=== PATIENT | male | born 1940 | race Caucasian/White ===

== ENCOUNTER → 2016-12-10 | Outpatient (CLI) | payer MEDICARE ==
[2015-09-20 22:30] VITALS: BP 105/52
[~2016-12-10] MED LIST: DULO20CA17 PO; GLIM2TAB2 PO; METF-620 PO; OMEP20CA9 PO; SIMV5TAB5 PO
--- NOTE | 2016-12-10 17:31 | CARD ---
APPROVED REPORT EXAM: Two-dimensional and M-mode echocardiogram with Doppler and color Doppler. Other Information Quality : Average Rhythm : NSR INDICATION Syncope 2D DIMENSIONS RVDd2.9 (2.9-3.5cm)Left Atrium(2D)3.6 (1.6-4.0cm) IVSd1.1 (0.7-1.1cm)Aortic Root(2D)3.1 (2.0-3.7cm) LVDd4.7 (3.9-5.9cm)LVOT Diameter2.0 (1.8-2.4cm) PWd1.1 (0.7-1.1cm)LVDs3.0 (2.5-4.0cm) FS (%) 35.8 %SV66.5 ml LVEF(%)65.3 (>50%) Aortic Valve AoV Peak Paul.130.4cm/sAoV VTI24.5cm AO Peak GR.6.8mmHgLVOT Peak Paul.103.6cm/s LVOT VTI 19.18cmAO Mean GR.4mmHg MONICA (VMAX)2.26qf9PNB (VTI)2.40cm2 Mitral Valve MV E Thxvucyr50.2cm/sMV DECEL IYOJ777xw MV A Vercrzco00.0cm/sMV E Mean Gr.2mmHg MV IYF19hgK/A Ratio0.7 MV A Uqkzbpph488aqTUX (PHT)2.77cm2 TDI E/Lateral E'16.1E/Medial E'7.4 Pulmonary Valve PV Peak Qnrornlu745.1cm/sPV Peak Grad.4mmHg RVOT VTI14.6cm Pulmonary Vein S1 Mrstzumh48.7cm/sD2 Tzyyulyn21.3cm/s LEFT VENTRICLE The left ventricle is normal size. There is normal left ventricular wall thickness. Left ventricle sy stolic function is normal. The Ejection Fraction is 60-65%. There is normal LV segmental wall motion. The left ventricular diastolic function and filling is normal for age. There is no ventricular septa l defect visualized. RIGHT VENTRICLE The right ventricle is normal size. The right ventricular systolic function is normal. ATRIA The left atrium size is normal. The right atrium size is normal. The interatrial septum is intact wit h no evidence for an atrial septal defect or patent foramen ovale as noted on 2-D or Doppler imaging. AORTIC VALVE The aortic valve is mildly calcified. The aortic valve is trileaflet. Doppler and Color Flow revealed no significant aortic regurgitation. There is no significant aortic valvular stenosis. MITRAL VALVE Mitral annular calcification is mild. There is no mitral valve stenosis. Doppler and Color Flow revea led trace to mild mitral regurgitation. TRICUSPID VALVE The tricuspid valve is normal in structure and function. Doppler and Color Flow revealed no tricuspid valve regurgitation noted. Unable to estimate PA pressure. There is no tricuspid valve stenosis. PULMONIC VALVE The pulmonic valve is not well visualized. Doppler and Color Flow revealed trace pulmonic valvular re gurgitation. There is no pulmonic valvular stenosis. GREAT VESSELS The aortic root is normal in size. The ascending aorta is normal in size. Normal pulmonary venous ravin w (Doppler). The IVC is normal in size and collapses >50% with inspiration. PERICARDIAL EFFUSION There is no evidence of significant pericardial effusion. Critical Notification Critical Value: No <Conclusion> The left ventricle is normal size. Left ventricle systolic function is normal. The Ejection Fraction is 60-65%. There is no significant aortic valvular stenosis. Doppler and Color Flow revealed no significant aortic regurgitation. Doppler and Color Flow revealed trace to mild mitral regurgitation. Doppler and Color Flow revealed no tricuspid valve regurgitation noted. There is no evidence of significant pericardial effusion.
== END | disposition home or self-care (01) ==
LOC: ECHO 10:19
PROVIDERS: ATTEND Internal Medicine Cardiovascular Disease
DX: I34.0 Nonrheumatic mitral (valve) insufficiency (principal)
CPT/HCPCS: 93306

== ENCOUNTER → 2017-01-23 | Outpatient (CLI) | payer MEDICARE ==
[2015-09-20 22:30] VITALS: BP 105/52
--- NOTE | 2017-01-23 15:38 | RAD ---
APPROVED REPORT Patient Location: OUT-PATIENT Laterality:Bilateral Indications Dizziness and Vertigo Unsteady Gait Syncope FALLS Doppler Spectral Velocity Analysis Right Left pCCA 81/6 cm/spCCA 93/10 cm/s mCCA 64/11 cm/smCCA 97/11 cm/s dCCA 45/6 cm/sdCCA 81/10 cm/s pICA 38/7 cm/spICA 51/11 cm/s Farzana 76/16 cm/smICA 81/18 cm/s dICA 98/26 cm/sdICA 98/15 cm/s ICA/CCA 1.21ICA/CCA 1.05 Findings Barker scale images of the right common carotid artery reveal mild atherosclerotic plaque in a circumfe rential manner. There is moderate atherosclerotic plaque at the level of the carotid bulb. No signifi cant plaque is noted in the internal carotid artery. Color Doppler and spectral waveforms are as note d and do not reveal any evidence of high-grade stenosis. Based on ultrasound criteria there is 0-50% stenosis. Similarly on the left side grayscale images demonstrate mild to moderate irregular atherosclerotic pl aque. Color Doppler and spectral waveforms do not demonstrate any evidence of high-grade disease in t he common cardiac, internal carotid and/or external carotid vessels.. Based on ultrasound criteria th ere is 0-50% stenosis. The bilateral vertebral velocities are antegrade. Bilateral external carotid arteries are without any significant disease. Critical Notification Critical Value: No <Conclusion> 1. No significant high-grade carotid arterial disease with mild atherosclerotic plaque throughout the arterial course.
== END | disposition home or self-care (01) ==
LOC: US 10:45
PROVIDERS: ATTEND Internal Medicine Cardiovascular Disease
DX: R55 Syncope and collapse (principal); R42 Dizziness and giddiness; R26.89 Other abnormalities of gait and mobility; R29.6 Repeated falls
CPT/HCPCS: 93880

== ENCOUNTER → 2017-03-03 | Outpatient (CLI) | payer MEDICARE ==
[2015-09-20 22:30] VITALS: BP 105/52
--- NOTE | 2017-03-04 14:25 | EEG ---
DATE OF SERVICE: 03/03/2017 EEG NUMBER: [id number] OBJECTIVE: The patient is a 76-year-old male with syncope. DESCRIPTION OF PROCEDURE: This is a digital study. Electrodes are placed according to the international 10-20 system. Bipolar and referential montages are available. Activation procedures typically include hyperventilation and intermittent photic stimulation. INTERPRETATION: The waking background consists of 8-9 Hz, 50-100 microvolt activity, symmetrically distributed over parietooccipital regions and reactive to eye opening. Hyperventilation and intermittent photic stimulation are noncontributory. Stage I sleep is achieved with normal electroencephalogram patterns. IMPRESSION: This electroencephalogram with the patient awake and asleep is within normal limits. There is no focal, paroxysmal, or epileptiform activity. Thank you for letting us to help with the patient's care. TERRY BARONE MD DR: AFRICA/jourdan JOB#: [id number] / [id number] OL Raza MD
== END | disposition home or self-care (01) ==
LOC: RT 11:13
PROVIDERS: ATTEND Psychiatry & Neurology Neurology with Special Qualifications in Child Neurology
DX: R55 Syncope and collapse (principal); R06.4 Hyperventilation
CPT/HCPCS: 95816

== ENCOUNTER 2017-04-30 11:42 | Inpatient (IN) | payer MEDICARE ==
[~2017-04-30] VITALS: Ht 170.2 cm; Wt 76.4 kg
[2017-04-30 12:31] LABS: BASO % 0 % (0-3); EOS % 0 % (0-3); HEMATOCRIT 46.8 % (39.0-53.0); HEMOGLOBIN 16.4 g/dL (13.0-17.5); LYMPH # 0.8 x10^3/uL (1.0-4.8); LYMPH % 8 % (24-48); MEAN CORPUSCULAR HEMOGLOBIN 32 pg (25-35); MEAN CORPUSCULAR HGB CONC 35 g/dL (31-37); MEAN CORPUSCULAR VOLUME 91 fL (79-100); MONO % 7 % (0-9); NEUT % 85 % (31-73); PLATELET COUNT 260 x10^3/uL (140-400); RED BLOOD COUNT 5.13 x10^6/uL (4.30-5.70); RED CELL DISTRIBUTION WIDTH 12.9 % (11.5-14.5); WHITE BLOOD COUNT 11.2 x10^3/uL (4.0-11.0)
[2017-04-30 12:39] LABS: CALCIUM 9.4 mg/dL (8.5-10.1); GFR 72.8; POTASSIUM 3.2 mmol/L (3.5-5.1)
--- NOTE | 2017-04-30 12:43 | EKG ---
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
[2017-04-30 12:45] LABS: ALBUMIN/GLOBULIN RATIO 1.1 (1.0-1.7); TOTAL BILIRUBIN 0.9 mg/dL (0.2-1.0); TOTAL PROTEIN 7.6 g/dL (6.4-8.2)
--- NOTE | 2017-04-30 13:22 | ED.ADGEN ---
Past Medical History Past Medical History: Diabetes-Type I Past Surgical History: Other Alcohol Use: None Drug Use: None Adult General Chief Complaint Chief Complaint: WEAKNESS/GENERALIZED HPI HPI Patient is a 76 year old man, history of type 2 diabetes mellitus, overactive bladder, who presents to the emergency department via private vehicle from his primary care provider's office with multiple complaints. Patient states it started on Friday he began experiencing worsening weakness associated with nausea and vomiting, states it was dark brown, denies any yael blood, states he had increasing fatigue, weakness, epigastric abdominal pain radiating to the chest, denies any falls, states that this morning he awoke with a severe headache, and then it noted that he was having difficulty seeing certain portions of his vision, denies any blurred vision, denies any headache currently. States he is also having difficulty swelling of the past several days , states it is more than just pain. Denies any injuries as stated. No weakness numbness or tingling or focal location. Denies any swelling extremities, any rashes, any urinary complaints, states that he's had regular stools, which she been normal in color. States his last episode of emesis was shortly before arriving in the ED. States the pain is cramping and sharp and stabbing in nature. Denies any radiation aside from the abdomen up into the lower part of the chest. No yael chest pain, mild shortness of breath. Review of Systems Review of Systems Constitutional: Denies fever or chills. []Generalized weakness and malaise. Eyes: Denies change in visual acuity. [] HENT: Denies nasal congestion or sore throat. [] Respiratory: Denies cough, shortness of breath, sore throat.. [] Cardiovascular: Epigastric abdominal pain radiating into the lower chest. No edema.] GI: Abdominal pain, nausea and vomiting, difficulty with swallowing. [] : Denies dysuria. [] Musculoskeletal: Denies back pain or joint pain. [] Integument: Denies rash. [] Neurologic: Denies headache, focal weakness or sensory changes. [] Endocrine: Denies polyuria or polydipsia. [] Lymphatic: Denies swollen glands. [] Psychiatric: Denies depression or anxiety. [] Current Medications Current Medications Current Medications Medications (Trade) Dose Ordered Sig/Sonja Start Time Stop Time Status Last Admin Dose Admin Info (Do NOT chart on this entry -- for MONITORING) 1 each PRN DAILY PRN 04/30/17 15:45 05/02/17 15:44 Iohexol (Omnipaque 300 Mg/ml) 75 ml 1X ONCE 04/30/17 15:45 04/30/17 15:46 DC 04/30/17 15:52 75 ML Allergies Allergies Allergies Coded Allergies Type Severity Reaction Last Updated Verified No Known Drug Allergies 09/20/15 No Physical Exam Physical Exam Constitutional: Well developed, well nourished, no acute distress, non-toxic appearance. [] HENT: Normocephalic, atraumatic, bilateral external ears normal, oropharynx moist, no oral exudates, nose normal. Normal appearing oropharynx.[] Eyes: PERRLA, EOMI, conjunctiva normal, no discharge. [] Neck: Normal range of motion, no tenderness, supple, no stridor. [] Cardiovascular:Heart rate regular rhythm, no murmur, S1, S2, no rubs or gallops. []Patient with mild thrush palpation across the anterior portion of the chest sitting down to the xiphoid process. Lungs & Thorax: Bilateral breath sounds clear to auscultation, no wheezing, rhonchi, rales. No chest wall crepitus or tenderness. [] Abdomen: Bowel sounds normal, soft, mild initial patient in the epigastric region, no rebound or rigidity, no guarding, no masses, no pulsatile masses. [] Skin: Warm, dry, slightly pale, no erythema, no rash. [] Back: No tenderness, no CVA tenderness. [] Extremities: No tenderness, no cyanosis, no clubbing, ROM intact, no edema. Negative Homans sign.[] Neurologic: Alert and oriented X 3, normal motor function, normal sensory function, no focal deficits noted. []Patient requires assistance sitting upright , but his 5-5 strength in all extremities, with normal sensation. Normal speech , normal comprehension, patient complaining of left upper quadrant hemianopsia, NIH stroke scale of 2. Psychologic: Affect normal, judgement normal, mood normal. [] Current Patient Data Vital Signs Vital Signs Date Time Temp Pulse Resp B/P (MAP) Pulse Ox O2 Delivery O2 Flow Rate FiO2 04/30/17 15:20 81 97 11/29/17 12:07 97.9 97.9 04/30/17 11:59 18 142/72 (95) Room Air Lab Values Laboratory Tests Test 04/30/17 12:08 04/30/17 13:15 White Blood Count 11.2 x10^3/uL (4.0-11.0) H Red Blood Count 5.13 x10^6/uL (4.30-5.70) Hemoglobin 16.4 g/dL (13.0-17.5) Hematocrit 46.8 % (39.0-53.0) Mean Corpuscular Volume 91 fL (79-100) Mean Corpuscular Hemoglobin 32 pg (25-35) Mean Corpuscular Hemoglobin Concent 35 g/dL (31-37) Red Cell Distribution Width 12.9 % (11.5-14.5) Platelet Count 260 x10^3/uL (140-400) Neutrophils (%) (Auto) 85 % (31-73) H Lymphocytes (%) (Auto) 8 % (24-48) L Monocytes (%) (Auto) 7 % (0-9) Eosinophils (%) (Auto) 0 % (0-3) Basophils (%) (Auto) 0 % (0-3) Neutrophils # (Auto) 9.5 x10^3uL (1.8-7.7) H Lymphocytes # (Auto) 0.8 x10^3/uL (1.0-4.8) L Monocytes # (Auto) 0.8 x10^3/uL (0.0-1.1) Eosinophils # (Auto) 0.0 x10^3/uL (0.0-0.7) Basophils # (Auto) 0.0 x10^3/uL (0.0-0.2) Sodium Level 134 mmol/L (136-145) L Potassium Level 3.2 mmol/L (3.5-5.1) L Chloride Level 95 mmol/L (98-107) L Carbon Dioxide Level 26 mmol/L (21-32) Anion Gap 13 (6-14) Blood Urea Nitrogen 22 mg/dL (8-26) Creatinine 1.0 mg/dL (0.7-1.3) Estimated GFR (Cockcroft-Gault) 72.8 BUN/Creatinine Ratio 22 (6-20) H Glucose Level 218 mg/dL (70-99) H Calcium Level 9.4 mg/dL (8.5-10.1) Total Bilirubin 0.9 mg/dL (0.2-1.0) Aspartate Amino Transferase (AST) 25 U/L (15-37) Alanine Aminotransferase (ALT) 33 U/L (16-63) Alkaline Phosphatase 84 U/L (46-116) Troponin I Quantitative < 0.017 ng/mL (0.000-0.055) Total Protein 7.6 g/dL (6.4-8.2) Albumin 4.0 g/dL (3.4-5.0) Albumin/Globulin Ratio 1.1 (1.0-1.7) Lipase 33 U/L (73-393) L Stool Occult Blood Negative (NEG) Laboratory Tests 04/30/17 12:08 Laboratory Tests 04/30/17 12:08 EKG EKG 1202: Sinus rhythm, heart rate 92 beats/minute, left axis deviation with contour normality is noted in the anterior septal leads, nonspecific interventricular block, Q cc of 495, MT 172, QRS of 160, when compared to previous ECG from 09/20/2015, morphology is are preserved, no significant changes identified. As interpreted by me. Abnormal ECG, does not meet STEMI criteria.[] Radiology/Procedures Radiology/Procedures [] [facility] [address] [place] [address] IMAGING REPORT Signed PATIENT: ANA LOYOLA ACCOUNT: [id number] : 1940 LOCATION: ER AGE: 76 SEX: M EXAM STATUS: REG ER ORD. PHYSICIAN: DOMINIQUE ROBLERO DO REASON: hemianopsia/failed swallow study/CVA, outside of TPA window PROCEDURE: CTA HEAD/NECK - CODE STROKE CTA of the head and neck with contrast, 04/30/2017: History: Headache, difficulty swallowing Multidetector CT imaging was performed following an IV bolus injection of iodinated contrast. Multiplanar reconstructions were produced including coronal and sagittal MIP images. 3-D volume rendered reconstructions were also produced. There is mild calcific plaquing of the aortic arch without significant narrowing of the cervicocephalic arterial origins. The left common carotid artery is widely patent. There is mild calcific plaquing at the left carotid bifurcation with only mild narrowing at the left internal carotid artery origin. The left internal carotid artery is widely patent in the upper neck. There is calcific plaquing involving its cavernous segment without evidence of high-grade stenosis. The left anterior cerebral and middle cerebral arteries and their major branches are patent. No high-grade stenosis or aneurysm is seen. The right common carotid artery is widely patent. There is mild calcific plaquing at the right carotid bifurcation. There is only mild narrowing of the origin of the right internal carotid artery. There is mild calcific plaquing involving the cavernous segment of the distal right internal carotid artery with mild associated luminal narrowing. The right anterior cerebral and middle cerebral arteries and their major branches show no abnormality. The vertebral arteries are relatively small. The origin of the left vertebral artery is not clearly visible due to artifacts in this region. The right vertebral artery origin is unremarkable. Both vertebral arteries are patent throughout the neck up through their junction with the basilar artery. There are prominent posterior communicating arteries bilaterally providing the majority of the blood supply to the posterior cerebral arteries. The posterior cerebral arteries show no specific abnormality. IMPRESSION: 1. Mild calcific plaquing at both carotid bifurcations with only mild associated narrowing of the proximal internal carotid arteries bilaterally. 2. Mild calcific plaquing involving the cavernous segments of both distal internal carotid arteries. 3. Prominent posterior communicating arteries bilaterally providing the majority of the blood supply to the posterior cerebral arteries. This is a normal anatomic variant. 4. No significant intracranial arterial abnormality is detected. Impressions: [facility] [address] [place] [address] IMAGING REPORT Signed PATIENT: ANA LOYOLA ACCOUNT: [id number] : 1940 LOCATION: ER AGE: 76 SEX: M EXAM STATUS: REG ER ORD. PHYSICIAN: DOMINIQUE ROBLERO DO REASON: abd/cp PROCEDURE: ACUTE ABDOMEN SERIES Acute abdomen series with chest, 3 views, 04/30/2017: History: Chest pain, vomiting and choking The abdominal gas pattern is unremarkable. No free air is seen in the abdomen. There is no evidence of organomegaly. There is a mild thoracolumbar scoliosis with moderate multilevel degenerative change. The heart size and pulmonary vascularity are normal. There is calcific plaquing of the thoracic aorta. No pulmonary infiltrates are seen. There is no evidence of pleural fluid. IMPRESSION: No acute abnormality is identified the abdomen or chest. DICTATED and SIGNED BY: ROSA HERNANDEZ MD DATE: 04/30/17 1440 CC: DOMINIQUE ROBLERO DO; AMOL MCCORD MD ~ [facility] [address] [place] [address] IMAGING REPORT Signed PATIENT: ANA LOYOLA ACCOUNT: [id number] : 1940 LOCATION: ER AGE: 76 SEX: M EXAM STATUS: REG ER ORD. PHYSICIAN: DOMINIQUE ROBLERO DO REASON: ? right hemianopsia/WIGGINS PROCEDURE: CT HEAD WO CONTRAST CT of the head without contrast, 04/30/2017: History: Weakness Comparison is made to a study from 09/20/2015. There is mild cerebral atrophy. There are extensive bilateral deep white matter lucencies which were also present on the previous study. The findings are compatible with chronic ischemic change. A new peripheral area of decreased density is present medially in the right occipital lobe in a parasagittal location. There is effacement of the overlying cortical sulci. The appearance suggests nonspecific edema, probably due to a recent/subacute infarct. This process measures approximately 2 x 4.5 cm on the axial scans. The ventricles are unchanged in size. There is no shift of the midline structures. There is no evidence of acute intracranial hemorrhage. IMPRESSION: Normal 1. Extensive bilateral deep white matter lucencies compatible with chronic ischemic change. 2. New peripheral lucency medially in the right occipital lobe most compatible with a subacute infarct. PQRS Compliance Statement: One or more of the following individualized dose reduction techniques were utilized for this examination: 1. Automated exposure control 2. Adjustment of the mA and/or kV according to patient size 3. Use of iterative reconstruction technique DICTATED and SIGNED BY: ROSA HERNANDEZ MD DATE: 04/30/17 1419 CC: DOMINIQUE ROBLERO DO; AMOL MCCORD MD ~ Course & Med Decision Making Course & Med Decision Making Pertinent Labs and Imaging studies reviewed. (See chart for details) Patient with left-sided hemianopsia and failed swallow study noted on examination, also complaining of epigastric pain with emesis, concern for possible GI bleeding, based on his report of a dark emesis and dark stool. Patient is agreeable to receiving imaging of the head, chest abdomen and pelvis , with obstruction series, as abdomen is soft and nontender, is had no further vomiting since [place]. CT of the head was delayed in being read secondary to computer system difficulties, however CT did reveal a subacute lacunar infarct in the right occipital region, consistent with patient's visual findings. Patient's call blood stool was negative. Acute ulcers unremarkable, as was troponin and other laboratory studies. I did discuss the signs and patient, he is agreeable for admission to the hospital. I did discuss the signs with Dr Rahman of neurology, who did evaluate the patient in the ED. Patient's CTA of the head and neck ordered, along with MRI. Findings as above discussed with Dr. Austin of internal medicine, patient accepted to her service as a full admission to the medical telemetry floor, with neurology consultation as stated. Dragon Disclaimer Dragon Disclaimer This electronic medical record was generated, in whole or in part, using a voice recognition dictation system. Departure Impression: Primary Impression: CVA (cerebral vascular accident) Disposition: 09 ADMITTED INPATIENT Admitting Physician: Other Condition: IMPROVED DOMINIQUE ROBLERO DO Apr 30, 2017 13:22
[2017-04-30 13:33] LABS: NEG OBC FOB NEG; POS OBC FOB POS
[2017-04-30] MEDS ORDERED: IOHEXOL 300 MG/ML 100ML VIAL. IV ONE (15:45)
[2017-04-30] MEDS ORDERED: CONTRAST GIVEN MC PRN (15:45)
--- NOTE | 2017-04-30 15:47 | RAD ---
CT of the head without contrast, 04/30/2017: History: Weakness Comparison is made to a study from 09/20/2015. There is mild cerebral atrophy. There are extensive bilateral deep white matter lucencies which were also present on the previous study. The findings are compatible with chronic ischemic change. A new peripheral area of decreased density is present medially in the right occipital lobe in a parasagittal location. There is effacement of the overlying cortical sulci. The appearance suggests nonspecific edema, probably due to a recent/subacute infarct. This process measures approximately 2 x 4.5 cm on the axial scans. The ventricles are unchanged in size. There is no shift of the midline structures. There is no evidence of acute intracranial hemorrhage. IMPRESSION: Normal 1. Extensive bilateral deep white matter lucencies compatible with chronic ischemic change. 2. New peripheral lucency medially in the right occipital lobe most compatible with a subacute infarct. PQRS Compliance Statement: One or more of the following individualized dose reduction techniques were utilized for this examination: 1. Automated exposure control 2. Adjustment of the mA and/or kV according to patient size 3. Use of iterative reconstruction technique
--- NOTE | 2017-04-30 15:48 | RAD ---
Acute abdomen series with chest, 3 views, 04/30/2017: History: Chest pain, vomiting and choking The abdominal gas pattern is unremarkable. No free air is seen in the abdomen. There is no evidence of organomegaly. There is a mild thoracolumbar scoliosis with moderate multilevel degenerative change. The heart size and pulmonary vascularity are normal. There is calcific plaquing of the thoracic aorta. No pulmonary infiltrates are seen. There is no evidence of pleural fluid. IMPRESSION: No acute abnormality is identified the abdomen or chest.
--- NOTE | 2017-04-30 16:33 | PDOC2 ---
NEUROLOGY CONSULT Date of Admission Date of Admission DATE: 04/30/17 TIME: 16:14 Reason for Consult Reason for Consult: Headache and visual disturbance Referring Physician Referring Physician: Dr. Austin PCP: Dr. Adams Source Source: Caregiver, Chart review, Patient History of Present Illness History of Present Illness The patient is a 76-year-old right-handed male well known to me from workups for syncope, headaches, and falls. Starting 5 days ago he had nausea, vomiting, and brown emesis. He felt like he tore his esophagus. Last night he noticed headache and loss of vision to the left side. He has no prior history of stroke , seizure, or head injury. In 2015 he had a negative brain MRI, MR angiogram, and echocardiogram. EEG on 03/03/17 was negative. Carotid Dopplers on 01/23/17 were negative. Repeat echocardiogram on 12/10/16 was negative. 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 I last saw him in the office 2 months ago. Past Medical History Cardiovascular: Syncope CENTRAL NERVOUS SYSTEM: Migraine, Periperal neuropathy (with gait disorder), Other (mild cognitve impairment) Endocrine: Diabetes Past Surgical History Past Surgical History: Appendectomy Family History Family History: CAD Social History Social History , occasional alcohol, no tobacco, retired Current Medications Current Medications Current Medications Iohexol (Omnipaque 300 Mg/ml) 75 ml 1X ONCE IV Last administered on t 15:52; Start 04/30/17 at 15:45; Stop 04/30/17 at 15:46; Status DC Info (Do NOT chart on this entry -- for MONITORING) 1 each PRN DAILY PRN MC SEE COMMENTS; Start 04/30/17 at 15:45; Stop 05/02/17 at 15:44 Active Scripts Active Reported Simvastatin 5 Mg Tablet 2 Mg PO HS Duloxetine Hcl 20 Mg Capsule. 20 Mg PO DAILY Glimepiride 2 Mg Tablet 1 Tab PO DAILY Omeprazole 20 Mg Capsule. 1 Cap PO DAILY Metformin Hcl 1,000 Mg Tablet 1 Tab PO BIDWMEALS Allergies Allergies: Coded Allergies: No Known Drug Allergies (Unverified , 09/20/15) ROS Review of System Patient denies fevers, chills, dyspnea, angina, abdominal pain, change in bowels , or dysuria. Positive for weight loss and nausea/vomiting. 14 point review of systems is negative. Physical Exam Physical Examination PHYSICAL EXAMINATION: Vital signs: see above. General appearance is normal and in no acute distress. HEENT: Normocephalic and nontraumatic. Eyes, nose, ears, and throat are unremarkable. Neck is supple. No lymphadenopathy. No bruits are heard over the carotid artery. No crepitus. NEUROLOGICAL EXAMINATION: Mental Status Examination: Alert. Oriented to time, place, and person. Answers questions and follows commends. Pupils are equal round and reactive to light and accommodation. Extraocular movements are intact. Visual field exam shows left hemianopsia. No motor or sensory deficits on the facial exam. Uvula in the midline and the soft palate elevated symmetrically. No deviation of the tongue to any direction. Gross hearing is normal. Shoulder shrug normal. Muscle tone is normal. Muscle strength is 5/5. Deep tendon reflexes are 2+ all around. Plantar reflex is with flexion response bilaterally. Finger-to- nose test performance is accurate. Alternative movements are accurate. Gait not tested. Sensory exam shows stocking loss. No cerebellar signs are elicited. Vitals VITALS Vital Signs Date Time Temp Pulse Resp B/P (MAP) Pulse Ox O2 Delivery O2 Flow Rate FiO2 04/30/17 12:07 97.9 96 100 97.9 04/30/17 11:59 18 142/72 (95) Room Air Labs Labs Laboratory Tests Test 04/30/17 12:08 04/30/17 13:15 White Blood Count 11.2 x10^3/uL (4.0-11.0) Red Blood Count 5.13 x10^6/uL (4.30-5.70) Hemoglobin 16.4 g/dL (13.0-17.5) Hematocrit 46.8 % (39.0-53.0) Mean Corpuscular Volume 91 fL (79-100) Mean Corpuscular Hemoglobin 32 pg (25-35) Mean Corpuscular Hemoglobin Concent 35 g/dL (31-37) Red Cell Distribution Width 12.9 % (11.5-14.5) Platelet Count 260 x10^3/uL (140-400) Neutrophils (%) (Auto) 85 % (31-73) Lymphocytes (%) (Auto) 8 % (24-48) Monocytes (%) (Auto) 7 % (0-9) Eosinophils (%) (Auto) 0 % (0-3) Basophils (%) (Auto) 0 % (0-3) Neutrophils # (Auto) 9.5 x10^3uL (1.8-7.7) Lymphocytes # (Auto) 0.8 x10^3/uL (1.0-4.8) Monocytes # (Auto) 0.8 x10^3/uL (0.0-1.1) Eosinophils # (Auto) 0.0 x10^3/uL (0.0-0.7) Basophils # (Auto) 0.0 x10^3/uL (0.0-0.2) Sodium Level 134 mmol/L (136-145) Potassium Level 3.2 mmol/L (3.5-5.1) Chloride Level 95 mmol/L (98-107) Carbon Dioxide Level 26 mmol/L (21-32) Anion Gap 13 (6-14) Blood Urea Nitrogen 22 mg/dL (8-26) Creatinine 1.0 mg/dL (0.7-1.3) Estimated GFR (Cockcroft-Gault) 72.8 BUN/Creatinine Ratio 22 (6-20) Glucose Level 218 mg/dL (70-99) Calcium Level 9.4 mg/dL (8.5-10.1) Total Bilirubin 0.9 mg/dL (0.2-1.0) Aspartate Amino Transf (AST/SGOT) 25 U/L (15-37) Alanine Aminotransferase (ALT/SGPT) 33 U/L (16-63) Alkaline Phosphatase 84 U/L (46-116) Troponin I Quantitative < 0.017 ng/mL (0.000-0.055) Total Protein 7.6 g/dL (6.4-8.2) Albumin 4.0 g/dL (3.4-5.0) Albumin/Globulin Ratio 1.1 (1.0-1.7) Lipase 33 U/L (73-393) Stool Occult Blood Negative (NEG) Laboratory Tests Test 04/30/17 12:08 04/30/17 13:15 White Blood Count 11.2 x10^3/uL (4.0-11.0) Red Blood Count 5.13 x10^6/uL (4.30-5.70) Hemoglobin 16.4 g/dL (13.0-17.5) Hematocrit 46.8 % (39.0-53.0) Mean Corpuscular Volume 91 fL (79-100) Mean Corpuscular Hemoglobin 32 pg (25-35) Mean Corpuscular Hemoglobin Concent 35 g/dL (31-37) Red Cell Distribution Width 12.9 % (11.5-14.5) Platelet Count 260 x10^3/uL (140-400) Neutrophils (%) (Auto) 85 % (31-73) Lymphocytes (%) (Auto) 8 % (24-48) Monocytes (%) (Auto) 7 % (0-9) Eosinophils (%) (Auto) 0 % (0-3) Basophils (%) (Auto) 0 % (0-3) Neutrophils # (Auto) 9.5 x10^3uL (1.8-7.7) Lymphocytes # (Auto) 0.8 x10^3/uL (1.0-4.8) Monocytes # (Auto) 0.8 x10^3/uL (0.0-1.1) Eosinophils # (Auto) 0.0 x10^3/uL (0.0-0.7) Basophils # (Auto) 0.0 x10^3/uL (0.0-0.2) Sodium Level 134 mmol/L (136-145) Potassium Level 3.2 mmol/L (3.5-5.1) Chloride Level 95 mmol/L (98-107) Carbon Dioxide Level 26 mmol/L (21-32) Anion Gap 13 (6-14) Blood Urea Nitrogen 22 mg/dL (8-26) Creatinine 1.0 mg/dL (0.7-1.3) Estimated GFR (Cockcroft-Gault) 72.8 BUN/Creatinine Ratio 22 (6-20) Glucose Level 218 mg/dL (70-99) Calcium Level 9.4 mg/dL (8.5-10.1) Total Bilirubin 0.9 mg/dL (0.2-1.0) Aspartate Amino Transf (AST/SGOT) 25 U/L (15-37) Alanine Aminotransferase (ALT/SGPT) 33 U/L (16-63) Alkaline Phosphatase 84 U/L (46-116) Troponin I Quantitative < 0.017 ng/mL (0.000-0.055) Total Protein 7.6 g/dL (6.4-8.2) Albumin 4.0 g/dL (3.4-5.0) Albumin/Globulin Ratio 1.1 (1.0-1.7) Lipase 33 U/L (73-393) Stool Occult Blood Negative (NEG) Images Images Comparison is made to a study from 09/20/2015. There is mild cerebral atrophy. There are extensive bilateral deep white matter lucencies which were also present on the previous study. The findings are compatible with chronic ischemic change. A new peripheral area of decreased density is present medially in the right occipital lobe in a parasagittal location. There is effacement of the overlying cortical sulci. The appearance suggests nonspecific edema, probably due to a recent/subacute infarct. This process measures approximately 2 x 4.5 cm on the axial scans. The ventricles are unchanged in size. There is no shift of the midline structures. There is no evidence of acute intracranial hemorrhage. IMPRESSION: Normal 1. Extensive bilateral deep white matter lucencies compatible with chronic ischemic change. 2. New peripheral lucency medially in the right occipital lobe most compatible with a subacute infarct. 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 Dysphagia Recommendations: CT angiogram head and neck MRI brain tomorrow GI consult regarding nausea/vomiting, dysphagia Rehabilitation modalities No need to repeat echo Aspirin rectally for now, risk of GI bleeding versus stroke prevention benefits discussed. He had been taking daily aspirin but stopped a week ago, technically he is not an aspirin failure. Not an alteplase candidate, not an intervention candidate, time of onset last night. Thank you for letting me help with the patient's care. TERRY BARONE MD Apr 30, 2017 16:33
[2017-04-30] MEDS ORDERED: IV NORMAL SALINE 1000ML BAG 1,000 ML IV SCH (16:35)
--- NOTE | 2017-04-30 16:36 | RAD ---
CTA of the head and neck with contrast, 04/30/2017: History: Headache, difficulty swallowing Multidetector CT imaging was performed following an IV bolus injection of iodinated contrast. Multiplanar reconstructions were produced including coronal and sagittal MIP images. 3-D volume rendered reconstructions were also produced. There is mild calcific plaquing of the aortic arch without significant narrowing of the cervicocephalic arterial origins. The left common carotid artery is widely patent. There is mild calcific plaquing at the left carotid bifurcation with only mild narrowing at the left internal carotid artery origin. The left internal carotid artery is widely patent in the upper neck. There is calcific plaquing involving its cavernous segment without evidence of high-grade stenosis. The left anterior cerebral and middle cerebral arteries and their major branches are patent. No high-grade stenosis or aneurysm is seen. The right common carotid artery is widely patent. There is mild calcific plaquing at the right carotid bifurcation. There is only mild narrowing of the origin of the right internal carotid artery. There is mild calcific plaquing involving the cavernous segment of the distal right internal carotid artery with mild associated luminal narrowing. The right anterior cerebral and middle cerebral arteries and their major branches show no abnormality. The vertebral arteries are relatively small. The origin of the left vertebral artery is not clearly visible due to artifacts in this region. The right vertebral artery origin is unremarkable. Both vertebral arteries are patent throughout the neck up through their junction with the basilar artery. There are prominent posterior communicating arteries bilaterally providing the majority of the blood supply to the posterior cerebral arteries. The posterior cerebral arteries show no specific abnormality. IMPRESSION: 1. Mild calcific plaquing at both carotid bifurcations with only mild associated narrowing of the proximal internal carotid arteries bilaterally. 2. Mild calcific plaquing involving the cavernous segments of both distal internal carotid arteries. 3. Prominent posterior communicating arteries bilaterally providing the majority of the blood supply to the posterior cerebral arteries. This is a normal anatomic variant. 4. No significant intracranial arterial abnormality is detected.
[2017-04-30] MEDS ORDERED: ACETAMINOPHEN 650 MG SUPP.RECT. PR PRN (16:45)
[2017-04-30] MEDS ORDERED: ACETAMINOPHEN 325 MG TABLET. PO PRN (16:45)
[2017-04-30] MEDS ORDERED: LABETALOL 20 MG/4 ML DISP.SYRIN. IVP PRN (16:45)
[2017-04-30] MEDS: ASPIRIN 300 MG SUPP.RECT PR SCH (17:03)
[2017-04-30 17:38] VITALS: BP 153/86
[2017-04-30 17:39] VITALS: BP 153/86
[2017-04-30] MEDS ORDERED: INSU100V13 SQ (17:47)
[2017-04-30] MEDS ORDERED: OXYB5TAB7 PO (17:47)
[2017-04-30] MEDS: ENOXAPARIN 40 MG/0.4 ML SYRINGE. SQ SCH (17:53)
[2017-04-30] MEDS ORDERED: DEXTROSE 50% 25 GM / 50ML DISP.SYRIN. IV PRN (19:00)
[2017-04-30] MEDS: OXYBUTYNIN CHLORIDE 5 MG TABLET PO SCH (19:14)
[2017-04-30] MEDS: SIMVASTATIN 10 MG TABLET PO SCH (19:14)
--- NOTE | 2017-04-30 19:23 | HP ---
ADMIT DATE: 04/30/2017 CHIEF COMPLAINT: Vision changes. HISTORY OF PRESENT ILLNESS: The patient is a 76-year-old gentleman with diabetes mellitus who presented to the Emergency Room on urging of his primary care physician with headache and vision changes. He relates that he woke up this morning with a splitting headache, got up to get himself pain medications and started noticing that he only saw partial images such as only half the digits on his alarm clock and only half the fan blades. That alarmed him enough to have his take him to the Emergency Room. He relates that since last Friday he actually has noticed increased weakness with some nausea, vomiting, dark brown. He denies any diarrhea, however. Does have crampy type abdominal pain and occasionally sharp stabbing. Denies any chest pain, shortness of breath. PAST MEDICAL HISTORY: Diabetes mellitus. FAMILY HISTORY: Negative per the patient. SOCIAL HISTORY: Lives with his . Quit smoking 40+ years ago. Alcohol only rarely. ALLERGIES: No known drug allergies. MEDICATIONS: MAR reconciled with home medications. REVIEW OF SYSTEMS: Positive as per HPI. Rest of organ system review was questioned and found negative. PHYSICAL EXAMINATION: VITAL SIGNS: Blood pressure of 153/86, heart rate of 107, respiratory rate at 20. He is afebrile. GENERAL: This is a well-nourished, well-developed 76-year-old gentleman, awake, alert, in no acute distress. Speech is very slow with word finding difficulties. HEENT: Shows no scleral icterus. NECK: Supple, without any lymphadenopathy. LUNGS: Clear to auscultation bilaterally. HEART: Regular rate and rhythm. ABDOMEN: Has positive bowel sounds, soft, minimal tenderness in the epigastric area. EXTREMITIES: Show no edema. SKIN: Warm, soft and dry without any rash. NEUROLOGIC: He is alert and oriented x 3. Left hemianopsia on visual field exam. Rest of cranial nerves are within normal limits. Muscle strength 5/5 throughout. LABORATORY DATA: CBC with a WBC of 11.2, hemoglobin 16.4, platelets of 260. Chemistries with a BUN and creatinine of 22 and 1, sodium at 134, potassium 3.2, glucose at 218. LFTs and lipase normal. Occult blood on stool is negative. IMAGING STUDIES: Head and neck CT shows extensive bilateral deep white matter lucencies comparable with chronic ischemic change and new peripheral lucency medially in the right occipital lobe, most comparable with a subacute infarct. Acute abdomen series was obtained as well without any acute abnormality. ASSESSMENT AND PLAN: The patient is a 76-year-old gentleman with sudden changes in his vision noted on awakening. The CT actually interprets the findings as subacute. Neurology, Dr. Rahman, is following. The patient unfortunately is not a candidate for tPA. Further studies are pending. In the meantime, he has been started on aspirin as well as a statin. For his blood pressure, we will add beta leyda to get heart rate under control as well. Gastrointestinal symptoms are consistent with possibly a viral gastroenteritis. We will observe symptoms. If these do not resolve, consider Gastroenterology consult. Hypokalemia is mild and most likely secondary to nausea or vomiting. Replete IV. Await swallow study in a.m. as the patient relates that he has had coughing and difficulties with eating for quite a while. BEVERLY COOLEY MD DR: UR/nts JOB#: [id number] / [id number] OL Raza MD MTDD
[2017-04-30 19:31] VITALS: BP 170/71
[2017-04-30] MEDS: FAMOTIDINE 20 MG/2 ML VIAL IVP SCH (19:50)
[2017-04-30] MEDS: POTASSIUM CL 20MEQ-0.45% NACL 1,000 ML IV SCH (19:54)
[2017-04-30] MEDS ORDERED: SIMVASTATIN 5 MG TABLET. PO SCH (21:00)
[2017-04-30 23:46] VITALS: BP 150/82
[2017-05-01] MEDS: POTASSIUM CL 20MEQ-0.45% NACL 1,000 ML IV SCH ×2 (02:58→15:20)
[2017-05-01 03:11] VITALS: BP 161/80
[2017-05-01 07:00] VITALS: BP 163/63
[2017-05-01 07:19] LABS: CHOLESTEROL/HDL RATIO 3.6
[2017-05-01] MEDS: PANTOPRAZOLE 40 MG TABLET.DR. PO SCH (07:30)
[2017-05-01] MEDS: GLIMEPIRIDE 2 MG TABLET. PO SCH (08:00)
[2017-05-01] MEDS: DULoxetine HCL 20 MG CAPSULE.DR PO SCH (08:41)
[2017-05-01] MEDS: OXYBUTYNIN CHLORIDE 5 MG TABLET PO SCH ×2 (08:42→21:04)
[2017-05-01] MEDS: ASPIRIN 300 MG SUPP.RECT PR SCH (08:43)
[2017-05-01] MEDS: FAMOTIDINE 20 MG/2 ML VIAL IVP SCH ×2 (08:43→21:04)
[2017-05-01] MEDS: INSULIN ASPART 300 UNITS/3 ML INSULN.PEN SQ SCH ×3 (08:51→17:37)
--- NOTE | 2017-05-01 09:08 | PDOC2 ---
GI CONSULT Reason For Consult: Vomiting, esophagitis, dysphagia, CVA HPI: HPI: 76 y/o male admitted w/ new stroke. Gives some history, occasionally calls out for his Latonia, who isn't here this morning. Prior to admission had several days of n/v (other notes indicate "brown emesis") which has resolved. Also describes painful swallowing (oropharynx into chest) "with everything" for awhile. Has been kept NPO in anticipation of swallow eval. Thinks he takes omeprazole at home, not really sure. Denies reflux/heartburn. No abd pain. No constipation or diarrhea. Denies bleeding. No previous EGD or colonoscopy. No GB, liver, or pancreas history. Has IV H2 leyda and ASA here (which apparently he refused). Of note, he says he would never want a feeding tube. PMH: PMH: per chart - CVA, cognitive impairment, DM, peripheral neuropathy, syncope, migraines, GERD, tonsillectomy, appendectomy FH: Family History: No pertinent hx, CAD Social History: Smoke: Quit ALCOHOL: rare Drugs: None ROS: GEN: Denies fevers, chills, sweats HEENT: Denies blurred vision +painful swallowing CV: Denies chest pain RESP: Denies shortness of air, cough GI: Per HPI : Denies hematuria, dysuria ENDO: Denies weight changes NEURO: +confusion +dizziness MSK: +weakness SKIN: Denies jaundice, pruritus Vitals: Vitals: Vital Signs Date Time Temp Pulse Resp B/P (MAP) Pulse Ox O2 Delivery O2 Flow Rate FiO2 05/01/17 07:00 99.0 94 18 163/63 (96) 99 Room Air 99.0 Labs: Labs: Laboratory Tests Test 04/30/17 12:08 04/30/17 13:15 05/01/17 04:05 05/01/17 08:48 White Blood Count 11.2 x10^3/uL (4.0-11.0) Red Blood Count 5.13 x10^6/uL (4.30-5.70) Hemoglobin 16.4 g/dL (13.0-17.5) Hematocrit 46.8 % (39.0-53.0) Mean Corpuscular Volume 91 fL (79-100) Mean Corpuscular Hemoglobin 32 pg (25-35) Mean Corpuscular Hemoglobin Concent 35 g/dL (31-37) Red Cell Distribution Width 12.9 % (11.5-14.5) Platelet Count 260 x10^3/uL (140-400) Neutrophils (%) (Auto) 85 % (31-73) Lymphocytes (%) (Auto) 8 % (24-48) Monocytes (%) (Auto) 7 % (0-9) Eosinophils (%) (Auto) 0 % (0-3) Basophils (%) (Auto) 0 % (0-3) Neutrophils # (Auto) 9.5 x10^3uL (1.8-7.7) Lymphocytes # (Auto) 0.8 x10^3/uL (1.0-4.8) Monocytes # (Auto) 0.8 x10^3/uL (0.0-1.1) Eosinophils # (Auto) 0.0 x10^3/uL (0.0-0.7) Basophils # (Auto) 0.0 x10^3/uL (0.0-0.2) Sodium Level 134 mmol/L (136-145) Potassium Level 3.2 mmol/L (3.5-5.1) Chloride Level 95 mmol/L (98-107) Carbon Dioxide Level 26 mmol/L (21-32) Anion Gap 13 (6-14) Blood Urea Nitrogen 22 mg/dL (8-26) Creatinine 1.0 mg/dL (0.7-1.3) Estimated GFR (Cockcroft-Gault) 72.8 BUN/Creatinine Ratio 22 (6-20) Glucose Level 218 mg/dL (70-99) Calcium Level 9.4 mg/dL (8.5-10.1) Total Bilirubin 0.9 mg/dL (0.2-1.0) Aspartate Amino Transf (AST/SGOT) 25 U/L (15-37) Alanine Aminotransferase (ALT/SGPT) 33 U/L (16-63) Alkaline Phosphatase 84 U/L (46-116) Troponin I Quantitative < 0.017 ng/mL (0.000-0.055) Total Protein 7.6 g/dL (6.4-8.2) Albumin 4.0 g/dL (3.4-5.0) Albumin/Globulin Ratio 1.1 (1.0-1.7) Lipase 33 U/L (73-393) Stool Occult Blood Negative (NEG) Triglycerides Level 92 mg/dL (0-150) Cholesterol Level 132 mg/dL (0-200) LDL Cholesterol, Calculated 77 mg/dL (0-100) VLDL Cholesterol, Calculated 18 mg/dL (0-40) Non-HDL Cholesterol Calculated 95 mg/dL (0-129) HDL Cholesterol 37 mg/dL (40-60) Cholesterol/HDL Ratio 3.6 Glucose (Fingerstick) 239 mg/dL (70-99) Allergies: Coded Allergies: No Known Drug Allergies (Unverified , 09/20/15) Medications: Current Medications Medications (Trade) Dose Ordered Sig/Sonja Route PRN Reason Start Time Stop Time Status Last Admin Dose Admin Iohexol (Omnipaque 300 Mg/ml) 75 ml 1X ONCE IV 04/30/17 15:45 04/30/17 15:46 DC 04/30/17 15:52 Sodium Chloride 1,000 ml @ 100 mls/hr Q10H IV 04/30/17 16:35 04/30/17 19:01 DC 04/30/17 17:47 Enoxaparin Sodium (Lovenox 40mg Syringe) 40 mg Q24H SQ 04/30/17 17:00 04/30/17 17:53 Famotidine (Pepcid Vial) 20 mg BID IVP 04/30/17 21:00 05/01/17 08:43 Aspirin (Aspirin) 300 mg DAILY RI 04/30/17 17:00 04/30/17 17:03 Insulin Aspart (NovoLOG) 0-9 UNITS TIDWMEALS SQ 05/01/17 08:00 05/01/17 08:51 Potassium Chloride/Sodium Chloride 1,000 ml @ 125 mls/hr Q8H IV 04/30/17 20:00 05/01/17 02:58 Imaging: Imaging: Head CT IMPRESSION: Normal 1. Extensive bilateral deep white matter lucencies compatible with chronic ischemic change. 2. New peripheral lucency medially in the right occipital lobe most compatible with a subacute infarct. Acute Abd Series IMPRESSION: No acute abnormality is identified the abdomen or chest. Head/Neck CTA IMPRESSION: 1. Mild calcific plaquing at both carotid bifurcations with only mild associated narrowing of the proximal internal carotid arteries bilaterally. 2. Mild calcific plaquing involving the cavernous segments of both distal internal carotid arteries. 3. Prominent posterior communicating arteries bilaterally providing the majority of the blood supply to the posterior cerebral arteries. This is a normal anatomic variant. 4. No significant intracranial arterial abnormality is detected. PE: GEN: NAD HEENT: Atraumatic, PERRLA LUNGS: CTAB HEART: RRR, no murmurs ABD: NABS, S/ND/NT, no masses EXTREMITY: No edema SKIN: No rashes, no jaundice NEURO/PSYCH: A & O 3 A/P: A/P: Stroke N/v -several days prior to admission, now seems resolved -has been NPO -on PPI at home -no previous EGD ?dysphagia/odynophagia -onset prior to admission, hurts to swallow anything CRC screen -no previous colonoscopy -- N/v improved. Await swallow eval. 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 Will review w/ Dr. Jackson. ?better history when family here STEVEN RODRIGUEZ May 01, 2017 09:08
--- NOTE | 2017-05-01 13:19 | RAD ---
EXAM: Brain MRI without contrast. HISTORY: Confusion. Unsteady gait. TECHNIQUE: Multiplanar, multisequence magnetic resonance imaging of the brain was performed without contrast. COMPARISON: Head CT dated 04/30/2017. FINDINGS: There is restricted diffusion within the medial right occipital lobe and within the right aspect of the splenium of the corpus callosum, consistent with acute or subacute infarction. There is susceptibility effect associated with the occipital infarct due to hemorrhagic transformation. There is no mass effect or midline shift. There is no hydrocephalus. There is extensive signal change throughout the cerebral white matter and susan, a nonspecific finding likely due to chronic small vessel disease. There is a suspected chronic lacunar infarct within the right thalamus and right susan. There are foci of encephalomalacia within the right cerebellum likely due to chronic infarction. There is cerebral atrophy. The orbits, paranasal sinuses and mastoid air cells are unremarkable. There are normal flow voids within the cerebral vessels. IMPRESSION: 1. Acute or subacute infarction within the medial right occipital lobe in the right aspect of the splenium of the corpus callosum, the former which is associated with hemorrhagic transformation. 2. Extensive signal change throughout the cerebral white matter and susan, likely due to chronic small vessel disease. 3. Suspected chronic lacunar infarcts within the right thalamus and susan and foci of encephalomalacia likely due to chronic infarction within the right cerebellum. Findings were discussed with Susanna, the nurse caring for the patient, at 1300 hours on 05/01/2017. Electronically signed by: Eden Carlos MD (05/01/2017 1:15 PM) [email or web address]
--- NOTE | 2017-05-01 13:54 | PDOC ---
PROGRESS NOTES Chief Complaint Chief Complaint CVA and CVA syndrome New right occipital stroke Peripheral neuropathy Mild cognitive impairment Syncope, sudden vision change, improved viral gastroenteritis. Hypokalemia due to nausea and vomiting History of Present Illness History of Present Illness feels well this AM speech eval, then adat cont current feels improved neuro following Vitals Vitals Vital Signs Date Time Temp Pulse Resp B/P (MAP) Pulse Ox O2 Delivery O2 Flow Rate FiO2 05/01/17 08:00 Room Air 05/01/17 07:00 99.0 94 18 163/63 (96) 99 99.0 Physical Exam General: Alert, Cooperative, No acute distress, Other (oreinted 2/4) Heart: Regular rate Abdomen: Normal bowel sounds Extremities: No clubbing, No cyanosis Skin: No rashes, No breakdown Labs LABS Laboratory Tests Test 05/01/17 04:05 05/01/17 08:48 05/01/17 11:48 Triglycerides Level 92 mg/dL (0-150) Cholesterol Level 132 mg/dL (0-200) LDL Cholesterol, Calculated 77 mg/dL (0-100) VLDL Cholesterol, Calculated 18 mg/dL (0-40) Non-HDL Cholesterol Calculated 95 mg/dL (0-129) HDL Cholesterol 37 mg/dL (40-60) Cholesterol/HDL Ratio 3.6 Glucose (Fingerstick) 239 mg/dL (70-99) 223 mg/dL (70-99) Review of Systems Review of Systems lethargy no n.v.d Assessment and Plan Assessmemt and Plan PT and OT and speech Problems: Comment Review of Relevant I have reviewed the following items joy (where applicable) has been applied. Labs Laboratory Tests Test 04/30/17 12:08 04/30/17 13:15 05/01/17 04:05 05/01/17 08:48 White Blood Count 11.2 x10^3/uL (4.0-11.0) Red Blood Count 5.13 x10^6/uL (4.30-5.70) Hemoglobin 16.4 g/dL (13.0-17.5) Hematocrit 46.8 % (39.0-53.0) Mean Corpuscular Volume 91 fL (79-100) Mean Corpuscular Hemoglobin 32 pg (25-35) Mean Corpuscular Hemoglobin Concent 35 g/dL (31-37) Red Cell Distribution Width 12.9 % (11.5-14.5) Platelet Count 260 x10^3/uL (140-400) Neutrophils (%) (Auto) 85 % (31-73) Lymphocytes (%) (Auto) 8 % (24-48) Monocytes (%) (Auto) 7 % (0-9) Eosinophils (%) (Auto) 0 % (0-3) Basophils (%) (Auto) 0 % (0-3) Neutrophils # (Auto) 9.5 x10^3uL (1.8-7.7) Lymphocytes # (Auto) 0.8 x10^3/uL (1.0-4.8) Monocytes # (Auto) 0.8 x10^3/uL (0.0-1.1) Eosinophils # (Auto) 0.0 x10^3/uL (0.0-0.7) Basophils # (Auto) 0.0 x10^3/uL (0.0-0.2) Sodium Level 134 mmol/L (136-145) Potassium Level 3.2 mmol/L (3.5-5.1) Chloride Level 95 mmol/L (98-107) Carbon Dioxide Level 26 mmol/L (21-32) Anion Gap 13 (6-14) Blood Urea Nitrogen 22 mg/dL (8-26) Creatinine 1.0 mg/dL (0.7-1.3) Estimated GFR (Cockcroft-Gault) 72.8 BUN/Creatinine Ratio 22 (6-20) Glucose Level 218 mg/dL (70-99) Calcium Level 9.4 mg/dL (8.5-10.1) Total Bilirubin 0.9 mg/dL (0.2-1.0) Aspartate Amino Transf (AST/SGOT) 25 U/L (15-37) Alanine Aminotransferase (ALT/SGPT) 33 U/L (16-63) Alkaline Phosphatase 84 U/L (46-116) Troponin I Quantitative < 0.017 ng/mL (0.000-0.055) Total Protein 7.6 g/dL (6.4-8.2) Albumin 4.0 g/dL (3.4-5.0) Albumin/Globulin Ratio 1.1 (1.0-1.7) Lipase 33 U/L (73-393) Stool Occult Blood Negative (NEG) Triglycerides Level 92 mg/dL (0-150) Cholesterol Level 132 mg/dL (0-200) LDL Cholesterol, Calculated 77 mg/dL (0-100) VLDL Cholesterol, Calculated 18 mg/dL (0-40) Non-HDL Cholesterol Calculated 95 mg/dL (0-129) HDL Cholesterol 37 mg/dL (40-60) Cholesterol/HDL Ratio 3.6 Glucose (Fingerstick) 239 mg/dL (70-99) Test 05/01/17 11:48 Glucose (Fingerstick) 223 mg/dL (70-99) Laboratory Tests Test 05/01/17 04:05 05/01/17 08:48 05/01/17 11:48 Triglycerides Level 92 mg/dL (0-150) Cholesterol Level 132 mg/dL (0-200) LDL Cholesterol, Calculated 77 mg/dL (0-100) VLDL Cholesterol, Calculated 18 mg/dL (0-40) Non-HDL Cholesterol Calculated 95 mg/dL (0-129) HDL Cholesterol 37 mg/dL (40-60) Cholesterol/HDL Ratio 3.6 Glucose (Fingerstick) 239 mg/dL (70-99) 223 mg/dL (70-99) Medications Current Medications Iohexol (Omnipaque 300 Mg/ml) 75 ml 1X ONCE IV Last administered on 15:52; Start 04/30/17 at 15:45; Stop 04/30/17 at 15:46; Status DC Info (Do NOT chart on this entry -- for MONITORING) 1 each PRN DAILY PRN [place] SEE COMMENTS; Start 04/30/17 at 15:45; Stop 05/02/17 at 15:44 Sodium Chloride 1,000 ml @ 100 mls/hr Q10H IV Last administered on 04/30/17 17:47; Start 04/30/17 at 16:35; Stop 04/30/17 at 19:01; Status DC Enoxaparin Sodium (Lovenox 40mg Syringe) 40 mg Q24H SQ Last administered on 17:53; Start 04/30/17 at 17:00 Labetalol HCl (Normodyne) 10 mg PRN Q10MIN PRN IVP COMM; Start 04/30/17 at 16: 45 Simvastatin (Zocor) 10 mg QHS PO ; Start 04/30/17 at 21:00 Acetaminophen (Tylenol) 650 mg PRN Q6HRS PRN PO TEMP > 100.4F; Start 04/30/17 at 16:45 Acetaminophen (Acetaminophen Supp) 650 mg PRN Q4HRS PRN [place] TEMP > 100.4F; Start 04/30/17 at 16:45 Famotidine (Pepcid Vial) 20 mg BID IVP Last administered on 05/01/17 08:43; Start 04/30/17 at 21:00 Aspirin (Aspirin) 300 mg DAILY [place] Last administered on 04/30/17 17:03; Start 04/30/17 at 17:00 Duloxetine HCl (Cymbalta) 20 mg DAILY PO ; Start 05/01/17 at 09:00 Glimepiride (Amaryl) 2 mg DAILY08 PO ; Start 05/01/17 at 08:00 Oxybutynin Chloride (Ditropan) 5 mg BID PO ; Start 04/30/17 at 21:00 Simvastatin (Zocor) 2 mg HS PO ; Start 04/30/17 at 21:00; Status UNV Pantoprazole Sodium (Protonix) 40 mg DAILYAC PO ; Start 05/01/17 at 07:30 Insulin Aspart (NovoLOG) 0-9 UNITS TIDWMEALS SQ Last administered on 08:51; Start 05/01/17 at 08:00 Dextrose (Dextrose 50%-Water Syringe) 12.5 gm PRN Q15MIN PRN IV SEE COMMENTS; Start 04/30/17 at 19:00 Potassium Chloride/Sodium Chloride 1,000 ml @ 125 mls/hr Q8H IV Last administered on 05/01/17 02:58; Start 04/30/17 at 20:00 Active Scripts Active Reported Oxybutynin Chloride 5 Mg Tablet 1 Tab PO BID Levemir (Insulin Detemir) 100 Unit/1 Ml Vial 11 Unit SQ Simvastatin 5 Mg Tablet 2 Mg PO HS Duloxetine Hcl 20 Mg Capsule. 20 Mg PO DAILY Glimepiride 2 Mg Tablet 1 Tab PO DAILY Omeprazole 20 Mg Capsule. 1 Cap PO DAILY Metformin Hcl 1,000 Mg Tablet 1 Tab PO BIDWMEALS Vitals/I & O Vital Sign - Last 24 Hours 04/30/17 04/30/17 04/30/17 04/30/17 14:27 15:20 17:38 17:39 Temp 97.7 97.7 97.7 97.7 Pulse 84 81 107 107 Resp 20 20 B/P (MAP) 153/86 (108) 153/86 (108) Pulse Ox 96 97 100 100 O2 Delivery Room Air Room Air 04/30/17 04/30/17 04/30/17 04/30/17 18:12 19:31 20:00 23:46 Temp 98.3 97.8 98.3 97.8 Pulse 96 96 Resp 18 18 B/P (MAP) 170/71 (104) 150/82 (104) Pulse Ox 96 99 O2 Delivery Room Air Room Air Room Air Room Air 05/01/17 05/01/17 05/01/17 03:11 07:00 08:00 Temp 98.9 99.0 98.9 99.0 Pulse 91 94 Resp 18 18 B/P (MAP) 161/80 (107) 163/63 (96) Pulse Ox 99 99 O2 Delivery Room Air Room Air Room Air Intake and Output 04/30/17 04/30/17 05/01/17 15:00 23:00 07:00 Intake Total 0 ml 1200 ml Balance 0 ml 1200 ml ALFREDO ROBLEDO MD May 01, 2017 13:54
[2017-05-01 15:00] VITALS: BP 161/77
--- NOTE | 2017-05-01 15:48 | PDOC ---
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 Dysphagia Plan Rehabilitation modalities Aspirin, switch to oral Statin, even though cholesterol is not that high, HDL is low, and he is now had a stroke. He has had full Cardiologic workup including echocardiogram but has not had event monitoring, will ask Dr. Carlisle to see (he sees him in office). Subjective No complaints Objective Vital Signs Date Time Temp Pulse Resp B/P (MAP) Pulse Ox O2 Delivery O2 Flow Rate FiO2 05/01/17 08:00 Room Air 05/01/17 07:00 99.0 94 18 163/63 (96) 99 99.0 Intake and Output 05/01/17 07:00 Intake Total 1200 ml Balance 1200 ml Intake Oral 0 ml IV Total 1200 ml # Voids 4 PHYSICAL EXAM Alert. Oriented to time, place and person. PERRL. EOMI. CN: left homonymous hemianopsia, otherwise no focal findings. Muscle tone: normal. Muscle strength: 5/5 DTR: 2+ Plantar reflex: Flexor Gait: not examined in bed. Sensory exam: Stocking loss. No cerebellar signs elicited. Review of Relevant I have reviewed the following items joy (where applicable) has been applied. Labs Laboratory Tests Test 04/30/17 12:08 04/30/17 13:15 05/01/17 04:05 05/01/17 08:48 White Blood Count 11.2 x10^3/uL (4.0-11.0) Red Blood Count 5.13 x10^6/uL (4.30-5.70) Hemoglobin 16.4 g/dL (13.0-17.5) Hematocrit 46.8 % (39.0-53.0) Mean Corpuscular Volume 91 fL (79-100) Mean Corpuscular Hemoglobin 32 pg (25-35) Mean Corpuscular Hemoglobin Concent 35 g/dL (31-37) Red Cell Distribution Width 12.9 % (11.5-14.5) Platelet Count 260 x10^3/uL (140-400) Neutrophils (%) (Auto) 85 % (31-73) Lymphocytes (%) (Auto) 8 % (24-48) Monocytes (%) (Auto) 7 % (0-9) Eosinophils (%) (Auto) 0 % (0-3) Basophils (%) (Auto) 0 % (0-3) Neutrophils # (Auto) 9.5 x10^3uL (1.8-7.7) Lymphocytes # (Auto) 0.8 x10^3/uL (1.0-4.8) Monocytes # (Auto) 0.8 x10^3/uL (0.0-1.1) Eosinophils # (Auto) 0.0 x10^3/uL (0.0-0.7) Basophils # (Auto) 0.0 x10^3/uL (0.0-0.2) Sodium Level 134 mmol/L (136-145) Potassium Level 3.2 mmol/L (3.5-5.1) Chloride Level 95 mmol/L (98-107) Carbon Dioxide Level 26 mmol/L (21-32) Anion Gap 13 (6-14) Blood Urea Nitrogen 22 mg/dL (8-26) Creatinine 1.0 mg/dL (0.7-1.3) Estimated GFR (Cockcroft-Gault) 72.8 BUN/Creatinine Ratio 22 (6-20) Glucose Level 218 mg/dL (70-99) Calcium Level 9.4 mg/dL (8.5-10.1) Total Bilirubin 0.9 mg/dL (0.2-1.0) Aspartate Amino Transf (AST/SGOT) 25 U/L (15-37) Alanine Aminotransferase (ALT/SGPT) 33 U/L (16-63) Alkaline Phosphatase 84 U/L (46-116) Troponin I Quantitative < 0.017 ng/mL (0.000-0.055) Total Protein 7.6 g/dL (6.4-8.2) Albumin 4.0 g/dL (3.4-5.0) Albumin/Globulin Ratio 1.1 (1.0-1.7) Lipase 33 U/L (73-393) Stool Occult Blood Negative (NEG) Triglycerides Level 92 mg/dL (0-150) Cholesterol Level 132 mg/dL (0-200) LDL Cholesterol, Calculated 77 mg/dL (0-100) VLDL Cholesterol, Calculated 18 mg/dL (0-40) Non-HDL Cholesterol Calculated 95 mg/dL (0-129) HDL Cholesterol 37 mg/dL (40-60) Cholesterol/HDL Ratio 3.6 Glucose (Fingerstick) 239 mg/dL (70-99) Test 05/01/17 11:48 Glucose (Fingerstick) 223 mg/dL (70-99) Laboratory Tests Test 05/01/17 04:05 05/01/17 08:48 05/01/17 11:48 Triglycerides Level 92 mg/dL (0-150) Cholesterol Level 132 mg/dL (0-200) LDL Cholesterol, Calculated 77 mg/dL (0-100) VLDL Cholesterol, Calculated 18 mg/dL (0-40) Non-HDL Cholesterol Calculated 95 mg/dL (0-129) HDL Cholesterol 37 mg/dL (40-60) Cholesterol/HDL Ratio 3.6 Glucose (Fingerstick) 239 mg/dL (70-99) 223 mg/dL (70-99) Medications Current Medications Iohexol (Omnipaque 300 Mg/ml) 75 ml 1X ONCE IV Last administered on 15:52; Start 04/30/17 at 15:45; Stop 04/30/17 at 15:46; Status DC Info (Do NOT chart on this entry -- for MONITORING) 1 each PRN DAILY PRN MC SEE COMMENTS; Start 04/30/17 at 15:45; Stop 05/02/17 at 15:44 Sodium Chloride 1,000 ml @ 100 mls/hr Q10H IV Last administered on 04/30/17 17:47; Start 04/30/17 at 16:35; Stop 04/30/17 at 19:01; Status DC Enoxaparin Sodium (Lovenox 40mg Syringe) 40 mg Q24H SQ Last administered on 17:53; Start 04/30/17 at 17:00 Labetalol HCl (Normodyne) 10 mg PRN Q10MIN PRN IVP COMM; Start 04/30/17 at 16: 45 Simvastatin (Zocor) 10 mg QHS PO ; Start 04/30/17 at 21:00 Acetaminophen (Tylenol) 650 mg PRN Q6HRS PRN PO TEMP > 100.4F; Start 04/30/17 at 16:45 Acetaminophen (Acetaminophen Supp) 650 mg PRN Q4HRS PRN [place] TEMP > 100.4F; Start 04/30/17 at 16:45 Famotidine (Pepcid Vial) 20 mg BID IVP Last administered on 05/01/17 08:43; Start 04/30/17 at 21:00 Aspirin (Aspirin) 300 mg DAILY [place] Last administered on 04/30/17 17:03; Start 04/30/17 at 17:00 Duloxetine HCl (Cymbalta) 20 mg DAILY PO ; Start 05/01/17 at 09:00 Glimepiride (Amaryl) 2 mg DAILY08 PO ; Start 05/01/17 at 08:00 Oxybutynin Chloride (Ditropan) 5 mg BID PO ; Start 04/30/17 at 21:00 Simvastatin (Zocor) 2 mg HS PO ; Start 04/30/17 at 21:00; Status UNV Pantoprazole Sodium (Protonix) 40 mg DAILYAC PO ; Start 05/01/17 at 07:30 Insulin Aspart (NovoLOG) 0-9 UNITS TIDWMEALS SQ Last administered on 15:29; Start 05/01/17 at 08:00 Dextrose (Dextrose 50%-Water Syringe) 12.5 gm PRN Q15MIN PRN IV SEE COMMENTS; Start 04/30/17 at 19:00 Potassium Chloride/Sodium Chloride 1,000 ml @ 125 mls/hr Q8H IV Last administered on 05/01/17 15:20; Start 04/30/17 at 20:00 Active Scripts Active Reported Oxybutynin Chloride 5 Mg Tablet 1 Tab PO BID Levemir (Insulin Detemir) 100 Unit/1 Ml Vial 11 Unit SQ Simvastatin 5 Mg Tablet 2 Mg PO HS Duloxetine Hcl 20 Mg Capsule. 20 Mg PO DAILY Glimepiride 2 Mg Tablet 1 Tab PO DAILY Omeprazole 20 Mg Capsule.dr 1 Cap PO DAILY Metformin Hcl 1,000 Mg Tablet 1 Tab PO BIDWMEALS Vitals/I & O Vital Sign - Last 24 Hours 04/30/17 04/30/17 04/30/17 04/30/17 17:38 17:39 18:12 19:31 Temp 97.7 97.7 98.3 97.7 97.7 98.3 Pulse 107 107 96 Resp 20 20 18 B/P (MAP) 153/86 (108) 153/86 (108) 170/71 (104) Pulse Ox 100 100 96 O2 Delivery Room Air Room Air Room Air Room Air 04/30/17 04/30/17 05/01/17 05/01/17 20:00 23:46 03:11 07:00 Temp 97.8 98.9 99.0 97.8 98.9 99.0 Pulse 96 91 94 Resp 18 18 18 B/P (MAP) 150/82 (104) 161/80 (107) 163/63 (96) Pulse Ox 99 99 99 O2 Delivery Room Air Room Air Room Air Room Air 05/01/17 08:00 O2 Delivery Room Air Intake and Output 04/30/17 04/30/17 05/01/17 15:00 23:00 07:00 Intake Total 0 ml 1200 ml Balance 0 ml 1200 ml Images MRI brain: FINDINGS: There is restricted diffusion within the medial right occipital lobe and within the right aspect of the splenium of the corpus callosum, consistent with acute or subacute infarction. There is susceptibility effect associated with the occipital infarct due to hemorrhagic transformation. There is no mass effect or midline shift. There is no hydrocephalus. There is extensive signal change throughout the cerebral white matter and susan, a nonspecific finding likely due to chronic small vessel disease. There is a suspected chronic lacunar infarct within the right thalamus and right susan. There are foci of encephalomalacia within the right cerebellum likely due to chronic infarction. There is cerebral atrophy. The orbits, paranasal sinuses and mastoid air cells are unremarkable. There are normal flow voids within the cerebral vessels. IMPRESSION: 1. Acute or subacute infarction within the medial right occipital lobe in the right aspect of the splenium of the corpus callosum, the former which is associated with hemorrhagic transformation. 2. Extensive signal change throughout the cerebral white matter and susan, likely due to chronic small vessel disease. 3. Suspected chronic lacunar infarcts within the right thalamus and susan and foci of encephalomalacia likely due to chronic infarction within the right cerebellum. CTA of the head and neck with contrast, 04/30/2017: History: Headache, difficulty swallowing Multidetector CT imaging was performed following an IV bolus injection of iodinated contrast. Multiplanar reconstructions were produced including coronal and sagittal MIP images. 3-D volume rendered reconstructions were also produced. There is mild calcific plaquing of the aortic arch without significant narrowing of the cervicocephalic arterial origins. The left common carotid artery is widely patent. There is mild calcific plaquing at the left carotid bifurcation with only mild narrowing at the left internal carotid artery origin. The left internal carotid artery is widely patent in the upper neck. There is calcific plaquing involving its cavernous segment without evidence of high-grade stenosis. The left anterior cerebral and middle cerebral arteries and their major branches are patent. No high-grade stenosis or aneurysm is seen. The right common carotid artery is widely patent. There is mild calcific plaquing at the right carotid bifurcation. There is only mild narrowing of the origin of the right internal carotid artery. There is mild calcific plaquing involving the cavernous segment of the distal right internal carotid artery with mild associated luminal narrowing. The right anterior cerebral and middle cerebral arteries and their major branches show no abnormality. The vertebral arteries are relatively small. The origin of the left vertebral artery is not clearly visible due to artifacts in this region. The right vertebral artery origin is unremarkable. Both vertebral arteries are patent throughout the neck up through their junction with the basilar artery. There are prominent posterior communicating arteries bilaterally providing the majority of the blood supply to the posterior cerebral arteries. The posterior cerebral arteries show no specific abnormality. IMPRESSION: 1. Mild calcific plaquing at both carotid bifurcations with only mild associated narrowing of the proximal internal carotid arteries bilaterally. 2. Mild calcific plaquing involving the cavernous segments of both distal internal carotid arteries. 3. Prominent posterior communicating arteries bilaterally providing the majority of the blood supply to the posterior cerebral arteries. This is a normal anatomic variant. 4. No significant intracranial arterial abnormality is detected. TERRY BARONE MD May 01, 2017 15:48
[2017-05-01] MEDS: ENOXAPARIN 40 MG/0.4 ML SYRINGE. SQ SCH (17:33)
[2017-05-01 19:38] VITALS: BP 174/88
[2017-05-01] MEDS: SIMVASTATIN 10 MG TABLET PO SCH (21:04)
[2017-05-01 23:00] VITALS: BP 151/72
[2017-05-02] MEDS: POTASSIUM CL 20MEQ-0.45% NACL 1,000 ML IV SCH ×4 (01:25→20:50)
[2017-05-02 03:16] VITALS: BP 146/77
[2017-05-02 07:19] VITALS: BP 157/60
[2017-05-02] MEDS: PANTOPRAZOLE 40 MG TABLET.DR. PO SCH (07:30)
[2017-05-02] MEDS: ASPIRIN 325 MG TABLET PO SCH (08:00)
[2017-05-02] MEDS: GLIMEPIRIDE 2 MG TABLET. PO SCH (08:00)
--- NOTE | 2017-05-02 08:52 | PDOC ---
PROGRESS NOTES Chief Complaint Chief Complaint CVA and CVA syndrome New right occipital stroke Peripheral neuropathy due to diabetes cognitive impairment Dysphagia viral gastroenteritis on admit, improved Hypokalemia due to nausea and vomiting History of Present Illness History of Present Illness feels OK does not remember my name, remembers seeing me yesterday ST - PT and OT NPO for EGD today, painful swallowing, feels improved neuro following Vitals Vitals Vital Signs Date Time Temp Pulse Resp B/P (MAP) Pulse Ox O2 Delivery O2 Flow Rate FiO2 05/02/17 07:19 97.9 70 18 157/60 (92) 98 Room Air 97.9 Physical Exam General: Alert, Cooperative, No acute distress, Other (oreinted 2/4) Heart: Regular rate Abdomen: Normal bowel sounds Extremities: No clubbing, No cyanosis Skin: No rashes, No breakdown Labs LABS Laboratory Tests Test 05/01/17 11:48 05/01/17 17:02 Glucose (Fingerstick) 223 mg/dL (70-99) 313 mg/dL (70-99) Review of Systems Review of Systems no n.vd. Assessment and Plan Assessmemt and Plan probably need subacute rehab Problems: Comment Review of Relevant I have reviewed the following items joy (where applicable) has been applied. Labs Laboratory Tests Test 04/30/17 12:08 04/30/17 13:15 05/01/17 04:05 05/01/17 08:48 White Blood Count 11.2 x10^3/uL (4.0-11.0) Red Blood Count 5.13 x10^6/uL (4.30-5.70) Hemoglobin 16.4 g/dL (13.0-17.5) Hematocrit 46.8 % (39.0-53.0) Mean Corpuscular Volume 91 fL (79-100) Mean Corpuscular Hemoglobin 32 pg (25-35) Mean Corpuscular Hemoglobin Concent 35 g/dL (31-37) Red Cell Distribution Width 12.9 % (11.5-14.5) Platelet Count 260 x10^3/uL (140-400) Neutrophils (%) (Auto) 85 % (31-73) Lymphocytes (%) (Auto) 8 % (24-48) Monocytes (%) (Auto) 7 % (0-9) Eosinophils (%) (Auto) 0 % (0-3) Basophils (%) (Auto) 0 % (0-3) Neutrophils # (Auto) 9.5 x10^3uL (1.8-7.7) Lymphocytes # (Auto) 0.8 x10^3/uL (1.0-4.8) Monocytes # (Auto) 0.8 x10^3/uL (0.0-1.1) Eosinophils # (Auto) 0.0 x10^3/uL (0.0-0.7) Basophils # (Auto) 0.0 x10^3/uL (0.0-0.2) Sodium Level 134 mmol/L (136-145) Potassium Level 3.2 mmol/L (3.5-5.1) Chloride Level 95 mmol/L (98-107) Carbon Dioxide Level 26 mmol/L (21-32) Anion Gap 13 (6-14) Blood Urea Nitrogen 22 mg/dL (8-26) Creatinine 1.0 mg/dL (0.7-1.3) Estimated GFR (Cockcroft-Gault) 72.8 BUN/Creatinine Ratio 22 (6-20) Glucose Level 218 mg/dL (70-99) Calcium Level 9.4 mg/dL (8.5-10.1) Total Bilirubin 0.9 mg/dL (0.2-1.0) Aspartate Amino Transf (AST/SGOT) 25 U/L (15-37) Alanine Aminotransferase (ALT/SGPT) 33 U/L (16-63) Alkaline Phosphatase 84 U/L (46-116) Troponin I Quantitative < 0.017 ng/mL (0.000-0.055) Total Protein 7.6 g/dL (6.4-8.2) Albumin 4.0 g/dL (3.4-5.0) Albumin/Globulin Ratio 1.1 (1.0-1.7) Lipase 33 U/L (73-393) Stool Occult Blood Negative (NEG) Triglycerides Level 92 mg/dL (0-150) Cholesterol Level 132 mg/dL (0-200) LDL Cholesterol, Calculated 77 mg/dL (0-100) VLDL Cholesterol, Calculated 18 mg/dL (0-40) Non-HDL Cholesterol Calculated 95 mg/dL (0-129) HDL Cholesterol 37 mg/dL (40-60) Cholesterol/HDL Ratio 3.6 Glucose (Fingerstick) 239 mg/dL (70-99) Test 05/01/17 11:48 05/01/17 17:02 Glucose (Fingerstick) 223 mg/dL (70-99) 313 mg/dL (70-99) Laboratory Tests Test 05/01/17 11:48 05/01/17 17:02 Glucose (Fingerstick) 223 mg/dL (70-99) 313 mg/dL (70-99) Medications Current Medications Iohexol (Omnipaque 300 Mg/ml) 75 ml 1X ONCE IV Last administered on 15:52; Start 04/30/17 at 15:45; Stop 04/30/17 at 15:46; Status DC Info (Do NOT chart on this entry -- for MONITORING) 1 each PRN DAILY PRN MC SEE COMMENTS; Start 04/30/17 at 15:45; Stop 05/02/17 at 15:44 Sodium Chloride 1,000 ml @ 100 mls/hr Q10H IV Last administered on 04/30/17 17:47; Start 04/30/17 at 16:35; Stop 04/30/17 at 19:01; Status DC Enoxaparin Sodium (Lovenox 40mg Syringe) 40 mg Q24H SQ Last administered on 17:33; Start 04/30/17 at 17:00 Labetalol HCl (Normodyne) 10 mg PRN Q10MIN PRN IVP COMM; Start 04/30/17 at 16: 45 Simvastatin (Zocor) 10 mg QHS PO Last administered on 05/01/17 21:04; Start 04/30/17 at 21:00 Acetaminophen (Tylenol) 650 mg PRN Q6HRS PRN PO TEMP > 100.4F; Start 04/30/17 at 16:45 Acetaminophen (Acetaminophen Supp) 650 mg PRN Q4HRS PRN [place] TEMP > 100.4F; Start 04/30/17 at 16:45 Famotidine (Pepcid Vial) 20 mg BID IVP Last administered on 05/01/17 21:04; Start 04/30/17 at 21:00 Aspirin (Aspirin) 300 mg DAILY [place] Last administered on 04/30/17 17:03; Start 04/30/17 at 17:00; Stop 05/01/17 at 15:47; Status DC Duloxetine HCl (Cymbalta) 20 mg DAILY PO ; Start 05/01/17 at 09:00 Glimepiride (Amaryl) 2 mg DAILY08 PO ; Start 05/01/17 at 08:00 Oxybutynin Chloride (Ditropan) 5 mg BID PO Last administered on 05/01/17 21: 04; Start 04/30/17 at 21:00 Simvastatin (Zocor) 2 mg HS PO ; Start 04/30/17 at 21:00; Status UNV Pantoprazole Sodium (Protonix) 40 mg DAILYAC PO ; Start 05/01/17 at 07:30 Insulin Aspart (NovoLOG) 0-9 UNITS TIDWMEALS SQ Last administered on 17:37; Start 05/01/17 at 08:00 Dextrose (Dextrose 50%-Water Syringe) 12.5 gm PRN Q15MIN PRN IV SEE COMMENTS; Start 04/30/17 at 19:00 Potassium Chloride/Sodium Chloride 1,000 ml @ 125 mls/hr Q8H IV Last administered on 05/02/17 01:25; Start 04/30/17 at 20:00 Aspirin (Gely Aspirin) 325 mg DAILYWBKFT PO ; Start 05/02/17 at 08:00 Active Scripts Active Reported Oxybutynin Chloride 5 Mg Tablet 1 Tab PO BID Levemir (Insulin Detemir) 100 Unit/1 Ml Vial 11 Unit SQ Simvastatin 5 Mg Tablet 2 Mg PO HS Duloxetine Hcl 20 Mg Capsule. 20 Mg PO DAILY Glimepiride 2 Mg Tablet 1 Tab PO DAILY Omeprazole 20 Mg Capsule. 1 Cap PO DAILY Metformin Hcl 1,000 Mg Tablet 1 Tab PO BIDWMEALS Vitals/I & O Vital Sign - Last 24 Hours 05/01/17 05/01/17 05/01/17 05/01/17 15:00 19:38 20:00 23:00 Temp 97.9 100.0 97.9 97.9 100.0 97.9 Pulse 82 94 78 Resp 18 18 18 B/P (MAP) 161/77 (105) 174/88 (116) 151/72 (98) Pulse Ox 98 98 99 O2 Delivery Room Air Room Air Room Air 05/02/17 05/02/17 03:16 07:19 Temp 100.0 97.9 100.0 97.9 Pulse 74 70 Resp 18 18 B/P (MAP) 146/77 (100) 157/60 (92) Pulse Ox 99 98 O2 Delivery Room Air Room Air Intake and Output 05/01/17 05/01/17 05/02/17 15:00 23:00 07:00 Intake Total 50 ml 300 ml Balance 50 ml 300 ml ALFREDO ROBLEDO MD May 02, 2017 08:52
[2017-05-02] MEDS: OXYBUTYNIN CHLORIDE 5 MG TABLET PO SCH ×2 (09:00→20:50)
[2017-05-02] MEDS: DULoxetine HCL 20 MG CAPSULE.DR PO SCH (09:00)
[2017-05-02] MEDS ORDERED: DEXTROSE 50% 25 GM / 50ML DISP.SYRIN. IV PRN (09:00)
[2017-05-02] MEDS: FAMOTIDINE 20 MG/2 ML VIAL IVP SCH (10:56)
[2017-05-02] MEDS: INSULIN DETEMIR 300 UNITS/3 ML INSULN.PEN. SQ SCH (11:01)
[2017-05-02 11:05] VITALS: BP 145/66
--- NOTE | 2017-05-02 11:32 | PDOC ---
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 Dysphagia Plan Note plans for EGD today Rehabilitation modalities, needs acute rehab Aspirin Statin Cardiology consult re event monitoring Subjective No complaints Objective Vital Signs Date Time Temp Pulse Resp B/P (MAP) Pulse Ox O2 Delivery O2 Flow Rate FiO2 05/02/17 11:05 98.2 63 16 145/66 (92) 98 Room Air 98.2 Intake and Output 05/02/17 07:00 Intake Total 350 ml Balance 350 ml Intake Oral 350 ml # Voids 4 PHYSICAL EXAM Alert. Oriented to time, place and person. PERRL. EOMI. CN: left homonymous hemianopsia, otherwise no focal findings. Muscle tone: normal. Muscle strength: 5/5 DTR: 2+ Plantar reflex: Flexor Gait: not examined in bed. Sensory exam: Stocking loss. No cerebellar signs elicited. Review of Relevant I have reviewed the following items joy (where applicable) has been applied. Labs Laboratory Tests Test 04/30/17 12:08 04/30/17 13:15 05/01/17 04:05 05/01/17 08:48 White Blood Count 11.2 x10^3/uL (4.0-11.0) Red Blood Count 5.13 x10^6/uL (4.30-5.70) Hemoglobin 16.4 g/dL (13.0-17.5) Hematocrit 46.8 % (39.0-53.0) Mean Corpuscular Volume 91 fL (79-100) Mean Corpuscular Hemoglobin 32 pg (25-35) Mean Corpuscular Hemoglobin Concent 35 g/dL (31-37) Red Cell Distribution Width 12.9 % (11.5-14.5) Platelet Count 260 x10^3/uL (140-400) Neutrophils (%) (Auto) 85 % (31-73) Lymphocytes (%) (Auto) 8 % (24-48) Monocytes (%) (Auto) 7 % (0-9) Eosinophils (%) (Auto) 0 % (0-3) Basophils (%) (Auto) 0 % (0-3) Neutrophils # (Auto) 9.5 x10^3uL (1.8-7.7) Lymphocytes # (Auto) 0.8 x10^3/uL (1.0-4.8) Monocytes # (Auto) 0.8 x10^3/uL (0.0-1.1) Eosinophils # (Auto) 0.0 x10^3/uL (0.0-0.7) Basophils # (Auto) 0.0 x10^3/uL (0.0-0.2) Sodium Level 134 mmol/L (136-145) Potassium Level 3.2 mmol/L (3.5-5.1) Chloride Level 95 mmol/L (98-107) Carbon Dioxide Level 26 mmol/L (21-32) Anion Gap 13 (6-14) Blood Urea Nitrogen 22 mg/dL (8-26) Creatinine 1.0 mg/dL (0.7-1.3) Estimated GFR (Cockcroft-Gault) 72.8 BUN/Creatinine Ratio 22 (6-20) Glucose Level 218 mg/dL (70-99) Calcium Level 9.4 mg/dL (8.5-10.1) Total Bilirubin 0.9 mg/dL (0.2-1.0) Aspartate Amino Transf (AST/SGOT) 25 U/L (15-37) Alanine Aminotransferase (ALT/SGPT) 33 U/L (16-63) Alkaline Phosphatase 84 U/L (46-116) Troponin I Quantitative < 0.017 ng/mL (0.000-0.055) Total Protein 7.6 g/dL (6.4-8.2) Albumin 4.0 g/dL (3.4-5.0) Albumin/Globulin Ratio 1.1 (1.0-1.7) Lipase 33 U/L (73-393) Stool Occult Blood Negative (NEG) Triglycerides Level 92 mg/dL (0-150) Cholesterol Level 132 mg/dL (0-200) LDL Cholesterol, Calculated 77 mg/dL (0-100) VLDL Cholesterol, Calculated 18 mg/dL (0-40) Non-HDL Cholesterol Calculated 95 mg/dL (0-129) HDL Cholesterol 37 mg/dL (40-60) Cholesterol/HDL Ratio 3.6 Glucose (Fingerstick) 239 mg/dL (70-99) Test 05/01/17 11:48 05/01/17 17:02 Glucose (Fingerstick) 223 mg/dL (70-99) 313 mg/dL (70-99) Laboratory Tests Test 05/01/17 11:48 05/01/17 17:02 Glucose (Fingerstick) 223 mg/dL (70-99) 313 mg/dL (70-99) Medications Current Medications Iohexol (Omnipaque 300 Mg/ml) 75 ml 1X ONCE IV Last administered on 15:52; Start 04/30/17 at 15:45; Stop 04/30/17 at 15:46; Status DC Info (Do NOT chart on this entry -- for MONITORING) 1 each PRN DAILY PRN MC SEE COMMENTS; Start 04/30/17 at 15:45; Stop 05/02/17 at 15:44 Sodium Chloride 1,000 ml @ 100 mls/hr Q10H IV Last administered on 04/30/17 17:47; Start 04/30/17 at 16:35; Stop 04/30/17 at 19:01; Status DC Enoxaparin Sodium (Lovenox 40mg Syringe) 40 mg Q24H SQ Last administered on 17:33; Start 04/30/17 at 17:00 Labetalol HCl (Normodyne) 10 mg PRN Q10MIN PRN IVP COMM; Start 04/30/17 at 16: 45 Simvastatin (Zocor) 10 mg QHS PO Last administered on 05/01/17 21:04; Start 04/30/17 at 21:00 Acetaminophen (Tylenol) 650 mg PRN Q6HRS PRN PO TEMP > 100.4F; Start 04/30/17 at 16:45 Acetaminophen (Acetaminophen Supp) 650 mg PRN Q4HRS PRN [place] TEMP > 100.4F; Start 04/30/17 at 16:45 Famotidine (Pepcid Vial) 20 mg BID IVP Last administered on 05/02/17 10:56; Start 04/30/17 at 21:00 Aspirin (Aspirin) 300 mg DAILY FL Last administered on 04/30/17 17:03; Start 04/30/17 at 17:00; Stop 05/01/17 at 15:47; Status DC Duloxetine HCl (Cymbalta) 20 mg DAILY PO ; Start 05/01/17 at 09:00 Glimepiride (Amaryl) 2 mg DAILY08 PO ; Start 05/01/17 at 08:00 Oxybutynin Chloride (Ditropan) 5 mg BID PO Last administered on 05/01/17 21: 04; Start 04/30/17 at 21:00 Simvastatin (Zocor) 2 mg HS PO ; Start 04/30/17 at 21:00; Status UNV Pantoprazole Sodium (Protonix) 40 mg DAILYAC PO ; Start 05/01/17 at 07:30 Insulin Aspart (NovoLOG) 0-9 UNITS TIDWMEALS SQ Last administered on 17:37; Start 05/01/17 at 08:00; Stop 05/02/17 at 08:58; Status DC Dextrose (Dextrose 50%-Water Syringe) 12.5 gm PRN Q15MIN PRN IV SEE COMMENTS; Start 04/30/17 at 19:00 Potassium Chloride/Sodium Chloride 1,000 ml @ 125 mls/hr Q8H IV Last administered on 05/02/17 01:25; Start 04/30/17 at 20:00 Aspirin (Gely Aspirin) 325 mg DAILYWBKFT PO ; Start 05/02/17 at 08:00 Insulin Detemir (Levemir) 10 units DAILY SQ Last administered on 05/02/17 11: 01; Start 05/02/17 at 09:00 Insulin Aspart (NovoLOG) 0-7 UNITS TIDWMEALS SQ ; Start 05/02/17 at 12:00 Dextrose (Dextrose 50%-Water Syringe) 12.5 gm PRN Q15MIN PRN IV SEE COMMENTS; Start 05/02/17 at 09:00; Status Cancel Active Scripts Active Reported Oxybutynin Chloride 5 Mg Tablet 1 Tab PO BID Levemir (Insulin Detemir) 100 Unit/1 Ml Vial 11 Unit SQ Simvastatin 5 Mg Tablet 2 Mg PO HS Duloxetine Hcl 20 Mg Capsule. 20 Mg PO DAILY Glimepiride 2 Mg Tablet 1 Tab PO DAILY Omeprazole 20 Mg Capsule. 1 Cap PO DAILY Metformin Hcl 1,000 Mg Tablet 1 Tab PO BIDWMEALS Vitals/I & O Vital Sign - Last 24 Hours 05/01/17 05/01/17 05/01/17 05/01/17 15:00 19:38 20:00 23:00 Temp 97.9 100.0 97.9 97.9 100.0 97.9 Pulse 82 94 78 Resp 18 18 18 B/P (MAP) 161/77 (105) 174/88 (116) 151/72 (98) Pulse Ox 98 98 99 O2 Delivery Room Air Room Air Room Air 05/02/17 05/02/17 05/02/17 03:16 07:19 11:05 Temp 100.0 97.9 98.2 100.0 97.9 98.2 Pulse 74 70 63 Resp 18 16 B/P (MAP) 146/77 (100) 157/60 (92) 145/66 (92) Pulse Ox 99 98 98 O2 Delivery Room Air Room Air Room Air Intake and Output 05/01/17 05/01/17 05/02/17 15:00 23:00 07:00 Intake Total 50 ml 300 ml Balance 50 ml 300 ml TERRY BARONE MD May 02, 2017 11:32
[2017-05-02] MEDS: INSULIN ASPART 300 UNITS/3 ML INSULN.PEN SQ SCH ×2 (12:00→18:12)
--- NOTE | 2017-05-02 12:23 | PDOC2 ---
ZA TREVIZO ETL DATABASE DEVELOPER 05/02/17 1223: CARDIAC CONSULT DATE OF CONSULT Date of Consult DATE: 05/02/17 TIME: 12:11 REASON FOR CONSULT Reason for Consult: needs event monitor with CVA REFERRING PHYSICIAN Referring Physician: Lacey SOURCE Source: Chart review, Patient HISTORY OF PRESENT ILLNESS HISTORY OF PRESENT ILLNESS This is a 76 yo male admitted for complains increasing weakness. Pt is a poor historian and no family is available to confirm the details of his symptoms. Per review he was noted with nausea and vomiting and epigastric pain. He was complaining of WIGGINS and was having visual impairment which then deemed related to occipital stroke. There has been no mention of any recurrent syncope or frequent dizziness or palpitations. There was no mention of SOA or CP. PAST MEDICAL HISTORY Cardiovascular: HTN, Syncope, Hyperlipidemia Pulmonary: No pertinent hx CENTRAL NERVOUS SYSTEM: Periperal neuropathy Heme/Onc: No pertinent hx Hepatobiliary: No pertinent hx Psych: Anxiety Musculoskeletal: Osteoarthritis Endocrine: Diabetes (2) PAST SURGICAL HISTORY Past Surgical History: Appendectomy FAMILY HISTORY Family History: Coronary Artery Disease SOCIAL HISTORY Smoke: No ALCOHOL: occassional Drugs: None Lives: with Family CURRENT MEDICATIONS CURRENT MEDICATIONS Current Medications Medications (Trade) Dose Ordered Sig/Sonja Route PRN Reason Start Time Stop Time Status Last Admin Dose Admin Insulin Detemir (Levemir) 10 units DAILY SQ 05/02/17 09:00 05/02/17 11:01 ALLERGIES ALLERGIES: Coded Allergies: No Known Drug Allergies (Unverified , 09/20/15) ROS Review of System unreliable , poor historian PHYSICAL EXAM General: Alert, Cooperative, No acute distress HEENT: Atraumatic, Mucous membr. moist/pink Lungs: Clear to auscultation Heart: Regular rate (SR), No murmurs Abdomen: Soft Extremities: No cyanosis, No edema Skin: No breakdown Neuro: Normal speech Psych/Mental Status: Mood NL MUSCULOSKELETAL: Osteoarthritic changes both hands VITALS VITALS Vital Signs Date Time Temp Pulse Resp B/P (MAP) Pulse Ox O2 Delivery O2 Flow Rate FiO2 05/02/17 11:05 98.2 63 16 145/66 (92) 98 Room Air 98.2 LABS Lab: Laboratory Tests Test 05/01/17 17:02 05/02/17 08:14 05/02/17 11:34 Glucose (Fingerstick) 313 mg/dL (70-99) 180 mg/dL (70-99) 202 mg/dL (70-99) ECHOCARDIOGRAM ECHOCARDIOGRAM <Conclusion> The left ventricle is normal size. Left ventricle systolic function is normal. The Ejection Fraction is 60-65%. There is no significant aortic valvular stenosis. Doppler and Color Flow revealed no significant aortic regurgitation. Doppler and Color Flow revealed trace to mild mitral regurgitation. Doppler and Color Flow revealed no tricuspid valve regurgitation noted. There is no evidence of significant pericardial effusion. DATE: 12/10/16 1730 ASSESSMENT/PLAN ASSESSMENT/PLAN 1. Acute occipital CVA neurology following 2. Syncope?: previous event monitor 2 weeks October to November, no significant arrhythmia at that time 3. Dysphagia: GI following 4. DM2/DPN 5. HTN: labile episodes 6. HLP: controlled 7. Fever: tmax 100. 8. Chronic LBBB: SR with LAFB/first degree AV block. Recommendations 1. Repeat event monitor is not an option due to recent use as insurance would not cover but if there is repeated syncope and with occurrence of stroke. will need to further rule out contributing arrhythmia. Loop recorder is an option and could be place on Friday or as an outpt. 2. limited TTE today. BMP, Mg 3. Continue with secondary prevention. 4. Also would consider for future outpt stress test for further risk stratification. Problems: FESTUS BENSON MD 05/02/17 1812: CARDIAC CONSULT ALLERGIES ALLERGIES: Coded Allergies: No Known Drug Allergies (Unverified , 09/20/15) ASSESSMENT/PLAN ASSESSMENT/PLAN Patient seen and examined. Agree with AUTOMATIC QUILLING MACHINE OPERATOR's assessment and plan. Telemetry and recent event monitor did not show any significant arrhythmias Continue management of CVA per neurology We will plan for loop recorder implantation either on friday or as outpatient Thank you for your consultation Problems: ZA TREVIZO APRN May 02, 2017 12:23 FESTUS BENSON MD May 02, 2017 18:12
[2017-05-02] MEDS: IV RINGERS,LACTATED 1000ML 1,000 ML IV SCH ×2 (12:48→20:46)
[2017-05-02] MEDS ORDERED: MIDAZOLAM HCL/PF 2 MG/2 ML VIAL. IV PRN (13:00)
[2017-05-02] MEDS ORDERED: fentaNYL PF VIAL 100 MCG/2 ML VIAL IV PRN ×2 (13:00)
[2017-05-02] MEDS: LISINOPRIL 5 MG TABLET. PO SCH (13:00)
[2017-05-02] MEDS ORDERED: LIDOCAINE 1% PF 2 ML VIAL. ID PRN (13:00)
[2017-05-02] MEDS ORDERED: PROPOFOL 20 ML IV ONE (13:19)
[2017-05-02] MEDS ORDERED: LIDOCAINE 2% PF Vial for OR 5 ML VIAL. ONE (13:19)
--- NOTE | 2017-05-02 13:35 | PDOC4 ---
PROCEDURE Procedure EGD/biopsies Indication: odynophagia Meds: per anesthesia. Findings: E--Proximal OK. Distal esophagus with erythema/granularity diffusely w/o much exudate or discrete ulcerations. Appearance not typical for viral or yeast. Biopsies taken. G--Small hiatal hernia, otherwise normal D--Normal to second portion. Meera. well. IMP: Esophagitis. Given locallized to distal portion, maybe just atypical- appearing reflux. Biopsies pending re: any fungal/viral changes. REC: PPI. Empiric Nystatin. Await biopsies. Thanks. PABLO MASCORRO MD May 02, 2017 13:35
[2017-05-02] MEDS ORDERED: LIDO:MAALOX:DONNATAL 1:1:1 15 ML SINGLE DOSE SWSW PRN (13:45)
[2017-05-02 15:09] VITALS: BP 148/76
[2017-05-02 15:47] LABS: CALCIUM 8.4 mg/dL (8.5-10.1); CREATININE 0.8 mg/dL (0.7-1.3); GFR 94.2; MAGNESIUM 1.8 mg/dL (1.8-2.4)
[2017-05-02] MEDS: ENOXAPARIN 40 MG/0.4 ML SYRINGE. SQ SCH (18:08)
[2017-05-02] MEDS: NYSTATIN 100,000 UNITS/ML 5 ML ORAL.SUSP. SWSW SCH ×2 (18:15→20:50)
[2017-05-02 19:00] VITALS: BP 160/73
[2017-05-02] MEDS: SIMVASTATIN 10 MG TABLET PO SCH (20:50)
[2017-05-02 23:48] VITALS: BP 144/72
[2017-05-03 03:35] VITALS: BP 160/75
--- NOTE | 2017-05-03 04:42 | CARD ---
APPROVED REPORT EXAM: Two-dimensional and M-mode echocardiogram with Doppler and color Doppler. Other Information Quality : GoodHR: 72bpm INDICATION CVA/TIA Echo Enhancing Agent Agent/Amount Used: Agitated Saline 16mL 2D DIMENSIONS IVSd1.0 (0.7-1.1cm)LVDd4.9 (3.9-5.9cm) PWd0.9 (0.7-1.1cm)LVDs3.7 (2.5-4.0cm) FS (%) 24.6 %SV53.9 ml LVEF(%)48.7 (>50%) LEFT VENTRICLE The left ventricle is normal size. Sigmoid Septum. There is normal left ventricular wall thickness. S ignificantly limited images. LVEF grossly appears 40%. The septum is severly hypokinetic. Anterior wa ll not well visualized. No LV thrombus visulaized. RIGHT VENTRICLE The right ventricle is normal size. The right ventricular systolic function is normal. ATRIA Non-diagnostic bubble study. If there is clinical suspicion, recommend KATERIN. GREAT VESSELS Not evaluated. PERICARDIAL EFFUSION There is no evidence of significant pericardial effusion. Critical Notification Critical Value: No <Conclusion> Significantly limited images. LVEF grossly appears 40%. The septum is severly hypokinetic. Anterior w all not well visualized. Non-diagnostic bubble study. If there is clinical suspicion, recommend KATERIN.
[2017-05-03] MEDS: POTASSIUM CL 20MEQ-0.45% NACL 1,000 ML IV SCH ×2 (05:59→12:38)
[2017-05-03 06:57] VITALS: BP 160/72
--- NOTE | 2017-05-03 09:21 | CONS ---
DATE OF CONSULTATION: 05/02/2017 ATTENDING PHYSICIAN: Dr. Austin. The patient was seen at the request of Dr. Rahman for rehab evaluation. HISTORY OF PRESENT ILLNESS: This is a 76-year-old right-handed male with known diabetes mellitus, admitted through the Emergency Room on urging of his primary care physician, Dr. Adams with headache and vision changes. He woke up on the morning of admission that is 04/30/2017 with splitting headaches, got up to get himself pain medication and started noticing that he only saw partial images such as only half the digits on his alarm clock and only half the fan blades and he relates that since 04/25/2017, he noted increased weakness and some nausea, vomiting, dark brown. He denies any diarrhea. He had crampy type abdominal pain and occasionally sharp, stabbing. The patient lives with his . Quit smoking 40 years ago. Alcohol only rarely. He is not known allergic to any medication. The patient lives with his in a [place] home, had 3 steps to enter the house from the porch plus about 13 steps with railing on both sides to enter the house from the garage. The patient has been independent with his mobility and motor aspects of his self-care prior to the present hospitalization. He does not drive. The patient since admission had radiological studies. CT scan of the brain done on the day of admission revealed extensive bilateral deep white matter lucencies compatible with chronic ischemic change. New peripheral lucency medially on the right occipital lobe, most compatible with a subacute infarct. CT of the head and neck with contrast revealed mild calcific plaquing at both carotid bifurcations with only mild associated narrowing of the proximal internal carotid arteries bilaterally, mild calcific plaquing involving cavernous segments of both the distal internal carotid arteries, prominent posterior communicating arteries bilaterally providing the majority of the blood supply to posterior cerebral arteries which is a normal anatomic variant. No significant intracranial arterial abnormality was detected, acute abdomen failed to reveal any abnormality and MRI scan of the brain done yesterday at 05/01/2017 revealed acute or subacute infarction in the medial right occipital lobe in the right aspect of the splenium of the corpus callosum, the former which is associated with a hemorrhagic transformation, extensive signal change throughout the cerebral white matter and susan, likely due to chronic small vessel disease, suspected chronic lacunar infarct within the right thalamus and susan and foci of encephalomalacia likely due to chronic infarction within the right cerebellum. The patient had some problems with chest wall area discomfort when he is swallowing. He had EGD done today. The patient was found with esophagitis given localized to the distal portion, maybe just a typical appearing reflux. PHYSICAL EXAMINATION: Today revealed an elderly male. He is alert, oriented to time, place, person and circumstance. Follows commands appropriately. Moves all 4 extremities voluntarily where he had 4+/5 grade muscle strength and deep tendon reflexes are 1 to 2+ and symmetrical with absent ankle jerks. He had equal perception of touch and pinprick sensation bilaterally. He has slight degree of hand intrinsic muscle atrophy. The patient had mild crepitus on range of motion of both knee joints without any obvious knee joint effusion. He requires supervision to standby assistance with bed mobility and transfers. Once up, he walked using a roller walker with somewhat wide-based gait. No obvious visual field cut or facial asymmetry noted. Plantar reflex is equivocal bilaterally. ASSESSMENT: An elderly male with known diabetes mellitus with a recent onset cerebrovascular accident with associated diabetic peripheral neuropathy and high level balance problems. RECOMMENDATION: Agree with the plan per physical therapy and occupational therapy and transfer to assisted care unit when he is medically stable. Dr. Rahman, appreciate asking me to participate in the care of this interesting patient. I will be glad to follow him with you as needed for his rehabilitation. RICK LE MD DR: DEYVI/jourdan JOB#: [id number] / [id number]
[2017-05-03] MEDS: NYSTATIN 100,000 UNITS/ML 5 ML ORAL.SUSP. SWSW SCH ×2 (09:36→13:00)
[2017-05-03] MEDS: DULoxetine HCL 20 MG CAPSULE.DR PO SCH (09:37)
[2017-05-03] MEDS: PANTOPRAZOLE 40 MG TABLET.DR. PO SCH (09:37)
[2017-05-03] MEDS: LISINOPRIL 5 MG TABLET. PO SCH (09:37)
[2017-05-03] MEDS: OXYBUTYNIN CHLORIDE 5 MG TABLET PO SCH (09:38)
[2017-05-03] MEDS: GLIMEPIRIDE 2 MG TABLET. PO SCH (09:38)
[2017-05-03] MEDS: ASPIRIN 325 MG TABLET PO SCH (09:38)
[2017-05-03] MEDS: INSULIN DETEMIR 300 UNITS/3 ML INSULN.PEN. SQ SCH (09:45)
[2017-05-03] MEDS: INSULIN ASPART 300 UNITS/3 ML INSULN.PEN SQ SCH ×2 (09:46→12:46)
--- NOTE | 2017-05-03 10:53 | PDOC ---
PROGRESS NOTES Subjective Subjective No new complaints. Objective Objective Vital Signs Date Time Temp Pulse Resp B/P (MAP) Pulse Ox O2 Delivery O2 Flow Rate FiO2 05/03/17 09:37 79 160/72 05/03/17 08:00 Room Air 05/03/17 06:57 97.9 18 98 97.9 Intake and Output 05/03/17 07:00 Intake Total 500 ml Output Total 400 ml Balance 100 ml Intake Oral 200 ml IV Total 300 ml Output Urine Total 400 ml # Voids 7 Physical Exam Physical Exam He is alert,comfortable,wants IV out and his oral intake is poor and he got up with minimal assistance in coming to a sitting position form supine position and he got up and walked with roller walker with wide based gait and his right leg lags behind but not dragging it and he needs reminders to pick it up. Plan [facility] when medically stable. Comment Review of Relevant I have reviewed the following items joy (where applicable) has been applied. Labs Laboratory Tests Test 05/01/17 11:48 05/01/17 17:02 05/02/17 08:14 05/02/17 11:34 Glucose (Fingerstick) 223 mg/dL (70-99) 313 mg/dL (70-99) 180 mg/dL (70-99) 202 mg/dL (70-99) Test 05/02/17 15:10 05/02/17 17:13 05/02/17 21:24 05/03/17 07:43 Sodium Level 132 mmol/L (136-145) Potassium Level 4.0 mmol/L (3.5-5.1) Chloride Level 98 mmol/L (98-107) Carbon Dioxide Level 21 mmol/L (21-32) Anion Gap 13 (6-14) Blood Urea Nitrogen 14 mg/dL (8-26) Creatinine 0.8 mg/dL (0.7-1.3) Estimated GFR (Cockcroft-Gault) 94.2 Glucose Level 224 mg/dL (70-99) Calcium Level 8.4 mg/dL (8.5-10.1) Magnesium Level 1.8 mg/dL (1.8-2.4) Glucose (Fingerstick) 206 mg/dL (70-99) 316 mg/dL (70-99) 162 mg/dL (70-99) Laboratory Tests Test 05/02/17 11:34 05/02/17 15:10 05/02/17 17:13 05/02/17 21:24 Glucose (Fingerstick) 202 mg/dL (70-99) 206 mg/dL (70-99) 316 mg/dL (70-99) Sodium Level 132 mmol/L (136-145) Potassium Level 4.0 mmol/L (3.5-5.1) Chloride Level 98 mmol/L (98-107) Carbon Dioxide Level 21 mmol/L (21-32) Anion Gap 13 (6-14) Blood Urea Nitrogen 14 mg/dL (8-26) Creatinine 0.8 mg/dL (0.7-1.3) Estimated GFR (Cockcroft-Gault) 94.2 Glucose Level 224 mg/dL (70-99) Calcium Level 8.4 mg/dL (8.5-10.1) Magnesium Level 1.8 mg/dL (1.8-2.4) Test 05/03/17 07:43 Glucose (Fingerstick) 162 mg/dL (70-99) Medications Current Medications Iohexol (Omnipaque 300 Mg/ml) 75 ml 1X ONCE IV Last administered on 15:52; Start 04/30/17 at 15:45; Stop 04/30/17 at 15:46; Status DC Info (Do NOT chart on this entry -- for MONITORING) 1 each PRN DAILY PRN MC SEE COMMENTS; Start 04/30/17 at 15:45; Stop 05/02/17 at 15:44; Status DC Sodium Chloride 1,000 ml @ 100 mls/hr Q10H IV Last administered on 04/30/17 17:47; Start 04/30/17 at 16:35; Stop 04/30/17 at 19:01; Status DC Enoxaparin Sodium (Lovenox 40mg Syringe) 40 mg Q24H SQ Last administered on 18:08; Start 04/30/17 at 17:00 Labetalol HCl (Normodyne) 10 mg PRN Q10MIN PRN IVP COMM; Start 04/30/17 at 16: 45 Simvastatin (Zocor) 10 mg QHS PO Last administered on 05/02/17 20:50; Start 04/30/17 at 21:00 Acetaminophen (Tylenol) 650 mg PRN Q6HRS PRN PO TEMP > 100.4F; Start 04/30/17 at 16:45 Acetaminophen (Acetaminophen Supp) 650 mg PRN Q4HRS PRN CT TEMP > 100.4F; Start 04/30/17 at 16:45 Famotidine (Pepcid Vial) 20 mg BID IVP Last administered on 05/02/17 10:56; Start 04/30/17 at 21:00; Stop 05/02/17 at 17:22; Status DC Aspirin (Aspirin) [address] Last administered on 04/30/17 17:03; Start 04/30/17 at 17:00; Stop 05/01/17 at 15:47; Status DC Duloxetine HCl (Cymbalta) 20 mg DAILY PO Last administered on 05/03/17 09:37; Start 05/01/17 at 09:00 Glimepiride (Amaryl) 2 mg DAILY08 PO Last administered on 05/03/17 09:38; Start 05/01/17 at 08:00 Oxybutynin Chloride (Ditropan) 5 mg BID PO Last administered on 05/03/17 09:38 ; Start 04/30/17 at 21:00 Simvastatin (Zocor) 2 mg HS PO ; Start 04/30/17 at 21:00; Status UNV Pantoprazole Sodium (Protonix) 40 mg DAILYAC PO Last administered on 05/03/17 09:37; Start 05/01/17 at 07:30 Insulin Aspart (NovoLOG) 0-9 UNITS TIDWMEALS SQ Last administered on 17:37; Start 05/01/17 at 08:00; Stop 05/02/17 at 08:58; Status DC Dextrose (Dextrose 50%-Water Syringe) 12.5 gm PRN Q15MIN PRN IV SEE COMMENTS; Start 04/30/17 at 19:00 Potassium Chloride/Sodium Chloride 1,000 ml @ 125 mls/hr Q8H IV Last administered on 05/03/17 05:59; Start 04/30/17 at 20:00 Aspirin (Gely Aspirin) 325 mg DAILYWBKFT PO Last administered on 05/03/17 09: 38; Start 05/02/17 at 08:00 Insulin Detemir (Levemir) 10 units DAILY SQ Last administered on 05/03/17 09: 45; Start 05/02/17 at 09:00 Insulin Aspart (NovoLOG) 0-7 UNITS TIDWMEALS SQ Last administered on 05/03/17 09:46; Start 05/02/17 at 12:00 Dextrose (Dextrose 50%-Water Syringe) 12.5 gm PRN Q15MIN PRN IV SEE COMMENTS; Start 05/02/17 at 09:00; Status Cancel Lisinopril (Prinivil) 5 mg DAILY PO Last administered on 05/03/17 09:37; Start 05/02/17 at 13:00 Midazolam HCl (Versed) 2 mg PRN 1X PRN IV PRIOR TO PROCEDURE; Start 05/02/17 at 13:00; Stop 05/03/17 at 12:59 Fentanyl Citrate (Fentanyl 2ml Vial) 25 mcg PRN Q5MIN PRN IV X 2 DOSES FOR PAIN ; Start 05/02/17 at 13:00; Stop 05/03/17 at 12:59 Fentanyl Citrate (Fentanyl 2ml Vial) 50 mcg PRN Q5MIN PRN IV X 2 DOSES FOR PAIN ; Start 05/02/17 at 13:00; Stop 05/03/17 at 12:59 Ringer's Solution 1,000 ml @ 125 mls/hr Q8H IV Last administered on 05/02/17 12:48; Start 05/02/17 at 12:46; Stop 05/03/17 at 00:45; Status DC Lidocaine HCl (Xylocaine-Mpf 1% Vial) 2 ml 1X PRN PRN ID IV START; Start at 13:00; Stop 05/03/17 at 12:59 Propofol 20 ml @ As Directed STK-MED ONCE IV ; Start 05/02/17 at 13:19; Stop at 13:20; Status DC Lidocaine HCl (Lidocaine Pf 2% Vial) 5 ml STK-MED ONCE .ROUTE ; Start 05/02/17 at 13:19; Stop 05/02/17 at 13:20; Status DC Nystatin 5 ml [id number] Last administered on 05/03/17 09:36; Start at 17:00 Multi-Ingredient Mouthwash/Gargle (Gi Cocktail Single Dose) 15 ml PRN Q2HRS PRN SWSW painful swallowing; Start 05/02/17 at 13:45 Active Scripts Active Reported Oxybutynin Chloride 5 Mg Tablet 1 Tab PO BID Levemir (Insulin Detemir) 100 Unit/1 Ml Vial 11 Unit SQ Simvastatin 5 Mg Tablet 2 Mg PO HS Duloxetine Hcl 20 Mg Capsule. 20 Mg PO DAILY Glimepiride 2 Mg Tablet 1 Tab PO DAILY Omeprazole 20 Mg Capsule. 1 Cap PO DAILY Metformin Hcl 1,000 Mg Tablet 1 Tab PO BIDWMEALS Vitals/I & O Vital Sign - Last 24 Hours 05/02/17 05/02/17 05/02/17 05/02/17 11:05 12:38 13:37 13:52 Temp 98.2 98.4 98.4 98.2 98.4 98.4 Pulse 63 80 84 Resp 16 18 18 B/P (MAP) 145/66 (92) 126/60 169/75 Pulse Ox 98 100 100 O2 Delivery Room Air Room Air Room Air Room Air 05/02/17 05/02/17 05/02/17 05/02/17 14:10 15:09 19:00 20:00 Temp 98.4 98.2 97.7 98.4 98.2 97.7 Pulse 82 73 82 Resp 18 18 18 B/P (MAP) 158/70 148/76 (100) 160/73 (102) Pulse Ox 100 97 98 O2 Delivery Room Air Room Air Room Air Room Air 05/02/17 05/03/17 05/03/17 05/03/17 23:48 03:35 06:57 08:00 Temp 97.9 98.4 97.9 97.9 98.4 97.9 Pulse 76 83 79 Resp 18 18 18 B/P (MAP) 144/72 (96) 160/75 (103) 160/72 (101) Pulse Ox 96 95 98 O2 Delivery Room Air Room Air Room Air Room Air 05/03/17 09:37 Pulse 79 B/P (MAP) 160/72 Intake and Output 05/02/17 05/02/17 05/03/17 15:00 23:00 07:00 Intake Total 300 ml 200 ml Output Total 400 ml Balance 300 ml -200 ml RICK LE MD May 03, 2017 10:53
[2017-05-03 11:06] VITALS: BP 125/69
--- NOTE | 2017-05-03 12:45 | PDOC ---
PROGRESS NOTES Assessment 1. Acute right occipital stroke with a left visual field loss primarily in the upper outer quadrant. 2. 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 3. Mild cognitive impairment which has been noted for the last few years. 4. History of recurrent syncope with negative investigation area 5. Hyperlipidemia with LDL cholesterol greater than 70. Plan 1. We need to address stroke risk factors as possible. The diabetes needs to be tightly controlled. The dosage of simvastatin has been increased to 10 mg. He denies having any adverse effects from the simvastatin. He was worried it was affecting his good cholesterol so did not take it on a daily basis. 2. A follow-up fasting lipid profile in a month would be helpful to determine if the dosage of simvastatin is effective. 3. He will require rehabilitation and has received consultation. 4. I would support implantation of a loop recorder to evaluate for occult atrial fibrillation. Subjective I feel okay. Things keep jumping around in my vision. Had problems with my right shoulder for a long time. I'm not having any pain or headache. Objective Vital Signs Date Time Temp Pulse Resp B/P (MAP) Pulse Ox O2 Delivery O2 Flow Rate FiO2 05/03/17 11:06 98.1 81 18 125/69 (87) 99 Room Air 98.1 Intake and Output 05/03/17 07:00 Intake Total 500 ml Output Total 400 ml Balance 100 ml Intake Oral 200 ml IV Total 300 ml Output Urine Total 400 ml # Voids 7 PHYSICAL EXAM He was alert, awake and cooperative. The speech was fluent and clear. He seemed to have some difficulty grasping concepts. Examination of the visual gee revealed morbid left upper quadrant visual field loss. He seemed to have some perception in the left lower quadrant. There was no nystagmus. Facial sensation was intact. The muscles of mastication and facial expression were powerful symmetrically. Hearing was intact to finger rub. The palate arch symmetrically and the tongue was midline. Muscle bulk and tone was normal. He had difficulty holding up his right arm because of shoulder pain. Power in the hand and elbow were powerful as was hip flexion and knee flexion. Coordination testing with finger to nose was intact. Sensation was intact to light touch. Review of Relevant I have reviewed the following items joy (where applicable) has been applied. Labs Laboratory Tests Test 05/01/17 17:02 05/02/17 08:14 05/02/17 11:34 05/02/17 15:10 Glucose (Fingerstick) 313 mg/dL (70-99) 180 mg/dL (70-99) 202 mg/dL (70-99) Sodium Level 132 mmol/L (136-145) Potassium Level 4.0 mmol/L (3.5-5.1) Chloride Level 98 mmol/L (98-107) Carbon Dioxide Level 21 mmol/L (21-32) Anion Gap 13 (6-14) Blood Urea Nitrogen 14 mg/dL (8-26) Creatinine 0.8 mg/dL (0.7-1.3) Estimated GFR (Cockcroft-Gault) 94.2 Glucose Level 224 mg/dL (70-99) Calcium Level 8.4 mg/dL (8.5-10.1) Magnesium Level 1.8 mg/dL (1.8-2.4) Test 05/02/17 17:13 05/02/17 21:24 05/03/17 07:43 05/03/17 11:50 Glucose (Fingerstick) 206 mg/dL (70-99) 316 mg/dL (70-99) 162 mg/dL (70-99) 215 mg/dL (70-99) Laboratory Tests Test 05/02/17 15:10 05/02/17 17:13 05/02/17 21:24 05/03/17 07:43 Sodium Level 132 mmol/L (136-145) Potassium Level 4.0 mmol/L (3.5-5.1) Chloride Level 98 mmol/L (98-107) Carbon Dioxide Level 21 mmol/L (21-32) Anion Gap 13 (6-14) Blood Urea Nitrogen 14 mg/dL (8-26) Creatinine 0.8 mg/dL (0.7-1.3) Estimated GFR (Cockcroft-Gault) 94.2 Glucose Level 224 mg/dL (70-99) Calcium Level 8.4 mg/dL (8.5-10.1) Magnesium Level 1.8 mg/dL (1.8-2.4) Glucose (Fingerstick) 206 mg/dL (70-99) 316 mg/dL (70-99) 162 mg/dL (70-99) Test 05/03/17 11:50 Glucose (Fingerstick) 215 mg/dL (70-99) Medications Current Medications Iohexol (Omnipaque 300 Mg/ml) 75 ml 1X ONCE IV Last administered on 15:52; Start 04/30/17 at 15:45; Stop 04/30/17 at 15:46; Status DC Info (Do NOT chart on this entry -- for MONITORING) 1 each PRN DAILY PRN MC SEE COMMENTS; Start 04/30/17 at 15:45; Stop 05/02/17 at 15:44; Status DC Sodium Chloride 1,000 ml @ 100 mls/hr Q10H IV Last administered on 04/30/17 17:47; Start 04/30/17 at 16:35; Stop 04/30/17 at 19:01; Status DC Enoxaparin Sodium (Lovenox 40mg Syringe) 40 mg Q24H SQ Last administered on 18:08; Start 04/30/17 at 17:00 Labetalol HCl (Normodyne) 10 mg PRN Q10MIN PRN IVP COMM; Start 04/30/17 at 16: 45 Simvastatin (Zocor) 10 mg QHS PO Last administered on 05/02/17 20:50; Start 04/30/17 at 21:00 Acetaminophen (Tylenol) 650 mg PRN Q6HRS PRN PO TEMP > 100.4F; Start 04/30/17 at 16:45 Acetaminophen (Acetaminophen Supp) 650 mg PRN Q4HRS PRN [place] TEMP > 100.4F; Start 04/30/17 at 16:45 Famotidine (Pepcid Vial) 20 mg BID IVP Last administered on 05/02/17 10:56; Start 04/30/17 at 21:00; Stop 05/02/17 at 17:22; Status DC Aspirin (Aspirin) 300 mg DAILY [place] Last administered on 04/30/17 17:03; Start 04/30/17 at 17:00; Stop 05/01/17 at 15:47; Status DC Duloxetine HCl (Cymbalta) 20 mg DAILY PO Last administered on 05/03/17 09:37; Start 05/01/17 at 09:00 Glimepiride (Amaryl) 2 mg DAILY08 PO Last administered on 05/03/17 09:38; Start 05/01/17 at 08:00 Oxybutynin Chloride (Ditropan) 5 mg BID PO Last administered on 05/03/17 09:38 ; Start 04/30/17 at 21:00 Simvastatin (Zocor) 2 mg HS PO ; Start 04/30/17 at 21:00; Status UNV Pantoprazole Sodium (Protonix) 40 mg DAILYAC PO Last administered on 05/03/17 09:37; Start 05/01/17 at 07:30 Insulin Aspart (NovoLOG) 0-9 UNITS TIDWMEALS SQ Last administered on 17:37; Start 05/01/17 at 08:00; Stop 05/02/17 at 08:58; Status DC Dextrose (Dextrose 50%-Water Syringe) 12.5 gm PRN Q15MIN PRN IV SEE COMMENTS; Start 04/30/17 at 19:00 Potassium Chloride/Sodium Chloride 1,000 ml @ 125 mls/hr Q8H IV Last administered on 05/03/17 05:59; Start 04/30/17 at 20:00 Aspirin (Gely Aspirin) 325 mg DAILYWBKFT PO Last administered on 05/03/17 09: 38; Start 05/02/17 at 08:00 Insulin Detemir (Levemir) 10 units DAILY SQ Last administered on 05/03/17 09: 45; Start 05/02/17 at 09:00 Insulin Aspart (NovoLOG) 0-7 UNITS TIDWMEALS SQ Last administered on 05/03/17 09:46; Start 05/02/17 at 12:00 Dextrose (Dextrose 50%-Water Syringe) 12.5 gm PRN Q15MIN PRN IV SEE COMMENTS; Start 05/02/17 at 09:00; Status Cancel Lisinopril (Prinivil) 5 mg DAILY PO Last administered on 05/03/17 09:37; Start 05/02/17 at 13:00 Midazolam HCl (Versed) 2 mg PRN 1X PRN IV PRIOR TO PROCEDURE; Start 05/02/17 at 13:00; Stop 05/03/17 at 12:59 Fentanyl Citrate (Fentanyl 2ml Vial) 25 mcg PRN Q5MIN PRN IV X 2 DOSES FOR PAIN ; Start 05/02/17 at 13:00; Stop 05/03/17 at 12:59 Fentanyl Citrate (Fentanyl 2ml Vial) 50 mcg PRN Q5MIN PRN IV X 2 DOSES FOR PAIN ; Start 05/02/17 at 13:00; Stop 05/03/17 at 12:59 Ringer's Solution 1,000 ml @ 125 mls/hr Q8H IV Last administered on 05/02/17 12:48; Start 05/02/17 at 12:46; Stop 05/03/17 at 00:45; Status DC Lidocaine HCl (Xylocaine-Mpf 1% Vial) 2 ml 1X PRN PRN ID IV START; Start at 13:00; Stop 05/03/17 at 12:59 Propofol 20 ml @ As Directed STK-MED ONCE IV ; Start 05/02/17 at 13:19; Stop at 13:20; Status DC Lidocaine HCl (Lidocaine Pf 2% Vial) 5 ml STK-MED ONCE .ROUTE ; Start 05/02/17 at 13:19; Stop 05/02/17 at 13:20; Status DC Nystatin 5 ml [id number] Last administered on 05/03/17 09:36; Start at 17:00 Multi-Ingredient Mouthwash/Gargle (Gi Cocktail Single Dose) 15 ml PRN Q2HRS PRN SWSW painful swallowing; Start 05/02/17 at 13:45 Active Scripts Active Reported Oxybutynin Chloride 5 Mg Tablet 1 Tab PO BID Levemir (Insulin Detemir) 100 Unit/1 Ml Vial 11 Unit SQ Simvastatin 5 Mg Tablet 2 Mg PO HS Duloxetine Hcl 20 Mg Capsule.dr 20 Mg PO DAILY Glimepiride 2 Mg Tablet 1 Tab PO DAILY Omeprazole 20 Mg Capsule.dr 1 Cap PO DAILY Metformin Hcl 1,000 Mg Tablet 1 Tab PO BIDWMEALS Vitals/I & O Vital Sign - Last 24 Hours 05/02/17 05/02/17 05/02/17 05/02/17 13:37 13:52 14:10 15:09 Temp 98.4 98.4 98.4 98.2 98.4 98.4 98.4 98.2 Pulse 80 84 82 73 Resp 18 18 18 18 B/P (MAP) 126/60 169/75 158/70 148/76 (100) Pulse Ox 100 100 100 97 O2 Delivery Room Air Room Air Room Air Room Air 05/02/17 05/02/17 05/02/17 05/03/17 19:00 20:00 23:48 03:35 Temp 97.7 97.9 98.4 97.7 97.9 98.4 Pulse 82 76 83 Resp 18 18 18 B/P (MAP) 160/73 (102) 144/72 (96) 160/75 (103) Pulse Ox 98 96 95 O2 Delivery Room Air Room Air Room Air Room Air 05/03/17 05/03/17 05/03/17 05/03/17 06:57 08:00 09:37 11:06 Temp 97.9 98.1 97.9 98.1 Pulse 79 79 81 Resp 18 18 B/P (MAP) 160/72 (101) 160/72 125/69 (87) Pulse Ox 98 99 O2 Delivery Room Air Room Air Room Air Intake and Output 05/02/17 05/02/17 05/03/17 15:00 23:00 07:00 Intake Total 300 ml 200 ml Output Total 400 ml Balance 300 ml -200 ml ALEK CHICAS MD May 03, 2017 12:45
[2017-05-03] MEDS ORDERED: ASPI325T8 PO (14:18)
[2017-05-03] MEDS ORDERED: LISI-338 PO (14:18)
--- NOTE | 2017-05-03 14:26 | PDOC ---
PROGRESS NOTES Chief Complaint Chief Complaint CVA and CVA syndrome New right occipital stroke Peripheral neuropathy due to diabetes cognitive impairment Dysphagia viral gastroenteritis on admit, improved, no sepsis criteria, tachycardia only Hypokalemia due to nausea and vomiting Dm2, mod poor control History of Present Illness History of Present Illness complains of fatigue and weakness today does not remember my name again, does not remember seeing me yesterday ST - PT and OT doing well feels improved neuro following Vitals Vitals Vital Signs Date Time Temp Pulse Resp B/P (MAP) Pulse Ox O2 Delivery O2 Flow Rate FiO2 05/03/17 11:06 98.1 81 18 125/69 (87) 99 Room Air 98.1 Physical Exam General: Alert, Cooperative, No acute distress, Other (not oriented) Heart: Regular rate (SR), No murmurs Abdomen: Soft Extremities: No cyanosis, No edema Skin: No breakdown Labs LABS Laboratory Tests Test 05/02/17 15:10 05/02/17 17:13 05/02/17 21:24 05/03/17 07:43 Sodium Level 132 mmol/L (136-145) Potassium Level 4.0 mmol/L (3.5-5.1) Chloride Level 98 mmol/L (98-107) Carbon Dioxide Level 21 mmol/L (21-32) Anion Gap 13 (6-14) Blood Urea Nitrogen 14 mg/dL (8-26) Creatinine 0.8 mg/dL (0.7-1.3) Estimated GFR (Cockcroft-Gault) 94.2 Glucose Level 224 mg/dL (70-99) Calcium Level 8.4 mg/dL (8.5-10.1) Magnesium Level 1.8 mg/dL (1.8-2.4) Glucose (Fingerstick) 206 mg/dL (70-99) 316 mg/dL (70-99) 162 mg/dL (70-99) Test 05/03/17 11:50 Glucose (Fingerstick) 215 mg/dL (70-99) Review of Systems Review of Systems weakness and fatigue denies dysphagia Comment Review of Relevant I have reviewed the following items joy (where applicable) has been applied. Labs Laboratory Tests Test 05/01/17 17:02 05/02/17 08:14 05/02/17 11:34 05/02/17 15:10 Glucose (Fingerstick) 313 mg/dL (70-99) 180 mg/dL (70-99) 202 mg/dL (70-99) Sodium Level 132 mmol/L (136-145) Potassium Level 4.0 mmol/L (3.5-5.1) Chloride Level 98 mmol/L (98-107) Carbon Dioxide Level 21 mmol/L (21-32) Anion Gap 13 (6-14) Blood Urea Nitrogen 14 mg/dL (8-26) Creatinine 0.8 mg/dL (0.7-1.3) Estimated GFR (Cockcroft-Gault) 94.2 Glucose Level 224 mg/dL (70-99) Calcium Level 8.4 mg/dL (8.5-10.1) Magnesium Level 1.8 mg/dL (1.8-2.4) Test 05/02/17 17:13 05/02/17 21:24 05/03/17 07:43 05/03/17 11:50 Glucose (Fingerstick) 206 mg/dL (70-99) 316 mg/dL (70-99) 162 mg/dL (70-99) 215 mg/dL (70-99) Laboratory Tests Test 05/02/17 15:10 05/02/17 17:13 05/02/17 21:24 05/03/17 07:43 Sodium Level 132 mmol/L (136-145) Potassium Level 4.0 mmol/L (3.5-5.1) Chloride Level 98 mmol/L (98-107) Carbon Dioxide Level 21 mmol/L (21-32) Anion Gap 13 (6-14) Blood Urea Nitrogen 14 mg/dL (8-26) Creatinine 0.8 mg/dL (0.7-1.3) Estimated GFR (Cockcroft-Gault) 94.2 Glucose Level 224 mg/dL (70-99) Calcium Level 8.4 mg/dL (8.5-10.1) Magnesium Level 1.8 mg/dL (1.8-2.4) Glucose (Fingerstick) 206 mg/dL (70-99) 316 mg/dL (70-99) 162 mg/dL (70-99) Test 05/03/17 11:50 Glucose (Fingerstick) 215 mg/dL (70-99) Medications Current Medications Iohexol (Omnipaque 300 Mg/ml) 75 ml 1X ONCE IV Last administered on 15:52; Start 04/30/17 at 15:45; Stop 04/30/17 at 15:46; Status DC Info (Do NOT chart on this entry -- for MONITORING) 1 each PRN DAILY PRN MC SEE COMMENTS; Start 04/30/17 at 15:45; Stop 05/02/17 at 15:44; Status DC Sodium Chloride 1,000 ml @ 100 mls/hr Q10H IV Last administered on 04/30/17 17:47; Start 04/30/17 at 16:35; Stop 04/30/17 at 19:01; Status DC Enoxaparin Sodium (Lovenox 40mg Syringe) 40 mg Q24H SQ Last administered on 18:08; Start 04/30/17 at 17:00 Labetalol HCl (Normodyne) 10 mg PRN Q10MIN PRN IVP COMM; Start 04/30/17 at 16: 45 Simvastatin (Zocor) 10 mg QHS PO Last administered on 05/02/17 20:50; Start 04/30/17 at 21:00 Acetaminophen (Tylenol) 650 mg PRN Q6HRS PRN PO TEMP > 100.4F; Start 04/30/17 at 16:45 Acetaminophen (Acetaminophen Supp) 650 mg PRN Q4HRS PRN [place] TEMP > 100.4F; Start 04/30/17 at 16:45 Famotidine (Pepcid Vial) 20 mg BID IVP Last administered on 05/02/17 10:56; Start 04/30/17 at 21:00; Stop 05/02/17 at 17:22; Status DC Aspirin (Aspirin) 300 mg DAILY [place] Last administered on 04/30/17 17:03; Start 04/30/17 at 17:00; Stop 05/01/17 at 15:47; Status DC Duloxetine HCl (Cymbalta) 20 mg DAILY PO Last administered on 05/03/17 09:37; Start 05/01/17 at 09:00 Glimepiride (Amaryl) 2 mg DAILY08 PO Last administered on 05/03/17 09:38; Start 05/01/17 at 08:00 Oxybutynin Chloride (Ditropan) 5 mg BID PO Last administered on 05/03/17 09:38 ; Start 04/30/17 at 21:00 Simvastatin (Zocor) 2 mg HS PO ; Start 04/30/17 at 21:00; Status UNV Pantoprazole Sodium (Protonix) 40 mg DAILYAC PO Last administered on 05/03/17 09:37; Start 05/01/17 at 07:30 Insulin Aspart (NovoLOG) 0-9 UNITS TIDWMEALS SQ Last administered on 17:37; Start 05/01/17 at 08:00; Stop 05/02/17 at 08:58; Status DC Dextrose (Dextrose 50%-Water Syringe) 12.5 gm PRN Q15MIN PRN IV SEE COMMENTS; Start 04/30/17 at 19:00 Potassium Chloride/Sodium Chloride 1,000 ml @ 125 mls/hr Q8H IV Last administered on 05/03/17 12:38; Start 04/30/17 at 20:00 Aspirin (Gely Aspirin) 325 mg DAILYWBKFT PO Last administered on 05/03/17 09: 38; Start 05/02/17 at 08:00 Insulin Detemir (Levemir) 10 units DAILY SQ Last administered on 05/03/17 09: 45; Start 05/02/17 at 09:00; Stop 05/03/17 at 14:23; Status DC Insulin Aspart (NovoLOG) 0-7 UNITS TIDWMEALS SQ Last administered on 05/03/17 12:46; Start 05/02/17 at 12:00 Dextrose (Dextrose 50%-Water Syringe) 12.5 gm PRN Q15MIN PRN IV SEE COMMENTS; Start 05/02/17 at 09:00; Status Cancel Lisinopril (Prinivil) 5 mg DAILY PO Last administered on 05/03/17 09:37; Start 05/02/17 at 13:00 Midazolam HCl (Versed) 2 mg PRN 1X PRN IV PRIOR TO PROCEDURE; Start 05/02/17 at 13:00; Stop 05/03/17 at 12:59; Status DC Fentanyl Citrate (Fentanyl 2ml Vial) 25 mcg PRN Q5MIN PRN IV X 2 DOSES FOR PAIN ; Start 05/02/17 at 13:00; Stop 05/03/17 at 12:59; Status DC Fentanyl Citrate (Fentanyl 2ml Vial) 50 mcg PRN Q5MIN PRN IV X 2 DOSES FOR PAIN ; Start 05/02/17 at 13:00; Stop 05/03/17 at 12:59; Status DC Ringer's Solution 1,000 ml @ 125 mls/hr Q8H IV Last administered on 05/02/17t 12:48; Start 05/02/17 at 12:46; Stop 05/03/17 at 00:45; Status DC Lidocaine HCl (Xylocaine-Mpf 1% Vial) 2 ml 1X PRN PRN ID IV START; Start at 13:00; Stop 05/03/17 at 12:59; Status DC Propofol 20 ml @ As Directed STK-MED ONCE IV ; Start 05/02/17 at 13:19; Stop at 13:20; Status DC Lidocaine HCl (Lidocaine Pf 2% Vial) 5 ml STK-MED ONCE .ROUTE ; Start 05/02/17 at 13:19; Stop 05/02/17 at 13:20; Status DC Nystatin 5 ml [id number] Last administered on 05/03/17t 09:36; Start at 17:00 Multi-Ingredient Mouthwash/Gargle (Gi Cocktail Single Dose) 15 ml PRN Q2HRS PRN SWSW painful swallowing; Start 05/02/17 at 13:45 Insulin Detemir (Levemir) 13 units DAILY SQ ; Start 05/04/17 at 09:00 Active Scripts Active Aspirin 325 Mg Tablet 325 Mg PO DAILYWBKFT Lisinopril 5 Mg Tablet 5 Mg PO DAILY Reported Oxybutynin Chloride 5 Mg Tablet 1 Tab PO BID Levemir (Insulin Detemir) 100 Unit/1 Ml Vial 11 Unit SQ Simvastatin 5 Mg Tablet 2 Mg PO HS Duloxetine Hcl 20 Mg Capsule. 20 Mg PO DAILY Glimepiride 2 Mg Tablet 1 Tab PO DAILY Omeprazole 20 Mg Capsule. 1 Cap PO DAILY Metformin Hcl 1,000 Mg Tablet 1 Tab PO BIDWMEALS Vitals/I & O Vital Sign - Last 24 Hours 05/02/17 05/02/17 05/02/17 05/02/17 15:09 19:00 20:00 23:48 Temp 98.2 97.7 97.9 98.2 97.7 97.9 Pulse 73 82 76 Resp 18 18 18 B/P (MAP) 148/76 (100) 160/73 (102) 144/72 (96) Pulse Ox 97 98 96 O2 Delivery Room Air Room Air Room Air Room Air 05/03/17 05/03/17 05/03/17 05/03/17 03:35 06:57 08:00 09:37 Temp 98.4 97.9 98.4 97.9 Pulse 83 79 79 Resp 18 18 B/P (MAP) 160/75 (103) 160/72 (101) 160/72 Pulse Ox 95 98 O2 Delivery Room Air Room Air Room Air 05/03/17 11:06 Temp 98.1 98.1 Pulse 81 Resp 18 B/P (MAP) 125/69 (87) Pulse Ox 99 O2 Delivery Room Air Intake and Output 05/02/17 05/02/17 05/03/17 15:00 23:00 07:00 Intake Total 300 ml 200 ml Output Total 400 ml Balance 300 ml -200 ml ALFREDO ROBLEDO MD May 03, 2017 14:26
[2017-05-03 14:54] VITALS: BP 147/66
--- NOTE | 2017-05-03 15:11 | PDOC ---
Subjective: Subjective: admits to dysphagia Objective: Vital Signs: Vital Signs Date Time Temp Pulse Resp B/P (MAP) Pulse Ox O2 Delivery O2 Flow Rate FiO2 05/03/17 14:54 98.8 65 18 147/66 (93) 100 Room Air 98.8 Labs: Laboratory Tests Test 05/02/17 17:13 05/02/17 21:24 05/03/17 07:43 05/03/17 11:50 Glucose (Fingerstick) 206 mg/dL (70-99) 316 mg/dL (70-99) 162 mg/dL (70-99) 215 mg/dL (70-99) Physical Exam: Physical Exam: GEN: NAD HEENT: OP clear CV: S1S2 without murmurs, rubs, or gallops RESP: CTAB without wheezing, rhonchi, or crackles ABD: NABS, SNT/ND EXT: No edema Assessment & Plan: Assessment : IMP: Esophagitis. Given locallized to distal portion, maybe just atypical- appearing reflux. Biopsies pending re: any fungal/viral changes. Plan: REC: PPI. Empiric Nystatin. Await biopsies. okay for prov place Problems: RUBIA CONCEPCION MD May 03, 2017 15:11
[2017-05-04] MEDS ORDERED: INSULIN DETEMIR 300 UNITS/3 ML INSULN.PEN. SQ SCH (09:00)
--- NOTE | 2017-05-05 12:55 | PDOC3 ---
Discharge Summary Visit Information Date of Admission: Apr 30, 2017 Date of Discharge: May 03, 2017 Final Diagnosis New right occipital stroke Peripheral neuropathy due to diabetes cognitive impairment Dysphagia viral gastroenteritis on admit, improved, no sepsis criteria, tachycardia only Hypokalemia due to nausea and vomiting Dm2, mod poor control Brief Hospital Course Allergies Allergies Coded Allergies Type Severity Reaction Last Updated Verified No Known Drug Allergies 09/20/15 No Brief Hospital Course Mr. Benavides is a 76 old admt with headache and vision changes. Diagnosed CVA encephalopathy also viral enteritis complains of fatigue and weakness ongoing confusion ST - PT and OT doing well will need SNU for some time Discharge Information Condition at Discharge: Improved Follow Up: Weeks Disposition/Orders: D/C to Another Facility Scheduled Aspirin (Aspirin), 325 MG PO DAILYWBKFT Duloxetine Hcl (Duloxetine Hcl), 20 MG PO DAILY, (Reported) Glimepiride (Glimepiride), 1 TAB PO DAILY, (Reported) Lisinopril (Lisinopril), 5 MG PO DAILY Metformin Hcl (Metformin Hcl), 1 TAB PO BIDWMEALS, (Reported) Omeprazole (Omeprazole), 1 CAP PO DAILY, (Reported) Oxybutynin Chloride (Oxybutynin Chloride), 1 TAB PO BID, (Reported) Simvastatin (Simvastatin), 2 MG PO HS, (Reported) Miscellaneous Medications Insulin Detemir (Levemir), 11 UNIT SQ, (Reported) Patient Instructions Patient Instructions > 30 min face to face ALFREDO Sargent MD May 05, 2017 12:55
--- NOTE | 2017-05-05 13:33 | PATHOLOGY ---
PATHOLOGY REPORT * * * * * * * * FINAL DIAGNOSIS: Esophageal biopsies, distal esophagus: - Segments of granulation and fibromuscular tissue showing acute inflammation, consistent with ulcer. COMMENT: Sections of the distal esophageal biopsy reveal segments of granulation tissue and fibromuscular tissue showing acute inflammation, consistent with ulcer. There is no evidence of malignancy. (JPM:pit; 05/05/2017) REPORT ELECTRONICALLY SIGNED BY: Fede Diop M.D. DATE/TIME: 05/05/2017 13:33 * * * * * * * * GROSS PATHOLOGY: The specimen is received in formalin, labeled "Feliberto Loyola and distal esophagus biopsy", are two benavidez-white phillips tissue 0.2 and a 0.5 cm in greatest dimension, entirely submitted in A1. (SWS; 05/02/2017) INITIAL CPT CODE(S): A; 62286 Professional services performed [place] [facility] [place] [address] Technical services performed by [facility] at [address] [place] [address], [facility] [address] [address]. SPECIMEN(S) RECEIVED: A.Distal esophagus biopsy CLINICAL HISTORY: CVA, difficulty swallowing PATIENT: FELIBERTO LOYOLA /AGE: 5 1940 (Age: 76) PATIENT #: [id number] ALT CASE #: SPECIMEN COLLECTION DATE: 05/02/2017 SPECIMEN RECEIVED DATE: 05/02/2017 [facility] - [id number] [place] [address] - PHONE: [phone] * * * END OF REPORT * * *
== END 2017-05-03 23:39 | DRG 391 ==
LOC: ER 11:42 → 6 SOUTH 15:57
PROVIDERS: ADMIT Internal Medicine Hematology & Oncology; ATTEND Internal Medicine Hematology & Oncology
PROC: 0DB58ZX Excision of Esophagus, Via Natural or Artificial Opening Endoscopic, Diagnostic (ICD-10-PCS; principal; 2017-05-02 14:30)
DX: A08.4 Viral intestinal infection, unspecified (principal); I63.9 Cerebral infarction, unspecified; E10.42 Type 1 diabetes mellitus with diabetic polyneuropathy; E10.51 Type 1 diabetes mellitus with diabetic peripheral angiopathy without gangrene; R13.10 Dysphagia, unspecified; M41.85 Other forms of scoliosis, thoracolumbar region; K21.0 Gastro-esophageal reflux disease with esophagitis; E87.6 Hypokalemia; G31.84 Mild cognitive impairment of uncertain or unknown etiology; E10.65 Type 1 diabetes mellitus with hyperglycemia; K52.9 Noninfective gastroenteritis and colitis, unspecified; H53.40 Unspecified visual field defects; E78.5 Hyperlipidemia, unspecified; G43.909 Migraine, unspecified, not intractable, without status migrainosus; H54.7 Unspecified visual loss; I10 Essential (primary) hypertension; I44.0 Atrioventricular block, first degree; I44.7 Left bundle-branch block, unspecified; K44.9 Diaphragmatic hernia without obstruction or gangrene; N32.81 Overactive bladder; F41.9 Anxiety disorder, unspecified; M19.90 Unspecified osteoarthritis, unspecified site; Z82.49 Family history of ischemic heart disease and other diseases of the circulatory system; Z87.891 Personal history of nicotine dependence; Z90.49 Acquired absence of other specified parts of digestive tract
CPT/HCPCS: 99285; C8924; 36415; 70450; 70496; 70498; 70551; 74022; 80048; 80053; 80061; 82274; 82962; 83690; 83735; 84484; 85025; 93005; J1650; J1815; J2704; J7030; J7120; Q9967; S0028; 92610; 97110; 97116; 97530; 97535; J2001

== ENCOUNTER 2017-09-24 12:22 | Day surgery (SDC) | payer MEDICARE ==
[~2017-09-24 12:22] MED LIST changes: -DULO20CA17 PO; -GLIM2TAB2 PO; +HYDROmorphone 2 MG/ML VIAL IV; +LIDOCAINE 1% PF 2 ML VIAL. ID; -METF-620 PO; +MORPHINE SULFATE 4 MG/ML DISP.SYRIN. IV; -OMEP20CA9 PO; +ONDANSETRON PF 4 MG/2 ML VIAL. IV; +PROCHLORPERAZINE 10 MG/2 ML VIAL. IV; -SIMV5TAB5 PO; +fentaNYL PF VIAL 100 MCG/2 ML VIAL IV
[2017-09-24] MEDS: IV RINGERS,LACTATED 1000ML 1,000 ML IV (13:17)
[2017-09-24 13:56] LABS: POC GLUCOSE 290 mg/dL (70-99)
[2017-09-24] MEDS: CIPROFLOXACIN 400MG PREMIX 200 ML IV (14:10)
[2017-09-24] MEDS ORDERED: PROPOFOL 20 ML IV (14:16)
[2017-09-24] MEDS ORDERED: SEVOFLURANE 31 TO 60 MINUTES. IH ×2 (14:16→15:24)
[2017-09-24] MEDS: INSULIN ASPART 100 UNIT/ML 10ML VIAL. SQ (14:22)
[2017-09-24] MEDS ORDERED: PHENYLEPHRINE in 0.9% NACL PF 1 MG/10 ML SYRINGE. IV (14:41)
[2017-09-24] MEDS ORDERED: ONDANSETRON PF 4 MG/2 ML VIAL. (14:41)
[2017-09-24] MEDS ORDERED: DEXAMETHASONE SOD PHOS 20 MG/5 ML VIAL. (14:41)
[2017-09-24] MEDS: LIDOCAINE 2% JELLY 6ML IN APPLICATOR. (15:23)
[2017-09-24 15:54] LABS: POC GLUCOSE 213 mg/dL (70-99)
== END 2017-09-24 18:28 | disposition home or self-care (01) ==
LOC: SURG 12:22
DX: N40.1 Benign prostatic hyperplasia with lower urinary tract symptoms (principal); N13.8 Other obstructive and reflux uropathy; E11.9 Type 2 diabetes mellitus without complications
CPT/HCPCS: 52648; 82962; J0744; J1100; J2370; J2405; J2704

== ENCOUNTER 2018-03-26 19:14 | Inpatient (IN) | payer MEDICARE ==
[~2018-03-26] VITALS: Ht 170.2 cm; Wt 81.2 kg
[~2018-03-26 19:14] MED LIST changes: +ASPI325T8 PO; +DULO20CA17 PO; +GLIM2TAB2 PO; +HYDR-971 PO; -HYDROmorphone 2 MG/ML VIAL IV; +INSU100V13 SQ; -LIDOCAINE 1% PF 2 ML VIAL. ID; +LISI-338 PO; +METF10007 PO; -MORPHINE SULFATE 4 MG/ML DISP.SYRIN. IV; +OMEP20CA9 PO; -ONDANSETRON PF 4 MG/2 ML VIAL. IV; +OXYB5TAB7 PO; +PHEN-318 PO; -PROCHLORPERAZINE 10 MG/2 ML VIAL. IV; +SIMV5TAB5 PO; +SULF1TAB24 PO; -fentaNYL PF VIAL 100 MCG/2 ML VIAL IV
[2018-03-26 19:59] LABS: BASO # 0.1 x10^3/uL (0.0-0.2); BASO % 1 % (0-3); EOS % 0 % (0-3); HEMATOCRIT 40.4 % (39.0-53.0); HEMOGLOBIN 14.4 g/dL (13.0-17.5); LYMPH # 1.1 x10^3/uL (1.0-4.8); LYMPH % 10 % (24-48); MEAN CORPUSCULAR HEMOGLOBIN 32 pg (25-35); MEAN CORPUSCULAR HGB CONC 36 g/dL (31-37); MEAN CORPUSCULAR VOLUME 89 fL (79-100); MONO # 0.7 x10^3/uL (0.0-1.1); MONO % 6 % (0-9); NEUT # 9.2 x10^3uL (1.8-7.7); NEUT % 83 % (31-73); PLATELET COUNT 279 x10^3/uL (140-400); RED BLOOD COUNT 4.53 x10^6/uL (4.30-5.70); RED CELL DISTRIBUTION WIDTH 13.6 % (11.5-14.5); WHITE BLOOD COUNT 11.1 x10^3/uL (4.0-11.0)
--- NOTE | 2018-03-26 20:08 | RAD ---
PQRS Compliance statement: One or more of the following individualized dose reduction techniques were utilized for this examination: 1. Automated exposure control. 2. Adjustment of the mA and/or kV according to patient size. 3. Use of iterative reconstruction technique. Indication:vision changes; ataxia x 1 hr;code stroke 4180 TECHNIQUE: CT head without IV contrast COMPARISON:04/30/2017 FINDINGS: No pathologic extra-axial or intra-axial fluid collection. No acute intracranial bleed. The ventricles and basal cisterns are within normal limits. Moderate diffuse cerebral atrophy. Diffuse periventricular and deep white matter low-attenuation of the right matter noted. Stable focal wedge-shaped area of attenuation seen in the right occipital lobe. Motion artifact noted limiting optimal evaluation. Orbits within normal limits. No suspicious calvarial lesion. Visualized paranasal sinuses and mastoid air cells are clear. IMPRESSION: Motion artifact limiting optimal evaluation. 1. No acute intracranial bleed. 2. Advanced white matter changes most likely secondary to chronic microvascular ischemic disease. 3. Stable wedge-shaped area of low-attenuation in the right occipital lobe, nonspecific. If concern for acute ischemic stroke is high, please consider MRI brain. Overall the findings are not significant change when compared to previous exam from 04/30/2017. Findings discussed with Dr. Miranda at 03/26/2018 at 8:05 PM. Electronically signed by: Davie Schuler DO (03/26/2018 8:06 PM) [employer]
[2018-03-26 20:39] LABS: CALCIUM 9.7 mg/dL (8.5-10.1); CREATININE 1.1 mg/dL (0.7-1.3); GFR 65.1; POTASSIUM 4.2 mmol/L (3.5-5.1)
[2018-03-26 21:01] LABS: PROTHROMBIN TIME PATIENT 12.9 SEC (11.7-14.0)
[2018-03-26] MEDS ORDERED: CONTRAST GIVEN. MC PRN (21:30)
--- NOTE | 2018-03-26 21:30 | PHYS DOC ---
Past Medical History Past Medical History: Diabetes-Type II, Stroke Past Surgical History: No Surgical History Alcohol Use: Occasionally Drug Use: None Adult General Chief Complaint Chief Complaint: WEAKNESS/GENERALIZED HPI HPI Patient is a 77 year old male who presents with weakness, loss of vision. 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 This was in April 2017. He is unable to say if he had any sequelae from that stroke. He normally walks with a walker or cane at home. Tonight, his family noticed him having difficulty walking and drifting to the left. He also had some difficulty with word finding and stated he did not have vision in the left eye. Symptom onset was at about 1800. On arrival to the ER, the patient has no acute complaints although he does have neglect of the left side. He does state that he does not see out of the left eye which is a new finding. He denies chest pain or shortness of breath. He does c/o severe headache that is focally worse behind the right eye. Review of Systems Review of Systems Constitutional: Denies fever or chills Eyes: + loss of vision in the left eye HENT: Denies Respiratory: Denies cough or shortness of breath Cardiovascular: No additional information not addressed in HPI GI: Denies abdominal pain, nausea, emesis : Denies dysuria Musculoskeletal: Denies back pain o Integument: Denies rash or skin lesions Neurologic: + headache All other systems were reviewed and found to be within normal limits, except as documented in this note. Current Medications Current Medications Current Medications Medications (Trade) Dose Ordered Sig/Sonja Start Time Stop Time Status Last Admin Dose Admin Info (CONTRAST GIVEN -- Rx MONITORING) 1 each PRN DAILY PRN 03/26/18 21:30 03/28/18 21:29 Iohexol (Omnipaque 300 Mg/ml) 75 ml 1X ONCE 03/26/18 22:00 03/26/18 22:01 DC 03/26/18 22:00 75 ML Lorazepam (Ativan) 0.5 mg 1X ONCE 03/26/18 20:30 03/26/18 20:31 DC 03/26/18 21:14 0.5 MG Sodium Chloride 500 ml @ 500 mls/hr 1X ONCE 03/26/18 22:00 03/26/18 22:59 03/26/18 21:56 500 MLS/HR Allergies Allergies Allergies Coded Allergies Type Severity Reaction Last Updated Verified No Known Drug Allergies 09/24/17 No Physical Exam Physical Exam Constitutional: Well developed, ill-appearing male, confused and slow to answer questions, neglects to answer some questions HENT: Normocephalic, atraumatic, bilateral external ears normal, oropharynx moist Eyes: PERRLA, Patient unable to follow commands for EOM exam. does not look left of midline with left eye Neck: Normal range of motion, supple, no JVD Cardiovascular:Heart rate regular rhythm, no murmur Lungs & Thorax: Bilateral breath sounds clear to auscultation Abdomen: Bowel sounds normal, soft, no tenderness Skin: Warm, dry, no erythema Extremities: some spasticity on the left, no edema, equal pulses in all extremities Neurologic: Alert and oriented X 3, Eyes do not move left of midline, but patient doesn't follow commands, 3/5 water jet loom fixer on left and unable to hold left arm up. + 5/5 foot pushes on left but cannot elevate leg. speech is clear but he is slow to answer questions, cannot see light in the left eye Current Patient Data Vital Signs Vital Signs Date Time Temp Pulse Resp B/P (MAP) Pulse Ox O2 Delivery O2 Flow Rate FiO2 03/26/18 21:23 96 20 97 03/26/18 19:24 98.6 185/100 (128) Room Air 98.6 Lab Values Laboratory Tests Test 03/26/18 19:34 03/26/18 19:40 03/26/18 20:18 Glucose (Fingerstick) 185 mg/dL (70-99) H White Blood Count 11.1 x10^3/uL (4.0-11.0) H Red Blood Count 4.53 x10^6/uL (4.30-5.70) Hemoglobin 14.4 g/dL (13.0-17.5) Hematocrit 40.4 % (39.0-53.0) Mean Corpuscular Volume 89 fL (79-100) Mean Corpuscular Hemoglobin 32 pg (25-35) Mean Corpuscular Hemoglobin Concent 36 g/dL (31-37) Red Cell Distribution Width 13.6 % (11.5-14.5) Platelet Count 279 x10^3/uL (140-400) Neutrophils (%) (Auto) 83 % (31-73) H Lymphocytes (%) (Auto) 10 % (24-48) L Monocytes (%) (Auto) 6 % (0-9) Eosinophils (%) (Auto) 0 % (0-3) Basophils (%) (Auto) 1 % (0-3) Neutrophils # (Auto) 9.2 x10^3uL (1.8-7.7) H Lymphocytes # (Auto) 1.1 x10^3/uL (1.0-4.8) Monocytes # (Auto) 0.7 x10^3/uL (0.0-1.1) Eosinophils # (Auto) 0.0 x10^3/uL (0.0-0.7) Basophils # (Auto) 0.1 x10^3/uL (0.0-0.2) Prothrombin Time 12.9 SEC (11.7-14.0) Prothrombin Time INR 1.0 (0.8-1.1) PTT 26 SEC (24-38) Sodium Level 135 mmol/L (136-145) L Potassium Level 4.2 mmol/L (3.5-5.1) Chloride Level 95 mmol/L (98-107) L Carbon Dioxide Level 25 mmol/L (21-32) Anion Gap 15 (6-14) H Blood Urea Nitrogen 17 mg/dL (8-26) Creatinine 1.1 mg/dL (0.7-1.3) Estimated GFR (Cockcroft-Gault) 65.1 Glucose Level 205 mg/dL (70-99) H Calcium Level 9.7 mg/dL (8.5-10.1) Troponin I Quantitative < 0.017 ng/mL (0.000-0.055) Laboratory Tests 03/26/18 19:40 Laboratory Tests 03/26/18 20:18 EKG EKG No STEMI Interpretation Time: 19:45 Radiology/Procedures Radiology/Procedures CT Head: FINDINGS: No pathologic extra-axial or intra-axial fluid collection. No acute intracranial bleed. The ventricles and basal cisterns are within normal limits. Moderate diffuse cerebral atrophy. Diffuse periventricular and deep white matter low-attenuation of the right matter noted. Stable focal wedge-shaped area of attenuation seen in the right occipital lobe. Motion artifact noted limiting optimal evaluation. Orbits within normal limits. No suspicious calvarial lesion. Visualized paranasal sinuses and mastoid air cells are clear. IMPRESSION: Motion artifact limiting optimal evaluation. 1. No acute intracranial bleed. 2. Advanced white matter changes most likely secondary to chronic microvascular ischemic disease. 3. Stable wedge-shaped area of low-attenuation in the right occipital lobe, nonspecific. If concern for acute ischemic stroke is high, please consider MRI brain. Overall the findings are not significant change when compared to previous exam from 04/30/2017. CTA head/neck: FINDINGS: The A1, A2, A3 segments of the bilateral LINH are patent. The M1, M2, M3 segments of the bilateral MCA are patent. The basilar artery is patent. The P1, P2, P3 segments of the bilateral STRAIGHTENER are patent. Bilateral posterior communicating arteries are patent. Bilateral superior cerebellar arteries are patent. Bilateral anterior inferior cerebellar arteries are patent. Bilateral posterior inferior cerebellar arteries are patent. Bilateral vertebral arteries are patent. Stable 2 mm saccular outpouching seen in the V4 segment of the left vertebral artery which may represent a saccular aneurysm. The bilateral cavernous segments of the ICA are patent. Diffuse scattered atherosclerotic plaque causing approximately 50 percent narrowing. The bilateral petrous segments of the ICA are patent. Mild atherosclerotic disease seen at the origin of the bilateral ICA without significant stenosis. Bilateral LINH are patent. Bilateral common carotid arteries are patent. Conventional arch anatomy. Visualized superior mediastinum within normal limits. No enlarged cervical lymph nodes. The submandibular glands, parotid glands and thyroid are within normal limits. Clear lung apices. The major dural venous sinuses are patent. No suspicious bony lesion. IMPRESSION: 1. The major intracranial and neck arteries are patent. See above for details. 2. 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 Course & Med Decision Making Course & Med Decision Making Pertinent Labs and Imaging studies reviewed. (See chart for details) Patient is examined on arrival to his room. The patient is very difficult historian. He is unable to give a meaningful history of the present illness. History is obtained from his family who are at the bedside. The patient had sudden onset of some sort of left-sided weakness around 6:00 this evening. He does have a known history of prior stroke in April 2017. CT head stroke protocol is ordered. Basic labs. 21:00: CT head as documented above but no acute changes from prior. CT angios ordered. The patient has an NIH scale of 16. I did discuss this patient with Dr. Turner who is day habilitation specialist. The patient's prior stroke was an infarction but did have hemorrhagic transformation which makes this patient not a candidate for TPA. Plan is to obtain CT angiography and discuss the patient with [facility]. 22:00: Imaging is returned. There are no new acute occlusions seen on CT angiography of the head and neck. The initial head CT scan was also unchanged from previous. I spoke to Dr. Ayala of admission for this patient and the patient will be admitted to the [facility]. Neurology consult was placed. Prior to admission, all results are reviewed and discussed with the family and all of their questions are answered. Dragon Disclaimer Dragon Disclaimer This electronic medical record was generated, in whole or in part, using a voice recognition dictation system. Departure Departure Referrals: AMOL MCCORD MD (PCP) ERICA LAURA DO Mar 26, 2018 21:30
--- NOTE | 2018-03-26 21:36 | RAD ---
PQRS Compliance statement: One or more of the following individualized dose reduction techniques were utilized for this examination: 1. Automated exposure control. 2. Adjustment of the mA and/or kV according to patient size. 3. Use of iterative reconstruction technique. INDICATION: Code stroke, left-sided weakness. Visualized. TECHNIQUE: CT angiogram head and neck with IV contrast with MIP reformats. 3-D volume rendered postprocessing was performed. Calculation of stenosis was done using NASCET like criteria. COMPARISON: CT from 04/30/2017. FINDINGS: The A1, A2, A3 segments of the bilateral LINH are patent. The M1, M2, M3 segments of the bilateral MCA are patent. The basilar artery is patent. The P1, P2, P3 segments of the bilateral IT HELP DESK ANALYST are patent. Bilateral posterior communicating arteries are patent. Bilateral superior cerebellar arteries are patent. Bilateral anterior inferior cerebellar arteries are patent. Bilateral posterior inferior cerebellar arteries are patent. Bilateral vertebral arteries are patent. Stable 2 mm saccular outpouching seen in the V4 segment of the left vertebral artery which may represent a saccular aneurysm. The bilateral cavernous segments of the ICA are patent. Diffuse scattered atherosclerotic plaque causing approximately 50 percent narrowing. The bilateral petrous segments of the ICA are patent. Mild atherosclerotic disease seen at the origin of the bilateral ICA without significant stenosis. Bilateral LINH are patent. Bilateral common carotid arteries are patent. Conventional arch anatomy. Visualized superior mediastinum within normal limits. No enlarged cervical lymph nodes. The submandibular glands, parotid glands and thyroid are within normal limits. Clear lung apices. The major dural venous sinuses are patent. No suspicious bony lesion. IMPRESSION: 1. The major intracranial and neck arteries are patent. See above for details. 2. 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 Electronically signed by: Davie Schuler DO (03/26/2018 9:33 PM) [facility]
[2018-03-26] MEDS ORDERED: IV NORMAL SALINE 500ML BAG 500 ML IV ONE (22:00)
[2018-03-26] MEDS ORDERED: IOHEXOL 300 MG/ML 100ML VIAL. IV ONE (22:00)
[2018-03-26 23:23] VITALS: BP 178/76
[2018-03-27] VITALS (7 sets, daily range): BP systolic 156–203; BP diastolic 72–86
[2018-03-27] MEDS ORDERED: TAMS0.4C2 PO (01:15)
[2018-03-27] MEDS ORDERED: ASPI81TA50 PO (01:15)
[2018-03-27 05:24] LABS: CALCIUM 9.4 mg/dL (8.5-10.1); CREATININE 0.9 mg/dL (0.7-1.3); POTASSIUM 3.9 mmol/L (3.5-5.1)
[2018-03-27 05:41] LABS: BASO % 0 % (0-3); EOS % 0 % (0-3); HEMATOCRIT 39.3 % (39.0-53.0); HEMOGLOBIN 13.7 g/dL (13.0-17.5); LYMPH # 1.5 x10^3/uL (1.0-4.8); LYMPH % 19 % (24-48); MEAN CORPUSCULAR HEMOGLOBIN 31 pg (25-35); MEAN CORPUSCULAR HGB CONC 35 g/dL (31-37); MEAN CORPUSCULAR VOLUME 89 fL (79-100); MONO # 0.8 x10^3/uL (0.0-1.1); MONO % 10 % (0-9); NEUT # 5.7 x10^3uL (1.8-7.7); NEUT % 71 % (31-73); PLATELET COUNT 275 x10^3/uL (140-400); RED BLOOD COUNT 4.41 x10^6/uL (4.30-5.70); RED CELL DISTRIBUTION WIDTH 13.4 % (11.5-14.5); WHITE BLOOD COUNT 8.1 x10^3/uL (4.0-11.0)
--- NOTE | 2018-03-27 07:18 | EKG ---
[facility] [address] [place] [address] Test Date: 2018-03-26 Test Time: 19:40:59 Pat Name: ANA LOYOLA Department: Room: 203 1 Gender: M [employer] Developer: LUDY : [id number] Requested By: ERICA LAURA Order Number: [id number] Reading MD: Charly Canas MD Measurements Intervals Malin Rate: 80 P: 58 DE: 176 QRS: 44 QRSD: 92 T: 67 QT: 360 QTc: 419 Interpretive Statements SINUS RHYTHM Electronically Signed On 03-30-2018 11:03:40 CDT by Charly Canas MD
[2018-03-27] MEDS: LABETALOL 20 MG/4 ML DISP.SYRIN. IVP PRN ×2 (07:50→19:21)
[2018-03-27] MEDS ORDERED: TAMSULOSIN 0.4 MG CAP.ER.24H. PO SCH (12:00)
[2018-03-27] MEDS ORDERED: ASPIRIN 325 MG TABLET PO SCH (12:30)
[2018-03-27] MEDS: HYDROcodone/APAP 5/325MG 1 TAB TABLET PO SCH ×2 (14:00→20:41)
[2018-03-27] MEDS ORDERED: PHENAZOPYRIDINE 200 MG TABLET. PO SCH (14:00)
--- NOTE | 2018-03-27 14:09 | RAD ---
MRI of the brain without contrast 03/27/2018 Clinical History: Vision loss, right greater than left-sided weakness. Technique: Unenhanced T1-weighted sagittal and axial, T2-weighted axial and coronal and FLAIR, gradient echo and diffusion-weighted axial images of the brain were obtained. Findings: Comparison study is dated 05/01/2017. Additional comparison is made to patient's CT scan of the head dated 03/26/2018. Images from today's study are degraded by patient motion. There is generalized parenchymal atrophy. Patchy, confluent and multiple focal areas of increased signal intensity are seen within the periventricular and subcortical white matter of both cerebral hemispheres along with the susan on the FLAIR and T2-weighted images consistent with areas of extensive small vessel ischemic disease. An area encephalomalacia is seen involving the medial right occipital lobe which corresponds to the area of infarction seen on the patient's previous MRI study. A 5 cm arachnoid cyst is seen posterior to the vermis of the cerebellum. There is no significant mass effect. This is unchanged. No acute parenchymal abnormality is seen. No acute extra-axial fluid collection is seen. There is no MRI evidence of acute ischemia/infarction. Mild mucosal thickening in seen scattered throughout the paranasal sinuses. There is a minimal right mastoid effusion. Normal flow voids are seen within the major vascular structures surrounding the brain parenchyma. Impression: No acute parenchymal abnormality is seen. Electronically signed by: Danny Griffin MD (03/27/2018 2:06 PM) [id number]
[2018-03-27] MEDS: PANTOPRAZOLE 40 MG TABLET.DR. PO SCH (15:38)
[2018-03-27] MEDS: GLIMEPIRIDE 2 MG TABLET. PO SCH (15:38)
[2018-03-27] MEDS: ASPIRIN CHEWABLE 81 MG TABLET. PO SCH (15:38)
[2018-03-27] MEDS: DULoxetine HCL 20 MG CAPSULE.DR PO SCH (15:38)
--- NOTE | 2018-03-27 15:45 | PDOC2 ---
NEUROLOGY CONSULT Date of Admission Date of Admission DATE: 03/27/18 TIME: 15:33 Reason for Consult Reason for Consult: IMPRESSION: Vision loss. Left side weakness. Hypertensive emergency, SBP 203 mmHg. DM. HTN. HLD. Hyperglycemia. 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 Over weight. No evidence of acute CVA this time. RECOMMENDATIONS/PLAN: ASA 182 mg daily. Continue Statin HS. BP control. Treat medical diseases. OT/PT. FU with PCP. See [facility] for possible aneurysm. HISTORY OF THE PRESENT ILLNESS: 77-y-old male patient with history of previous infarct in right occipital lobe with hemorrhagic transformation. He developed symptoms of weakness in left side and vision loss on 03/26/18 to come to the ER of [facility]. Neurology was requested for consultation for stroke evaluation. PAST MEDICAL HISTORY Cardiovascular: HTN, Syncope, Hyperlipidemia Pulmonary: No pertinent hx CENTRAL NERVOUS SYSTEM: Periperal neuropathy Heme/Onc: No pertinent hx Hepatobiliary: No pertinent hx Psych: Anxiety Musculoskeletal: Osteoarthritis Endocrine: Diabetes (2) PAST SURGICAL HISTORY Appendectomy FAMILY HISTORY Coronary Artery Disease ALLERGY: NKDA. MEDICATIONS: Refer to [facility] SOCIAL HISTORY: Lives with family. Denies current smoking, drinking, and illicit drug use. REVIEW OF SYSTEMS: Constitutional: Over weight. Head: No traumatic brain or head injury. Skin: No edema, or rash. Ear: No infection. Eyes: No vision loss or color blindness. Nose: No bleeding or purulent discharges. Hearing: Hearing decrease. Neck: No injury. Cardiac: HTN, HLD. Pulmonary: No COPD. GI: No GI ulcer, GI bleeding. Urinary/genital: No dysuria, incontinence, urinary retention. Endocrinologic: Diabetes Mellitus. Skeletomuscular: Generalized weakness. Neurological: see HP. Psychiatric: Denies drug use/abuse. Otherwise, not [id number] review of systems. PHYSICAL EXAMINATION: General appearance is in no acute distress. HEENT: Normocephalic and nontraumatic. Eyes, nose, ears, and throat are unremarkable. Neck is supple. No lymphadenopathy. No crepitus. Cardiovascular: S1, S2, regular rate and rhythm. Pulmonary: Clear to auscultation bilaterally. Abdomen: Bowel sounds are positive. Abdomen is soft, nontender, and nondistended. Extremities: No rash, lesions, or edema. No restriction of range of motion NEUROLOGICAL EXAMINATION: Awake. Oriented partially to time, place and person. PERRL. EOMI. CN: no focal findings. Muscle tone: within normal. Muscle strength: 4+ DTR: 2- Plantar reflex: Neutral response bilaterally Gait: not examined in chair. Sensory exam: no abnormal findings. No cerebellar signs elicited. F-T-N test fine. Current Medications Current Medications Current Medications Lorazepam (Ativan) 0.5 mg 1X ONCE IV Last administered on 03/26/18at 21:14; Start 03/26/18 at 20:30; Stop 03/26/18 at 20:31; Status DC Iohexol (Omnipaque 300 Mg/ml) 75 ml 1X ONCE IV Last administered on at 22:00; Start 03/26/18 at 22:00; Stop 03/26/18 at 22:01; Status DC Sodium Chloride 500 ml @ 500 mls/hr 1X ONCE IV Last administered on at 21:56; Start 03/26/18 at 22:00; Stop 03/26/18 at 22:59; Status DC Info (CONTRAST GIVEN -- Rx MONITORING) 1 each PRN DAILY PRN MC SEE COMMENTS; Start 03/26/18 at 21:30; Stop 03/28/18 at 21:29 Labetalol HCl (Normodyne Iv Push) 20 mg PRN Q6HRS PRN IVP HYPERTENSION, SEE COMMENTS Last administered on 03/27/18at 07:50; Start 03/27/18 at 07:45 Aspirin (Children'S Aspirin) 162 mg DAILYWBKFT PO ; Start 03/27/18 at 12:00 Aspirin (Gely Aspirin) 325 mg DAILYWBKFT PO ; Start 03/27/18 at 12:30; Status Cancel Aspirin (Ecotrin) 81 mg DAILY PO ; Start 03/28/18 at 09:00; Status UNV Glimepiride (Amaryl) 2 mg DAILY PO ; Start 03/27/18 at 12:00 Acetaminophen/ Hydrocodone Bitart (Lortab 5/325) 1 tab TID PO ; Start 03/27/18 at 14:00 Simvastatin (Zocor) 5 mg HS PO ; Start 03/27/18 at 21:00 Trimethoprim/ Sulfamethoxazole (Bactrim Ds) 1 tab BID PO ; Start 03/27/18 at 21 :00; Status UNV Tamsulosin HCl (Flomax) 0.4 mg DAILY PO ; Start 03/27/18 at 12:00; Stop at 15:24; Status DC Duloxetine HCl (Cymbalta) 20 mg DAILY PO ; Start 03/27/18 at 13:00 Metformin HCl (Glucophage) 1,000 mg BIDWMEALS PO ; Start 03/27/18 at 17:00 Pantoprazole Sodium (Protonix) 40 mg DAILYAC PO ; Start 03/27/18 at 16:30 Phenazopyridine HCl (Pyridium) 200 mg TID PO ; Start 03/27/18 at 14:00; Stop 03/27/18 at 14:00; Status DC Tamsulosin HCl (Flomax) 0.4 mg BID PO ; Start 03/27/18 at 21:00; Status UNV Insulin Glargine (Lantus) 26 units DAILYWBKFT SQ ; Start 03/28/18 at 08:00; Status UNV Active Scripts Active [place] 5-325 Tablet (Acetaminophen/Hydrocodone Bitart) 1 Each Tablet 1 Tab PO TID 3 Days Reported Aspir-Low (Aspirin) 81 Mg Tablet.dr 81 Mg PO Tamsulosin Hcl 0.4 Mg Cap.er.24h 0.4 Mg PO DAILY Levemir (Insulin Detemir) 100 Unit/1 Ml Vial 26 Unit SQ Simvastatin 5 Mg Tablet 2 Mg PO HS Duloxetine Hcl 20 Mg Capsule. 20 Mg PO DAILY Glimepiride 2 Mg Tablet 1 Tab PO DAILY Omeprazole 20 Mg Capsule.dr 1 Cap PO DAILY Metformin Hcl 1,000 Mg Tablet 1 Tab PO BIDWMEALS Allergies Allergies: Allergies Coded Allergies Type Severity Reaction Last Updated Verified No Known Drug Allergies 09/24/17 No ROS Review of System The patient denies any associated fevers, chills, headache, ear pain, rhinorrhea , sore throat, stiff neck, productive cough, chest pain, shortness of breath, back or flank pain, abdominal pain, nausea, vomiting, diarrhea, constipation, dysuria, rash, numbness, weakness, tingling, incontinence, difficulty ambulating, or diaphoresis. Physical Exam Physical Exam General: Well developed, well nourished, no acute distress, well appearing HEENT: Pupils equally round and reactive to light, EOMI, no discharge, normal conjunctiva Neck: Supple, no nuchal rigidity, no JVD, trachea midline, no tenderness Cardiac: RRR, no murmurs, no gallops, no rubs Chest/Lungs: CTAB, no wheeze, no rhonchi, no crackles Abdomen: soft, non-distended, no guarding, no peritoneal signs, non-tender Back: No tenderness Extremities: no edema, pulses intact, non-tender,capillary refill <3 sec bilateral upper and lower extremities, Neuro: Alert and oriented x 4, no focal deficits, normal speech Vitals Vitals: Vital Signs Date Time Temp Pulse Resp B/P (MAP) Pulse Ox O2 Delivery O2 Flow Rate FiO2 03/27/18 15:12 99.3 79 156/74 (101) 93 Room Air 99.3 03/27/18 07:15 16 Labs Labs Laboratory Tests Test 03/26/18 19:34 03/26/18 19:40 03/26/18 20:18 03/27/18 01:05 Glucose (Fingerstick) 185 mg/dL (70-99) White Blood Count 11.1 x10^3/uL (4.0-11.0) Red Blood Count 4.53 x10^6/uL (4.30-5.70) Hemoglobin 14.4 g/dL (13.0-17.5) Hematocrit 40.4 % (39.0-53.0) Mean Corpuscular Volume 89 fL (79-100) Mean Corpuscular Hemoglobin 32 pg (25-35) Mean Corpuscular Hemoglobin Concent 36 g/dL (31-37) Red Cell Distribution Width 13.6 % (11.5-14.5) Platelet Count 279 x10^3/uL (140-400) Neutrophils (%) (Auto) 83 % (31-73) Lymphocytes (%) (Auto) 10 % (24-48) Monocytes (%) (Auto) 6 % (0-9) Eosinophils (%) (Auto) 0 % (0-3) Basophils (%) (Auto) 1 % (0-3) Neutrophils # (Auto) 9.2 x10^3uL (1.8-7.7) Lymphocytes # (Auto) 1.1 x10^3/uL (1.0-4.8) Monocytes # (Auto) 0.7 x10^3/uL (0.0-1.1) Eosinophils # (Auto) 0.0 x10^3/uL (0.0-0.7) Basophils # (Auto) 0.1 x10^3/uL (0.0-0.2) Prothrombin Time 12.9 SEC (11.7-14.0) Prothromb Time International Ratio 1.0 (0.8-1.1) Activated Partial Thromboplast Time 26 SEC (24-38) Sodium Level 135 mmol/L (136-145) Potassium Level 4.2 mmol/L (3.5-5.1) Chloride Level 95 mmol/L (98-107) Carbon Dioxide Level 25 mmol/L (21-32) Anion Gap 15 (6-14) Blood Urea Nitrogen 17 mg/dL (8-26) Creatinine 1.1 mg/dL (0.7-1.3) Estimated GFR (Cockcroft-Gault) 65.1 Glucose Level 205 mg/dL (70-99) Calcium Level 9.7 mg/dL (8.5-10.1) Troponin I Quantitative < 0.017 ng/mL (0.000-0.055) < 0.017 ng/mL (0.000-0.055) Test 03/27/18 04:50 03/27/18 13:39 White Blood Count 8.1 x10^3/uL (4.0-11.0) Red Blood Count 4.41 x10^6/uL (4.30-5.70) Hemoglobin 13.7 g/dL (13.0-17.5) Hematocrit 39.3 % (39.0-53.0) Mean Corpuscular Volume 89 fL (79-100) Mean Corpuscular Hemoglobin 31 pg (25-35) Mean Corpuscular Hemoglobin Concent 35 g/dL (31-37) Red Cell Distribution Width 13.4 % (11.5-14.5) Platelet Count 275 x10^3/uL (140-400) Neutrophils (%) (Auto) 71 % (31-73) Lymphocytes (%) (Auto) 19 % (24-48) Monocytes (%) (Auto) 10 % (0-9) Eosinophils (%) (Auto) 0 % (0-3) Basophils (%) (Auto) 0 % (0-3) Neutrophils # (Auto) 5.7 x10^3uL (1.8-7.7) Lymphocytes # (Auto) 1.5 x10^3/uL (1.0-4.8) Monocytes # (Auto) 0.8 x10^3/uL (0.0-1.1) Eosinophils # (Auto) 0.0 x10^3/uL (0.0-0.7) Basophils # (Auto) 0.0 x10^3/uL (0.0-0.2) Sodium Level 135 mmol/L (136-145) Potassium Level 3.9 mmol/L (3.5-5.1) Chloride Level 99 mmol/L (98-107) Carbon Dioxide Level 27 mmol/L (21-32) Anion Gap 9 (6-14) Blood Urea Nitrogen 14 mg/dL (8-26) Creatinine 0.9 mg/dL (0.7-1.3) Estimated GFR (Cockcroft-Gault) 82.0 Glucose Level 189 mg/dL (70-99) Calcium Level 9.4 mg/dL (8.5-10.1) Troponin I Quantitative < 0.017 ng/mL (0.000-0.055) Thyroid Stimulating Hormone (TSH) 3.890 uIU/mL (0.358-3.74) Glucose (Fingerstick) 200 mg/dL (70-99) Laboratory Tests Test 03/26/18 19:34 03/26/18 19:40 03/26/18 20:18 03/27/18 01:05 Glucose (Fingerstick) 185 mg/dL (70-99) White Blood Count 11.1 x10^3/uL (4.0-11.0) Red Blood Count 4.53 x10^6/uL (4.30-5.70) Hemoglobin 14.4 g/dL (13.0-17.5) Hematocrit 40.4 % (39.0-53.0) Mean Corpuscular Volume 89 fL (79-100) Mean Corpuscular Hemoglobin 32 pg (25-35) Mean Corpuscular Hemoglobin Concent 36 g/dL (31-37) Red Cell Distribution Width 13.6 % (11.5-14.5) Platelet Count 279 x10^3/uL (140-400) Neutrophils (%) (Auto) 83 % (31-73) Lymphocytes (%) (Auto) 10 % (24-48) Monocytes (%) (Auto) 6 % (0-9) Eosinophils (%) (Auto) 0 % (0-3) Basophils (%) (Auto) 1 % (0-3) Neutrophils # (Auto) 9.2 x10^3uL (1.8-7.7) Lymphocytes # (Auto) 1.1 x10^3/uL (1.0-4.8) Monocytes # (Auto) 0.7 x10^3/uL (0.0-1.1) Eosinophils # (Auto) 0.0 x10^3/uL (0.0-0.7) Basophils # (Auto) 0.1 x10^3/uL (0.0-0.2) Prothrombin Time 12.9 SEC (11.7-14.0) Prothromb Time International Ratio 1.0 (0.8-1.1) Activated Partial Thromboplast Time 26 SEC (24-38) Sodium Level 135 mmol/L (136-145) Potassium Level 4.2 mmol/L (3.5-5.1) Chloride Level 95 mmol/L (98-107) Carbon Dioxide Level 25 mmol/L (21-32) Anion Gap 15 (6-14) Blood Urea Nitrogen 17 mg/dL (8-26) Creatinine 1.1 mg/dL (0.7-1.3) Estimated GFR (Cockcroft-Gault) 65.1 Glucose Level 205 mg/dL (70-99) Calcium Level 9.7 mg/dL (8.5-10.1) Troponin I Quantitative < 0.017 ng/mL (0.000-0.055) < 0.017 ng/mL (0.000-0.055) Test 03/27/18 04:50 03/27/18 13:39 White Blood Count 8.1 x10^3/uL (4.0-11.0) Red Blood Count 4.41 x10^6/uL (4.30-5.70) Hemoglobin 13.7 g/dL (13.0-17.5) Hematocrit 39.3 % (39.0-53.0) Mean Corpuscular Volume 89 fL (79-100) Mean Corpuscular Hemoglobin 31 pg (25-35) Mean Corpuscular Hemoglobin Concent 35 g/dL (31-37) Red Cell Distribution Width 13.4 % (11.5-14.5) Platelet Count 275 x10^3/uL (140-400) Neutrophils (%) (Auto) 71 % (31-73) Lymphocytes (%) (Auto) 19 % (24-48) Monocytes (%) (Auto) 10 % (0-9) Eosinophils (%) (Auto) 0 % (0-3) Basophils (%) (Auto) 0 % (0-3) Neutrophils # (Auto) 5.7 x10^3uL (1.8-7.7) Lymphocytes # (Auto) 1.5 x10^3/uL (1.0-4.8) Monocytes # (Auto) 0.8 x10^3/uL (0.0-1.1) Eosinophils # (Auto) 0.0 x10^3/uL (0.0-0.7) Basophils # (Auto) 0.0 x10^3/uL (0.0-0.2) Sodium Level 135 mmol/L (136-145) Potassium Level 3.9 mmol/L (3.5-5.1) Chloride Level 99 mmol/L (98-107) Carbon Dioxide Level 27 mmol/L (21-32) Anion Gap 9 (6-14) Blood Urea Nitrogen 14 mg/dL (8-26) Creatinine 0.9 mg/dL (0.7-1.3) Estimated GFR (Cockcroft-Gault) 82.0 Glucose Level 189 mg/dL (70-99) Calcium Level 9.4 mg/dL (8.5-10.1) Troponin I Quantitative < 0.017 ng/mL (0.000-0.055) Thyroid Stimulating Hormone (TSH) 3.890 uIU/mL (0.358-3.74) Glucose (Fingerstick) 200 mg/dL (70-99) YELITZA CAZARES MD Mar 27, 2018 15:45
--- NOTE | 2018-03-27 16:11 | HP ---
ADMIT DATE: 03/26/2018 CHIEF COMPLAINT: Left-sided weakness, possible stroke. HISTORY OF PRESENT ILLNESS: The patient is a pleasant 77-year-old male who presented with couple days of left-sided weakness. He also lost some vision. He has had a previous hemorrhagic stroke on 04/18. He has made significant improvement since then, although he does walk with a cane. His family notes that he was having difficulty with word finding and left-sided weakness and the left eye was not responding. Symptoms came on at 6:00 last night, describes it as annoying. When he presented to the ER, he had some left neglect. They tried giving him some home meds that did not work. I have discussed the case with the ER physician. It appears the patient may have had a TIA versus a stroke. We are going to admit the patient and consult Neurology. PAST MEDICAL HISTORY: Previous stroke, diabetes, hypertension. ALLERGIES: None. FAMILY HISTORY: Hypertension. SOCIAL HISTORY: He is retired. He does not drink, smoke or take drugs. MEDICATIONS: Reviewed, please refer to the MRAD. He is on 12 medications including Bactrim, Flomax, simvastatin, aspirin, hydrocodone, duloxetine, omeprazole, metformin, insulin, glimepiride, Pyridium. REVIEW OF SYSTEMS: GENERAL: No history of weight change, weakness or fevers. SKIN: No bruising, hair changes or rashes. EYES: He complains of some visual changes. NOSE AND THROAT: No history of nosebleeds, hoarseness or sore throat. HEART: No history of palpitations, chest pain or shortness of breath on exertion. LUNGS: Denies cough, hemoptysis, wheezing or shortness of breath. GASTROINTESTINAL: Denies changes in appetite, nausea, vomiting, diarrhea or constipation. GENITOURINARY: No history of frequency, urgency, hesitancy or nocturia. NEUROLOGIC: He complains of left-sided weakness. PSYCHIATRIC: No history of panic, anxiety or depression. ENDOCRINE: No history of heat or cold intolerance, polyuria or polydipsia. EXTREMITIES: Denies muscle weakness, joint pain, pain on walking or stiffness. PHYSICAL EXAMINATION: VITAL SIGNS: Temperature is afebrile, pulse 80, respirations 20, blood pressure 152/90. GENERAL: He is alert, cooperative, pleasant. HEART: Distant S1, S2, no murmurs. LUNGS: Clear to auscultation in all lung gee. ABDOMEN: Soft. EXTREMITIES: Trace edema. SKIN: No rashes. ENDOCRINE: No thyromegaly. LYMPHATICS: No cervical nodes. HEMATOPOIETIC: No bruising. NEUROLOGIC: He is moving all extremities, but he has got a little bit of left-sided weakness. Hematology is normal. Electrolytes are normal other than a sodium of 135 and a glucose of 189. TSH is slightly high at 3.89. ASSESSMENT AND PLAN: Stroke symptoms. The patient has been admitted. Cardiac monitoring. Consult Neurology. Daily aspirin. Home meds, PT, OT, speech therapy. PROGNOSIS: Guarded. MARGO MAI DO DR: RONEY/jourdan JOB#: [id number] / [id number]
[2018-03-27] MEDS ORDERED: metFORMIN 500 MG TABLET PO SCH (17:00)
[2018-03-27] MEDS ORDERED: ACETAMINOPHEN 500 MG TABLET PO PRN (19:15)
[2018-03-27] MEDS ORDERED: IBUPROFEN 200 MG TABLET. PO PRN (19:15)
[2018-03-27] MEDS: TAMSULOSIN 0.4 MG CAP.ER.24H. PO SCH (20:40)
[2018-03-27] MEDS ORDERED: SMZ/TMP 800/160MG TABLET. PO SCH (21:00)
[2018-03-27] MEDS ORDERED: SIMVASTATIN 5 MG TABLET. PO SCH (21:00)
[2018-03-28 03:00] VITALS: BP 161/84
[2018-03-28 07:00] VITALS: BP 155/66
[2018-03-28 07:05] LABS: BASO % 1 % (0-3); EOS # 0.1 x10^3/uL (0.0-0.7); EOS % 1 % (0-3); HEMATOCRIT 39.3 % (39.0-53.0); LYMPH # 1.7 x10^3/uL (1.0-4.8); LYMPH % 29 % (24-48); MEAN CORPUSCULAR HEMOGLOBIN 32 pg (25-35); MEAN CORPUSCULAR HGB CONC 36 g/dL (31-37); MEAN CORPUSCULAR VOLUME 89 fL (79-100); MONO # 0.6 x10^3/uL (0.0-1.1); MONO % 11 % (0-9); NEUT # 3.5 x10^3uL (1.8-7.7); NEUT % 59 % (31-73); PLATELET COUNT 256 x10^3/uL (140-400); RED BLOOD COUNT 4.42 x10^6/uL (4.30-5.70); RED CELL DISTRIBUTION WIDTH 13.4 % (11.5-14.5); WHITE BLOOD COUNT 5.9 x10^3/uL (4.0-11.0)
[2018-03-28 07:20] LABS: CALCIUM 9.8 mg/dL (8.5-10.1); CREATININE 0.8 mg/dL (0.7-1.3); POTASSIUM 3.9 mmol/L (3.5-5.1)
[2018-03-28 07:29] LABS: CHOLESTEROL/HDL RATIO 2.9
[2018-03-28] MEDS ORDERED: INSULIN GLARGINE 300 UNITS/3 ML INSULN.PEN. SQ SCH (08:00)
[2018-03-28] MEDS: DULoxetine HCL 20 MG CAPSULE.DR PO SCH (08:35)
[2018-03-28] MEDS: PANTOPRAZOLE 40 MG TABLET.DR. PO SCH (08:35)
[2018-03-28] MEDS: HYDROcodone/APAP 5/325MG 1 TAB TABLET PO SCH ×2 (08:35→14:00)
[2018-03-28] MEDS: TAMSULOSIN 0.4 MG CAP.ER.24H. PO SCH (08:35)
[2018-03-28] MEDS: ASPIRIN CHEWABLE 81 MG TABLET. PO SCH (08:35)
[2018-03-28] MEDS: GLIMEPIRIDE 2 MG TABLET. PO SCH (08:35)
[2018-03-28] MEDS ORDERED: ASPIRIN ENTERIC COATED 81 MG TABLET.DR. PO SCH (09:00)
[2018-03-28 11:00] VITALS: BP 142/63
--- NOTE | 2018-03-28 13:23 | PDOC ---
PROGRESS NOTES Chief Complaint Chief Complaint Left sided weakness Hypertensive emergency, SBP 203 mmHg. Vision loss H/o DM. H/o HTN. H/o HLD. Hyperglycemia. 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 History of Present Illness History of Present Illness Pt seen and examined while sitting in bedside chair. Pt very pleasant and talkative, expressing that he would like to go home. Pt states that he has some vision loss from previous stroke. He also shows some signs of deficit in depth perception especially on R side. NEVAEH RN Vitals Vitals Vital Signs Date Time Temp Pulse Resp B/P (MAP) Pulse Ox O2 Delivery O2 Flow Rate FiO2 03/28/18 11:00 98.0 72 20 142/63 (89) 98 Room Air 98.0 Physical Exam General: Alert, Cooperative, No acute distress Heart: Normal S1, Normal S2 Lungs: Clear Abdomen: Soft, No tenderness Extremities: No clubbing, No cyanosis Skin: No breakdown, No significant lesion Labs LABS Laboratory Tests Test 03/27/18 13:39 03/27/18 17:06 03/27/18 21:21 03/28/18 04:38 Glucose (Fingerstick) 200 mg/dL (70-99) 336 mg/dL (70-99) 256 mg/dL (70-99) White Blood Count 5.9 x10^3/uL (4.0-11.0) Red Blood Count 4.42 x10^6/uL (4.30-5.70) Hemoglobin 14.0 g/dL (13.0-17.5) Hematocrit 39.3 % (39.0-53.0) Mean Corpuscular Volume 89 fL (79-100) Mean Corpuscular Hemoglobin 32 pg (25-35) Mean Corpuscular Hemoglobin Concent 36 g/dL (31-37) Red Cell Distribution Width 13.4 % (11.5-14.5) Platelet Count 256 x10^3/uL (140-400) Neutrophils (%) (Auto) 59 % (31-73) Lymphocytes (%) (Auto) 29 % (24-48) Monocytes (%) (Auto) 11 % (0-9) Eosinophils (%) (Auto) 1 % (0-3) Basophils (%) (Auto) 1 % (0-3) Neutrophils # (Auto) 3.5 x10^3uL (1.8-7.7) Lymphocytes # (Auto) 1.7 x10^3/uL (1.0-4.8) Monocytes # (Auto) 0.6 x10^3/uL (0.0-1.1) Eosinophils # (Auto) 0.1 x10^3/uL (0.0-0.7) Basophils # (Auto) 0.0 x10^3/uL (0.0-0.2) Sodium Level 133 mmol/L (136-145) Potassium Level 3.9 mmol/L (3.5-5.1) Chloride Level 95 mmol/L (98-107) Carbon Dioxide Level 29 mmol/L (21-32) Anion Gap 9 (6-14) Blood Urea Nitrogen 14 mg/dL (8-26) Creatinine 0.8 mg/dL (0.7-1.3) Estimated GFR (Cockcroft-Gault) 94.0 Glucose Level 208 mg/dL (70-99) Calcium Level 9.8 mg/dL (8.5-10.1) Triglycerides Level 54 mg/dL (0-150) Cholesterol Level 133 mg/dL (0-200) LDL Cholesterol, Calculated 76 mg/dL (0-100) VLDL Cholesterol, Calculated 11 mg/dL (0-40) Non-HDL Cholesterol Calculated 87 mg/dL (0-129) HDL Cholesterol 46 mg/dL (40-60) Cholesterol/HDL Ratio 2.9 Test 03/28/18 08:08 03/28/18 12:32 Glucose (Fingerstick) 229 mg/dL (70-99) 320 mg/dL (70-99) Review of Systems Review of Systems Pt denies SOA and weakness today. Admits to vision loss after previous stroke about 11 months ago. Assessment and Plan Assessmemt and Plan Problems Medical Problems: (1) Left-sided weakness Status: Acute (2) Right sided temporal headache Status: Acute Assessment: Left sided weakness Hypertensive emergency, SBP 203 mmHg. Vision loss H/o DM. H/o HTN. H/o HLD. Hyperglycemia. 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 Plan: Cardiac monitoring Appreciate Neuro input PT/OT Monitor labs Home meds Probable discharge today if ok with Neuro and PT Comment Review of Relevant I have reviewed the following items joy (where applicable) has been applied. Labs Laboratory Tests Test 03/26/18 19:34 03/26/18 19:40 03/26/18 20:18 03/27/18 01:05 Glucose (Fingerstick) 185 mg/dL (70-99) White Blood Count 11.1 x10^3/uL (4.0-11.0) Red Blood Count 4.53 x10^6/uL (4.30-5.70) Hemoglobin 14.4 g/dL (13.0-17.5) Hematocrit 40.4 % (39.0-53.0) Mean Corpuscular Volume 89 fL (79-100) Mean Corpuscular Hemoglobin 32 pg (25-35) Mean Corpuscular Hemoglobin Concent 36 g/dL (31-37) Red Cell Distribution Width 13.6 % (11.5-14.5) Platelet Count 279 x10^3/uL (140-400) Neutrophils (%) (Auto) 83 % (31-73) Lymphocytes (%) (Auto) 10 % (24-48) Monocytes (%) (Auto) 6 % (0-9) Eosinophils (%) (Auto) 0 % (0-3) Basophils (%) (Auto) 1 % (0-3) Neutrophils # (Auto) 9.2 x10^3uL (1.8-7.7) Lymphocytes # (Auto) 1.1 x10^3/uL (1.0-4.8) Monocytes # (Auto) 0.7 x10^3/uL (0.0-1.1) Eosinophils # (Auto) 0.0 x10^3/uL (0.0-0.7) Basophils # (Auto) 0.1 x10^3/uL (0.0-0.2) Prothrombin Time 12.9 SEC (11.7-14.0) Prothromb Time International Ratio 1.0 (0.8-1.1) Activated Partial Thromboplast Time 26 SEC (24-38) Sodium Level 135 mmol/L (136-145) Potassium Level 4.2 mmol/L (3.5-5.1) Chloride Level 95 mmol/L (98-107) Carbon Dioxide Level 25 mmol/L (21-32) Anion Gap 15 (6-14) Blood Urea Nitrogen 17 mg/dL (8-26) Creatinine 1.1 mg/dL (0.7-1.3) Estimated GFR (Cockcroft-Gault) 65.1 Glucose Level 205 mg/dL (70-99) Calcium Level 9.7 mg/dL (8.5-10.1) Troponin I Quantitative < 0.017 ng/mL (0.000-0.055) < 0.017 ng/mL (0.000-0.055) Test 03/27/18 04:50 03/27/18 13:39 03/27/18 17:06 03/27/18 21:21 White Blood Count 8.1 x10^3/uL (4.0-11.0) Red Blood Count 4.41 x10^6/uL (4.30-5.70) Hemoglobin 13.7 g/dL (13.0-17.5) Hematocrit 39.3 % (39.0-53.0) Mean Corpuscular Volume 89 fL (79-100) Mean Corpuscular Hemoglobin 31 pg (25-35) Mean Corpuscular Hemoglobin Concent 35 g/dL (31-37) Red Cell Distribution Width 13.4 % (11.5-14.5) Platelet Count 275 x10^3/uL (140-400) Neutrophils (%) (Auto) 71 % (31-73) Lymphocytes (%) (Auto) 19 % (24-48) Monocytes (%) (Auto) 10 % (0-9) Eosinophils (%) (Auto) 0 % (0-3) Basophils (%) (Auto) 0 % (0-3) Neutrophils # (Auto) 5.7 x10^3uL (1.8-7.7) Lymphocytes # (Auto) 1.5 x10^3/uL (1.0-4.8) Monocytes # (Auto) 0.8 x10^3/uL (0.0-1.1) Eosinophils # (Auto) 0.0 x10^3/uL (0.0-0.7) Basophils # (Auto) 0.0 x10^3/uL (0.0-0.2) Sodium Level 135 mmol/L (136-145) Potassium Level 3.9 mmol/L (3.5-5.1) Chloride Level 99 mmol/L (98-107) Carbon Dioxide Level 27 mmol/L (21-32) Anion Gap 9 (6-14) Blood Urea Nitrogen 14 mg/dL (8-26) Creatinine 0.9 mg/dL (0.7-1.3) Estimated GFR (Cockcroft-Gault) 82.0 Glucose Level 189 mg/dL (70-99) Calcium Level 9.4 mg/dL (8.5-10.1) Troponin I Quantitative < 0.017 ng/mL (0.000-0.055) Thyroid Stimulating Hormone (TSH) 3.890 uIU/mL (0.358-3.74) Glucose (Fingerstick) 200 mg/dL (70-99) 336 mg/dL (70-99) 256 mg/dL (70-99) Test 03/28/18 04:38 03/28/18 08:08 03/28/18 12:32 White Blood Count 5.9 x10^3/uL (4.0-11.0) Red Blood Count 4.42 x10^6/uL (4.30-5.70) Hemoglobin 14.0 g/dL (13.0-17.5) Hematocrit 39.3 % (39.0-53.0) Mean Corpuscular Volume 89 fL (79-100) Mean Corpuscular Hemoglobin 32 pg (25-35) Mean Corpuscular Hemoglobin Concent 36 g/dL (31-37) Red Cell Distribution Width 13.4 % (11.5-14.5) Platelet Count 256 x10^3/uL (140-400) Neutrophils (%) (Auto) 59 % (31-73) Lymphocytes (%) (Auto) 29 % (24-48) Monocytes (%) (Auto) 11 % (0-9) Eosinophils (%) (Auto) 1 % (0-3) Basophils (%) (Auto) 1 % (0-3) Neutrophils # (Auto) 3.5 x10^3uL (1.8-7.7) Lymphocytes # (Auto) 1.7 x10^3/uL (1.0-4.8) Monocytes # (Auto) 0.6 x10^3/uL (0.0-1.1) Eosinophils # (Auto) 0.1 x10^3/uL (0.0-0.7) Basophils # (Auto) 0.0 x10^3/uL (0.0-0.2) Sodium Level 133 mmol/L (136-145) Potassium Level 3.9 mmol/L (3.5-5.1) Chloride Level 95 mmol/L (98-107) Carbon Dioxide Level 29 mmol/L (21-32) Anion Gap 9 (6-14) Blood Urea Nitrogen 14 mg/dL (8-26) Creatinine 0.8 mg/dL (0.7-1.3) Estimated GFR (Cockcroft-Gault) 94.0 Glucose Level 208 mg/dL (70-99) Calcium Level 9.8 mg/dL (8.5-10.1) Triglycerides Level 54 mg/dL (0-150) Cholesterol Level 133 mg/dL (0-200) LDL Cholesterol, Calculated 76 mg/dL (0-100) VLDL Cholesterol, Calculated 11 mg/dL (0-40) Non-HDL Cholesterol Calculated 87 mg/dL (0-129) HDL Cholesterol 46 mg/dL (40-60) Cholesterol/HDL Ratio 2.9 Glucose (Fingerstick) 229 mg/dL (70-99) 320 mg/dL (70-99) Laboratory Tests Test 03/27/18 13:39 03/27/18 17:06 03/27/18 21:21 03/28/18 04:38 Glucose (Fingerstick) 200 mg/dL (70-99) 336 mg/dL (70-99) 256 mg/dL (70-99) White Blood Count 5.9 x10^3/uL (4.0-11.0) Red Blood Count 4.42 x10^6/uL (4.30-5.70) Hemoglobin 14.0 g/dL (13.0-17.5) Hematocrit 39.3 % (39.0-53.0) Mean Corpuscular Volume 89 fL (79-100) Mean Corpuscular Hemoglobin 32 pg (25-35) Mean Corpuscular Hemoglobin Concent 36 g/dL (31-37) Red Cell Distribution Width 13.4 % (11.5-14.5) Platelet Count 256 x10^3/uL (140-400) Neutrophils (%) (Auto) 59 % (31-73) Lymphocytes (%) (Auto) 29 % (24-48) Monocytes (%) (Auto) 11 % (0-9) Eosinophils (%) (Auto) 1 % (0-3) Basophils (%) (Auto) 1 % (0-3) Neutrophils # (Auto) 3.5 x10^3uL (1.8-7.7) Lymphocytes # (Auto) 1.7 x10^3/uL (1.0-4.8) Monocytes # (Auto) 0.6 x10^3/uL (0.0-1.1) Eosinophils # (Auto) 0.1 x10^3/uL (0.0-0.7) Basophils # (Auto) 0.0 x10^3/uL (0.0-0.2) Sodium Level 133 mmol/L (136-145) Potassium Level 3.9 mmol/L (3.5-5.1) Chloride Level 95 mmol/L (98-107) Carbon Dioxide Level 29 mmol/L (21-32) Anion Gap 9 (6-14) Blood Urea Nitrogen 14 mg/dL (8-26) Creatinine 0.8 mg/dL (0.7-1.3) Estimated GFR (Cockcroft-Gault) 94.0 Glucose Level 208 mg/dL (70-99) Calcium Level 9.8 mg/dL (8.5-10.1) Triglycerides Level 54 mg/dL (0-150) Cholesterol Level 133 mg/dL (0-200) LDL Cholesterol, Calculated 76 mg/dL (0-100) VLDL Cholesterol, Calculated 11 mg/dL (0-40) Non-HDL Cholesterol Calculated 87 mg/dL (0-129) HDL Cholesterol 46 mg/dL (40-60) Cholesterol/HDL Ratio 2.9 Test 03/28/18 08:08 03/28/18 12:32 Glucose (Fingerstick) 229 mg/dL (70-99) 320 mg/dL (70-99) Medications Current Medications Lorazepam (Ativan) 0.5 mg 1X ONCE IV Last administered on 03/26/18at 21:14; Start 03/26/18 at 20:30; Stop 03/26/18 at 20:31; Status DC Iohexol (Omnipaque 300 Mg/ml) 75 ml 1X ONCE IV Last administered on at 22:00; Start 03/26/18 at 22:00; Stop 03/26/18 at 22:01; Status DC Sodium Chloride 500 ml @ 500 mls/hr 1X ONCE IV Last administered on at 21:56; Start 03/26/18 at 22:00; Stop 03/26/18 at 22:59; Status DC Info (CONTRAST GIVEN -- Rx MONITORING) 1 each PRN DAILY PRN MC SEE COMMENTS; Start 03/26/18 at 21:30; Stop 03/28/18 at 21:29 Labetalol HCl (Normodyne Iv Push) 20 mg PRN Q6HRS PRN IVP HYPERTENSION, SEE COMMENTS Last administered on 03/27/18at 19:21; Start 03/27/18 at 07:45 Aspirin (Children'S Aspirin) 162 mg DAILYWBKFT PO Last administered on at 08:35; Start 03/27/18 at 12:00 Aspirin (Gely Aspirin) 325 mg DAILYWBKFT PO ; Start 03/27/18 at 12:30; Status Cancel Aspirin (Ecotrin) 81 mg DAILY PO ; Start 03/28/18 at 09:00; Status UNV Glimepiride (Amaryl) 2 mg DAILY PO Last administered on 03/28/18at 08:35; Start 03/27/18 at 12:00 Acetaminophen/ Hydrocodone Bitart (Lortab 5/325) 1 tab TID PO ; Start 03/27/18 at 14:00 Simvastatin (Zocor) 5 mg HS PO Last administered on 03/27/18at 20:40; Start at 21:00 Trimethoprim/ Sulfamethoxazole (Bactrim Ds) 1 tab BID PO ; Start 03/27/18 at 21 :00; Status UNV Tamsulosin HCl (Flomax) 0.4 mg DAILY PO ; Start 03/27/18 at 12:00; Stop at 15:24; Status DC Duloxetine HCl (Cymbalta) 20 mg DAILY PO Last administered on 03/28/18at 08:35 ; Start 03/27/18 at 13:00 Metformin HCl (Glucophage) 1,000 mg BIDWMEALS PO ; Start 03/27/18 at 17:00; Stop 03/27/18 at 18:14; Status DC Pantoprazole Sodium (Protonix) 40 mg DAILYAC PO Last administered on at 08:35; Start 03/27/18 at 16:30 Phenazopyridine HCl (Pyridium) 200 mg TID PO ; Start 03/27/18 at 14:00; Stop 03/27/18 at 14:00; Status DC Tamsulosin HCl (Flomax) 0.4 mg BID PO Last administered on 03/28/18at 08:35; Start 03/27/18 at 21:00 Insulin Glargine (Lantus) 26 units DAILYWBKFT SQ Last administered on at 08:46; Start 03/28/18 at 08:00 Metformin HCl (Glucophage) 1,000 mg BIDWMEALS PO ; Start 03/29/18 at 08:00 Acetaminophen (Tylenol) 500 mg PRN Q6HRS PRN PO MILD PAIN / TEMP; Start at 19:15 Ibuprofen (Motrin) 600 mg PRN Q6HRS PRN PO INFLAMMATION; Start 03/27/18 at 19: 15 Active Scripts Active [place] 5-325 Tablet (Acetaminophen/Hydrocodone Bitart) 1 Each Tablet 1 Tab PO TID 3 Days Reported Aspir-Low (Aspirin) 81 Mg Tablet. 81 Mg PO Tamsulosin Hcl 0.4 Mg Cap.er.24h 0.4 Mg PO DAILY Levemir (Insulin Detemir) 100 Unit/1 Ml Vial 26 Unit SQ Simvastatin 5 Mg Tablet 2 Mg PO HS Duloxetine Hcl 20 Mg Capsule. 20 Mg PO DAILY Glimepiride 2 Mg Tablet 1 Tab PO DAILY Omeprazole 20 Mg Capsule. 1 Cap PO DAILY Metformin Hcl 1,000 Mg Tablet 1 Tab PO BIDWMEALS Vitals/I & O Vital Sign - Last 24 Hours 03/27/18 03/27/18 03/27/18 03/27/18 15:12 19:21 19:26 19:40 Temp 99.3 98.6 99.3 98.6 Pulse 79 78 83 Resp 24 B/P (MAP) 156/74 (101) 185/84 185/84 (117) Pulse Ox 93 96 O2 Delivery Room Air Room Air Room Air 03/27/18 03/28/18 03/28/18 03/28/18 23:24 03:00 07:00 08:00 Temp 99.0 97.7 98.6 99.0 97.7 98.6 Pulse 77 65 69 Resp 22 22 20 B/P (MAP) 168/75 (106) 161/84 (109) 155/66 (95) Pulse Ox 97 98 98 O2 Delivery Room Air Room Air Room Air Room Air 03/28/18 11:00 Temp 98.0 98.0 Pulse 72 Resp 20 B/P (MAP) 142/63 (89) Pulse Ox 98 O2 Delivery Room Air Intake and Output 03/27/18 03/27/18 03/28/18 15:00 23:00 07:00 Intake Total 0 ml 605 ml 200 ml Output Total 0 ml Balance 0 ml 605 ml 200 ml MARGO MAI III DO Mar 28, 2018 13:23
--- NOTE | 2018-03-28 15:25 | PDOC ---
PROGRESS NOTES Assessment Assessment Vision loss. Left side weakness. Hypertensive emergency, SBP 203 mmHg. DM. HTN. HLD. Hyperglycemia. 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 Over weight. No evidence of acute CVA this time. RECOMMENDATIONS/PLAN: ASA 182 mg daily. Continue Statin HS. BP control. Treat medical diseases. OT/PT. FU with PCP. See [facility] for possible aneurysm. HISTORY OF THE PRESENT ILLNESS: 77-y-old male patient with history of previous infarct in right occipital lobe with hemorrhagic transformation. He developed symptoms of weakness in left side and vision loss on 03/26/18 to come to the ER of [facility]. Neurology was requested for consultation for stroke evaluation. PAST MEDICAL HISTORY Cardiovascular: HTN, Syncope, Hyperlipidemia Pulmonary: No pertinent hx CENTRAL NERVOUS SYSTEM: Periperal neuropathy Heme/Onc: No pertinent hx Hepatobiliary: No pertinent hx Psych: Anxiety Musculoskeletal: Osteoarthritis Endocrine: Diabetes (2) PAST SURGICAL HISTORY Appendectomy FAMILY HISTORY Coronary Artery Disease ALLERGY: NKDA. MEDICATIONS: Refer to [facility] SOCIAL HISTORY: Lives with family. Denies current smoking, drinking, and illicit drug use. REVIEW OF SYSTEMS: Constitutional: Over weight. Head: No traumatic brain or head injury. Skin: No edema, or rash. Ear: No infection. Eyes: No vision loss or color blindness. Nose: No bleeding or purulent discharges. Hearing: Hearing decrease. Neck: No injury. Cardiac: HTN, HLD. Pulmonary: No COPD. GI: No GI ulcer, GI bleeding. Urinary/genital: No dysuria, incontinence, urinary retention. Endocrinologic: Diabetes Mellitus. Skeletomuscular: Generalized weakness. Neurological: see HP. Psychiatric: Denies drug use/abuse. Otherwise, not [id number] review of systems. PHYSICAL EXAMINATION: General appearance is in no acute distress. HEENT: Normocephalic and nontraumatic. Eyes, nose, ears, and throat are unremarkable. Neck is supple. No lymphadenopathy. No crepitus. Cardiovascular: S1, S2, regular rate and rhythm. Pulmonary: Clear to auscultation bilaterally. Abdomen: Bowel sounds are positive. Abdomen is soft, nontender, and nondistended. Extremities: No rash, lesions, or edema. No restriction of range of motion NEUROLOGICAL EXAMINATION: Awake. Oriented partially to time, place and person. PERRL. EOMI. CN: no focal findings. Muscle tone: within normal. Muscle strength: 4+ DTR: 2- Plantar reflex: Neutral response bilaterally Gait: not examined in chair. Sensory exam: no abnormal findings. No cerebellar signs elicited. F-T-N test fine. Objective Objective Vital Signs Date Time Temp Pulse Resp B/P (MAP) Pulse Ox O2 Delivery O2 Flow Rate FiO2 03/28/18 11:00 98.0 72 20 142/63 (89) 98 Room Air 98.0 Intake and Output 03/28/18 07:00 Intake Total 805 ml Output Total 0 ml Balance 805 ml Intake Oral 805 ml Output Urine Total 0 ml # Voids 8 Vitals Signs Vitals VS - Last 72 Hours, by Label Date Time Temp Pulse Resp B/P (MAP) Pulse Ox O2 Delivery O2 Flow Rate FiO2 03/28/18 11:00 98.0 72 20 142/63 (89) 98 Room Air 98.0 03/28/18 08:00 Room Air 03/28/18 07:00 98.6 69 20 155/66 (95) 98 Room Air 98.6 03/28/18 03:00 97.7 65 22 161/84 (109) 98 Room Air 97.7 03/27/18 23:24 99.0 77 22 168/75 (106) 97 Room Air 99.0 03/27/18 19:40 98.6 83 24 185/84 (117) 96 Room Air 98.6 03/27/18 19:26 Room Air 03/27/18 19:21 78 185/84 03/27/18 15:12 99.3 79 156/74 (101) 93 Room Air 99.3 03/27/18 11:12 99.5 79 157/72 (100) 95 Room Air 99.5 03/27/18 08:33 80 159/72 (101) 98 Room Air 03/27/18 08:00 Room Air 03/27/18 07:50 83 203/86 03/27/18 07:15 98.6 79 16 203/86 (125) 98 Room Air 98.6 Laboratory Laboratory Laboratory Tests Test 03/27/18 17:06 03/27/18 21:21 03/28/18 04:38 03/28/18 08:08 Glucose (Fingerstick) 336 mg/dL (70-99) 256 mg/dL (70-99) 229 mg/dL (70-99) White Blood Count 5.9 x10^3/uL (4.0-11.0) Red Blood Count 4.42 x10^6/uL (4.30-5.70) Hemoglobin 14.0 g/dL (13.0-17.5) Hematocrit 39.3 % (39.0-53.0) Mean Corpuscular Volume 89 fL (79-100) Mean Corpuscular Hemoglobin 32 pg (25-35) Mean Corpuscular Hemoglobin Concent 36 g/dL (31-37) Red Cell Distribution Width 13.4 % (11.5-14.5) Platelet Count 256 x10^3/uL (140-400) Neutrophils (%) (Auto) 59 % (31-73) Lymphocytes (%) (Auto) 29 % (24-48) Monocytes (%) (Auto) 11 % (0-9) Eosinophils (%) (Auto) 1 % (0-3) Basophils (%) (Auto) 1 % (0-3) Neutrophils # (Auto) 3.5 x10^3uL (1.8-7.7) Lymphocytes # (Auto) 1.7 x10^3/uL (1.0-4.8) Monocytes # (Auto) 0.6 x10^3/uL (0.0-1.1) Eosinophils # (Auto) 0.1 x10^3/uL (0.0-0.7) Basophils # (Auto) 0.0 x10^3/uL (0.0-0.2) Sodium Level 133 mmol/L (136-145) Potassium Level 3.9 mmol/L (3.5-5.1) Chloride Level 95 mmol/L (98-107) Carbon Dioxide Level 29 mmol/L (21-32) Anion Gap 9 (6-14) Blood Urea Nitrogen 14 mg/dL (8-26) Creatinine 0.8 mg/dL (0.7-1.3) Estimated GFR (Cockcroft-Gault) 94.0 Glucose Level 208 mg/dL (70-99) Calcium Level 9.8 mg/dL (8.5-10.1) Triglycerides Level 54 mg/dL (0-150) Cholesterol Level 133 mg/dL (0-200) LDL Cholesterol, Calculated 76 mg/dL (0-100) VLDL Cholesterol, Calculated 11 mg/dL (0-40) Non-HDL Cholesterol Calculated 87 mg/dL (0-129) HDL Cholesterol 46 mg/dL (40-60) Cholesterol/HDL Ratio 2.9 Test 03/28/18 12:32 Glucose (Fingerstick) 320 mg/dL (70-99) Medication Medications Current Medications Acetaminophen (Tylenol) 500 mg PRN Q6HRS PRN PO MILD PAIN / TEMP; Start at 19:15 Aspirin (Ecotrin) 81 mg DAILY PO ; Start 03/28/18 at 09:00; Status UNV Ibuprofen (Motrin) 600 mg PRN Q6HRS PRN PO INFLAMMATION; Start 03/27/18 at 19: 15 Insulin Glargine (Lantus) 26 units DAILYWBKFT SQ Last administered on at 08:46; Start 03/28/18 at 08:00 Metformin HCl (Glucophage) 1,000 mg BIDWMEALS PO ; Start 03/27/18 at 17:00; Stop 03/27/18 at 18:14; Status DC Metformin HCl (Glucophage) 1,000 mg BIDWMEALS PO ; Start 03/29/18 at 08:00 Pantoprazole Sodium (Protonix) 40 mg DAILYAC PO Last administered on at 08:35; Start 03/27/18 at 16:30 Simvastatin (Zocor) 5 mg HS PO Last administered on 03/27/18at 20:40; Start at 21:00 Tamsulosin HCl (Flomax) 0.4 mg BID PO Last administered on 03/28/18at 08:35; Start 03/27/18 at 21:00 Trimethoprim/ Sulfamethoxazole (Bactrim Ds) 1 tab BID PO ; Start 03/27/18 at 21 :00; Status UNV Comment Review of Relevant I have reviewed the following items joy (where applicable) has been applied. YELITZA CAZARES MD Mar 28, 2018 15:25
[2018-03-29] MEDS ORDERED: metFORMIN 500 MG TABLET PO SCH (08:00)
== END 2018-03-28 16:49 | disposition home or self-care (01) | DRG 69 ==
LOC: ER 19:14 → 2 NORTH 21:45
PROVIDERS: ADMIT Family Medicine; ATTEND Family Medicine
DX: G45.9 Transient cerebral ischemic attack, unspecified (principal); I16.1 Hypertensive emergency; I10 Essential (primary) hypertension; E11.65 Type 2 diabetes mellitus with hyperglycemia; H54.7 Unspecified visual loss; E78.5 Hyperlipidemia, unspecified; G62.9 Polyneuropathy, unspecified; M19.90 Unspecified osteoarthritis, unspecified site; F41.9 Anxiety disorder, unspecified; E66.3 Overweight; I72.8 Aneurysm of other specified arteries; Z82.49 Family history of ischemic heart disease and other diseases of the circulatory system; Z86.73 Personal history of transient ischemic attack (TIA), and cerebral infarction without residual deficits; Z79.82 Long term (current) use of aspirin; Z68.28 Body mass index [BMI] 28.0-28.9, adult; N18.2 Chronic kidney disease, stage 2 (mild)
CPT/HCPCS: 36415; 70450; 70496; 70498; 70551; 80048; 80061; 82962; 84443; 84484; 85025; 85610; 85730; 93005; 96361; 96374; J1815; J2060; J3490; J7040; Q9967; 99285-25

== ENCOUNTER 2020-06-01 17:39 | Inpatient (IN) | payer MEDICARE ==
[~2020-06-01] VITALS: Ht 175.3 cm; Wt 71.6 kg
[~2020-06-01 17:39] MED LIST changes: +ASPI81TA50 PO; -DULO20CA17 PO; +DULO20CA18 PO; -GLIM2TAB2 PO; +GLIM2TAB7 PO; +HYDR-3164 PO; -HYDR-971 PO; -LISI-338 PO; +LISI-517 PO; +OMEP20CA16 PO; -OMEP20CA9 PO; +OXYB5TAB10 PO; -OXYB5TAB7 PO; +SIMV5TAB14 PO; -SIMV5TAB5 PO; +TAMS0.4C2 PO
--- NOTE | 2020-06-01 18:04 | ED.ADGEN ---
Past Medical History Past Medical History: Diabetes-Type II, Stroke Additional Past Medical Histor: L sided vision defecit from stroke Past Surgical History: No Surgical History Smoking Status: Former Smoker Alcohol Use: Rarely Drug Use: None General Adult EDM: Chief Complaint: NEURO SYMPTOMS/DEFICITS HPI: HPI: Patient is 79-year-old male who presents to the emergency room with weakness, confusion after a fall. Patient's family states that they had breakfast and spent the afternoon together and he was normal at that time. He fell and hit the left side of his head on carpet earlier today. He did not lose consciousness. Since that time he has been very confused. He does not know his name, her name, or what is going on. He does not know the month or day. He has been dragging his left foot and she has noticed abnormal facial expression. Patient is unable to provide any history and cannot follow any commands. Review of Systems: Review of Systems: Unable to obtain Current Medications: Current Medications Medications (Trade) Dose Ordered Sig/Sonja Start Time Stop Time Status Last Admin Dose Admin Acetaminophen (Tylenol Supp) 650 mg PRN Q6HRS PRN 06/01/20 19:45 Acetaminophen (Tylenol) 650 mg PRN Q6HRS PRN 06/01/20 19:45 Alteplase, Recombinant 63.2 ml @ 63.2 mls/hr Q1H 06/01/20 18:30 06/01/20 19:29 DC 06/01/20 18:30 63.2 MLS/HR Info (CONTRAST GIVEN -- Rx MONITORING) 1 each PRN DAILY PRN 06/01/20 18:45 06/03/20 18:44 Iohexol (Omnipaque 300 Mg/ml) 75 ml 1X ONCE 06/01/20 18:45 06/01/20 18:46 DC 06/01/20 18:58 75 ML Labetalol HCl (Normodyne Iv Push) 10 mg PRN Q10MIN PRN 06/01/20 19:45 Magnesium Sulfate 50 ml @ 25 mls/hr 1X ONCE 06/01/20 20:30 06/01/20 22:29 Nicardipine HCl 50 mg/Sodium Chloride 250 ml @ 25 mls/hr CONT PRN PRN 06/01/20 19:45 UNV Ondansetron HCl (Zofran) 4 mg PRN Q8HRS PRN 06/01/20 20:00 06/02/20 19:59 Sodium Chloride 50 ml @ 50 mls/hr Q1H ONCE 06/01/20 18:15 06/01/20 19:14 DC Allergies: Allergies: Allergies Coded Allergies Type Severity Reaction Last Updated Verified No Known Drug Allergies 09/24/17 No Physical Exam: PE: General: Awake, alert, NAD. Well Nourished, well hydrated. Cooperative HEENT: Abrasion to left hoahaoism, EOMI, PERRL, airway patent, moist oral mucosa Neck: Supple, trachea midline Respiratory: CTA bilaterally, normal effort, no wheezing/crackles CV: RRR, no murmur, cap refill <2 GI: Soft, nondistended, nontender, no masses MSK: No obvious deformities Skin: Warm, dry, intact Neuro: A&O x0, speech slurred, right-sided facial droop, unable to fully examine all cranial nerves due to patient's confusion, can bend left leg at knee against gravity, unable to bend or lift right leg, intermittently moves R hand, but does not lift arm and can not follow commands, Lifts left arm but does not follow directions to determine drift Psych: Normal affect, normal mood, not suicidal or homicidal Constitutional: Confused, elderly, non-toxic appearance HENT: Normocephalic, abrasion to left hoahaoism Eyes: PERRL, conjunctiva normal, no discharge Neck: No tenderness, supple Lungs & Thorax: No respiratory distress, equal chest rise and fall Abdomen: Soft, no tenderness Skin: Warm, dry, no erythema, no rash Extremities: No tenderness, ROM intact, no edema Neurologic: Alert but disoriented, following some commands, bilateral hand casting machine set up operator equal, limited movement to right leg, otherwise moving other extremities Psychologic: Limited, judgment abnormal Current Patient Data: Labs: Laboratory Tests Test 06/01/20 17:47 06/01/20 17:57 Glucose (Fingerstick) 233 mg/dL (70-99) H White Blood Count 7.5 x10^3/uL (4.0-11.0) Red Blood Count 4.25 x10^6/uL (4.30-5.70) L Hemoglobin 13.4 g/dL (13.0-17.5) Hematocrit 38.6 % (39.0-53.0) L Mean Corpuscular Volume 91 fL (79-100) Mean Corpuscular Hemoglobin 31 pg (25-35) Mean Corpuscular Hemoglobin Concent 35 g/dL (31-37) Red Cell Distribution Width 12.9 % (11.5-14.5) Platelet Count 247 x10^3/uL (140-400) Neutrophils (%) (Auto) 77 % (31-73) H Lymphocytes (%) (Auto) 16 % (24-48) L Monocytes (%) (Auto) 7 % (0-9) Eosinophils (%) (Auto) 0 % (0-3) Basophils (%) (Auto) 1 % (0-3) Neutrophils # (Auto) 5.7 x10^3/uL (1.8-7.7) Lymphocytes # (Auto) 1.2 x10^3/uL (1.0-4.8) Monocytes # (Auto) 0.5 x10^3/uL (0.0-1.1) Eosinophils # (Auto) 0.0 x10^3/uL (0.0-0.7) Basophils # (Auto) 0.0 x10^3/uL (0.0-0.2) Prothrombin Time 12.7 SEC (11.7-14.0) Prothrombin Time INR 1.0 (0.8-1.1) Activated Partial Thromboplast Time 27 SEC (24-38) Sodium Level 136 mmol/L (136-145) Potassium Level 4.5 mmol/L (3.5-5.1) Chloride Level 98 mmol/L (98-107) Carbon Dioxide Level 25 mmol/L (21-32) Anion Gap 13 (6-14) Blood Urea Nitrogen 21 mg/dL (8-26) Creatinine 0.8 mg/dL (0.7-1.3) Estimated GFR (Cockcroft-Gault) 93.5 BUN/Creatinine Ratio 26 (6-20) H Glucose Level 247 mg/dL (70-99) H Calcium Level 9.9 mg/dL (8.5-10.1) Magnesium Level 1.3 mg/dL (1.8-2.4) L Total Bilirubin 0.4 mg/dL (0.2-1.0) Aspartate Amino Transferase (AST) 25 U/L (15-37) Alanine Aminotransferase (ALT) 26 U/L (16-63) Alkaline Phosphatase 81 U/L (46-116) Troponin I Quantitative < 0.017 ng/mL (0.000-0.055) Total Protein 6.9 g/dL (6.4-8.2) Albumin 3.8 g/dL (3.4-5.0) Albumin/Globulin Ratio 1.2 (1.0-1.7) Laboratory Tests 06/01/20 17:57 Laboratory Tests 06/01/20 17:57 Vital Signs: Vital Signs Date Time Temp Pulse Resp B/P (MAP) Pulse Ox O2 Delivery O2 Flow Rate FiO2 06/01/20 18:25 96 18 166/84 (111) 100 Room Air 06/01/20 17:46 97.9 97.9 EKG: EKG: [] Radiology/Procedures: Radiology/Procedures: [] Course & Med Decision Making: Course & Med Decision Making Patient is a 79-year-old male with a history of CVA who presents the emergency room with neurologic complaints. On exam, patient has slurred speech, confusion, right-sided facial droop, left-sided weakness. Patient's presentation is concerning for acute stroke. Stroke protocol was set off and the patient was taken for a CT head. Glucose is normal at this time. Patient was evaluated by neurology. CBC, BMP, magnesium, troponin, EKG were ordered to evaluate for other causes of symptoms and risk factors for stroke. Patient's blood pressure is controlled at this time. Patient is within the three-hour TPA window. Patient does not have any contraindication to tPA. [I have discussed in detail with patient/family the risks of tPA including but not limited to intracranial hemorrhage leading to , GI bleed, seizures, pulmonary edema, angioedema, anaphylaxis. We discussed the benefits of tPA and the importance of early intervention if tPA therapy is desired. Patient/Family has decided to] gi ve tPA if patient does not have a head bleed. CT angiogram head and neck was ordered. Patient will need to be admitted for further workup and care. 1800-signout received from Dr. Chang for patient with concern for acute CVA. Patient had negative head CT and TPA was initiated. CTA head and neck pending at time of signout. Patient seen and evaluated by myself. Per nursing staff some immediate improvement noted after TPA administration. Labs reviewed and posted to chart. CTA head and neck without intraarterial blockage. There is some question for possible venous thrombus versus artifactual with recommendation for MRI for further evaluation. Dr. Tomlin (neurology) had been previously contacted by Dr. Chang and was in agreement with consultation pending CTA findings. MRI previously ordered by Dr. Tomlin. Patient requiring admission for further evaluation and treatment. Discussed with Dr. Tripp (hospitalist) who is in agreement with admission. Discussed findings and plan with spouse, who acknowledges understanding and agreement. Dragon Disclaimer: Dragon Disclaimer: This electronic medical record was generated, in whole or in part, using a voice recognition dictation system. Departure Departure Impression: Primary Impression: CVA (cerebral vascular accident) Disposition: ADMITTED INPT THIS HOSP Admitting Physician: LAURA Juarez) Condition: GUARDED Referrals: AMOL MCCORD MD (PCP) Critical Care Time Critical care time was 30 minutes which includes time at bedside, spent in discussion of patient's care with specialists and/or family members, with interpretation of laboratory and/or radiological studies and is exclusive of procedures. NIHSS Stroke Scale NIH Stroke Scale: NIH Stroke Scale Response (Comments) Value Level of Consciousness: 0 Alert/Responsive 0 LOC Questions: 2 Answers neither correct 2 LOC Commands: 1 Performs one task 1 Best Gaze: 1 Partial gaze palsy 1 Facial Palsy: 2 Partial paralysis 2 Motor - Left Arm 0 No drift 0 Motor - Right Arm 0 No drift 0 Motor - Left Leg 2 Some effort 2 Motor: Right Leg 3 Limb falls 3 Limb Ataxia: 2 Two limbs 2 Best Language: 1 Mild to mod aphasia 1 Dysathria: 1 Mild to moderate 1 Extinction and Inattention: 1 One sensory modality 1 Total 16 Problem Qualifiers Primary Impression: CVA (cerebral vascular accident) CVA mechanism: unspecified Qualified Codes: I63.9 - Cerebral infarction, unspecified HILL CHANG MD Jun 01, 2020 18:04 APBLO GAMING DO Jun 01, 2020 19:40
--- NOTE | 2020-06-01 18:07 | RAD ---
Exam: CT head INDICATION: Stroke TECHNIQUE: Sequential axial images through the head were obtained without the administration of IV co ntrast. Comparisons: 04/30/2017 FINDINGS: No focal parenchymal lesion or hemorrhage is identified. There is no midline shift or sulcal effaceme nt. Extensive patchy hypodensities in the periventricular white matter. Chronic infarct at the right occi pital lobe medially. No acute vascular territory infarction is identified. Barker-white distinction is preserved. The ventricular system is within normal limits without compression hydrocephalus. The basal cisterns are well maintained. The visualized portions of the paranasal sinuses and mastoid air cells are well-pneumatized. No acute fractures. IMPRESSION: Progressive small vessel ischemic change when compared to study in 2017, technically age indeterminat e without recent prior exam. No acute hemorrhage. Exposure: One or more of the following in the visualized dose reduction techniques were utilized for this examination: 1. Automated exposure control 2. Adjustment of the MA and/or KV according to patient size Use of iterative of reconstructive technique FOR INTERNAL CODING PURPOSES Critical result: Findings discussed with Dr. Chang at 06/01/2020 6:03 PM. RESULT CODE: (C) Electronically signed by: Opal Gutierrez MD (06/01/2020 6:05 PM) [facility]
[2020-06-01 18:09] LABS: BASO % 1 % (0-3); EOS % 0 % (0-3); HEMATOCRIT 38.6 % (39.0-53.0); HEMOGLOBIN 13.4 g/dL (13.0-17.5); LYMPH # 1.2 x10^3/uL (1.0-4.8); LYMPH % 16 % (24-48); MEAN CORPUSCULAR HEMOGLOBIN 31 pg (25-35); MEAN CORPUSCULAR HGB CONC 35 g/dL (31-37); MEAN CORPUSCULAR VOLUME 91 fL (79-100); MONO # 0.5 x10^3/uL (0.0-1.1); MONO % 7 % (0-9); NEUT # 5.7 x10^3/uL (1.8-7.7); NEUT % 77 % (31-73); PLATELET COUNT 247 x10^3/uL (140-400); RED BLOOD COUNT 4.25 x10^6/uL (4.30-5.70); RED CELL DISTRIBUTION WIDTH 12.9 % (11.5-14.5); WHITE BLOOD COUNT 7.5 x10^3/uL (4.0-11.0)
[2020-06-01] MEDS ORDERED: LABETALOL 20 MG/4 ML DISP.SYRIN. IVP ONE (18:14)
[2020-06-01] MEDS ORDERED: ALTEPLASE 0 MG IV ONE (18:15)
[2020-06-01] MEDS ORDERED: ALTEPLASE 0 MG IV SCH (18:15)
[2020-06-01] MEDS ORDERED: IV NORMAL SALINE 50ML 50 ML IV ONE (18:15)
[2020-06-01] MEDS ORDERED: LABETALOL 20 MG/4 ML DISP.SYRIN. IVP PRN (18:15)
[2020-06-01] MEDS ORDERED: ALTEPLASE 7 MG IV ONE (18:15)
[2020-06-01 18:19] LABS: PROTHROMBIN TIME PATIENT 12.7 SEC (11.7-14.0)
[2020-06-01 18:25] LABS: CALCIUM 9.9 mg/dL (8.5-10.1); CREATININE 0.8 mg/dL (0.7-1.3); GFR 93.5; POTASSIUM 4.5 mmol/L (3.5-5.1)
[2020-06-01] MEDS ORDERED: ALTEPLASE IV SCH (18:30)
[2020-06-01 18:32] LABS: ALBUMIN 3.8 g/dL (3.4-5.0); ALBUMIN/GLOBULIN RATIO 1.2 (1.0-1.7); MAGNESIUM 1.3 mg/dL (1.8-2.4); TOTAL BILIRUBIN 0.4 mg/dL (0.2-1.0); TOTAL PROTEIN 6.9 g/dL (6.4-8.2)
[2020-06-01] MEDS ORDERED: IOHEXOL 300 MG/ML 100ML VIAL. IV ONE (18:45)
[2020-06-01] MEDS ORDERED: CONTRAST GIVEN. MC PRN (18:45)
[2020-06-01] MEDS ORDERED: ONDANSETRON PF 4 MG/2 ML VIAL. IVP PRN (19:45)
[2020-06-01] MEDS ORDERED: ACETAMINOPHEN 325 MG TABLET. PO PRN (19:45)
--- NOTE | 2020-06-01 19:49 | RAD ---
Exam: CTA head and neck INDICATION: Stroke TECHNIQUE: Sequential axial images through the head and neck obtained following the administration of 75 mL of Omni 300 IV contrast. Sagittal and coronal reformatted images were reconstructed from the a xial data and reviewed. 3-D reformatted images were reconstructed from the axial data and reviewed. Comparisons: CT head without contrast same day FINDINGS: CTA NECK: Visualized portions of thoracic aorta are unremarkable. Standard three-vessel aortic arch anatomy. Right common carotid artery is patent without evidence of stenosis, occlusion or aneurysm. Mild plaqu e at the origin of the left internal carotid artery without significant stenosis. Left common carotid artery is patent without evidence of stenosis, occlusion or aneurysm. Mild calcif ied plaque at the origin left internal carotid artery without significant stenosis. Right vertebral artery is patent to the basilar confluence without evidence of stenosis, occlusion or aneurysm. Left vertebral artery is patent basal confluence without evidence of stenosis, occlusion or aneurysm. Visualized paraspinal soft tissues are unremarkable. CTA HEAD: Mild calcified plaque at the cavernous segment of the right internal carotid artery. No significant s tenosis. Left MCA is patent. Left LINH is patent. Mild calcified plaque at the cavernous segment of the left internal carotid artery without significan t stenosis. Left MCA is patent. Left LINH is patent. Basilar artery is patent without evidence of stenosis, occlusion or aneurysm. There is asymmetric nonfilling of the left sigmoid sinus and jugular bulb IMPRESSION: 1. No evidence for large vessel arterial occlusion. 2. Asymmetric nonfilling of the left sigmoid sinus and jugular bulb. There is a possibility this may be artifactual secondary to arterial phase of this exam. CTV or MRV further definitively evaluate. 3. Mild calcified plaque at the cavernous segments of the internal carotid arteries bilaterally with out significant stenosis. 4. Minimal calcified plaque at the cavernous segments of the internal carotid arteries bilaterally w ithout significant stenosis. Exposure: One or more of the following in the visualized dose reduction techniques were utilized for this examination: 1. Automated exposure control 2. Adjustment of the MA and/or KV according to patient size 3. Use of iterative of reconstructive technique FOR INTERNAL CODING PURPOSES Critical result: Findings discussed with Dr. Walters at 06/01/2020 7:32 PM. RESULT CODE: (C) Electronically signed by: Opal Gutierrez MD (06/01/2020 7:46 PM) [facility]
[2020-06-01] MEDS ORDERED: ONDANSETRON PF 4 MG/2 ML VIAL. IV PRN (20:00)
[2020-06-01 20:10] LABS: BILIRUBIN,URINE NEGATIVE (NEG); CLARITY,URINE CLEAR; COLOR,URINE YELLOW; NITRITE,URINE NEGATIVE (NEG); PH,URINE 7.5 (<5.0-8.0); PROTEIN,URINE NEGATIVE (NEG-TRACE)
[2020-06-01 20:23] LABS: RBC,URINE >40 /HPF (0-2)
[2020-06-01 20:24] LABS: BACTERIA,URINE 0 /HPF (0-FEW); WBC,URINE OCC /HPF (0-4)
[2020-06-01] MEDS ORDERED: MAGNESIUM SULFATE 2GM 50 ML IV ONE (20:30)
[2020-06-01 20:35] LABS: CHOLESTEROL/HDL RATIO 2.7
[2020-06-01] MEDS: LABETALOL 20 MG/4 ML DISP.SYRIN. IVP PRN (20:57)
[2020-06-01] MEDS: ACETAMINOPHEN 650 MG SUPP.RECT. PR PRN (21:21)
[2020-06-01 23:15] VITALS: BP 177/81
[2020-06-01 23:30] VITALS: BP 161/77
--- NOTE | 2020-06-01 23:34 | NUR ---
verified NIH score with Rea Samuel RN. Addendum: 06/01/20 at 2335 by SAAD PAPPAS RN Amended: Links added.
[2020-06-01 23:45] VITALS: BP 167/68
[2020-06-02] VITALS (24 sets, daily range): BP systolic 103–185; BP diastolic 51–78
[2020-06-02] MEDS ORDERED: PROCHLORPERAZINE 10 MG/2 ML VIAL. IV PRN
--- NOTE | 2020-06-02 00:35 | RAD ---
PQRS Compliance Statement: One or more of the following individualized dose reduction techniques were utilized for this examinat ion: 1. Automated exposure control 2. Adjustment of the mA and/or kV according to patient size 3. Use of iterative reconstruction technique CT head without contrast 06/02/2020 12:27 AM INDICATION: Changing your status COMPARISON: CT head 06/01/2020 TECHNIQUE: Multiple axial CT images of the head were obtained from skull base through the vertex with out intravenous contrast. FINDINGS: Head: Ventricles, sulci and basal cisterns are prominent compatible with mild generalized cerebral volume l oss. There is a small left retrocerebellar cyst. Posterior fossa is otherwise normal in appearance. T here is focal edema identified involving the medial right occipital lobe, stable from prior examinati on. No acute intracranial hemorrhage is identified. Findings may reflect subacute infarct. There is e ncephalomalacia involving the right perirolandic gyri suggestive of sequela remote infarct. Findings are stable. Low-attenuation in the periventricular white matter is suggestive of chronic small vessel ischemic changes. There is no mass, mass effect or midline shift. Visualized portions of the orbits are normal. Paranasal sinuses are well aerated. Mastoid air cells a re well aerated. Scalp and calvaria are normal. IMPRESSION: No acute intracranial hemorrhage. Stable findings as compared to prior examination from 06/01/2020 wi th remote ischemic changes in the right perirolandic gyri and cytotoxic edema involving the medial ri ght occipital lobe. Electronically signed by: Jaja Hilton MD (06/02/2020 12:32 AM) [facility]
--- NOTE | 2020-06-02 00:39 | NUR ---
Pt arrived on the unit at 2315, pt awake but not answering questions, able to follow some commands but not all. Pt vomited on arrival, he was given zofran in Ed, pt off Cardene, it was turned off in ED. Spoke to Rebecca, received orders for CT of head stat and compazine for nausea. Pt tolerated ct procedure well. Will notify physician with any acute changes.
[2020-06-02] MEDS: ACETAMINOPHEN 650 MG SUPP.RECT. PR PRN ×2 (03:38→22:04)
--- NOTE | 2020-06-02 10:20 | PDOC1 ---
History and Physical Date of Admission Date of Admission DATE: 06/02/20 TIME: 10:19 Identification/Chief Complaint Chief Complaint presented to the emergency room with weakness, confusion after a fall. noted to have a fever overnight now a PUI, possible aspiration pneumonitis family states that they had breakfast and spent the afternoon together and he was normal at that time.// fell and hit the left side of his head on carpet did not lose consciousness. Since that time he has been very confused. , encephalopathic, POST alteplase does not know his name, her name, or what is going on. He does not know the month or day. has been dragging his left foot and she has noticed abnormal facial expression. // unable to provide any history and cannot follow any commands. 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 ALLERGIES: None. FAMILY HISTORY: Hypertension. SOCIAL HISTORY: He is retired. He does not drink, smoke or take drugs. FHX COPD Cardiovascular: HTN, Syncope, Hyperlipidemia Pulmonary: No pertinent hx CENTRAL NERVOUS SYSTEM: Periperal neuropathy Heme/Onc: No pertinent hx Hepatobiliary: No pertinent hx Psych: Anxiety Musculoskeletal: Osteoarthritis Endocrine: Diabetes Past Surgical History Past Surgical History: Appendectomy Family History Family History: Coronary Artery Disease, High Cholestrol Social History Smoke: No ALCOHOL: none Drugs: None Current Medications Current Medications Current Medications Alteplase, Recombinant 0 ml @ 0 mls/hr Q1M ONCE IV ; Start 06/01/20 at 18:15; Stop 06/01/20 at 18:16; Status UNV Alteplase, Recombinant 0 ml @ 0 mls/hr Q1H IV ; Start 06/01/20 at 18:15; Status UNV Sodium Chloride 50 ml @ 50 mls/hr Q1H ONCE IV Last administered on 06/01/20at 20:31; Start 06/01/20 at 18:15; Stop 06/01/20 at 19:14; Status DC Labetalol HCl (Normodyne Iv Push) 10 mg PRN Q10MIN PRN IVP HYPERTENSION; Start 06/01/20 at 18:15; Stop 06/01/20 at 19:48; Status DC Nicardipine HCl 50 mg/Sodium Chloride 250 ml @ 25 mls/hr CONT PRN PRN IV HYPE RTENSION Last administered on 06/01/20at 21:27; Start 06/01/20 at 18:15 Alteplase, Recombinant 7 ml @ 420 mls/hr 1X ONCE IV Last administered on 06/01/20at 18:26; Start 06/01/20 at 18:15; Stop 06/01/20 at 18:16; Status DC Alteplase, Recombinant 63.2 ml @ 63.2 mls/hr Q1H IV Last administered on 06/01/20at 18:30; Start 06/01/20 at 18:30; Stop 06/01/20 at 19:29; Status DC Labetalol HCl (Normodyne Iv Push) 20 mg STK-MED ONCE IVP ; Start 06/01/20 at 18:14; Stop 06/01/20 at 18:14; Status DC Iohexol (Omnipaque 300 Mg/ml) 75 ml 1X ONCE IV Last administered on 06/01/20at 18:58; Start 06/01/20 at 18:45; Stop 06/01/20 at 18:46; Status DC Info (CONTRAST GIVEN -- Rx MONITORING) 1 each PRN DAILY PRN MC SEE COMMENTS; Start 06/01/20 at 18:45; Stop 06/03/20 at 18:44 Labetalol HCl (Normodyne Iv Push) 10 mg PRN Q10MIN PRN IVP HYPERTENSION Last administered on 06/01/20at 20:57; Start 06/01/20 at 19:45 Nicardipine HCl 50 mg/Sodium Chloride 250 ml @ 25 mls/hr CONT PRN PRN IV HYPERTENSION; Start 06/01/20 at 19:45; Status UNV Acetaminophen (Tylenol) 650 mg PRN Q6HRS PRN PO MILD PAIN / TEMP > 100.3'F; Start 06/01/20 at 19:45 Acetaminophen (Tylenol Supp) 650 mg PRN Q6HRS PRN ID MILD PAIN / TEMP > 100.3'F Last administered on 06/02/20at 03:38; Start 06/01/20 at 19:45 Ondansetron HCl (Zofran) 4 mg PRN Q6HRS PRN IVP NAUSEA/VOMITING; Start 06/01/20 at 19:45 Magnesium Sulfate 50 ml @ 25 mls/hr 1X ONCE IV Last administered on 06/01/20at 21:21; Start 06/01/20 at 20:30; Stop 06/01/20 at 22:29; Status DC Ondansetron HCl (Zofran) 4 mg PRN Q8HRS PRN IV NAUSEA/VOMITING Last administered on 06/01/20at 22:04; Start 06/01/20 at 20:00; Stop 06/02/20 at 19:59 Prochlorperazine Edisylate (Compazine) 10 mg PRN Q8HRS PRN IV NAUSEA/VOMITING 2ND CHOICE Last administered on 06/02/20at 00:00; Start 06/02/20 at 00:00 Active Scripts Active Reported Aspir-Low (Aspirin) 81 Mg Tablet.dr 162 Mg PO Tamsulosin Hcl 0.4 Mg Cap.er.24h 0.4 Mg PO DAILY Levemir (Insulin Detemir) 100 Unit/1 Ml Vial 26 Unit SQ Simvastatin 5 Mg Tablet 2 Mg PO HS Duloxetine Hcl 20 Mg Capsule.dr 20 Mg PO DAILY Glimepiride 2 Mg Tablet 1 Tab PO DAILY Omeprazole 20 Mg Capsule.dr 1 Cap PO DAILY Metformin Hcl 1,000 Mg Tablet 1 Tab PO BIDWMEALS Allergies Allergies: Coded Allergies: No Known Drug Allergies (Unverified , 09/24/17) ROS Review of System UNABLE TO COOPERATE General: YES: Chills Musculoskeletal: Yes Gait Disturbance Neurological: Yes Confusion Physical Exam Physical Exam General: Awake, alert, NAD. Well Nourished, well hydrated. Cooperative HEENT: Abrasion to left gnosticist, EOMI, PERRL, airway patent, moist oral mucosa Neck: Supple, trachea midline Respiratory: CTA bilaterally, normal effort, no wheezing/crackles CV: RRR, no murmur, cap refill <2 GI: Soft, nondistended, nontender, no masses MSK: No obvious deformities Skin: Warm, dry, intact Neuro: A&O x0, speech slurred, right-sided facial droop, unable to fully examine all cranial nerves due to patient's confusion, can bend left leg at knee against gravity, unable to bend or lift right leg, intermittently moves R hand, but does not lift arm and can not follow commands, Lifts left arm but does not follow directions to determine drift Constitutional: Confused, elderly, non-toxic appearance HENT: Normocephalic, abrasion to left gnosticist Eyes: PERRL, conjunctiva normal, no discharge Neck: No tenderness, supple Lungs & Thorax: No respiratory distress, equal chest rise and fall Abdomen: Soft, no tenderness Skin: Warm, dry, no erythema, no rash Extremities: No tenderness, ROM intact, no edema Neurologic: Alert but disoriented, following some commands, bilateral hand recycling sorter equal, limited movement to right leg, otherwise moving other extremities Psychologic: Limited, judgment abnormal General: Cooperative Lungs: Normal air movement Rectal Exam: not examined PELVIC: Examination not indicated Extremities: No cyanosis Skin: No breakdown Vitals Vitals Vital Signs Date Time Temp Pulse Resp B/P (MAP) Pulse Ox O2 Delivery O2 Flow Rate FiO2 06/02/20 10:06 96 20 121/57 (78) 96 Room Air 06/02/20 08:14 98.0 98.0 06/01/20 22:55 2.0 Labs Labs Laboratory Tests Test 06/01/20 17:47 06/01/20 17:57 06/01/20 20:00 06/02/20 00:55 Glucose (Fingerstick) 233 mg/dL (70-99) White Blood Count 7.5 x10^3/uL (4.0-11.0) Red Blood Count 4.25 x10^6/uL (4.30-5.70) Hemoglobin 13.4 g/dL (13.0-17.5) Hematocrit 38.6 % (39.0-53.0) Mean Corpuscular Volume 91 fL (79-100) Mean Corpuscular Hemoglobin 31 pg (25-35) Mean Corpuscular Hemoglobin Concent 35 g/dL (31-37) Red Cell Distribution Width 12.9 % (11.5-14.5) Platelet Count 247 x10^3/uL (140-400) Neutrophils (%) (Auto) 77 % (31-73) Lymphocytes (%) (Auto) 16 % (24-48) Monocytes (%) (Auto) 7 % (0-9) Eosinophils (%) (Auto) 0 % (0-3) Basophils (%) (Auto) 1 % (0-3) Neutrophils # (Auto) 5.7 x10^3/uL (1.8-7.7) Lymphocytes # (Auto) 1.2 x10^3/uL (1.0-4.8) Monocytes # (Auto) 0.5 x10^3/uL (0.0-1.1) Eosinophils # (Auto) 0.0 x10^3/uL (0.0-0.7) Basophils # (Auto) 0.0 x10^3/uL (0.0-0.2) Prothrombin Time 12.7 SEC (11.7-14.0) Prothromb Time International Ratio 1.0 (0.8-1.1) Activated Partial Thromboplast Time 27 SEC (24-38) Sodium Level 136 mmol/L (136-145) Potassium Level 4.5 mmol/L (3.5-5.1) Chloride Level 98 mmol/L (98-107) Carbon Dioxide Level 25 mmol/L (21-32) Anion Gap 13 (6-14) Blood Urea Nitrogen 21 mg/dL (8-26) Creatinine 0.8 mg/dL (0.7-1.3) Estimated GFR (Cockcroft-Gault) 93.5 BUN/Creatinine Ratio 26 (6-20) Glucose Level 247 mg/dL (70-99) Calcium Level 9.9 mg/dL (8.5-10.1) Magnesium Level 1.3 mg/dL (1.8-2.4) Total Bilirubin 0.4 mg/dL (0.2-1.0) Aspartate Amino Transf (AST/SGOT) 25 U/L (15-37) Alanine Aminotransferase (ALT/SGPT) 26 U/L (16-63) Alkaline Phosphatase 81 U/L (46-116) Troponin I Quantitative < 0.017 ng/mL (0.000-0.055) 0.035 ng/mL (0.000-0.055) Total Protein 6.9 g/dL (6.4-8.2) Albumin 3.8 g/dL (3.4-5.0) Albumin/Globulin Ratio 1.2 (1.0-1.7) Triglycerides Level 71 mg/dL (0-150) Cholesterol Level 136 mg/dL (0-200) LDL Cholesterol, Calculated 71 mg/dL (0-100) VLDL Cholesterol, Calculated 14 mg/dL (0-40) Non-HDL Cholesterol Calculated 85 mg/dL (0-129) HDL Cholesterol 51 mg/dL (40-60) Cholesterol/HDL Ratio 2.7 Urine Collection Type Unknown Urine Color Yellow Urine Clarity Clear Urine pH 7.5 (<5.0-8.0) Urine Specific Boody 1.020 (1.000-1.030) Urine Protein Negative mg/dL (NEG-TRACE) Urine Glucose (UA) 500 mg/dL (NEG) Urine Ketones (Stick) 15 mg/dL (NEG) Urine Blood Large (NEG) Urine Nitrite Negative (NEG) Urine Bilirubin Negative (NEG) Urine Urobilinogen Dipstick 1.0 mg/dL (0.2 mg/dL) Urine Leukocyte Esterase Trace (NEG) Urine RBC >40 /HPF (0-2) Urine WBC Occ /HPF (0-4) Urine Renal Epithelial Cells Occ /LPF Urine Bacteria 0 /HPF (0-FEW) Laboratory Tests Test 06/01/20 17:47 06/01/20 17:57 06/01/20 20:00 06/02/20 00:55 Glucose (Fingerstick) 233 mg/dL (70-99) White Blood Count 7.5 x10^3/uL (4.0-11.0) Red Blood Count 4.25 x10^6/uL (4.30-5.70) Hemoglobin 13.4 g/dL (13.0-17.5) Hematocrit 38.6 % (39.0-53.0) Mean Corpuscular Volume 91 fL (79-100) Mean Corpuscular Hemoglobin 31 pg (25-35) Mean Corpuscular Hemoglobin Concent 35 g/dL (31-37) Red Cell Distribution Width 12.9 % (11.5-14.5) Platelet Count 247 x10^3/uL (140-400) Neutrophils (%) (Auto) 77 % (31-73) Lymphocytes (%) (Auto) 16 % (24-48) Monocytes (%) (Auto) 7 % (0-9) Eosinophils (%) (Auto) 0 % (0-3) Basophils (%) (Auto) 1 % (0-3) Neutrophils # (Auto) 5.7 x10^3/uL (1.8-7.7) Lymphocytes # (Auto) 1.2 x10^3/uL (1.0-4.8) Monocytes # (Auto) 0.5 x10^3/uL (0.0-1.1) Eosinophils # (Auto) 0.0 x10^3/uL (0.0-0.7) Basophils # (Auto) 0.0 x10^3/uL (0.0-0.2) Prothrombin Time 12.7 SEC (11.7-14.0) Prothromb Time International Ratio 1.0 (0.8-1.1) Activated Partial Thromboplast Time 27 SEC (24-38) Sodium Level 136 mmol/L (136-145) Potassium Level 4.5 mmol/L (3.5-5.1) Chloride Level 98 mmol/L (98-107) Carbon Dioxide Level 25 mmol/L (21-32) Anion Gap 13 (6-14) Blood Urea Nitrogen 21 mg/dL (8-26) Creatinine 0.8 mg/dL (0.7-1.3) Estimated GFR (Cockcroft-Gault) 93.5 BUN/Creatinine Ratio 26 (6-20) Glucose Level 247 mg/dL (70-99) Calcium Level 9.9 mg/dL (8.5-10.1) Magnesium Level 1.3 mg/dL (1.8-2.4) Total Bilirubin 0.4 mg/dL (0.2-1.0) Aspartate Amino Transf (AST/SGOT) 25 U/L (15-37) Alanine Aminotransferase (ALT/SGPT) 26 U/L (16-63) Alkaline Phosphatase 81 U/L (46-116) Troponin I Quantitative < 0.017 ng/mL (0.000-0.055) 0.035 ng/mL (0.000-0.055) Total Protein 6.9 g/dL (6.4-8.2) Albumin 3.8 g/dL (3.4-5.0) Albumin/Globulin Ratio 1.2 (1.0-1.7) Triglycerides Level 71 mg/dL (0-150) Cholesterol Level 136 mg/dL (0-200) LDL Cholesterol, Calculated 71 mg/dL (0-100) VLDL Cholesterol, Calculated 14 mg/dL (0-40) Non-HDL Cholesterol Calculated 85 mg/dL (0-129) HDL Cholesterol 51 mg/dL (40-60) Cholesterol/HDL Ratio 2.7 Urine Collection Type Unknown Urine Color Yellow Urine Clarity Clear Urine pH 7.5 (<5.0-8.0) Urine Specific Boody 1.020 (1.000-1.030) Urine Protein Negative mg/dL (NEG-TRACE) Urine Glucose (UA) 500 mg/dL (NEG) Urine Ketones (Stick) 15 mg/dL (NEG) Urine Blood Large (NEG) Urine Nitrite Negative (NEG) Urine Bilirubin Negative (NEG) Urine Urobilinogen Dipstick 1.0 mg/dL (0.2 mg/dL) Urine Leukocyte Esterase Trace (NEG) Urine RBC >40 /HPF (0-2) Urine WBC Occ /HPF (0-4) Urine Renal Epithelial Cells Occ /LPF Urine Bacteria 0 /HPF (0-FEW) Images Images EXAM: XR CHEST 1V 06/02/2020 10:36 AM CLINICAL INDICATION: Fever COMPARISON: Rib and chest radiograph 07/07/2018 TECHNIQUE: AP semiupright view of the chest FINDINGS: The heart and mediastinum are normal. Lungs are well-expanded. There are suspected mild left retrocardiac opacities. No pleural effusion or pneumothorax. Severe right glenohumeral osteoarthrosis. IMPRESSION: Suspected left retrocardiac opacities. This could be atelectasis or infiltrate. Consider lateral view to further evaluate. Electronically signed by: Maliha Hernandez MD (06/02/2020 10:59 AM) [id number] DICTATED and SIGNED BY: MALIHA HERNANDEZ MD Exam: CT head INDICATION: Stroke TECHNIQUE: Sequential axial images through the head were obtained without the administration of IV contrast. Comparisons: 04/30/2017 FINDINGS: No focal parenchymal lesion or hemorrhage is identified. There is no midline shift or sulcal effacement. Extensive patchy hypodensities in the periventricular white matter. Chronic infarct at the right occipital lobe medially. No acute vascular territory infarction is identified. Barker-white distinction is preserved. The ventricular system is within normal limits without compression hydrocephalus. The basal cisterns are well maintained. The visualized portions of the paranasal sinuses and mastoid air cells are well- pneumatized. No acute fractures. IMPRESSION: Progressive small vessel ischemic change when compared to study in 2017, technically age indeterminate without recent prior exam. No acute hemorrhage. Exposure: One or more of the following in the visualized dose reduction techniques were utilized for this examination: 1. Automated exposure control 2. Adjustment of the MA and/or KV according to patient size Use of iterative of reconstructive technique FOR INTERNAL CODING PURPOSES Critical result: Findings discussed with Dr. Chang at 06/01/2020 6:03 PM. RESULT CODE: (C) PATIENT: ANA LOYOLA ACCOUNT: [id number] : 1940 LOCATION: ER AGE: 79 SEX: M EXAM STATUS: REG ER ORD. PHYSICIAN: HILL CHANG MD REASON: stroke PROCEDURE: CT ANGIOGRAPHY HEAD AND NECK Exam: CTA head and neck INDICATION: Stroke TECHNIQUE: Sequential axial images through the head and neck obtained following the administration of 75 mL of Omni 300 IV contrast. Sagittal and coronal reformatted images were reconstructed from the axial data and reviewed. 3-D reformatted images were reconstructed from the axial data and reviewed. Comparisons: CT head without contrast same day FINDINGS: CTA NECK: Visualized portions of thoracic aorta are unremarkable. Standard three-vessel aortic arch anatomy. Right common carotid artery is patent without evidence of stenosis, occlusion or aneurysm. Mild plaque at the origin of the left internal carotid artery without significant stenosis. Left common carotid artery is patent without evidence of stenosis, occlusion or aneurysm. Mild calcified plaque at the origin left internal carotid artery without significant stenosis. Right vertebral artery is patent to the basilar confluence without evidence of stenosis, occlusion or aneurysm. Left vertebral artery is patent basal confluence without evidence of stenosis, occlusion or aneurysm. Visualized paraspinal soft tissues are unremarkable. CTA HEAD: Mild calcified plaque at the cavernous segment of the right internal carotid ar darlene. No significant stenosis. Left MCA is patent. Left LINH is patent. Mild calcified plaque at the cavernous segment of the left internal carotid artery without significant stenosis. Left MCA is patent. Left LINH is patent. Basilar artery is patent without evidence of stenosis, occlusion or aneurysm. There is asymmetric nonfilling of the left sigmoid sinus and jugular bulb IMPRESSION: 1. No evidence for large vessel arterial occlusion. 2. Asymmetric nonfilling of the left sigmoid sinus and jugular bulb. There is a possibility this may be artifactual secondary to arterial phase of this exam. CTV or MRV further definitively evaluate. 3. Mild calcified plaque at the cavernous segments of the internal carotid arteries bilaterally without significant stenosis. 4. Minimal calcified plaque at the cavernous segments of the internal carotid arteries bilaterally without significant stenosis. Exposure: One or more of the following in the visualized dose reduction techniques were utilized for this examination: 1. Automated exposure control 2. Adjustment of the MA and/or KV according to patient size 3. Use of iterative of reconstructive technique FOR INTERNAL CODING PURPOSES Critical result: Findings discussed with Dr. Walters at 06/01/2020 7:32 PM. RESULT CODE: (C) Electronically signed by: Opal Gould MD (06/01/2020 7:46 PM) [facility] DICTATED and SIGNED BY: OPAL GOULD MD DATE: 06/01/20 [id number] PQRS Compliance Statement: One or more of the following individualized dose reduction techniques were utilized for this examination: 1. Automated exposure control 2. Adjustment of the mA and/or kV according to patient size 3. Use of iterative reconstruction technique CT head without contrast 06/02/2020 12:27 AM INDICATION: Changing your status COMPARISON: CT head 06/01/2020 TECHNIQUE: Multiple axial CT images of the head were obtained from skull base through the vertex without intravenous contrast. FINDINGS: Head: Ventricles, sulci and basal cisterns are prominent compatible with mild generalized cerebral volume loss. There is a small left retrocerebellar cyst. Posterior fossa is otherwise normal in appearance. There is focal edema identified involving the medial right occipital lobe, stable from prior examination. No acute intracranial hemorrhage is identified. Findings may reflect subacute infarct. There is encephalomalacia involving the right perirolandic gyri suggestive of sequela remote infarct. Findings are stable. Low-attenuation in the periventricular white matter is suggestive of chronic small vessel ischemic changes. There is no mass, mass effect or midline shift. Visualized portions of the orbits are normal. Paranasal sinuses are well aerated. Mastoid air cells are well aerated. Scalp and calvaria are normal. IMPRESSION: No acute intracranial hemorrhage. Stable findings as compared to prior examination from 06/01/2020 with remote ischemic changes in the right perirolandic gyri and cytotoxic edema involving the medial right occipital lobe. Electronically signed by: Bruna Johnson MD (06/02/2020 12:32 AM) [facility] DICTATED and SIGNED BY: BRUNA JOHNSON MD DATE: 06/02/20 [id number] VTE Prophylaxis Ordered VTE Prophylaxis Devices: Yes VTE Pharmacological Prophylaxi: Yes Assessment/Plan Assessment/Plan Impression: CVA (cerebral vascular accident), ACute, post alteplase Acute metabolic encephalopathy FEVER aspiration pneumonia Suspected left retrocardiac opacities. This could be atelectasis or infiltrate. PUI COVID 19 hypomagnesemia ADMITTED PLAN ICU BED MRI HEAD ID CONSULT BLOOD CULTURES MRI HEAD RESP ISOLATION iv emperic zosyn dvt prophylaxis Echocardiogram replace lytes 38 min cc time Justifications for Admission Other Justification MARGARET PATEL MD Jun 02, 2020 10:20
[2020-06-02] MEDS ORDERED: PIP/TAZO PER PHARMACY MC PRN (10:30)
--- NOTE | 2020-06-02 11:02 | RAD ---
EXAM: XR CHEST 1V 06/02/2020 10:36 AM CLINICAL INDICATION: Fever COMPARISON: Rib and chest radiograph 07/07/2018 TECHNIQUE: AP semiupright view of the chest FINDINGS: The heart and mediastinum are normal. Lungs are well-expanded. There are suspected mild le ft retrocardiac opacities. No pleural effusion or pneumothorax. Severe right glenohumeral osteoarthro sis. IMPRESSION: Suspected left retrocardiac opacities. This could be atelectasis or infiltrate. Consider lateral view to further evaluate. Electronically signed by: Maliha Hernandez MD (06/02/2020 10:59 AM) [id number]
[2020-06-02] MEDS: PIPERACILLIN/TAZOBACTAM 3.375 GM in IV NORMAL SALINE 50ML 50 ML IV SCH ×2 (11:41→17:11)
--- NOTE | 2020-06-02 12:41 | EKG ---
[facility] [address] [place] [address] Test Date: 2020-06-02 Test Time: 12:36:18 Pat Name: ANA LOYOLA Department: Room: 115 1 Gender: M Manager Nicu: AMOS : 1940 Requested By: MARGO MAI Order Number: [id number] Reading MD: Measurements Intervals Belt Rate: 83 P: 59 NM: 176 QRS: -18 QRSD: 122 T: 125 QT: 420 QTc: 494 Interpretive Statements SINUS RHYTHM LEFTWARD AXIS INCOMPLETE LEFT BUNDLE BRANCH BLOCK LVH WITH REPOLARIZATION ABNORMALITY ABNORMAL ECG RI6.02 Compared to ECG 03/26/2018 19:40:59 Left-axis deviation now present Left bundle-branch block now present Left ventricular hypertrophy now present Early repolarization now present
--- NOTE | 2020-06-02 13:01 | PDOC2 ---
NEUROLOGY CONSULT Date of Service DOS: DATE: 06/02/20 TIME: 12:53 Reason for Consult Reason for Consult: Stroke Referring Physician Referring Physician: Dr. Ayala Source Source: Chart review History of Present Illness History of Present Illness The patient is a 79-year-old right-handed male who fell yesterday. Last known normal was 1500. He was confused and noticed to have right hemiparesis. He has a history of stroke involving the left side of the body. I discussed the case with Dr. Chang, he was in the window for alteplase and we administered it. He got worse later on in the middle the night and I obtained a second head CT. He has been stable since. There is no history of seizures Past Medical History Cardiovascular: Hyperlipidemia CENTRAL NERVOUS SYSTEM: CVA, Periperal neuropathy GI: Constipation, GERD Psych: Depression Musculoskeletal: Osteoarthritis Renal/: Benign prostatic enlarg., Urinary Incontinence Endocrine: Diabetes Past Surgical History Past Surgical History: Cataract Removal, Tonsillectomy Family History Family History: No pertinent hx Social History Social History , ex-smoker, rare alcohol Current Medications Current Medications Current Medications Alteplase, Recombinant 0 ml @ 0 mls/hr Q1M ONCE IV ; Start 06/01/20 at 18:15; Stop 06/01/20 at 18:16; Status UNV Alteplase, Recombinant 0 ml @ 0 mls/hr Q1H IV ; Start 06/01/20 at 18:15; Status UNV Sodium Chloride 50 ml @ 50 mls/hr Q1H ONCE IV Last administered on 06/01/20at 20:31; Start 06/01/20 at 18:15; Stop 06/01/20 at 19:14; Status DC Labetalol HCl (Normodyne Iv Push) 10 mg PRN Q10MIN PRN IVP HYPERTENSION; Start 06/01/20 at 18:15; Stop 06/01/20 at 19:48; Status DC Nicardipine HCl 50 mg/Sodium Chloride 250 ml @ 25 mls/hr CONT PRN PRN IV HYPERTENSION Last administered on 06/01/20at 21:27; Start 06/01/20 at 18:15 Alteplase, Recombinant 7 ml @ 420 mls/hr 1X ONCE IV Last administered on 06/01/20at 18:26; Start 06/01/20 at 18:15; Stop 06/01/20 at 18:16; Status DC Alteplase, Recombinant 63.2 ml @ 63.2 mls/hr Q1H IV Last administered on 06/01/20at 18:30; Start 06/01/20 at 18:30; Stop 06/01/20 at 19:29; Status DC Labetalol HCl (Normodyne Iv Push) 20 mg STK-MED ONCE IVP ; Start 06/01/20 at 18:14; Stop 06/01/20 at 18:14; Status DC Iohexol (Omnipaque 300 Mg/ml) 75 ml 1X ONCE IV Last administered on 06/01/20at 18:58; Start 06/01/20 at 18:45; Stop 06/01/20 at 18:46; Status DC Info (CONTRAST GIVEN -- Rx MONITORING) 1 each PRN DAILY PRN MC SEE COMMENTS; Start 06/01/20 at 18:45; Stop 06/03/20 at 18:44 Labetalol HCl (Normodyne Iv Push) 10 mg PRN Q10MIN PRN IVP HYPERTENSION Last administered on 06/01/20at 20:57; Start 06/01/20 at 19:45 Nicardipine HCl 50 mg/Sodium Chloride 250 ml @ 25 mls/hr CONT PRN PRN IV HYPERTENSION; Start 06/01/20 at 19:45; Status UNV Acetaminophen (Tylenol) 650 mg PRN Q6HRS PRN PO MILD PAIN / TEMP > 100.3'F; Start 06/01/20 at 19:45 Acetaminophen (Tylenol Supp) 650 mg PRN Q6HRS PRN CA MILD PAIN / TEMP > 100.3'F Last administered on 06/02/20at 03:38; Start 06/01/20 at 19:45 Ondansetron HCl (Zofran) 4 mg PRN Q6HRS PRN IVP NAUSEA/VOMITING; Start 06/01/20 at 19:45 Magnesium Sulfate 50 ml @ 25 mls/hr 1X ONCE IV Last administered on 06/01/20at 21:21; Start 06/01/20 at 20:30; Stop 06/01/20 at 22:29; Status DC Ondansetron HCl (Zofran) 4 mg PRN Q8HRS PRN IV NAUSEA/VOMITING Last administered on 06/01/20at 22:04; Start 06/01/20 at 20:00; Stop 06/02/20 at 19:59 Prochlorperazine Edisylate (Compazine) 10 mg PRN Q8HRS PRN IV NAUSEA/VOMITING 2ND CHOICE Last administered on 06/02/20at 00:00; Start 06/02/20 at 00:00 Piperacillin Sod/ Tazobactam Sod (Zosyn Per Pharmacy) 1 each PRN DAILY PRN MC SEE COMMENTS; Start 06/02/20 at 10:30 Piperacillin Sod/ Tazobactam Sod 3.375 gm/Sodium Chloride 50 ml @ 100 mls/hr Q6HRS IV Last administered on 06/02/20at 11:41; Start 06/02/20 at 12:00 Active Scripts Active Reported Aspir-Low (Aspirin) 81 Mg Tablet.dr 162 Mg PO Tamsulosin Hcl 0.4 Mg Cap.er.24h 0.4 Mg PO DAILY Levemir (Insulin Detemir) 100 Unit/1 Ml Vial 26 Unit SQ Simvastatin 5 Mg Tablet 2 Mg PO HS Duloxetine Hcl 20 Mg Capsule.dr 20 Mg PO DAILY Glimepiride 2 Mg Tablet 1 Tab PO DAILY Omeprazole 20 Mg Capsule.dr 1 Cap PO DAILY Metformin Hcl 1,000 Mg Tablet 1 Tab PO BIDWMEALS Allergies Allergies: Coded Allergies: No Known Drug Allergies (Unverified , 09/24/17) ROS Review of System Unobtainable Physical Exam Physical Examination General: Well-developed, well-nourished white male in no acute distress HEENT: Normocephalic andatraumatic. Tympanic membranes clear.Temporal arteriespulsatile and nontender.Fundoscopic exam unremarkable Neck: Supple without bruit, no meningismus Musculoskeletal: Stability:see neurologic. Gait exam:see neurologic. Tone:see neurologic.Strength:see neurologic. Neurological: Mental Status:Nonverbal, does not follow commands. Cranial Nerves:Pupils equal and reactive to light, extraocular movements areintact, visual gee are full to confrontation. Facial sensation is normal. Right central facial weakness. Vestibulo-ocular reflex is intact. Palate elevates and tongue protrudes in midl ine. All other cranial related problems are negative except as mentioned before.Reflexes:2+ and symmetric with flexor plantar responses. Motor:2-3/5, tone increased on the left particularly the lower extremity. Coordination and gait:Not cooperative. Sensory:Not cooperative. Vitals VITALS Vital Signs Date Time Temp Pulse Resp B/P (MAP) Pulse Ox O2 Delivery O2 Flow Rate FiO2 06/02/20 12:01 87 20 122/58 (79) 98 Room Air 06/02/20 11:11 98.3 98.3 06/01/20 22:55 2.0 Labs Labs Laboratory Tests Test 06/01/20 17:47 06/01/20 17:57 06/01/20 20:00 06/02/20 00:55 Glucose (Fingerstick) 233 mg/dL (70-99) White Blood Count 7.5 x10^3/uL (4.0-11.0) Red Blood Count 4.25 x10^6/uL (4.30-5.70) Hemoglobin 13.4 g/dL (13.0-17.5) Hematocrit 38.6 % (39.0-53.0) Mean Corpuscular Volume 91 fL (79-100) Mean Corpuscular Hemoglobin 31 pg (25-35) Mean Corpuscular Hemoglobin Concent 35 g/dL (31-37) Red Cell Distribution Width 12.9 % (11.5-14.5) Platelet Count 247 x10^3/uL (140-400) Neutrophils (%) (Auto) 77 % (31-73) Lymphocytes (%) (Auto) 16 % (24-48) Monocytes (%) (Auto) 7 % (0-9) Eosinophils (%) (Auto) 0 % (0-3) Basophils (%) (Auto) 1 % (0-3) Neutrophils # (Auto) 5.7 x10^3/uL (1.8-7.7) Lymphocytes # (Auto) 1.2 x10^3/uL (1.0-4.8) Monocytes # (Auto) 0.5 x10^3/uL (0.0-1.1) Eosinophils # (Auto) 0.0 x10^3/uL (0.0-0.7) Basophils # (Auto) 0.0 x10^3/uL (0.0-0.2) Prothrombin Time 12.7 SEC (11.7-14.0) Prothromb Time International Ratio 1.0 (0.8-1.1) Activated Partial Thromboplast Time 27 SEC (24-38) Sodium Level 136 mmol/L (136-145) Potassium Level 4.5 mmol/L (3.5-5.1) Chloride Level 98 mmol/L (98-107) Carbon Dioxide Level 25 mmol/L (21-32) Anion Gap 13 (6-14) Blood Urea Nitrogen 21 mg/dL (8-26) Creatinine 0.8 mg/dL (0.7-1.3) Estimated GFR (Cockcroft-Gault) 93.5 BUN/Creatinine Ratio 26 (6-20) Glucose Level 247 mg/dL (70-99) Calcium Level 9.9 mg/dL (8.5-10.1) Magnesium Level 1.3 mg/dL (1.8-2.4) Total Bilirubin 0.4 mg/dL (0.2-1.0) Aspartate Amino Transf (AST/SGOT) 25 U/L (15-37) Alanine Aminotransferase (ALT/SGPT) 26 U/L (16-63) Alkaline Phosphatase 81 U/L (46-116) Troponin I Quantitative < 0.017 ng/mL (0.000-0.055) 0.035 ng/mL (0.000-0.055) Total Protein 6.9 g/dL (6.4-8.2) Albumin 3.8 g/dL (3.4-5.0) Albumin/Globulin Ratio 1.2 (1.0-1.7) Triglycerides Level 71 mg/dL (0-150) Cholesterol Level 136 mg/dL (0-200) LDL Cholesterol, Calculated 71 mg/dL (0-100) VLDL Cholesterol, Calculated 14 mg/dL (0-40) Non-HDL Cholesterol Calculated 85 mg/dL (0-129) HDL Cholesterol 51 mg/dL (40-60) Cholesterol/HDL Ratio 2.7 Urine Collection Type Unknown Urine Color Yellow Urine Clarity Clear Urine pH 7.5 (<5.0-8.0) Urine Specific [place] 1.020 (1.000-1.030) Urine Protein Negative mg/dL (NEG-TRACE) Urine Glucose (UA) 500 mg/dL (NEG) Urine Ketones (Stick) 15 mg/dL (NEG) Urine Blood Large (NEG) Urine Nitrite Negative (NEG) Urine Bilirubin Negative (NEG) Urine Urobilinogen Dipstick 1.0 mg/dL (0.2 mg/dL) Urine Leukocyte Esterase Trace (NEG) Urine RBC >40 /HPF (0-2) Urine WBC Occ /HPF (0-4) Urine Renal Epithelial Cells Occ /LPF Urine Bacteria 0 /HPF (0-FEW) Test 06/02/20 10:30 SARS-CoV-2 Antigen (Rapid) Negative (NEGATIVE) Laboratory Tests Test 06/01/20 17:47 06/01/20 17:57 06/01/20 20:00 06/02/20 00:55 Glucose (Fingerstick) 233 mg/dL (70-99) White Blood Count 7.5 x10^3/uL (4.0-11.0) Red Blood Count 4.25 x10^6/uL (4.30-5.70) Hemoglobin 13.4 g/dL (13.0-17.5) Hematocrit 38.6 % (39.0-53.0) Mean Corpuscular Volume 91 fL (79-100) Mean Corpuscular Hemoglobin 31 pg (25-35) Mean Corpuscular Hemoglobin Concent 35 g/dL (31-37) Red Cell Distribution Width 12.9 % (11.5-14.5) Platelet Count 247 x10^3/uL (140-400) Neutrophils (%) (Auto) 77 % (31-73) Lymphocytes (%) (Auto) 16 % (24-48) Monocytes (%) (Auto) 7 % (0-9) Eosinophils (%) (Auto) 0 % (0-3) Basophils (%) (Auto) 1 % (0-3) Neutrophils # (Auto) 5.7 x10^3/uL (1.8-7.7) Lymphocytes # (Auto) 1.2 x10^3/uL (1.0-4.8) Monocytes # (Auto) 0.5 x10^3/uL (0.0-1.1) Eosinophils # (Auto) 0.0 x10^3/uL (0.0-0.7) Basophils # (Auto) 0.0 x10^3/uL (0.0-0.2) Prothrombin Time 12.7 SEC (11.7-14.0) Prothromb Time International Ratio 1.0 (0.8-1.1) Activated Partial Thromboplast Time 27 SEC (24-38) Sodium Level 136 mmol/L (136-145) Potassium Level 4.5 mmol/L (3.5-5.1) Chloride Level 98 mmol/L (98-107) Carbon Dioxide Level 25 mmol/L (21-32) Anion Gap 13 (6-14) Blood Urea Nitrogen 21 mg/dL (8-26) Creatinine 0.8 mg/dL (0.7-1.3) Estimated GFR (Cockcroft-Gault) 93.5 BUN/Creatinine Ratio 26 (6-20) Glucose Level 247 mg/dL (70-99) Calcium Level 9.9 mg/dL (8.5-10.1) Magnesium Level 1.3 mg/dL (1.8-2.4) Total Bilirubin 0.4 mg/dL (0.2-1.0) Aspartate Amino Transf (AST/SGOT) 25 U/L (15-37) Alanine Aminotransferase (ALT/SGPT) 26 U/L (16-63) Alkaline Phosphatase 81 U/L (46-116) Troponin I Quantitative < 0.017 ng/mL (0.000-0.055) 0.035 ng/mL (0.000-0.055) Total Protein 6.9 g/dL (6.4-8.2) Albumin 3.8 g/dL (3.4-5.0) Albumin/Globulin Ratio 1.2 (1.0-1.7) Triglycerides Level 71 mg/dL (0-150) Cholesterol Level 136 mg/dL (0-200) LDL Cholesterol, Calculated 71 mg/dL (0-100) VLDL Cholesterol, Calculated 14 mg/dL (0-40) Non-HDL Cholesterol Calculated 85 mg/dL (0-129) HDL Cholesterol 51 mg/dL (40-60) Cholesterol/HDL Ratio 2.7 Urine Collection Type Unknown Urine Color Yellow Urine Clarity Clear Urine pH 7.5 (<5.0-8.0) Urine Specific [place] 1.020 (1.000-1.030) Urine Protein Negative mg/dL (NEG-TRACE) Urine Glucose (UA) 500 mg/dL (NEG) Urine Ketones (Stick) 15 mg/dL (NEG) Urine Blood Large (NEG) Urine Nitrite Negative (NEG) Urine Bilirubin Negative (NEG) Urine Urobilinogen Dipstick 1.0 mg/dL (0.2 mg/dL) Urine Leukocyte Esterase Trace (NEG) Urine RBC >40 /HPF (0-2) Urine WBC Occ /HPF (0-4) Urine Renal Epithelial Cells Occ /LPF Urine Bacteria 0 /HPF (0-FEW) Test 06/02/20 10:30 SARS-CoV-2 Antigen (Rapid) Negative (NEGATIVE) Images Images CT head without contrast 06/02/2020 12:27 AM INDICATION: Changing your status COMPARISON: CT head 06/01/2020 TECHNIQUE: Multiple axial CT images of the head were obtained from skull base through the vertex without intravenous contrast. FINDINGS: Head: Ventricles, sulci and basal cisterns are prominent compatible with mild generalized cerebral volume loss. There is a small left retrocerebellar cyst. Posterior fossa is otherwise normal in appearance. There is focal edema identified involving the medial right occipital lobe, stable from prior examination. No acute intracranial hemorrhage is identified. Findings may reflect subacute infarct. There is encephalomalacia involving the right perirolandic gyri suggestive of sequela remote infarct. Findings are stable. Low-attenuation in the periventricular white matter is suggestive of chronic small vessel ischemic changes. There is no mass, mass effect or midline shift. Visualized portions of the orbits are normal. Paranasal sinuses are well aerated. Mastoid air cells are well aerated. Scalp and calvaria are normal. IMPRESSION: No acute intracranial hemorrhage. Stable findings as compared to prior exam ination from 06/01/2020 with remote ischemic changes in the right perirolandic gyri and cytotoxic edema involving the medial right occipital lobe. CT head, 06/01 No focal parenchymal lesion or hemorrhage is identified. There is no midline shift or sulcal effacement. Extensive patchy hypodensities in the periventricular white matter. Chronic infarct at the right occipital lobe medially. No acute vascular territory infarction is identified. Barker-white distinction is preserved. The ventricular system is within normal limits without compression hydrocephalus. The basal cisterns are well maintained. The visualized portions of the paranasal sinuses and mastoid air cells are well- pneumatized. No acute fractures. IMPRESSION: Progressive small vessel ischemic change when compared to study in 2017, technically age indeterminate without recent prior exam. No acute hemorrhage. Assessment/Plan Assessment/Plan Impression: Acute stroke, suspect left hemispheric Old right hemispheric stroke Status-post alteplase Diabetes, hypertension, hyperlipidemia, favorable lipid profile Fever over night Recommendations: Echocardiogram MRI of the brain See stroke orders Okay to transfer to regular floor, telemetry, if MRI negative for hemorrhage Thank you for letting me help with the patient's care. TERRY BARONE MD Jun 02, 2020 13:01
[2020-06-02] MEDS: AMINO AC 3%/ELECTROLYTE/GLYCER 1,000 ML IV SCH (17:10)
--- NOTE | 2020-06-02 17:40 | EKG ---
[facility] [address] [place] [address] Test Date: 2020-06-01 Test Time: 17:57:57 Pat Name: ANA LOYOLA Department: Room: 115 1 Gender: M Steel Buffer: : [id number] Requested By: HILL QIU Order Number: [id number] Reading MD: Nam Tipton Measurements Intervals [place] Rate: 100 P: 56 HI: 164 QRS: -24 QRSD: 156 T: 106 QT: 388 QTc: 504 Interpretive Statements SINUS RHYTHM LEFTWARD AXIS LEFT BUNDLE BRANCH BLOCK Electronically Signed On 06-06-2020 14:39:04 ROTARY ADJUSTER by Nam Tipton
--- NOTE | 2020-06-02 17:45 | NUR ---
No communication with patient. Patient followed command to close eyes tight and tried to smile. MRI at 1930, if no bleed, patient can be downgraded per Dr. Rahman. Updated , during conversation, requested patient code status to be changed to DNR/DNI. This RN notified Dr. Ayala.
[2020-06-02] MEDS ORDERED: BISACODYL 10 MG SUPP.RECT. PR PRN (19:00)
[2020-06-02] MEDS ORDERED: PROCHLORPERAZINE 25 MG SUPP.RECT. PR PRN (19:00)
[2020-06-02] MEDS ORDERED: 0.9 % SODIUM CHLORIDE 10 ML DISP.SYRIN. IV PRN (19:00)
[2020-06-02] MEDS ORDERED: ONDANSETRON PF 4 MG/2 ML VIAL. IVP PRN (19:00)
--- NOTE | 2020-06-02 20:11 | CONS ---
DATE OF CONSULTATION: 06/02/2020 REFERRING PHYSICIAN: Ladarius Ayala MD REASON FOR CONSULTATION: Fever in patient with acute CVA. HISTORY OF PRESENT ILLNESS: A 79-year-old male who presented to the ER with complaints of weakness, confusion after a fall. The patient also had fever overnight PUI. COVID-19 is pending. The patient fell at home prior to admission. He was found to be confused, noted to have right sided hemiparesis. The patient has history of stroke involving the left side in the past. He was started on Zosyn. ID consultation has been requested for antibiotic management. The patient has been evaluated by Neurology at this time. PAST MEDICAL HISTORY: Diabetes, hypertension, hyperlipidemia, history of CVA, peripheral neuropathy, constipation, GERD, depression, osteoarthritis, BPH, urinary incontinence. PAST SURGICAL HISTORY: Cataract removal, tonsillectomy. FAMILY HISTORY: Noncontributory. SOCIAL HISTORY: Ex-smoker, rare alcohol. , lives at home with his . CURRENT MEDICATIONS: Zosyn, Compazine, Zofran, Tylenol p.r.n., labetalol, nicardipine. PHYSICAL EXAMINATION: VITAL SIGNS: Temperature 98.3, pulse 85, respiratory rate 20, blood pressure 113/53, oxygen saturation 96% on room air. GENERAL: Well-developed, well-nourished male, nonverbal, does not follow any commands, in no acute distress. HEENT: Normocephalic, atraumatic, anicteric. No thrush on room air. NECK: Supple, no lymphadenopathy, no JVD. LUNGS: Clear bilaterally. No wheezing. HEART: S1, S2. No gallops or murmurs. ABDOMEN: Soft, nontender, nondistended. EXTREMITIES: No edema, no cyanosis. DERMATOLOGIC: Warm, dry. No generalized rash. NEUROLOGIC: Does not follow any commands. See neurology exam for full details. LABORATORY DATA: WBC 7.5, hemoglobin 13.4, hematocrit 38.6, platelets 227. Sodium 136, potassium 4.5, chloride 98, bicarbonate 25, BUN 21, creatinine 0.8, glucose 247, magnesium 1.3. Troponin normal. Last COVID rapid negative. UA shows large blood, trace leukocyte esterase. IMAGING: CT head showed progressive small vessel ischemic changes, no acute hemorrhage. Neck and head CTA shows no evidence of large vessel arterial occlusion, asymmetric non-filling of the left sigmoid sinus and jugular bulb by calcified plaque at the cavernous segments of the internal carotid. Repeat head CT shows no acute intracranial abnormality, remote ischemic changes. X-ray showed suspected left retrocardiac opacities, this could be atelectasis or infiltrate. IMPRESSION: 1. Febrile illness. 2. Acute cerebrovascular accident. 3. Aspiration pneumonitis. 4. Diabetes mellitus. 5. Hyperlipidemia/hypertension. 6. History of previous cerebrovascular accident. RECOMMENDATIONS: 1. Continue Zosyn. 2. Followup MRI of the brain and echocardiogram. 3. Follow up labs and cultures. 4. Continue supportive care. 5. Discussed with RN. Thank you, Dr. Ayala for consulting Infectious Disease to participate in this patient's care. If you have any questions, do not hesitate to contact me. CCT TIME: 35 minutes. DAWIT BOSTON MD DR: SUNDAY/jourdan JOB#: [id number] / [id number]
--- NOTE | 2020-06-02 21:25 | NUR ---
MRI of brain was completed, pt tolerated procedure, called Dr Tomlin with critical findings from MRI, pt not to transfer out of ICU due to findings of subdural hemorrage ( see report).
--- NOTE | 2020-06-02 21:26 | RAD ---
Exam: MRI brain without contrast INDICATION: CVA TECHNIQUE: Multiplanar multisequence MRI of the brain was obtained without the administration of IV c ontrast. Comparisons: CT head without contrast same day FINDINGS: Area of increased signal on DWI sequence within the peripheral left temporal and occipital lobes seri es 4 image 13. Visualized portions of the vascular flow voids are normal. Confluent T2/FLAIR hyperintense signal in periventricular white matter and deep white matter. Additio maryam there is mild T2/FLAIR hyperintense signal in the left posterior temporal/occipital lobe. There is a small subdural hematoma along the left cerebral convexity posteriorly measuring approximat huy 5 mm in thickness. Additionally there is some subarachnoid hemorrhage in that same area. Ventricular system is within normal limits without compression hydrocephalus. Basal cisterns are well maintained. Globes and intraorbital contents are normal. Visualized portions of the paranasal sinuses and mastoid air cells are well-pneumatized. Craniocervical junction is normal. Midline structures are within normal limits. Bone marrow signal is normal. IMPRESSION: 1. Small amount of subarachnoid and subdural hemorrhage overlying the left temporal/occipital/pariet al lobe measuring approximate 5 mm in thickness. 2. Small cortical foci of acute ischemia in the left temporal and occipital lobe as described above. 3. Confluent areas of T2/FLAIR hyperintense signal the periventricular and deep white matter. Repres ent chronic small vessel ischemic change. FOR INTERNAL CODING PURPOSES Critical result: Findings discussed with Patience RN at 06/02/2020 9:13 PM. RESULT CODE: (C) Electronically signed by: Opal Gutierrez MD (06/02/2020 9:24 PM) [facility]
[2020-06-02] MEDS: FAMOTIDINE 20 MG/2 ML VIAL IVP SCH (22:05)
[2020-06-02] MEDS: IV NORMAL SALINE 1000ML BAG 1,000 ML IV SCH (22:05)
[2020-06-02] MEDS: LABETALOL 20 MG/4 ML DISP.SYRIN. IVP PRN (23:58)
[2020-06-03] VITALS (24 sets, daily range): BP systolic 127–196; BP diastolic 59–81
[2020-06-03] MEDS: PIPERACILLIN/TAZOBACTAM 3.375 GM in IV NORMAL SALINE 50ML 50 ML IV SCH ×4 (00:07→17:12)
[2020-06-03 06:11] LABS: BASO % 0 % (0-3); EOS % 0 % (0-3); HEMATOCRIT 36.4 % (39.0-53.0); HEMOGLOBIN 12.2 g/dL (13.0-17.5); LYMPH # 1.1 x10^3/uL (1.0-4.8); LYMPH % 7 % (24-48); MEAN CORPUSCULAR HEMOGLOBIN 31 pg (25-35); MEAN CORPUSCULAR HGB CONC 34 g/dL (31-37); MEAN CORPUSCULAR VOLUME 91 fL (79-100); MONO # 0.8 x10^3/uL (0.0-1.1); MONO % 6 % (0-9); NEUT # 12.7 x10^3/uL (1.8-7.7); NEUT % 87 % (31-73); PLATELET COUNT 233 x10^3/uL (140-400); RED CELL DISTRIBUTION WIDTH 13.1 % (11.5-14.5); WHITE BLOOD COUNT 14.6 x10^3/uL (4.0-11.0)
[2020-06-03] MEDS: LABETALOL 20 MG/4 ML DISP.SYRIN. IVP PRN ×2 (06:13→13:46)
[2020-06-03 06:31] LABS: ALBUMIN 2.9 g/dL (3.4-5.0); ALBUMIN/GLOBULIN RATIO 0.8 (1.0-1.7); CALCIUM 8.9 mg/dL (8.5-10.1); CREATININE 0.9 mg/dL (0.7-1.3); GFR 81.6; POTASSIUM 3.7 mmol/L (3.5-5.1); TOTAL BILIRUBIN 0.9 mg/dL (0.2-1.0); TOTAL PROTEIN 6.5 g/dL (6.4-8.2)
[2020-06-03 06:37] LABS: PROTHROMBIN TIME PATIENT 15.9 SEC (11.7-14.0)
[2020-06-03] MEDS ORDERED: DEXTROSE 50% 25 GM / 50ML DISP.SYRIN. IV PRN ×2 (07:00→21:00)
[2020-06-03] MEDS: ELECTROLYTE (ICU) PROTOCOL. MC SCH (09:00)
[2020-06-03] MEDS: FAMOTIDINE 20 MG/2 ML VIAL IVP SCH ×2 (09:32→21:28)
[2020-06-03] MEDS: AMINO AC 3%/ELECTROLYTE/GLYCER 1,000 ML IV SCH ×2 (09:32→21:28)
[2020-06-03] MEDS: IV NORMAL SALINE 1000ML BAG 1,000 ML IV SCH (09:33)
[2020-06-03] MEDS: INSULIN LISPRO 300 UNITS/3 ML VIAL. SQ SCH ×3 (09:36→17:10)
--- NOTE | 2020-06-03 10:26 | PDOC ---
PROGRESS NOTES Date of Service: DATE: 06/03/20 TIME: 10:25 Chief Complaint Chief Complaint VTE Prophylaxis Ordered VTE Prophylaxis Devices: Yes VTE Pharmacological Prophylaxi: Yes Assessment/Plan Assessment/Plan Impression: CVA (cerebral vascular accident), ACute, post alteplase subarachnoid and subdural hemorrhage overlying the left tem poral/occipital/parietal lobe measuring approximate 5 mm in thickness.MRI / Acute metabolic encephalopathy FEVER aspiration pneumonia Suspected left retrocardiac opacities. This could be atelectasis or infiltrate. PUI COVID 19 hypomagnesemia HYPONATREMIA, VOLUME overload ADMITTED PLAN ICU BED MRI HEAD ID CONSULT BLOOD CULTURES MRI HEAD RESP ISOLATION iv emperic zosyn dvt prophylaxis Echocardiogram replace lytes D/C IV NS Patient remains nonresponsive 06-03 T-max 101.8 36 min cc time Justifications for Admission Justifications for Admission Other Justification History of Present Illness History of Present Illness Identification/Chief Complaint Chief Complaint presented to the emergency room with weakness, confusion after a fall. noted to have a fever overnight now a PUI, possible aspiration pneumonitis family states that they had breakfast and spent the afternoon together and he was normal at that time.// fell and hit the left side of his head on carpet did not lose consciousness. Since that time he has been very confused. , encephalopathic, POST alteplase does not know his name, her name, or what is going on. He does not know the month or day. has been dragging his left foot and she has noticed abnormal facial expression. // unable to provide any history and cannot follow any commands. 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 ALLERGIES: None. FAMILY HISTORY: Hypertension. SOCIAL HISTORY: He is retired. He does not drink, smoke or take drugs. FHX COPD Cardiovascular: HTN, Syncope, Hyperlipidemia Pulmonary: No pertinent hx CENTRAL NERVOUS SYSTEM: Periperal neuropathy Heme/Onc: No pertinent hx Hepatobiliary: No pertinent hx Psych: Anxiety Musculoskeletal: Osteoarthritis Endocrine: Diabetes Past Surgical History Past Surgical History: Appendectomy Family History Family History: Coronary Artery Disease, High Cholestrol Social History Smoke: No ALCOHOL: none Drugs: None Vitals Vitals Vital Signs Date Time Temp Pulse Resp B/P (MAP) Pulse Ox O2 Delivery O2 Flow Rate FiO2 06/03/20 07:02 83 24 170/65 (100) 97 Room Air 06/03/20 06:59 100.4 100.4 Physical Exam Physical Exam elsie: Supple, trachea midline Respiratory: CTA bilaterally, normal effort, no wheezing/crackles CV: RRR, no murmur, cap refill <2 GI: Soft, nondistended, nontender, no masses MSK: No obvious deformities Skin: Warm, dry, intact Neuro: A&O x0, speech slurred, right-sided facial droop, unable to fully examine all cranial nerves due to patient's confusion, can bend left leg at knee against gravity, unable to bend or lift right leg, intermittently moves R hand, but does not lift arm and can not follow commands, Lifts left arm but does not follow directions to determine drift Constitutional: Confused, elderly, non-toxic appearance HENT: Normocephalic, abrasion to left congregation Eyes: PERRL, conjunctiva normal, no discharge Neck: No tenderness, supple Lungs & Thorax: No respiratory distress, equal chest rise and fall Abdomen: Soft, no tenderness Skin: Warm, dry, no erythema, no rash Extremities: No tenderness, ROM intact, no edema Neurologic: Alert but disoriented, following some commands, bilateral hand catheterization laboratory technician equal, limited movement to right leg, otherwise moving other extremities Psychologic: Limited, judgment abnormal General: Cooperative Lungs: Normal air movement Rectal Exam: not examined PELVIC: Examination not indicated Extremities: No cyanosis Skin: No breakdown General: Cooperative Lungs: Clear Extremities: No cyanosis Skin: No breakdown Labs LABS Exam: MRI brain without contrast INDICATION: CVA TECHNIQUE: Multiplanar multisequence MRI of the brain was obtained without the administration of IV contrast. Comparisons: CT head without contrast same day FINDINGS: Area of increased signal on DWI sequence within the peripheral left temporal and occipital lobes series 4 image 13. Visualized portions of the vascular flow voids are normal. Confluent T2/FLAIR hyperintense signal in periventricular white matter and deep white matter. Additionally there is mild T2/FLAIR hyperintense signal in the left posterior temporal/occipital lobe. There is a small subdural hematoma along the left cerebral convexity posteriorly measuring approximately 5 mm in thickness. Additionally there is some subarachnoid hemorrhage in that same area. Ventricular system is within normal limits without compression hydrocephalus. Basal cisterns are well maintained. Globes and intraorbital contents are normal. Visualized portions of the paranasal sinuses and mastoid air cells are well-pneumatized. Craniocervical junction is normal. Midline structures are within normal limits. Bone marrow signal is normal. IMPRESSION: 1. Small amount of subarachnoid and subdural hemorrhage overlying the left temporal/occipital/parietal lobe measuring approximate 5 mm in thickness. 2. Small cortical foci of acute ischemia in the left temporal and occipital lobe as described above. 3. Confluent areas of T2/FLAIR hyperintense signal the periventricular and deep white matter. Represent chronic small vessel ischemic change. FOR INTERNAL CODING PURPOSES Critical result: Findings discussed with Doris KAPOOR at 06/02/2020 9:13 PM. RESULT CODE: (C) Laboratory Tests Test 06/02/20 10:30 06/02/20 19:40 06/03/20 02:24 06/03/20 05:01 SARS-CoV-2 Antigen (Rapid) Negative (NEGATIVE) Troponin I Quantitative 0.019 ng/mL (0.000-0.055) Thyroid Stimulating Hormone (TSH) 1.834 uIU/mL (0.358-3.74) Glucose (Fingerstick) 273 mg/dL (70-99) White Blood Count 14.6 x10^3/uL (4.0-11.0) Red Blood Count 4.00 x10^6/uL (4.30-5.70) Hemoglobin 12.2 g/dL (13.0-17.5) Hematocrit 36.4 % (39.0-53.0) Mean Corpuscular Volume 91 fL (79-100) Mean Corpuscular Hemoglobin 31 pg (25-35) Mean Corpuscular Hemoglobin Concent 34 g/dL (31-37) Red Cell Distribution Width 13.1 % (11.5-14.5) Platelet Count 233 x10^3/uL (140-400) Neutrophils (%) (Auto) 87 % (31-73) Lymphocytes (%) (Auto) 7 % (24-48) Monocytes (%) (Auto) 6 % (0-9) Eosinophils (%) (Auto) 0 % (0-3) Basophils (%) (Auto) 0 % (0-3) Neutrophils # (Auto) 12.7 x10^3/uL (1.8-7.7) Lymphocytes # (Auto) 1.1 x10^3/uL (1.0-4.8) Monocytes # (Auto) 0.8 x10^3/uL (0.0-1.1) Eosinophils # (Auto) 0.0 x10^3/uL (0.0-0.7) Basophils # (Auto) 0.0 x10^3/uL (0.0-0.2) Prothrombin Time 15.9 SEC (11.7-14.0) Prothromb Time International Ratio 1.3 (0.8-1.1) Activated Partial Thromboplast Time 38 SEC (24-38) Sodium Level 130 mmol/L (136-145) Potassium Level 3.7 mmol/L (3.5-5.1) Chloride Level 96 mmol/L (98-107) Carbon Dioxide Level 23 mmol/L (21-32) Anion Gap 11 (6-14) Blood Urea Nitrogen 22 mg/dL (8-26) Creatinine 0.9 mg/dL (0.7-1.3) Estimated GFR (Cockcroft-Gault) 81.6 BUN/Creatinine Ratio 24 (6-20) Glucose Level 292 mg/dL (70-99) Calcium Level 8.9 mg/dL (8.5-10.1) Total Bilirubin 0.9 mg/dL (0.2-1.0) Aspartate Amino Transf (AST/SGOT) 20 U/L (15-37) Alanine Aminotransferase (ALT/SGPT) 20 U/L (16-63) Alkaline Phosphatase 61 U/L (46-116) Total Protein 6.5 g/dL (6.4-8.2) Albumin 2.9 g/dL (3.4-5.0) Albumin/Globulin Ratio 0.8 (1.0-1.7) Test 06/03/20 05:45 06/03/20 09:28 Glucose (Fingerstick) 265 mg/dL (70-99) 308 mg/dL (70-99) Comment Review of Relevant I have reviewed the following items joy (where applicable) has been applied. Labs Laboratory Tests Test 06/01/20 17:47 06/01/20 17:57 06/01/20 20:00 06/02/20 00:55 Glucose (Fingerstick) 233 mg/dL (70-99) White Blood Count 7.5 x10^3/uL (4.0-11.0) Red Blood Count 4.25 x10^6/uL (4.30-5.70) Hemoglobin 13.4 g/dL (13.0-17.5) Hematocrit 38.6 % (39.0-53.0) Mean Corpuscular Volume 91 fL (79-100) Mean Corpuscular Hemoglobin 31 pg (25-35) Mean Corpuscular Hemoglobin Concent 35 g/dL (31-37) Red Cell Distribution Width 12.9 % (11.5-14.5) Platelet Count 247 x10^3/uL (140-400) Neutrophils (%) (Auto) 77 % (31-73) Lymphocytes (%) (Auto) 16 % (24-48) Monocytes (%) (Auto) 7 % (0-9) Eosinophils (%) (Auto) 0 % (0-3) Basophils (%) (Auto) 1 % (0-3) Neutrophils # (Auto) 5.7 x10^3/uL (1.8-7.7) Lymphocytes # (Auto) 1.2 x10^3/uL (1.0-4.8) Monocytes # (Auto) 0.5 x10^3/uL (0.0-1.1) Eosinophils # (Auto) 0.0 x10^3/uL (0.0-0.7) Basophils # (Auto) 0.0 x10^3/uL (0.0-0.2) Prothrombin Time 12.7 SEC (11.7-14.0) Prothromb Time International Ratio 1.0 (0.8-1.1) Activated Partial Thromboplast Time 27 SEC (24-38) Sodium Level 136 mmol/L (136-145) Potassium Level 4.5 mmol/L (3.5-5.1) Chloride Level 98 mmol/L (98-107) Carbon Dioxide Level 25 mmol/L (21-32) Anion Gap 13 (6-14) Blood Urea Nitrogen 21 mg/dL (8-26) Creatinine 0.8 mg/dL (0.7-1.3) Estimated GFR (Cockcroft-Gault) 93.5 BUN/Creatinine Ratio 26 (6-20) Glucose Level 247 mg/dL (70-99) Calcium Level 9.9 mg/dL (8.5-10.1) Magnesium Level 1.3 mg/dL (1.8-2.4) Total Bilirubin 0.4 mg/dL (0.2-1.0) Aspartate Amino Transf (AST/SGOT) 25 U/L (15-37) Alanine Aminotransferase (ALT/SGPT) 26 U/L (16-63) Alkaline Phosphatase 81 U/L (46-116) Troponin I Quantitative < 0.017 ng/mL (0.000-0.055) 0.035 ng/mL (0.000-0.055) Total Protein 6.9 g/dL (6.4-8.2) Albumin 3.8 g/dL (3.4-5.0) Albumin/Globulin Ratio 1.2 (1.0-1.7) Triglycerides Level 71 mg/dL (0-150) Cholesterol Level 136 mg/dL (0-200) LDL Cholesterol, Calculated 71 mg/dL (0-100) VLDL Cholesterol, Calculated 14 mg/dL (0-40) Non-HDL Cholesterol Calculated 85 mg/dL (0-129) HDL Cholesterol 51 mg/dL (40-60) Cholesterol/HDL Ratio 2.7 Urine Collection Type Unknown Urine Color Yellow Urine Clarity Clear Urine pH 7.5 (<5.0-8.0) Urine Specific Sharon 1.020 (1.000-1.030) Urine Protein Negative mg/dL (NEG-TRACE) Urine Glucose (UA) 500 mg/dL (NEG) Urine Ketones (Stick) 15 mg/dL (NEG) Urine Blood Large (NEG) Urine Nitrite Negative (NEG) Urine Bilirubin Negative (NEG) Urine Urobilinogen Dipstick 1.0 mg/dL (0.2 mg/dL) Urine Leukocyte Esterase Trace (NEG) Urine RBC >40 /HPF (0-2) Urine WBC Occ /HPF (0-4) Urine Renal Epithelial Cells Occ /LPF Urine Bacteria 0 /HPF (0-FEW) Test 06/02/20 10:30 06/02/20 19:40 06/03/20 02:24 06/03/20 05:01 SARS-CoV-2 Antigen (Rapid) Negative (NEGATIVE) Troponin I Quantitative 0.019 ng/mL (0.000-0.055) Thyroid Stimulating Hormone (TSH) 1.834 uIU/mL (0.358-3.74) Glucose (Fingerstick) 273 mg/dL (70-99) White Blood Count 14.6 x10^3/uL (4.0-11.0) Red Blood Count 4.00 x10^6/uL (4.30-5.70) Hemoglobin 12.2 g/dL (13.0-17.5) Hematocrit 36.4 % (39.0-53.0) Mean Corpuscular Volume 91 fL (79-100) Mean Corpuscular Hemoglobin 31 pg (25-35) Mean Corpuscular Hemoglobin Concent 34 g/dL (31-37) Red Cell Distribution Width 13.1 % (11.5-14.5) Platelet Count 233 x10^3/uL (140-400) Neutrophils (%) (Auto) 87 % (31-73) Lymphocytes (%) (Auto) 7 % (24-48) Monocytes (%) (Auto) 6 % (0-9) Eosinophils (%) (Auto) 0 % (0-3) Basophils (%) (Auto) 0 % (0-3) Neutrophils # (Auto) 12.7 x10^3/uL (1.8-7.7) Lymphocytes # (Auto) 1.1 x10^3/uL (1.0-4.8) Monocytes # (Auto) 0.8 x10^3/uL (0.0-1.1) Eosinophils # (Auto) 0.0 x10^3/uL (0.0-0.7) Basophils # (Auto) 0.0 x10^3/uL (0.0-0.2) Prothrombin Time 15.9 SEC (11.7-14.0) Prothromb Time International Ratio 1.3 (0.8-1.1) Activated Partial Thromboplast Time 38 SEC (24-38) Sodium Level 130 mmol/L (136-145) Potassium Level 3.7 mmol/L (3.5-5.1) Chloride Level 96 mmol/L (98-107) Carbon Dioxide Level 23 mmol/L (21-32) Anion Gap 11 (6-14) Blood Urea Nitrogen 22 mg/dL (8-26) Creatinine 0.9 mg/dL (0.7-1.3) Estimated GFR (Cockcroft-Gault) 81.6 BUN/Creatinine Ratio 24 (6-20) Glucose Level 292 mg/dL (70-99) Calcium Level 8.9 mg/dL (8.5-10.1) Total Bilirubin 0.9 mg/dL (0.2-1.0) Aspartate Amino Transf (AST/SGOT) 20 U/L (15-37) Alanine Aminotransferase (ALT/SGPT) 20 U/L (16-63) Alkaline Phosphatase 61 U/L (46-116) Total Protein 6.5 g/dL (6.4-8.2) Albumin 2.9 g/dL (3.4-5.0) Albumin/Globulin Ratio 0.8 (1.0-1.7) Test 06/03/20 05:45 06/03/20 09:28 Glucose (Fingerstick) 265 mg/dL (70-99) 308 mg/dL (70-99) Laboratory Tests Test 06/02/20 10:30 06/02/20 19:40 06/03/20 02:24 06/03/20 05:01 SARS-CoV-2 Antigen (Rapid) Negative (NEGATIVE) Troponin I Quantitative 0.019 ng/mL (0.000-0.055) Thyroid Stimulating Hormone (TSH) 1.834 uIU/mL (0.358-3.74) Glucose (Fingerstick) 273 mg/dL (70-99) White Blood Count 14.6 x10^3/uL (4.0-11.0) Red Blood Count 4.00 x10^6/uL (4.30-5.70) Hemoglobin 12.2 g/dL (13.0-17.5) Hematocrit 36.4 % (39.0-53.0) Mean Corpuscular Volume 91 fL (79-100) Mean Corpuscular Hemoglobin 31 pg (25-35) Mean Corpuscular Hemoglobin Concent 34 g/dL (31-37) Red Cell Distribution Width 13.1 % (11.5-14.5) Platelet Count 233 x10^3/uL (140-400) Neutrophils (%) (Auto) 87 % (31-73) Lymphocytes (%) (Auto) 7 % (24-48) Monocytes (%) (Auto) 6 % (0-9) Eosinophils (%) (Auto) 0 % (0-3) Basophils (%) (Auto) 0 % (0-3) Neutrophils # (Auto) 12.7 x10^3/uL (1.8-7.7) Lymphocytes # (Auto) 1.1 x10^3/uL (1.0-4.8) Monocytes # (Auto) 0.8 x10^3/uL (0.0-1.1) Eosinophils # (Auto) 0.0 x10^3/uL (0.0-0.7) Basophils # (Auto) 0.0 x10^3/uL (0.0-0.2) Prothrombin Time 15.9 SEC (11.7-14.0) Prothromb Time International Ratio 1.3 (0.8-1.1) Activated Partial Thromboplast Time 38 SEC (24-38) Sodium Level 130 mmol/L (136-145) Potassium Level 3.7 mmol/L (3.5-5.1) Chloride Level 96 mmol/L (98-107) Carbon Dioxide Level 23 mmol/L (21-32) Anion Gap 11 (6-14) Blood Urea Nitrogen 22 mg/dL (8-26) Creatinine 0.9 mg/dL (0.7-1.3) Estimated GFR (Cockcroft-Gault) 81.6 BUN/Creatinine Ratio 24 (6-20) Glucose Level 292 mg/dL (70-99) Calcium Level 8.9 mg/dL (8.5-10.1) Total Bilirubin 0.9 mg/dL (0.2-1.0) Aspartate Amino Transf (AST/SGOT) 20 U/L (15-37) Alanine Aminotransferase (ALT/SGPT) 20 U/L (16-63) Alkaline Phosphatase 61 U/L (46-116) Total Protein 6.5 g/dL (6.4-8.2) Albumin 2.9 g/dL (3.4-5.0) Albumin/Globulin Ratio 0.8 (1.0-1.7) Test 06/03/20 05:45 06/03/20 09:28 Glucose (Fingerstick) 265 mg/dL (70-99) 308 mg/dL (70-99) Medications Current Medications Alteplase, Recombinant 0 ml @ 0 mls/hr Q1M ONCE IV ; Start 06/01/20 at 18:15; Stop 06/01/20 at 18:16; Status UNV Alteplase, Recombinant 0 ml @ 0 mls/hr Q1H IV ; Start 06/01/20 at 18:15; Status UNV Sodium Chloride 50 ml @ 50 mls/hr Q1H ONCE IV Last administered on 06/01/20at 20:31; Start 06/01/20 at 18:15; Stop 06/01/20 at 19:14; Status DC Labetalol HCl (Normodyne Iv Push) 10 mg PRN Q10MIN PRN IVP HYPERTENSION; Start 06/01/20 at 18:15; Stop 06/01/20 at 19:48; Status DC Nicardipine HCl 50 mg/Sodium Chloride 250 ml @ 25 mls/hr CONT PRN PRN IV HYPERTENSION Last administered on 06/01/20at 21:27; Start 06/01/20 at 18:15 Alteplase, Recombinant 7 ml @ 420 mls/hr 1X ONCE IV Last administered on 06/01/20at 18:26; Start 06/01/20 at 18:15; Stop 06/01/20 at 18:16; Status DC Alteplase, Recombinant 63.2 ml @ 63.2 mls/hr Q1H IV Last administered on 06/01/20at 18:30; Start 06/01/20 at 18:30; Stop 06/01/20 at 19:29; Status DC Labetalol HCl (Normodyne Iv Push) 20 mg STK-MED ONCE IVP ; Start 06/01/20 at 18:14; Stop 06/01/20 at 18:14; Status DC Iohexol (Omnipaque 300 Mg/ml) 75 ml 1X ONCE IV Last administered on 06/01/20at 18:58; Start 06/01/20 at 18:45; Stop 06/01/20 at 18:46; Status DC Info (CONTRAST GIVEN -- Rx MONITORING) 1 each PRN DAILY PRN MC SEE COMMENTS; Start 06/01/20 at 18:45; Stop 06/03/20 at 18:44 Labetalol HCl (Normodyne Iv Push) 10 mg PRN Q10MIN PRN IVP HYPERTENSION Last administered on 06/03/20at 06:13; Start 06/01/20 at 19:45 Nicardipine HCl 50 mg/Sodium Chloride 250 ml @ 25 mls/hr CONT PRN PRN IV HYPERTENSION; Start 06/01/20 at 19:45; Status UNV Acetaminophen (Tylenol) 650 mg PRN Q6HRS PRN PO MILD PAIN / TEMP > 100.3'F; Start 06/01/20 at 19:45 Acetaminophen (Tylenol Supp) 650 mg PRN Q6HRS PRN [place] MILD PAIN / TEMP > 100.3'F Last administered on 06/02/20at 22:04; Start 06/01/20 at 19:45 Ondansetron HCl (Zofran) 4 mg PRN Q6HRS PRN IVP NAUSEA/VOMITING; Start 06/01/20 at 19:45 Magnesium Sulfate 50 ml @ 25 mls/hr 1X ONCE IV Last administered on 06/01/20at 21:21; Start 06/01/20 at 20:30; Stop 06/01/20 at 22:29; Status DC Ondansetron HCl (Zofran) 4 mg PRN Q8HRS PRN IV NAUSEA/VOMITING Last administered on 06/01/20at 22:04; Start 06/01/20 at 20:00; Stop 06/02/20 at 19:59; Status DC Prochlorperazine Edisylate (Compazine) 10 mg PRN Q8HRS PRN IV NAUSEA/VOMITING 2ND CHOICE Last administered on 06/02/20at 00:00; Start 06/02/20 at 00:00 Piperacillin Sod/ Tazobactam Sod (Zosyn Per Pharmacy) 1 each PRN DAILY PRN MC SEE COMMENTS; Start 06/02/20 at 10:30 Piperacillin Sod/ Tazobactam Sod 3.375 gm/Sodium Chloride 50 ml @ 100 mls/hr Q6HRS IV Last administered on 06/03/20at 06:13; Start 06/02/20 at 12:00 Amino Acids/ Glycerin/ Electrolytes 1,000 ml @ 80 mls/hr [id number] IV Last administered on 06/03/20at 09:32; Start 06/02/20 at 17:15 Ondansetron HCl (Zofran) 4 mg PRN Q6HRS PRN IVP NAUSEA/VOMITING; Start 06/02/20 at 19:00 Prochlorperazine (Compazine) 25 mg PRN Q12HR PRN [place] NAUSEA/VOMITING; Start 06/02/20 at 19:00 Famotidine (Pepcid Vial) 20 mg BID IVP Last administered on 06/03/20at 09:32; Start 06/02/20 at 21:00 Info (Icu Electrolyte Protocol) 1 ea DAILY MC Last administered on 06/03/20at 09:00; Start 06/03/20 at 09:00 Sodium Chloride (Normal Saline Flush) 3 ml QSHIFT PRN IV AFTER MEDS AND BLOOD DRAWS; Start 06/02/20 at 19:00 Sodium Chloride 1,000 ml @ 70 mls/hr [id number] IV Last administered on 06/03/20at 09:33; Start 06/02/20 at 19:00 Bisacodyl (Dulcolax Supp) 10 mg PRN DAILY PRN [place] CONSTIPATION; Start 06/02/20 at 19:00 Insulin Human Lispro (HumaLOG) 0-5 UNITS TIDWMEALS SQ Last administered on 06/03/20at 09:36; Start 06/03/20 at 08:00 Dextrose (Dextrose 50%-Water Syringe) 12.5 gm PRN Q15MIN PRN IV SEE COMMENTS; Start 06/03/20 at 07:00 Active Scripts Active Reported Aspir-Low (Aspirin) 81 Mg Tablet.dr 162 Mg PO Tamsulosin Hcl 0.4 Mg Cap.er.24h 0.4 Mg PO DAILY Levemir (Insulin Detemir) 100 Unit/1 Ml Vial 26 Unit SQ Simvastatin 5 Mg Tablet 2 Mg PO HS Duloxetine Hcl 20 Mg Capsule. 20 Mg PO DAILY Glimepiride 2 Mg Tablet 1 Tab PO DAILY Omeprazole 20 Mg Capsule.dr 1 Cap PO DAILY Metformin Hcl 1,000 Mg Tablet 1 Tab PO BIDWMEALS Vitals/I & O Vital Sign - Last 24 Hours 06/02/20 06/02/20 06/02/20 06/02/20 11:11 12:01 14:00 15:14 Temp 98.3 98.3 Pulse 85 87 92 88 Resp 20 18 18 B/P (MAP) 113/53 (73) 122/58 (79) 142/57 (85) 147/58 (87) Pulse Ox 96 98 97 97 O2 Delivery Room Air Room Air Room Air Room Air 06/02/20 06/02/20 06/02/20 06/02/20 16:34 17:02 17:57 19:00 Temp 99.3 99.3 Pulse 88 90 90 Resp 24 B/P (MAP) 147/58 (87) 140/56 (84) 146/54 (84) Pulse Ox 97 96 97 O2 Delivery Room Air Room Air Room Air Room Air 06/02/20 06/02/20 06/02/20 06/02/20 20:00 21:00 22:00 23:00 Temp 101.8 101.8 Pulse 100 102 98 96 Resp B/P (MAP) 156/63 (94) 168/66 (100) 169/74 (105) 185/76 (112) Pulse Ox 98 98 98 O2 Delivery Room Air Room Air Room Air Room Air 06/02/20 06/03/20 06/03/20 06/03/20 23:58 00:00 00:00 01:00 Temp 100.8 100.8 Pulse 100 86 88 Resp B/P (MAP) 185/76 169/71 (103) 164/71 (102) Pulse Ox 99 100 O2 Delivery Room Air Room Air 06/03/20 06/03/20 06/03/20 06/03/20 02:00 03:00 04:00 05:00 Temp 99.7 99.7 Pulse 92 94 94 88 Resp 29 B/P (MAP) 166/81 (109) 179/79 (112) 180/79 (112) 176/69 (104) Pulse Ox 98 98 97 97 O2 Delivery Room Air Room Air Room Air Room Air 06/03/20 06/03/20 06/03/20 06:13 06:59 07:02 Temp 100.4 100.4 Pulse 96 83 83 Resp B/P (MAP) 177/72 172/68 (102) 170/65 (100) Pulse Ox 97 97 O2 Delivery Room Air Room Air l Intake and Output 06/02/20 06/02/20 06/03/20 15:00 23:00 07:00 Intake Total 50 ml 0 ml 0 ml Output Total 0 ml 0 ml 300 ml Balance 50 ml 0 ml -300 ml Justicifation of Admission Dx: Justifications for Admission: Justification of Admission Dx: Yes Stroke - Ischemic: Stroke-Ischemic Sepsis: Altered Mental Status Altered Mental Status: Altered Mental Status MARGARET PATEL MD Jun 03, 2020 10:26
[2020-06-03 10:48] LABS: % BANDS 2 % (0-9); % LYMPHS 8 % (24-48); % MONOS 1 % (0-10); % SEGS 89 % (35-66); PLT ESTIMATE ADEQUATE (ADEQUATE)
--- NOTE | 2020-06-03 12:19 | PDOC ---
Infectious Disease Note Subjective: Subjective Patient remains nonresponsive T-max 101.8 Fever pattern improved this morning Vital Signs: Vital Signs Vital Signs Date Time Temp Pulse Resp B/P (MAP) Pulse Ox O2 Delivery O2 Flow Rate FiO2 06/03/20 11:00 77 22 186/81 (116) 97 Room Air 06/03/20 08:00 99.5 99.5 Physical Exam: PHYSICAL EXAM GENERAL: Well-developed, well-nourished male, nonverbal, does not follow any commands, in no acute distress. HEENT: Normocephalic, atraumatic, anicteric. No thrush on room air. NECK: Supple, no lymphadenopathy, no JVD. LUNGS: Clear bilaterally. No wheezing. HEART: S1, S2. No gallops or murmurs. ABDOMEN: Soft, nontender, nondistended. EXTREMITIES: No edema, no cyanosis. DERMATOLOGIC: Warm, dry. No generalized rash. NEUROLOGIC: Does not follow any commands. See neurology exam for full details. Medications: Inpatient Meds: Current Medications Medications (Trade) Dose Ordered Sig/Sonja Start Time Stop Time Status Last Admin Dose Admin Acetaminophen (Tylenol Supp) 650 mg PRN Q6HRS PRN 06/01/20 19:45 06/02/20 22:04 650 MG Acetaminophen (Tylenol) 650 mg PRN Q6HRS PRN 06/01/20 19:45 Alteplase, Recombinant 63.2 ml @ 63.2 mls/hr Q1H 06/01/20 18:30 06/01/20 19:29 DC 06/01/20 18:30 63.2 MLS/HR Amino Acids/ Glycerin/ Electrolytes 1,000 ml @ 80 mls/hr [id number] 06/02/20 17:15 06/03/20 09:32 80 MLS/HR Bisacodyl (Dulcolax Supp) 10 mg PRN DAILY PRN 06/02/20 19:00 Dextrose (Dextrose 50%-Water Syringe) 12.5 gm PRN Q15MIN PRN 06/03/20 07:00 Famotidine (Pepcid Vial) 20 mg BID 06/02/20 21:00 06/03/20 09:32 20 MG Info (CONTRAST GIVEN -- Rx MONITORING) 1 each PRN DAILY PRN 06/01/20 18:45 06/03/20 18:44 Info (Icu Electrolyte Protocol) 1 ea DAILY 06/03/20 09:00 06/03/20 09:00 1 EA Insulin Human Lispro (HumaLOG) 0-5 UNITS TIDWMEALS 06/03/20 08:00 06/03/20 09:36 5 UNITS Iohexol (Omnipaque 300 Mg/ml) 75 ml 1X ONCE 06/01/20 18:45 06/01/20 18:46 DC 06/01/20 18:58 75 ML Labetalol HCl (Normodyne Iv Push) 10 mg PRN Q10MIN PRN 06/01/20 19:45 06/03/20 06:13 10 MG Magnesium Sulfate 50 ml @ 25 mls/hr 1X ONCE 06/01/20 20:30 06/01/20 22:29 DC 06/01/20 21:21 25 MLS/HR Nicardipine HCl 50 mg/Sodium Chloride 250 ml @ 25 mls/hr CONT PRN PRN 06/01/20 19:45 UNV Ondansetron HCl (Zofran) 4 mg PRN Q6HRS PRN 06/02/20 19:00 Piperacillin Sod/ Tazobactam Sod (Zosyn Per Pharmacy) 1 each PRN DAILY PRN 06/02/20 10:30 Piperacillin Sod/ Tazobactam Sod 3.375 gm/Sodium Chloride 50 ml @ 100 mls/hr Q6HRS 06/02/20 12:00 06/03/20 06:13 100 MLS/HR Prochlorperazine (Compazine) 25 mg PRN Q12HR PRN 06/02/20 19:00 Prochlorperazine Edisylate (Compazine) 10 mg PRN Q8HRS PRN 06/02/20 00:00 06/02/20 00:00 10 MG Sodium Chloride 1,000 ml @ 70 mls/hr [id number] 06/02/20 19:00 06/03/20 09:33 70 MLS/HR Sodium Chloride (Normal Saline Flush) 3 ml QSHIFT PRN 06/02/20 19:00 Labs: Lab Laboratory Tests Test 06/02/20 19:40 06/03/20 02:24 06/03/20 05:01 06/03/20 05:45 Troponin I Quantitative 0.019 ng/mL (0.000-0.055) Thyroid Stimulating Hormone (TSH) 1.834 uIU/mL (0.358-3.74) Glucose (Fingerstick) 273 mg/dL (70-99) 265 mg/dL (70-99) White Blood Count 14.6 x10^3/uL (4.0-11.0) Red Blood Count 4.00 x10^6/uL (4.30-5.70) Hemoglobin 12.2 g/dL (13.0-17.5) Hematocrit 36.4 % (39.0-53.0) Mean Corpuscular Volume 91 fL (79-100) Mean Corpuscular Hemoglobin 31 pg (25-35) Mean Corpuscular Hemoglobin Concent 34 g/dL (31-37) Red Cell Distribution Width 13.1 % (11.5-14.5) Platelet Count 233 x10^3/uL (140-400) Neutrophils (%) (Auto) 87 % (31-73) Lymphocytes (%) (Auto) 7 % (24-48) Monocytes (%) (Auto) 6 % (0-9) Eosinophils (%) (Auto) 0 % (0-3) Basophils (%) (Auto) 0 % (0-3) Neutrophils # (Auto) 12.7 x10^3/uL (1.8-7.7) Lymphocytes # (Auto) 1.1 x10^3/uL (1.0-4.8) Monocytes # (Auto) 0.8 x10^3/uL (0.0-1.1) Eosinophils # (Auto) 0.0 x10^3/uL (0.0-0.7) Basophils # (Auto) 0.0 x10^3/uL (0.0-0.2) Segmented Neutrophils % 89 % (35-66) Band Neutrophils % 2 % (0-9) Lymphocytes % 8 % (24-48) Monocytes % 1 % (0-10) Platelet Estimate Adequate (ADEQUATE) Prothrombin Time 15.9 SEC (11.7-14.0) Prothromb Time International Ratio 1.3 (0.8-1.1) Activated Partial Thromboplast Time 38 SEC (24-38) Sodium Level 130 mmol/L (136-145) Potassium Level 3.7 mmol/L (3.5-5.1) Chloride Level 96 mmol/L (98-107) Carbon Dioxide Level 23 mmol/L (21-32) Anion Gap 11 (6-14) Blood Urea Nitrogen 22 mg/dL (8-26) Creatinine 0.9 mg/dL (0.7-1.3) Estimated GFR (Cockcroft-Gault) 81.6 BUN/Creatinine Ratio 24 (6-20) Glucose Level 292 mg/dL (70-99) Calcium Level 8.9 mg/dL (8.5-10.1) Total Bilirubin 0.9 mg/dL (0.2-1.0) Aspartate Amino Transf (AST/SGOT) 20 U/L (15-37) Alanine Aminotransferase (ALT/SGPT) 20 U/L (16-63) Alkaline Phosphatase 61 U/L (46-116) Total Protein 6.5 g/dL (6.4-8.2) Albumin 2.9 g/dL (3.4-5.0) Albumin/Globulin Ratio 0.8 (1.0-1.7) Test 06/03/20 09:28 Glucose (Fingerstick) 308 mg/dL (70-99) Objective: Assessment: 1. Febrile illness. Likely aspiration pneumonia 2. Acute cerebrovascular accident. 3. History of previous cerebrovascular accident. 4. Diabetes mellitus. 5. Hyperlipidemia/hypertension. Plan: Plan of Care 1. Continue Zosyn 2. Follow up labs and cultures. 3. Maintain aspiration precautions . Discussed with RN. DAWIT BOSTON MD Jun 03, 2020 12:19
--- NOTE | 2020-06-03 14:16 | PDOC ---
PROGRESS NOTES Date of Service DATE: 06/03/20 TIME: 14:06 Assessment Left temporal and occipital lobe cortical stroke Subarachnoid and subdural hemorrhage overlying the left temporal/occipital/parietal lobe measuring approximate 5 mm in thickness. Chronic small vessel ischemic change. I saw him in 2017 for right occipital stroke with left field-cut Status-post alteplase Diabetes, hypertension, hyperlipidemia, favorable lipid profile Peripheral neuropathy due to diabetes Mild cognitive impairment Low-grade fevers Plan Await echocardiogram, may need transesophageal echocardiogram and outpatient cardiac monitoring as he has now had 2 cortical strokes in the last 3 years Monitor in ICU overnight, recheck head CT tomorrow, does not need surgery Discussed with Subjective None Objective Vital Signs Date Time Temp Pulse Resp B/P (MAP) Pulse Ox O2 Delivery O2 Flow Rate FiO2 06/03/20 13:46 130 163/73 06/03/20 12:00 27 97 Room Air 06/03/20 08:00 99.5 99.5 Intake and Output 06/03/20 07:00 Intake Total 50 ml Output Total 300 ml Balance -250 ml Intake Oral 0 ml IV Total 50 ml Output Urine Total 0 ml Stool Total 300 ml # Voids 7 PHYSICAL EXAM Nonverbal, not following commands PERRL. EOMI. CN: Right central facial weakness. Muscle tone: Increased in the left, especially the left leg Muscle strength: 2-3/5 DTR: 2+ Plantar reflex: Silent Gait: not tested. Sensory exam: Not cooperative. Cerebellar:Not cooperative. Review of Relevant I have reviewed the following items joy (where applicable) has been applied. Labs Laboratory Tests Test 06/01/20 17:47 06/01/20 17:57 06/01/20 20:00 06/02/20 00:55 Glucose (Fingerstick) 233 mg/dL (70-99) White Blood Count 7.5 x10^3/uL (4.0-11.0) Red Blood Count 4.25 x10^6/uL (4.30-5.70) Hemoglobin 13.4 g/dL (13.0-17.5) Hematocrit 38.6 % (39.0-53.0) Mean Corpuscular Volume 91 fL (79-100) Mean Corpuscular Hemoglobin 31 pg (25-35) Mean Corpuscular Hemoglobin Concent 35 g/dL (31-37) Red Cell Distribution Width 12.9 % (11.5-14.5) Platelet Count 247 x10^3/uL (140-400) Neutrophils (%) (Auto) 77 % (31-73) Lymphocytes (%) (Auto) 16 % (24-48) Monocytes (%) (Auto) 7 % (0-9) Eosinophils (%) (Auto) 0 % (0-3) Basophils (%) (Auto) 1 % (0-3) Neutrophils # (Auto) 5.7 x10^3/uL (1.8-7.7) Lymphocytes # (Auto) 1.2 x10^3/uL (1.0-4.8) Monocytes # (Auto) 0.5 x10^3/uL (0.0-1.1) Eosinophils # (Auto) 0.0 x10^3/uL (0.0-0.7) Basophils # (Auto) 0.0 x10^3/uL (0.0-0.2) Prothrombin Time 12.7 SEC (11.7-14.0) Prothromb Time International Ratio 1.0 (0.8-1.1) Activated Partial Thromboplast Time 27 SEC (24-38) Sodium Level 136 mmol/L (136-145) Potassium Level 4.5 mmol/L (3.5-5.1) Chloride Level 98 mmol/L (98-107) Carbon Dioxide Level 25 mmol/L (21-32) Anion Gap 13 (6-14) Blood Urea Nitrogen 21 mg/dL (8-26) Creatinine 0.8 mg/dL (0.7-1.3) Estimated GFR (Cockcroft-Gault) 93.5 BUN/Creatinine Ratio 26 (6-20) Glucose Level 247 mg/dL (70-99) Calcium Level 9.9 mg/dL (8.5-10.1) Magnesium Level 1.3 mg/dL (1.8-2.4) Total Bilirubin 0.4 mg/dL (0.2-1.0) Aspartate Amino Transf (AST/SGOT) 25 U/L (15-37) Alanine Aminotransferase (ALT/SGPT) 26 U/L (16-63) Alkaline Phosphatase 81 U/L (46-116) Troponin I Quantitative < 0.017 ng/mL (0.000-0.055) 0.035 ng/mL (0.000-0.055) Total Protein 6.9 g/dL (6.4-8.2) Albumin 3.8 g/dL (3.4-5.0) Albumin/Globulin Ratio 1.2 (1.0-1.7) Triglycerides Level 71 mg/dL (0-150) Cholesterol Level 136 mg/dL (0-200) LDL Cholesterol, Calculated 71 mg/dL (0-100) VLDL Cholesterol, Calculated 14 mg/dL (0-40) Non-HDL Cholesterol Calculated 85 mg/dL (0-129) HDL Cholesterol 51 mg/dL (40-60) Cholesterol/HDL Ratio 2.7 Urine Collection Type Unknown Urine Color Yellow Urine Clarity Clear Urine pH 7.5 (<5.0-8.0) Urine Specific [place] 1.020 (1.000-1.030) Urine Protein Negative mg/dL (NEG-TRACE) Urine Glucose (UA) 500 mg/dL (NEG) Urine Ketones (Stick) 15 mg/dL (NEG) Urine Blood Large (NEG) Urine Nitrite Negative (NEG) Urine Bilirubin Negative (NEG) Urine Urobilinogen Dipstick 1.0 mg/dL (0.2 mg/dL) Urine Leukocyte Esterase Trace (NEG) Urine RBC >40 /HPF (0-2) Urine WBC Occ /HPF (0-4) Urine Renal Epithelial Cells Occ /LPF Urine Bacteria 0 /HPF (0-FEW) Test 06/02/20 10:30 06/02/20 19:40 06/03/20 02:24 06/03/20 05:01 SARS-CoV-2 Antigen (Rapid) Negative (NEGATIVE) Troponin I Quantitative 0.019 ng/mL (0.000-0.055) Thyroid Stimulating Hormone (TSH) 1.834 uIU/mL (0.358-3.74) Glucose (Fingerstick) 273 mg/dL (70-99) White Blood Count 14.6 x10^3/uL (4.0-11.0) Red Blood Count 4.00 x10^6/uL (4.30-5.70) Hemoglobin 12.2 g/dL (13.0-17.5) Hematocrit 36.4 % (39.0-53.0) Mean Corpuscular Volume 91 fL (79-100) Mean Corpuscular Hemoglobin 31 pg (25-35) Mean Corpuscular Hemoglobin Concent 34 g/dL (31-37) Red Cell Distribution Width 13.1 % (11.5-14.5) Platelet Count 233 x10^3/uL (140-400) Neutrophils (%) (Auto) 87 % (31-73) Lymphocytes (%) (Auto) 7 % (24-48) Monocytes (%) (Auto) 6 % (0-9) Eosinophils (%) (Auto) 0 % (0-3) Basophils (%) (Auto) 0 % (0-3) Neutrophils # (Auto) 12.7 x10^3/uL (1.8-7.7) Lymphocytes # (Auto) 1.1 x10^3/uL (1.0-4.8) Monocytes # (Auto) 0.8 x10^3/uL (0.0-1.1) Eosinophils # (Auto) 0.0 x10^3/uL (0.0-0.7) Basophils # (Auto) 0.0 x10^3/uL (0.0-0.2) Segmented Neutrophils % 89 % (35-66) Band Neutrophils % 2 % (0-9) Lymphocytes % 8 % (24-48) Monocytes % 1 % (0-10) Platelet Estimate Adequate (ADEQUATE) Prothrombin Time 15.9 SEC (11.7-14.0) Prothromb Time International Ratio 1.3 (0.8-1.1) Activated Partial Thromboplast Time 38 SEC (24-38) Sodium Level 130 mmol/L (136-145) Potassium Level 3.7 mmol/L (3.5-5.1) Chloride Level 96 mmol/L (98-107) Carbon Dioxide Level 23 mmol/L (21-32) Anion Gap 11 (6-14) Blood Urea Nitrogen 22 mg/dL (8-26) Creatinine 0.9 mg/dL (0.7-1.3) Estimated GFR (Cockcroft-Gault) 81.6 BUN/Creatinine Ratio 24 (6-20) Glucose Level 292 mg/dL (70-99) Calcium Level 8.9 mg/dL (8.5-10.1) Total Bilirubin 0.9 mg/dL (0.2-1.0) Aspartate Amino Transf (AST/SGOT) 20 U/L (15-37) Alanine Aminotransferase (ALT/SGPT) 20 U/L (16-63) Alkaline Phosphatase 61 U/L (46-116) Total Protein 6.5 g/dL (6.4-8.2) Albumin 2.9 g/dL (3.4-5.0) Albumin/Globulin Ratio 0.8 (1.0-1.7) Test 06/03/20 05:45 06/03/20 09:28 06/03/20 12:11 Glucose (Fingerstick) 265 mg/dL (70-99) 308 mg/dL (70-99) 216 mg/dL (70-99) Laboratory Tests Test 06/02/20 19:40 06/03/20 02:24 06/03/20 05:01 06/03/20 05:45 Troponin I Quantitative 0.019 ng/mL (0.000-0.055) Thyroid Stimulating Hormone (TSH) 1.834 uIU/mL (0.358-3.74) Glucose (Fingerstick) 273 mg/dL (70-99) 265 mg/dL (70-99) White Blood Count 14.6 x10^3/uL (4.0-11.0) Red Blood Count 4.00 x10^6/uL (4.30-5.70) Hemoglobin 12.2 g/dL (13.0-17.5) Hematocrit 36.4 % (39.0-53.0) Mean Corpuscular Volume 91 fL (79-100) Mean Corpuscular Hemoglobin 31 pg (25-35) Mean Corpuscular Hemoglobin Concent 34 g/dL (31-37) Red Cell Distribution Width 13.1 % (11.5-14.5) Platelet Count 233 x10^3/uL (140-400) Neutrophils (%) (Auto) 87 % (31-73) Lymphocytes (%) (Auto) 7 % (24-48) Monocytes (%) (Auto) 6 % (0-9) Eosinophils (%) (Auto) 0 % (0-3) Basophils (%) (Auto) 0 % (0-3) Neutrophils # (Auto) 12.7 x10^3/uL (1.8-7.7) Lymphocytes # (Auto) 1.1 x10^3/uL (1.0-4.8) Monocytes # (Auto) 0.8 x10^3/uL (0.0-1.1) Eosinophils # (Auto) 0.0 x10^3/uL (0.0-0.7) Basophils # (Auto) 0.0 x10^3/uL (0.0-0.2) Segmented Neutrophils % 89 % (35-66) Band Neutrophils % 2 % (0-9) Lymphocytes % 8 % (24-48) Monocytes % 1 % (0-10) Platelet Estimate Adequate (ADEQUATE) Prothrombin Time 15.9 SEC (11.7-14.0) Prothromb Time International Ratio 1.3 (0.8-1.1) Activated Partial Thromboplast Time 38 SEC (24-38) Sodium Level 130 mmol/L (136-145) Potassium Level 3.7 mmol/L (3.5-5.1) Chloride Level 96 mmol/L (98-107) Carbon Dioxide Level 23 mmol/L (21-32) Anion Gap 11 (6-14) Blood Urea Nitrogen 22 mg/dL (8-26) Creatinine 0.9 mg/dL (0.7-1.3) Estimated GFR (Cockcroft-Gault) 81.6 BUN/Creatinine Ratio 24 (6-20) Glucose Level 292 mg/dL (70-99) Calcium Level 8.9 mg/dL (8.5-10.1) Total Bilirubin 0.9 mg/dL (0.2-1.0) Aspartate Amino Transf (AST/SGOT) 20 U/L (15-37) Alanine Aminotransferase (ALT/SGPT) 20 U/L (16-63) Alkaline Phosphatase 61 U/L (46-116) Total Protein 6.5 g/dL (6.4-8.2) Albumin 2.9 g/dL (3.4-5.0) Albumin/Globulin Ratio 0.8 (1.0-1.7) Test 06/03/20 09:28 06/03/20 12:11 Glucose (Fingerstick) 308 mg/dL (70-99) 216 mg/dL (70-99) Medications Current Medications Alteplase, Recombinant 0 ml @ 0 mls/hr Q1M ONCE IV ; Start 06/01/20 at 18:15; Stop 06/01/20 at 18:16; Status UNV Alteplase, Recombinant 0 ml @ 0 mls/hr Q1H IV ; Start 06/01/20 at 18:15; Status UNV Sodium Chloride 50 ml @ 50 mls/hr Q1H ONCE IV Last administered on 06/01/20at 20:31; Start 06/01/20 at 18:15; Stop 06/01/20 at 19:14; Status DC Labetalol HCl (Normodyne Iv Push) 10 mg PRN Q10MIN PRN IVP HYPERTENSION; Start 06/01/20 at 18:15; Stop 06/01/20 at 19:48; Status DC Nicardipine HCl 50 mg/Sodium Chloride 250 ml @ 25 mls/hr CONT PRN PRN IV HYPERTENSION Last administered on 06/01/20at 21:27; Start 06/01/20 at 18:15 Alteplase, Recombinant 7 ml @ 420 mls/hr 1X ONCE IV Last administered on 06/01/20at 18:26; Start 06/01/20 at 18:15; Stop 06/01/20 at 18:16; Status DC Alteplase, Recombinant 63.2 ml @ 63.2 mls/hr Q1H IV Last administered on 06/01at 18:30; Start 06/01/20 at 18:30; Stop 06/01/20 at 19:29; Status DC Labetalol HCl (Normodyne Iv Push) 20 mg STK-MED ONCE IVP ; Start 06/01/20 at 18:14; Stop 06/01/20 at 18:14; Status DC Iohexol (Omnipaque 300 Mg/ml) 75 ml 1X ONCE IV Last administered on 06/01/20at 18:58; Start 06/01/20 at 18:45; Stop 06/01/20 at 18:46; Status DC Info (CONTRAST GIVEN -- Rx MONITORING) 1 each PRN DAILY PRN MC SEE COMMENTS; Start 06/01/20 at 18:45; Stop 06/03/20 at 18:44 Labetalol HCl (Normodyne Iv Push) 10 mg PRN Q10MIN PRN IVP HYPERTENSION Last administered on 06/03/20at 13:46; Start 06/01/20 at 19:45 Nicardipine HCl 50 mg/Sodium Chloride 250 ml @ 25 mls/hr CONT PRN PRN IV HYPERTENSION; Start 06/01/20 at 19:45; Status UNV Acetaminophen (Tylenol) 650 mg PRN Q6HRS PRN PO MILD PAIN / TEMP > 100.3'F; Start 06/01/20 at 19:45 Acetaminophen (Tylenol Supp) 650 mg PRN Q6HRS PRN [place] MILD PAIN / TEMP > 100.3'F Last administered on 06/02/20at 22:04; Start 06/01/20 at 19:45 Ondansetron HCl (Zofran) 4 mg PRN Q6HRS PRN IVP NAUSEA/VOMITING; Start 06/01/20 at 19:45; Status Cancel Magnesium Sulfate 50 ml @ 25 mls/hr 1X ONCE IV Last administered on 06/01/20at 21:21; Start 06/01/20 at 20:30; Stop 06/01/20 at 22:29; Status DC Ondansetron HCl (Zofran) 4 mg PRN Q8HRS PRN IV NAUSEA/VOMITING Last administered on 06/01/20at 22:04; Start 06/01/20 at 20:00; Stop 06/02/20 at 19:59; Status DC Prochlorperazine Edisylate (Compazine) 10 mg PRN Q8HRS PRN IV NAUSEA/VOMITING 2ND CHOICE Last administered on 06/02/20at 00:00; Start 06/02/20 at 00:00 Piperacillin Sod/ Tazobactam Sod (Zosyn Per Pharmacy) 1 each PRN DAILY PRN MC SEE COMMENTS; Start 06/02/20 at 10:30 Piperacillin Sod/ Tazobactam Sod 3.375 gm/Sodium Chloride 50 ml @ 100 mls/hr Q6HRS IV Last administered on 06/03/20at 12:13; Start 06/02/20 at 12:00 Amino Acids/ Glycerin/ Electrolytes 1,000 ml @ 80 mls/hr [id number] IV Last administered on 06/03/20at 09:32; Start 06/02/20 at 17:15 Ondansetron HCl (Zofran) 4 mg PRN Q6HRS PRN IVP NAUSEA/VOMITING; Start 06/02/20 at 19:00 Prochlorperazine (Compazine) 25 mg PRN Q12HR PRN [place] NAUSEA/VOMITING; Start 06/02/20 at 19:00 Famotidine (Pepcid Vial) 20 mg BID IVP Last administered on 06/03/20at 09:32; Start 06/02/20 at 21:00 Info (Icu Electrolyte Protocol) 1 ea DAILY MC Last administered on 06/03/20at 09 :00; Start 06/03/20 at 09:00 Sodium Chloride (Normal Saline Flush) 3 ml QSHIFT PRN IV AFTER MEDS AND BLOOD DRAWS; Start 06/02/20 at 19:00 Sodium Chloride 1,000 ml @ 70 mls/hr [id number] IV Last administered on 06/03/20at 09:33; Start 06/02/20 at 19:00 Bisacodyl (Dulcolax Supp) 10 mg PRN DAILY PRN [place] CONSTIPATION; Start 06/02/20 at 19:00 Insulin Human Lispro (HumaLOG) 0-5 UNITS TIDWMEALS SQ Last administered on 06/03/20at 12:15; Start 06/03/20 at 08:00 Dextrose (Dextrose 50%-Water Syringe) 12.5 gm PRN Q15MIN PRN IV SEE COMMENTS; Start 06/03/20 at 07:00 Active Scripts Active Reported Aspir-Low (Aspirin) 81 Mg Tablet. 162 Mg PO Tamsulosin Hcl 0.4 Mg Cap.er.24h 0.4 Mg PO DAILY Levemir (Insulin Detemir) 100 Unit/1 Ml Vial 26 Unit SQ Simvastatin 5 Mg Tablet 2 Mg PO HS Duloxetine Hcl 20 Mg Capsule. 20 Mg PO DAILY Glimepiride 2 Mg Tablet 1 Tab PO DAILY Omeprazole 20 Mg Capsule. 1 Cap PO DAILY Metformin Hcl 1,000 Mg Tablet 1 Tab PO BIDWMEALS Vitals/I & O Vital Sign - Last 24 Hours 06/02/20 06/02/20 06/02/20 06/02/20 15:14 16:34 17:02 17:57 Temp 99.3 99.3 Pulse 88 88 90 90 Resp 18 18 16 24 B/P (MAP) 147/58 (87) 147/58 (87) 140/56 (84) 146/54 (84) Pulse Ox 97 97 96 97 O2 Delivery Room Air Room Air Room Air Room Air 06/02/20 06/02/20 06/02/20 06/02/20 19:00 20:00 21:00 22:00 Temp 101.8 101.8 Pulse 100 102 98 Resp 20 22 B/P (MAP) 156/63 (94) 168/66 (100) 169/74 (105) Pulse Ox 98 98 O2 Delivery Room Air Room Air Room Air Room Air 06/02/20 06/02/20 06/03/20 06/03/20 23:00 23:58 00:00 00:00 Temp 100.8 100.8 Pulse 96 100 86 Resp 23 B/P (MAP) 185/76 (112) 185/76 169/71 (103) Pulse Ox 98 99 O2 Delivery Room Air Room Air 06/03/20 06/03/20 06/03/20 06/03/20 01:00 02:00 03:00 04:00 Temp 99.7 99.7 Pulse 88 92 94 94 Resp 25 25 24 25 B/P (MAP) 164/71 (102) 166/81 (109) 179/79 (112) 180/79 (112) Pulse Ox 100 98 98 97 O2 Delivery Room Air Room Air Room Air Room Air 06/03/20 06/03/20 06/03/20 06/03/20 05:00 06:13 06:59 07:02 Temp 100.4 100.4 Pulse 88 96 83 83 Resp 29 24 24 B/P (MAP) 176/69 (104) 177/72 172/68 (102) 170/65 (100) Pulse Ox 97 97 97 O2 Delivery Room Air Room Air Room Air 06/03/20 06/03/20 06/03/20 06/03/20 08:00 09:00 10:00 11:00 Temp 99.5 99.5 Pulse 82 86 79 77 Resp 27 28 32 22 B/P (MAP) 161/68 (99) 179/66 (103) 168/74 (105) 186/81 (116) Pulse Ox 98 96 98 97 O2 Delivery Room Air Room Air Room Air Room Air 06/03/20 06/03/20 12:00 13:46 Pulse 82 130 Resp 27 B/P (MAP) 165/72 (103) 163/73 Pulse Ox 97 O2 Delivery Room Air Intake and Output 06/02/20 06/02/20 06/03/20 15:00 23:00 07:00 Intake Total 50 ml 0 ml 0 ml Output Total 0 ml 0 ml 300 ml Balance 50 ml 0 ml -300 ml Images MRI brain without contrast INDICATION: CVA TECHNIQUE: Multiplanar multisequence MRI of the brain was obtained without the administration of IV contrast. Comparisons: CT head without contrast same day FINDINGS: Area of increased signal on DWI sequence within the peripheral left temporal and occipital lobes series 4 image 13. Visualized portions of the vascular flow voids are normal. Confluent T2/FLAIR hyperintense signal in periventricular white matter and deep white matter. Additionally there is mild T2/FLAIR hyperintense signal in the left posterior temporal/occipital lobe. There is a small subdural hematoma along the left cerebral convexity posteriorly measuring approximately 5 mm in thickness. Additionally there is some subarach noid hemorrhage in that same area. Ventricular system is within normal limits without compression hydrocephalus. Basal cisterns are well maintained. Globes and intraorbital contents are normal. Visualized portions of the paranasal sinuses and mastoid air cells are well-pneumatized. Craniocervical junction is normal. Midline structures are within normal limits. Bone marrow signal is normal. IMPRESSION: 1. Small amount of subarachnoid and subdural hemorrhage overlying the left temporal/occipital/parietal lobe measuring approximate 5 mm in thickness. 2. Small cortical foci of acute ischemia in the left temporal and occipital lob e as described above. 3. Confluent areas of T2/FLAIR hyperintense signal the periventricular and deep white matter. Represent chronic small vessel ischemic change. Justicifation of Admission Dx: Justifications for Admission: Justification of Admission Dx: Yes Stroke - Ischemic: Stroke-Ischemic TERRY BARONE MD Jun 03, 2020 14:16
[2020-06-03] MEDS: levETIRAcetam 500 MG in IV DEXTROSE 5% 100ML 100 ML IV SCH ×2 (15:27→21:27)
--- NOTE | 2020-06-03 16:18 | NUR ---
Around 1500 patient was observed having seizure activity, seizure lasted around 30 seconds. MD Lacey on unit at that time. No orders given for Ativan since seizure last only 30 seconds. New order for Kegrecia received.
[2020-06-03] MEDS ORDERED: FUROSEMIDE 40 MG/4 ML VIAL. IVP ONE (21:00)
[2020-06-04] VITALS (20 sets, daily range): BP systolic 108–155; BP diastolic 50–69
[2020-06-04] MEDS: PIPERACILLIN/TAZOBACTAM 3.375 GM in IV NORMAL SALINE 50ML 50 ML IV SCH ×5 (00:13→22:59)
[2020-06-04] MEDS: INSULIN LISPRO 300 UNITS/3 ML VIAL. SQ SCH ×5 (00:15→23:39)
[2020-06-04 06:11] LABS: BASO # 0.1 x10^3/uL (0.0-0.2); BASO % 1 % (0-3); EOS % 0 % (0-3); HEMATOCRIT 38.5 % (39.0-53.0); HEMOGLOBIN 12.9 g/dL (13.0-17.5); LYMPH # 1.7 x10^3/uL (1.0-4.8); LYMPH % 11 % (24-48); MEAN CORPUSCULAR HEMOGLOBIN 31 pg (25-35); MEAN CORPUSCULAR HGB CONC 34 g/dL (31-37); MEAN CORPUSCULAR VOLUME 92 fL (79-100); MONO # 1.3 x10^3/uL (0.0-1.1); MONO % 9 % (0-9); NEUT # 12.2 x10^3/uL (1.8-7.7); NEUT % 80 % (31-73); PLATELET COUNT 242 x10^3/uL (140-400); RED BLOOD COUNT 4.21 x10^6/uL (4.30-5.70); RED CELL DISTRIBUTION WIDTH 12.8 % (11.5-14.5); WHITE BLOOD COUNT 15.3 x10^3/uL (4.0-11.0)
[2020-06-04 06:16] LABS: ALBUMIN 2.8 g/dL (3.4-5.0); ALBUMIN/GLOBULIN RATIO 0.8 (1.0-1.7); CALCIUM 9.1 mg/dL (8.5-10.1); GFR 72.3; POTASSIUM 3.2 mmol/L (3.5-5.1); TOTAL PROTEIN 6.5 g/dL (6.4-8.2)
--- NOTE | 2020-06-04 10:21 | RAD ---
CT HEAD/BRAIN WO Date: 06/04/2020 9:11 AM Clinical Indication: Reason: F/U SAH, SDH, left temporal/occipital/parietal / Spl. Instructions: / H istory: Comparison: 06/02/2020. Technique: 5 mm axial tomographic images were obtained of the head without contrast. These were view ed on brain and bone windows. One or more of the following dose reduction techniques were utilized: A utomated exposure control (AEC), Adjustment of mA and/or kV according to patient size, Use of iterati ve reconstruction technique such as ASiR, CT scan done according to ALARA and image gently/image cook ly Findings: Stable left cerebral convexity subdural blood products measuring approximately 5 mm in thickness. Sta ble small amount of subdural blood products along the left tentorium. Improving trace left subarachno id blood products. Low attenuation in the left temporal occipital region corresponding to the acute infarct seen on the recent MRI. The ventricles are normal in size, shape, and morphology. The subarachnoid cisterns are patent. The visualized paranasal sinuses are normal. The visualized portions of the orbits and globes are no rmal. The mastoid air cells are clear. The veneer glue jointer feedback topogram shows no lytic lesion or fracture. Impression: 1. Stable small left subdural hematoma measuring 5 mm in thickness. Minimal mass effect with no midli ne shift. 2. Improving trace left subarachnoid blood products. 3. 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 Electronically signed by: Michael Chambers MD (06/04/2020 10:19 AM) [id number]
--- NOTE | 2020-06-04 11:04 | PDOC ---
PROGRESS NOTES Date of Service: DATE: 06/04/20 TIME: 11:04 Chief Complaint Chief Complaint VTE Prophylaxis Ordered VTE Prophylaxis Devices: Yes VTE Pharmacological Prophylaxi: Yes Assessment/Plan Assessment/Plan Impression: CVA (cerebral vascular accident), ACute, post alteplase occipital stroke with left field-cut 2017 subarachnoid and subdural hemorrhage overlying the left temporal/occipital/parietal lobe measuring approximate 5 mm in thickness.MRI 1/ Acute metabolic encephalopathy FEVER aspiration pneumonia Suspected left retrocardiac opacities. This could be atelectasis or inf iltrate. PUI COVID 19 hypomagnesemia HYPONATREMIA, VOLUME overload ADMITTED PLAN ICU BED MRI HEAD ID CONSULT BLOOD CULTURES MRI HEAD reviewed RESP ISOLATION iv emperic zosyn dvt prophylaxis Echocardiogram replace lytes D/C IV NS NEUROSURGERY consult electrolyte protocol Patient remains nonresponsive 06-03 covid pcr neg T-max 101.8 06-02-20 37 min cc time Justifications for Admission Justifications for Admission Other Justification History of Present Illness History of Present Illness Identification/Chief Complaint Chief Complaint presented to the emergency room with weakness, confusion after a fall. noted to have a fever overnight now a PUI, possible aspiration pneumonitis family states that they had breakfast and spent the afternoon together and he was normal at that time.// fell and hit the left side of his head on carpet did not lose consciousness. Since that time he has been very confused. , encephalopathic, POST alteplase does not know his name, her name, or what is going on. He does not know the month or day. has been dragging his left foot and she has noticed abnormal facial expression. // unable to provide any history and cannot follow any commands. 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 ALLERGIES: None. FAMILY HISTORY: Hypertension. SOCIAL HISTORY: He is retired. He does not drink, smoke or take drugs. FHX COPD Cardiovascular: HTN, Syncope, Hyperlipidemia Pulmonary: No pertinent hx CENTRAL NERVOUS SYSTEM: Periperal neuropathy Heme/Onc: No pertinent hx Hepatobiliary: No pertinent hx Psych: Anxiety Musculoskeletal: Osteoarthritis Endocrine: Diabetes Past Surgical History Past Surgical History: Appendectomy Family History Family History: Coronary Artery Disease, High Cholestrol Social History Smoke: No ALCOHOL: none Drugs: None Vitals Vitals Vital Signs Date Time Temp Pulse Resp B/P (MAP) Pulse Ox O2 Delivery O2 Flow Rate FiO2 06/04/20 06:00 70 23 137/60 (85) 96 Nasal Cannula 2.0 06/04/20 04:00 98.8 98.8 Physical Exam Physical Exam GENERAL: Well-developed, well-nourished male, nonverbal, does not follow any commands, in no acute distress. HEENT: Normocephalic, atraumatic, anicteric. No thrush on room air. NECK: Supple, no lymphadenopathy, no JVD. LUNGS: Clear bilaterally. No wheezing. HEART: S1, S2. No gallops or murmurs. ABDOMEN: Soft, nontender, nondistended. EXTREMITIES: No edema, no cyanosis. DERMATOLOGIC: Warm, dry. No generalized rash. NEUROLOGIC: Does not follow any commands. See neurology exam for full details. General: Cooperative Lungs: Clear Extremities: No cyanosis Skin: No breakdown Labs LABS EX: M EXAM STATUS: ADM IN ORD. PHYSICIAN: TERRY BARONE MD REASON: F/U SAH, SDH, left temporal/occipital/parietal PROCEDURE: CT HEAD WO CONTRAST CT HEAD/BRAIN WO Date: 06/04/2020 9:11 AM Clinical Indication: Reason: F/U SAH, SDH, left temporal/occipital/parietal / Spl. Instructions: / History: Comparison: 06/02/2020. Technique: 5 mm axial tomographic images were obtained of the head without contrast. These were viewed on brain and bone windows. One or more of the following dose reduction techniques were utilized: Automated exposure control (AEC), Adjustment of mA and/or kV according to patient size, Use of iterative reconstruction technique such as ASiR, CT scan done according to ALARA and image gently/image wisely Findings: Stable left cerebral convexity subdural blood products measuring approximately 5 mm in thickness. Stable small amount of subdural blood products along the left tentorium. Improving trace left subarachnoid blood products. Low attenuation in the left temporal occipital region corresponding to the acute infarct seen on the recent MRI. The ventricles are normal in size, shape, and morphology. The subarachnoid cisterns are patent. The visualized paranasal sinuses are normal. The visualized portions of the orbits and globes are normal. The mastoid air cells are clear. The crime scene technician topogram shows no lytic lesion or fracture. Impression: 1. Stable small left subdural hematoma measuring 5 mm in thickness. Minimal mass effect with no midline shift. 2. Improving trace left subarachnoid blood products. 3. 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 Electronically signed by: German Sánchez MD (06/04/2020 10:19 AM) [id number] DICTATED and SIGNED BY: GERMAN SÁNCHEZ MD Laboratory Tests Test 06/03/20 12:11 06/03/20 17:07 06/03/20 23:37 06/04/20 05:00 Glucose (Fingerstick) 216 mg/dL (70-99) 271 mg/dL (70-99) 221 mg/dL (70-99) White Blood Count 15.3 x10^3/uL (4.0-11.0) Red Blood Count 4.21 x10^6/uL (4.30-5.70) Hemoglobin 12.9 g/dL (13.0-17.5) Hematocrit 38.5 % (39.0-53.0) Mean Corpuscular Volume 92 fL (79-100) Mean Corpuscular Hemoglobin 31 pg (25-35) Mean Corpuscular Hemoglobin Concent 34 g/dL (31-37) Red Cell Distribution Width 12.8 % (11.5-14.5) Platelet Count 242 x10^3/uL (140-400) Neutrophils (%) (Auto) 80 % (31-73) Lymphocytes (%) (Auto) 11 % (24-48) Monocytes (%) (Auto) 9 % (0-9) Eosinophils (%) (Auto) 0 % (0-3) Basophils (%) (Auto) 1 % (0-3) Neutrophils # (Auto) 12.2 x10^3/uL (1.8-7.7) Lymphocytes # (Auto) 1.7 x10^3/uL (1.0-4.8) Monocytes # (Auto) 1.3 x10^3/uL (0.0-1.1) Eosinophils # (Auto) 0.0 x10^3/uL (0.0-0.7) Basophils # (Auto) 0.1 x10^3/uL (0.0-0.2) Sodium Level 132 mmol/L (136-145) Potassium Level 3.2 mmol/L (3.5-5.1) Chloride Level 96 mmol/L (98-107) Carbon Dioxide Level 25 mmol/L (21-32) Anion Gap 11 (6-14) Blood Urea Nitrogen 24 mg/dL (8-26) Creatinine 1.0 mg/dL (0.7-1.3) Estimated GFR (Cockcroft-Gault) 72.3 BUN/Creatinine Ratio 24 (6-20) Glucose Level 181 mg/dL (70-99) Calcium Level 9.1 mg/dL (8.5-10.1) Total Bilirubin 1.0 mg/dL (0.2-1.0) Aspartate Amino Transf (AST/SGOT) 21 U/L (15-37) Alanine Aminotransferase (ALT/SGPT) 18 U/L (16-63) Alkaline Phosphatase 63 U/L (46-116) Total Protein 6.5 g/dL (6.4-8.2) Albumin 2.8 g/dL (3.4-5.0) Albumin/Globulin Ratio 0.8 (1.0-1.7) Test 06/04/20 05:42 Glucose (Fingerstick) 186 mg/dL (70-99) Comment Review of Relevant I have reviewed the following items joy (where applicable) has been applied. Labs Laboratory Tests Test 06/02/20 19:40 06/03/20 02:24 06/03/20 05:01 06/03/20 05:45 Troponin I Quantitative 0.019 ng/mL (0.000-0.055) Thyroid Stimulating Hormone (TSH) 1.834 uIU/mL (0.358-3.74) Glucose (Fingerstick) 273 mg/dL (70-99) 265 mg/dL (70-99) White Blood Count 14.6 x10^3/uL (4.0-11.0) Red Blood Count 4.00 x10^6/uL (4.30-5.70) Hemoglobin 12.2 g/dL (13.0-17.5) Hematocrit 36.4 % (39.0-53.0) Mean Corpuscular Volume 91 fL (79-100) Mean Corpuscular Hemoglobin 31 pg (25-35) Mean Corpuscular Hemoglobin Concent 34 g/dL (31-37) Red Cell Distribution Width 13.1 % (11.5-14.5) Platelet Count 233 x10^3/uL (140-400) Neutrophils (%) (Auto) 87 % (31-73) Lymphocytes (%) (Auto) 7 % (24-48) Monocytes (%) (Auto) 6 % (0-9) Eosinophils (%) (Auto) 0 % (0-3) Basophils (%) (Auto) 0 % (0-3) Neutrophils # (Auto) 12.7 x10^3/uL (1.8-7.7) Lymphocytes # (Auto) 1.1 x10^3/uL (1.0-4.8) Monocytes # (Auto) 0.8 x10^3/uL (0.0-1.1) Eosinophils # (Auto) 0.0 x10^3/uL (0.0-0.7) Basophils # (Auto) 0.0 x10^3/uL (0.0-0.2) Segmented Neutrophils % 89 % (35-66) Band Neutrophils % 2 % (0-9) Lymphocytes % 8 % (24-48) Monocytes % 1 % (0-10) Platelet Estimate Adequate (ADEQUATE) Prothrombin Time 15.9 SEC (11.7-14.0) Prothromb Time International Ratio 1.3 (0.8-1.1) Activated Partial Thromboplast Time 38 SEC (24-38) Sodium Level 130 mmol/L (136-145) Potassium Level 3.7 mmol/L (3.5-5.1) Chloride Level 96 mmol/L (98-107) Carbon Dioxide Level 23 mmol/L (21-32) Anion Gap 11 (6-14) Blood Urea Nitrogen 22 mg/dL (8-26) Creatinine 0.9 mg/dL (0.7-1.3) Estimated GFR (Cockcroft-Gault) 81.6 BUN/Creatinine Ratio 24 (6-20) Glucose Level 292 mg/dL (70-99) Calcium Level 8.9 mg/dL (8.5-10.1) Total Bilirubin 0.9 mg/dL (0.2-1.0) Aspartate Amino Transf (AST/SGOT) 20 U/L (15-37) Alanine Aminotransferase (ALT/SGPT) 20 U/L (16-63) Alkaline Phosphatase 61 U/L (46-116) Total Protein 6.5 g/dL (6.4-8.2) Albumin 2.9 g/dL (3.4-5.0) Albumin/Globulin Ratio 0.8 (1.0-1.7) Test 06/03/20 09:28 06/03/20 12:11 06/03/20 17:07 06/03/20 23:37 Glucose (Fingerstick) 308 mg/dL (70-99) 216 mg/dL (70-99) 271 mg/dL (70-99) 221 mg/dL (70-99) Test 06/04/20 05:00 06/04/20 05:42 White Blood Count 15.3 x10^3/uL (4.0-11.0) Red Blood Count 4.21 x10^6/uL (4.30-5.70) Hemoglobin 12.9 g/dL (13.0-17.5) Hematocrit 38.5 % (39.0-53.0) Mean Corpuscular Volume 92 fL (79-100) Mean Corpuscular Hemoglobin 31 pg (25-35) Mean Corpuscular Hemoglobin Concent 34 g/dL (31-37) Red Cell Distribution Width 12.8 % (11.5-14.5) Platelet Count 242 x10^3/uL (140-400) Neutrophils (%) (Auto) 80 % (31-73) Lymphocytes (%) (Auto) 11 % (24-48) Monocytes (%) (Auto) 9 % (0-9) Eosinophils (%) (Auto) 0 % (0-3) Basophils (%) (Auto) 1 % (0-3) Neutrophils # (Auto) 12.2 x10^3/uL (1.8-7.7) Lymphocytes # (Auto) 1.7 x10^3/uL (1.0-4.8) Monocytes # (Auto) 1.3 x10^3/uL (0.0-1.1) Eosinophils # (Auto) 0.0 x10^3/uL (0.0-0.7) Basophils # (Auto) 0.1 x10^3/uL (0.0-0.2) Sodium Level 132 mmol/L (136-145) Potassium Level 3.2 mmol/L (3.5-5.1) Chloride Level 96 mmol/L (98-107) Carbon Dioxide Level 25 mmol/L (21-32) Anion Gap 11 (6-14) Blood Urea Nitrogen 24 mg/dL (8-26) Creatinine 1.0 mg/dL (0.7-1.3) Estimated GFR (Cockcroft-Gault) 72.3 BUN/Creatinine Ratio 24 (6-20) Glucose Level 181 mg/dL (70-99) Calcium Level 9.1 mg/dL (8.5-10.1) Total Bilirubin 1.0 mg/dL (0.2-1.0) Aspartate Amino Transf (AST/SGOT) 21 U/L (15-37) Alanine Aminotransferase (ALT/SGPT) 18 U/L (16-63) Alkaline Phosphatase 63 U/L (46-116) Total Protein 6.5 g/dL (6.4-8.2) Albumin 2.8 g/dL (3.4-5.0) Albumin/Globulin Ratio 0.8 (1.0-1.7) Glucose (Fingerstick) 186 mg/dL (70-99) Laboratory Tests Test 06/03/20 12:11 06/03/20 17:07 06/03/20 23:37 06/04/20 05:00 Glucose (Fingerstick) 216 mg/dL (70-99) 271 mg/dL (70-99) 221 mg/dL (70-99) White Blood Count 15.3 x10^3/uL (4.0-11.0) Red Blood Count 4.21 x10^6/uL (4.30-5.70) Hemoglobin 12.9 g/dL (13.0-17.5) Hematocrit 38.5 % (39.0-53.0) Mean Corpuscular Volume 92 fL (79-100) Mean Corpuscular Hemoglobin 31 pg (25-35) Mean Corpuscular Hemoglobin Concent 34 g/dL (31-37) Red Cell Distribution Width 12.8 % (11.5-14.5) Platelet Count 242 x10^3/uL (140-400) Neutrophils (%) (Auto) 80 % (31-73) Lymphocytes (%) (Auto) 11 % (24-48) Monocytes (%) (Auto) 9 % (0-9) Eosinophils (%) (Auto) 0 % (0-3) Basophils (%) (Auto) 1 % (0-3) Neutrophils # (Auto) 12.2 x10^3/uL (1.8-7.7) Lymphocytes # (Auto) 1.7 x10^3/uL (1.0-4.8) Monocytes # (Auto) 1.3 x10^3/uL (0.0-1.1) Eosinophils # (Auto) 0.0 x10^3/uL (0.0-0.7) Basophils # (Auto) 0.1 x10^3/uL (0.0-0.2) Sodium Level 132 mmol/L (136-145) Potassium Level 3.2 mmol/L (3.5-5.1) Chloride Level 96 mmol/L (98-107) Carbon Dioxide Level 25 mmol/L (21-32) Anion Gap 11 (6-14) Blood Urea Nitrogen 24 mg/dL (8-26) Creatinine 1.0 mg/dL (0.7-1.3) Estimated GFR (Cockcroft-Gault) 72.3 BUN/Creatinine Ratio 24 (6-20) Glucose Level 181 mg/dL (70-99) Calcium Level 9.1 mg/dL (8.5-10.1) Total Bilirubin 1.0 mg/dL (0.2-1.0) Aspartate Amino Transf (AST/SGOT) 21 U/L (15-37) Alanine Aminotransferase (ALT/SGPT) 18 U/L (16-63) Alkaline Phosphatase 63 U/L (46-116) Total Protein 6.5 g/dL (6.4-8.2) Albumin 2.8 g/dL (3.4-5.0) Albumin/Globulin Ratio 0.8 (1.0-1.7) Test 06/04/20 05:42 Glucose (Fingerstick) 186 mg/dL (70-99) Medications Current Medications Alteplase, Recombinant 0 ml @ 0 mls/hr Q1M ONCE IV ; Start 12/31/20 at 18:15; Stop 06/01/20 at 18:16; Status UNV Alteplase, Recombinant 0 ml @ 0 mls/hr Q1H IV ; Start 06/01/20 at 18:15; Status UNV Sodium Chloride 50 ml @ 50 mls/hr Q1H ONCE IV Last administered on 06/01/20at 20:31; Start 06/01/20 at 18:15; Stop 06/01/20 at 19:14; Status DC Labetalol HCl (Normodyne Iv Push) 10 mg PRN Q10MIN PRN IVP HYPERTENSION; Start 06/01/20 at 18:15; Stop 06/01/20 at 19:48; Status DC Nicardipine HCl 50 mg/Sodium Chloride 250 ml @ 25 mls/hr CONT PRN PRN IV HYPERTENSION Last administered on 06/01/20at 21:27; Start 06/01/20 at 18:15 Alteplase, Recombinant 7 ml @ 420 mls/hr 1X ONCE IV Last administered on 06/01/20at 18:26; Start 06/01/20 at 18:15; Stop 06/01/20 at 18:16; Status DC Alteplase, Recombinant 63.2 ml @ 63.2 mls/hr Q1H IV Last administered on 06/01/20at 18:30; Start 06/01/20 at 18:30; Stop 06/01/20 at 19:29; Status DC Labetalol HCl (Normodyne Iv Push) 20 mg STK-MED ONCE IVP ; Start 06/01/20 at 18:14; Stop 06/01/20 at 18:14; Status DC Iohexol (Omnipaque 300 Mg/ml) 75 ml 1X ONCE IV Last administered on 06/01/20at 18:58; Start 06/01/20 at 18:45; Stop 06/01/20 at 18:46; Status DC Info (CONTRAST GIVEN -- Rx MONITORING) 1 each PRN DAILY PRN MC SEE COMMENTS; Start 06/01/20 at 18:45; Stop 06/03/20 at 18:44; Status DC Labetalol HCl (Normodyne Iv Push) 10 mg PRN Q10MIN PRN IVP HYPERTENSION Last administered on 06/03/20at 13:46; Start 06/01/20 at 19:45 Nicardipine HCl 50 mg/Sodium Chloride 250 ml @ 25 mls/hr CONT PRN PRN IV HYPERTENSION; Start 06/01/20 at 19:45; Status UNV Acetaminophen (Tylenol) 650 mg PRN Q6HRS PRN PO MILD PAIN / TEMP > 100.3'F; Start 06/01/20 at 19:45 Acetaminophen (Tylenol Supp) 650 mg PRN Q6HRS PRN GA MILD PAIN / TEMP > 100.3'F Last administered on 06/02/20at 22:04; Start 06/01/20 at 19:45 Ondansetron HCl (Zofran) 4 mg PRN Q6HRS PRN IVP NAUSEA/VOMITING; Start 06/01/20 at 19:45; Status Cancel Magnesium Sulfate 50 ml @ 25 mls/hr 1X ONCE IV Last administered on 06/01/20at 21:21; Start 06/01/20 at 20:30; Stop 06/01/20 at 22:29; Status DC Ondansetron HCl (Zofran) 4 mg PRN Q8HRS PRN IV NAUSEA/VOMITING Last administered on 06/01/20at 22:04; Start 06/01/20 at 20:00; Stop 06/02/20 at 19:59; Status DC Prochlorperazine Edisylate (Compazine) 10 mg PRN Q8HRS PRN IV NAUSEA/VOMITING 2ND CHOICE Last administered on 06/02/20at 00:00; Start 06/02/20 at 00:00 Piperacillin Sod/ Tazobactam Sod (Zosyn Per Pharmacy) 1 each PRN DAILY PRN MC SEE COMMENTS; Start 06/02/20 at 10:30 Piperacillin Sod/ Tazobactam Sod 3.375 gm/Sodium Chloride 50 ml @ 100 mls/hr Q6HRS IV Last administered on 06/04/20at 05:57; Start 06/02/20 at 12:00 Amino Acids/ Glycerin/ Electrolytes 1,000 ml @ 80 mls/hr [id number] IV Last a dministered on 06/03/20at 09:32; Start 06/02/20 at 17:15; Stop 06/03/20 at 20:58; Status DC Ondansetron HCl (Zofran) 4 mg PRN Q6HRS PRN IVP NAUSEA/VOMITING; Start 06/02/20 at 19:00 Prochlorperazine (Compazine) 25 mg PRN Q12HR PRN GA NAUSEA/VOMITING; Start at 19:00 Famotidine (Pepcid Vial) 20 mg BID IVP Last administered on 06/03/20at 21:28; Start 06/02/20 at 21:00 Info (Icu Electrolyte Protocol) 1 ea DAILY MC Last administered on 06/03/20at 09:00; Start 06/03/20 at 09:00 Sodium Chloride (Normal Saline Flush) 3 ml QSHIFT PRN IV AFTER MEDS AND BLOOD DRAWS; Start 06/02/20 at 19:00 Sodium Chloride 1,000 ml @ 70 mls/hr [id number] IV Last administered on 06/03/20at 09:33; Start 06/02/20 at 19:00; Stop 06/03/20 at 15:58; Status DC Bisacodyl (Dulcolax Supp) 10 mg PRN DAILY PRN GA CONSTIPATION; Start 06/02/20 at 19:00 Insulin Human Lispro (HumaLOG) 0-5 UNITS TIDWMEALS SQ Last administered on at 17:10; Start 06/03/20 at 08:00; Stop 06/03/20 at 20:58; Status DC Dextrose (Dextrose 50%-Water Syringe) 12.5 gm PRN Q15MIN PRN IV SEE COMMENTS; Start 06/03/20 at 07:00 Lorazepam (Ativan Inj) 2 mg STK-MED ONCE .ROUTE ; Start 06/03/20 at 15:11; Stop 06/03/20 at 15:11; Status DC Lorazepam (Ativan Inj) 2 mg 1X ONCE IVP ; Start 06/03/20 at 15:15; Stop 06/03/20 at 15:18; Status DC Levetiracetam 500 mg/Dextrose 105 ml @ 420 mls/hr Q12HR IV Last administered on 06/03/20at 21:27; Start 06/03/20 at 15:13 Lorazepam (Ativan Inj) 2 mg PRN Q4HRS PRN IVP TREMORS; Start 06/03/20 at 15:15 Furosemide (Lasix) 40 mg 1X ONCE IVP Last administered on 06/03/20at 21:28; Start 06/03/20 at 21:00; Stop 06/03/20 at 21:01; Status DC Amino Acids/ Glycerin/ Electrolytes 1,000 ml @ 60 mls/hr [id number] IV Last administered on 06/03/20at 21:28; Start 06/03/20 at 21:00 Insulin Human Lispro (HumaLOG) 0-7 UNITS Q6HRS SQ Last administered on 06/04/20at 06:02; Start 06/04/20 at 00:00 Dextrose (Dextrose 50%-Water Syringe) 12.5 gm PRN Q15MIN PRN IV SEE COMMENTS; Start 06/03/20 at 21:00 Active Scripts Active Reported Aspir-Low (Aspirin) 81 Mg Tablet.dr 162 Mg PO Tamsulosin Hcl 0.4 Mg Cap.er.24h 0.4 Mg PO DAILY Levemir (Insulin Detemir) 100 Unit/1 Ml Vial 26 Unit SQ Simvastatin 5 Mg Tablet 2 Mg PO HS Duloxetine Hcl 20 Mg Capsule. 20 Mg PO DAILY Glimepiride 2 Mg Tablet 1 Tab PO DAILY Omeprazole 20 Mg Capsule.dr 1 Cap PO DAILY Metformin Hcl 1,000 Mg Tablet 1 Tab PO BIDWMEALS Vitals/I & O Vital Sign - Last 24 Hours 06/03/20 06/03/20 06/03/20 06/03/20 12:00 13:00 13:46 14:00 Temp 98.9 98.9 Pulse 82 70 130 92 Resp 27 30 29 B/P (MAP) 165/72 (103) 160/60 (93) 163/73 163/73 (103) Pulse Ox 97 97 93 O2 Delivery Room Air Room Air Room Air 06/03/20 06/03/20 06/03/20 06/03/20 15:00 16:00 17:00 18:00 Temp 99.6 99.6 Pulse 80 82 81 77 Resp 25 25 25 25 B/P (MAP) 196/77 (116) 127/61 (83) 143/63 (89) 150/70 (96) Pulse Ox 94 94 95 95 O2 Delivery Room Air Room Air Room Air Room Air 06/03/20 06/03/20 06/03/20 06/03/20 19:00 20:00 21:00 22:00 Pulse 74 74 72 76 Resp 26 26 25 28 B/P (MAP) 146/64 (91) 145/67 (93) 139/59 (85) 145/62 (89) Pulse Ox 96 87 98 99 O2 Delivery Room Air Room Air Nasal Cannula Room Air O2 Flow Rate 3.0 06/03/20 06/04/20 06/04/20 06/04/20 23:00 00:00 00:29 00:37 Temp 99.2 99.2 Pulse 72 78 Resp 23 23 B/P (MAP) 143/68 (93) 108/60 (76) Pulse Ox 96 96 97 O2 Delivery Nasal Cannula Nasal Cannula Nasal Cannula Nasal Cannula O2 Flow Rate 3.0 3.0 3.0 3.0 06/04/20 06/04/20 06/04/20 06/04/20 01:00 02:00 03:00 04:00 Temp 98.8 98.8 Pulse 72 74 73 70 Resp 24 22 B/P (MAP) 131/59 (83) 120/56 (77) 126/55 (78) 114/53 (73) Pulse Ox 98 96 94 96 O2 Delivery Nasal Cannula Nasal Cannula Nasal Cannula Nasal Cannula O2 Flow Rate 2.0 2.0 2.0 2.0 06/04/20 06/04/20 06/04/20 04:00 05:00 06:00 Pulse 74 70 Resp 31 23 B/P (MAP) 122/66 (84) 137/60 (85) Pulse Ox 93 96 O2 Delivery Nasal Cannula Nasal Cannula Nasal Cannula O2 Flow Rate 2.0 1.0 2.0 Intake and Output 06/03/20 06/03/20 06/04/20 15:00 23:00 07:00 Intake Total 0 ml 0 ml 3221 ml Output Total 400 ml 700 ml 2000 ml Balance -400 ml -700 ml 1221 ml Justicifation of Admission Dx: Justifications for Admission: Justification of Admission Dx: Yes Stroke - Ischemic: Stroke-Ischemic Sepsis: Altered Mental Status Altered Mental Status: Altered Mental Status MARGARET PATEL MD Jun 04, 2020 11:04
--- NOTE | 2020-06-04 11:38 | PDOC ---
Infectious Disease Note Subjective: Subjective Patient little more alert Does not answer all questions Fever pattern is improving Remains on 2 L O2 by nasal cannula Vital Signs: Vital Signs Vital Signs Date Time Temp Pulse Resp B/P (MAP) Pulse Ox O2 Delivery O2 Flow Rate FiO2 06/04/20 06:00 70 23 137/60 (85) 96 Nasal Cannula 2.0 06/04/20 04:00 98.8 98.8 Physical Exam: PHYSICAL EXAM GENERAL: Well-developed, well-nourished male, nonverbal, does not follow any commands, in no acute distress. HEENT: Normocephalic, atraumatic, anicteric. No thrush on room air. NECK: Supple, no lymphadenopathy, no JVD. LUNGS: Clear bilaterally. No wheezing. HEART: S1, S2. No gallops or murmurs. ABDOMEN: Soft, nontender, nondistended. EXTREMITIES: No edema, no cyanosis. DERMATOLOGIC: Warm, dry. No generalized rash. NEUROLOGIC: Does not follow any commands. See neurology exam for full details. Medications: Inpatient Meds: Current Medications Medications (Trade) Dose Ordered Sig/Snoja Start Time Stop Time Status Last Admin Dose Admin Acetaminophen (Tylenol Supp) 650 mg PRN Q6HRS PRN 06/01/20 19:45 06/02/20 22:04 650 MG Acetaminophen (Tylenol) 650 mg PRN Q6HRS PRN 06/01/20 19:45 Alteplase, Recombinant 63.2 ml @ 63.2 mls/hr Q1H 06/01/20 18:30 06/01/20 19:29 DC 06/01/20 18:30 63.2 MLS/HR Amino Acids/ Glycerin/ Electrolytes 1,000 ml @ 60 mls/hr [id number] 06/03/20 21:00 06/03/20 21:28 60 MLS/HR Bisacodyl (Dulcolax Supp) 10 mg PRN DAILY PRN 06/02/20 19:00 Dextrose (Dextrose 50%-Water Syringe) 12.5 gm PRN Q15MIN PRN 06/03/20 21:00 Famotidine (Pepcid Vial) 20 mg BID 06/02/20 21:00 06/03/20 21:28 20 MG Furosemide (Lasix) 40 mg 1X ONCE 06/03/20 21:00 06/03/20 21:01 DC 06/03/20 21:28 40 MG Info (CONTRAST GIVEN -- Rx MONITORING) 1 each PRN DAILY PRN 06/01/20 18:45 06/03/20 18:44 DC Info ([facility] Electrolyte Protocol) 1 ea DAILY 06/03/20 09:00 06/03/20 09:00 1 EA Insulin Human Lispro (HumaLOG) 0-7 UNITS Q6HRS 06/04/20 00:00 06/04/20 06:02 3 UNITS Iohexol (Omnipaque 300 Mg/ml) 75 ml 1X ONCE 06/01/20 18:45 06/01/20 18:46 DC 06/01/20 18:58 75 ML Labetalol HCl (Normodyne Iv Push) 10 mg PRN Q10MIN PRN 06/01/20 19:45 06/03/20 13:46 10 MG Levetiracetam 500 mg/Dextrose 105 ml @ 420 mls/hr Q12HR 06/03/20 15:13 06/03/20 21:27 420 MLS/HR Lorazepam (Ativan Inj) 2 mg PRN Q4HRS PRN 06/03/20 15:15 Magnesium Sulfate 50 ml @ 25 mls/hr 1X ONCE 06/01/20 20:30 06/01/20 22:29 DC 06/01/20 21:21 25 MLS/HR Nicardipine HCl 50 mg/Sodium Chloride 250 ml @ 25 mls/hr CONT PRN PRN 06/01/20 19:45 UNV Ondansetron HCl (Zofran) 4 mg PRN Q6HRS PRN 06/02/20 19:00 Piperacillin Sod/ Tazobactam Sod (Zosyn Per Pharmacy) 1 each PRN DAILY PRN 06/02/20 10:30 Piperacillin Sod/ Tazobactam Sod 3.375 gm/Sodium Chloride 50 ml @ 100 mls/hr Q6HRS 06/02/20 12:00 06/04/20 05:57 100 MLS/HR Prochlorperazine (Compazine) 25 mg PRN Q12HR PRN 06/02/20 19:00 Prochlorperazine Edisylate (Compazine) 10 mg PRN Q8HRS PRN 06/02/20 00:00 06/02/20 00:00 10 MG Sodium Chloride 1,000 ml @ 70 mls/hr [id number] 06/02/20 19:00 06/03/20 15:58 DC 06/03/20 09:33 70 MLS/HR Sodium Chloride (Normal Saline Flush) 3 ml QSHIFT PRN 06/02/20 19:00 Labs: Lab Laboratory Tests Test 06/03/20 12:11 06/03/20 17:07 06/03/20 23:37 06/04/20 05:00 Glucose (Fingerstick) 216 mg/dL (70-99) 271 mg/dL (70-99) 221 mg/dL (70-99) White Blood Count 15.3 x10^3/uL (4.0-11.0) Red Blood Count 4.21 x10^6/uL (4.30-5.70) Hemoglobin 12.9 g/dL (13.0-17.5) Hematocrit 38.5 % (39.0-53.0) Mean Corpuscular Volume 92 fL (79-100) Mean Corpuscular Hemoglobin 31 pg (25-35) Mean Corpuscular Hemoglobin Concent 34 g/dL (31-37) Red Cell Distribution Width 12.8 % (11.5-14.5) Platelet Count 242 x10^3/uL (140-400) Neutrophils (%) (Auto) 80 % (31-73) Lymphocytes (%) (Auto) 11 % (24-48) Monocytes (%) (Auto) 9 % (0-9) Eosinophils (%) (Auto) 0 % (0-3) Basophils (%) (Auto) 1 % (0-3) Neutrophils # (Auto) 12.2 x10^3/uL (1.8-7.7) Lymphocytes # (Auto) 1.7 x10^3/uL (1.0-4.8) Monocytes # (Auto) 1.3 x10^3/uL (0.0-1.1) Eosinophils # (Auto) 0.0 x10^3/uL (0.0-0.7) Basophils # (Auto) 0.1 x10^3/uL (0.0-0.2) Sodium Level 132 mmol/L (136-145) Potassium Level 3.2 mmol/L (3.5-5.1) Chloride Level 96 mmol/L (98-107) Carbon Dioxide Level 25 mmol/L (21-32) Anion Gap 11 (6-14) Blood Urea Nitrogen 24 mg/dL (8-26) Creatinine 1.0 mg/dL (0.7-1.3) Estimated GFR (Cockcroft-Gault) 72.3 BUN/Creatinine Ratio 24 (6-20) Glucose Level 181 mg/dL (70-99) Calcium Level 9.1 mg/dL (8.5-10.1) Total Bilirubin 1.0 mg/dL (0.2-1.0) Aspartate Amino Transf (AST/SGOT) 21 U/L (15-37) Alanine Aminotransferase (ALT/SGPT) 18 U/L (16-63) Alkaline Phosphatase 63 U/L (46-116) Total Protein 6.5 g/dL (6.4-8.2) Albumin 2.8 g/dL (3.4-5.0) Albumin/Globulin Ratio 0.8 (1.0-1.7) Test 06/04/20 05:42 Glucose (Fingerstick) 186 mg/dL (70-99) Objective: Assessment: 1. Febrile illness. Likely aspiration pneumonia 2. Acute cerebrovascular accident. 3. History of previous cerebrovascular accident. 4. Diabetes mellitus. 5. Hyperlipidemia/hypertension. Plan: Plan of Care 1. Continue Zosyn 2. Follow up labs and cultures. 3. Maintain aspiration precautions . Discussed with ANTWON. DAWIT BOSTON MD Jun 04, 2020 11:38
--- NOTE | 2020-06-04 14:04 | PDOC ---
PROGRESS NOTES Date of Service DATE: 06/04/20 TIME: 14:02 Assessment Left temporal and occipital lobe cortical stroke Subarachnoid and subdural hemorrhage overlying the left temporal/occipital/parietal lobe measuring approximate 5 mm in thickness, stable on 06/[address] Chronic small vessel ischemic change. I saw him in 2016 for right occipital stroke with left field-cut Status-post alteplase Diabetes, hypertension, hyperlipidemia, favorable lipid profile Peripheral neuropathy due to diabetes Mild cognitive impairment Low-grade fevers, suspect aspiration pneumonia Plan Await echocardiogram, may need transesophageal echocardiogram and outpatient cardiac monitoring as he has now had 2 cortical strokes in the last 3 years Transfer to medical floor Repeat head CT on 06/06 Transfer to rehab possibly by mid next week Discussed with Subjective none Objective Vital Signs Date Time Temp Pulse Resp B/P (MAP) Pulse Ox O2 Delivery O2 Flow Rate FiO2 06/04/20 12:00 Nasal Cannula 2.0 06/04/20 12:00 78 26 98 06/04/20 07:00 97.3 97.3 Intake and Output 06/04/20 07:00 Intake Total 3221 ml Output Total 3100 ml Balance 121 ml Intake Oral 0 ml Blood Product IV Normal Saline Flush 3221 ml Stool Total 3100 ml # Voids 4 PHYSICAL EXAM Alerts to voice, moves a little bit to command PERRL. EOMI. CN: Right central facial weakness. Muscle tone: Increased in the left, especially the left leg Muscle strength: 2-3/5 DTR: 2+ Plantar reflex: Silent Gait: not tested. Sensory exam: Not cooperative. Cerebellar:Not cooperative. Review of Relevant I have reviewed the following items joy (where applicable) has been applied. Labs Laboratory Tests Test 06/02/20 19:40 06/03/20 02:24 06/03/20 05:01 06/03/20 05:45 Troponin I Quantitative 0.019 ng/mL (0.000-0.055) Thyroid Stimulating Hormone (TSH) 1.834 uIU/mL (0.358-3.74) Glucose (Fingerstick) 273 mg/dL (70-99) 265 mg/dL (70-99) White Blood Count 14.6 x10^3/uL (4.0-11.0) Red Blood Count 4.00 x10^6/uL (4.30-5.70) Hemoglobin 12.2 g/dL (13.0-17.5) Hematocrit 36.4 % (39.0-53.0) Mean Corpuscular Volume 91 fL (79-100) Mean Corpuscular Hemoglobin 31 pg (25-35) Mean Corpuscular Hemoglobin Concent 34 g/dL (31-37) Red Cell Distribution Width 13.1 % (11.5-14.5) Platelet Count 233 x10^3/uL (140-400) Neutrophils (%) (Auto) 87 % (31-73) Lymphocytes (%) (Auto) 7 % (24-48) Monocytes (%) (Auto) 6 % (0-9) Eosinophils (%) (Auto) 0 % (0-3) Basophils (%) (Auto) 0 % (0-3) Neutrophils # (Auto) 12.7 x10^3/uL (1.8-7.7) Lymphocytes # (Auto) 1.1 x10^3/uL (1.0-4.8) Monocytes # (Auto) 0.8 x10^3/uL (0.0-1.1) Eosinophils # (Auto) 0.0 x10^3/uL (0.0-0.7) Basophils # (Auto) 0.0 x10^3/uL (0.0-0.2) Segmented Neutrophils % 89 % (35-66) Band Neutrophils % 2 % (0-9) Lymphocytes % 8 % (24-48) Monocytes % 1 % (0-10) Platelet Estimate Adequate (ADEQUATE) Prothrombin Time 15.9 SEC (11.7-14.0) Prothromb Time International Ratio 1.3 (0.8-1.1) Activated Partial Thromboplast Time 38 SEC (24-38) Sodium Level 130 mmol/L (136-145) Potassium Level 3.7 mmol/L (3.5-5.1) Chloride Level 96 mmol/L (98-107) Carbon Dioxide Level 23 mmol/L (21-32) Anion Gap 11 (6-14) Blood Urea Nitrogen 22 mg/dL (8-26) Creatinine 0.9 mg/dL (0.7-1.3) Estimated GFR (Cockcroft-Gault) 81.6 BUN/Creatinine Ratio 24 (6-20) Glucose Level 292 mg/dL (70-99) Calcium Level 8.9 mg/dL (8.5-10.1) Total Bilirubin 0.9 mg/dL (0.2-1.0) Aspartate Amino Transf (AST/SGOT) 20 U/L (15-37) Alanine Aminotransferase (ALT/SGPT) 20 U/L (16-63) Alkaline Phosphatase 61 U/L (46-116) Total Protein 6.5 g/dL (6.4-8.2) Albumin 2.9 g/dL (3.4-5.0) Albumin/Globulin Ratio 0.8 (1.0-1.7) Test 06/03/20 09:28 06/03/20 12:11 06/03/20 17:07 06/03/20 23:37 Glucose (Fingerstick) 308 mg/dL (70-99) 216 mg/dL (70-99) 271 mg/dL (70-99) 221 mg/dL (70-99) Test 06/04/20 05:00 06/04/20 05:42 White Blood Count 15.3 x10^3/uL (4.0-11.0) Red Blood Count 4.21 x10^6/uL (4.30-5.70) Hemoglobin 12.9 g/dL (13.0-17.5) Hematocrit 38.5 % (39.0-53.0) Mean Corpuscular Volume 92 fL (79-100) Mean Corpuscular Hemoglobin 31 pg (25-35) Mean Corpuscular Hemoglobin Concent 34 g/dL (31-37) Red Cell Distribution Width 12.8 % (11.5-14.5) Platelet Count 242 x10^3/uL (140-400) Neutrophils (%) (Auto) 80 % (31-73) Lymphocytes (%) (Auto) 11 % (24-48) Monocytes (%) (Auto) 9 % (0-9) Eosinophils (%) (Auto) 0 % (0-3) Basophils (%) (Auto) 1 % (0-3) Neutrophils # (Auto) 12.2 x10^3/uL (1.8-7.7) Lymphocytes # (Auto) 1.7 x10^3/uL (1.0-4.8) Monocytes # (Auto) 1.3 x10^3/uL (0.0-1.1) Eosinophils # (Auto) 0.0 x10^3/uL (0.0-0.7) Basophils # (Auto) 0.1 x10^3/uL (0.0-0.2) Sodium Level 132 mmol/L (136-145) Potassium Level 3.2 mmol/L (3.5-5.1) Chloride Level 96 mmol/L (98-107) Carbon Dioxide Level 25 mmol/L (21-32) Anion Gap 11 (6-14) Blood Urea Nitrogen 24 mg/dL (8-26) Creatinine 1.0 mg/dL (0.7-1.3) Estimated GFR (Cockcroft-Gault) 72.3 BUN/Creatinine Ratio 24 (6-20) Glucose Level 181 mg/dL (70-99) Calcium Level 9.1 mg/dL (8.5-10.1) Total Bilirubin 1.0 mg/dL (0.2-1.0) Aspartate Amino Transf (AST/SGOT) 21 U/L (15-37) Alanine Aminotransferase (ALT/SGPT) 18 U/L (16-63) Alkaline Phosphatase 63 U/L (46-116) Total Protein 6.5 g/dL (6.4-8.2) Albumin 2.8 g/dL (3.4-5.0) Albumin/Globulin Ratio 0.8 (1.0-1.7) Glucose (Fingerstick) 186 mg/dL (70-99) Laboratory Tests Test 06/03/20 17:07 06/03/20 23:37 06/04/20 05:00 06/04/20 05:42 Glucose (Fingerstick) 271 mg/dL (70-99) 221 mg/dL (70-99) 186 mg/dL (70-99) White Blood Count 15.3 x10^3/uL (4.0-11.0) Red Blood Count 4.21 x10^6/uL (4.30-5.70) Hemoglobin 12.9 g/dL (13.0-17.5) Hematocrit 38.5 % (39.0-53.0) Mean Corpuscular Volume 92 fL (79-100) Mean Corpuscular Hemoglobin 31 pg (25-35) Mean Corpuscular Hemoglobin Concent 34 g/dL (31-37) Red Cell Distribution Width 12.8 % (11.5-14.5) Platelet Count 242 x10^3/uL (140-400) Neutrophils (%) (Auto) 80 % (31-73) Lymphocytes (%) (Auto) 11 % (24-48) Monocytes (%) (Auto) 9 % (0-9) Eosinophils (%) (Auto) 0 % (0-3) Basophils (%) (Auto) 1 % (0-3) Neutrophils # (Auto) 12.2 x10^3/uL (1.8-7.7) Lymphocytes # (Auto) 1.7 x10^3/uL (1.0-4.8) Monocytes # (Auto) 1.3 x10^3/uL (0.0-1.1) Eosinophils # (Auto) 0.0 x10^3/uL (0.0-0.7) Basophils # (Auto) 0.1 x10^3/uL (0.0-0.2) Sodium Level 132 mmol/L (136-145) Potassium Level 3.2 mmol/L (3.5-5.1) Chloride Level 96 mmol/L (98-107) Carbon Dioxide Level 25 mmol/L (21-32) Anion Gap 11 (6-14) Blood Urea Nitrogen 24 mg/dL (8-26) Creatinine 1.0 mg/dL (0.7-1.3) Estimated GFR (Cockcroft-Gault) 72.3 BUN/Creatinine Ratio 24 (6-20) Glucose Level 181 mg/dL (70-99) Calcium Level 9.1 mg/dL (8.5-10.1) Total Bilirubin 1.0 mg/dL (0.2-1.0) Aspartate Amino Transf (AST/SGOT) 21 U/L (15-37) Alanine Aminotransferase (ALT/SGPT) 18 U/L (16-63) Alkaline Phosphatase 63 U/L (46-116) Total Protein 6.5 g/dL (6.4-8.2) Albumin 2.8 g/dL (3.4-5.0) Albumin/Globulin Ratio 0.8 (1.0-1.7) Medications Current Medications Alteplase, Recombinant 0 ml @ 0 mls/hr Q1M ONCE IV ; Start 06/01/20 at 18:15; Stop 06/01/20 at 18:16; Status UNV Alteplase, Recombinant 0 ml @ 0 mls/hr Q1H IV ; Start 06/01/20 at 18:15; Status UNV Sodium Chloride 50 ml @ 50 mls/hr Q1H ONCE IV Last administered on 06/01/20at 20:31; Start 06/01/20 at 18:15; Stop 06/01/20 at 19:14; Status DC Labetalol HCl (Normodyne Iv Push) 10 mg PRN Q10MIN PRN IVP HYPERTENSION; Start 06/01/20 at 18:15; Stop 06/01/20 at 19:48; Status DC Nicardipine HCl 50 mg/Sodium Chloride 250 ml @ 25 mls/hr CONT PRN PRN IV HYPERTENSION Last administered on 06/01/20at 21:27; Start 06/01/20 at 18:15 Alteplase, Recombinant 7 ml @ 420 mls/hr 1X ONCE IV Last administered on 06/01/20at 18:26; Start 06/01/20 at 18:15; Stop 06/01/20 at 18:16; Status DC Alteplase, Recombinant 63.2 ml @ 63.2 mls/hr Q1H IV Last administered on 06/01/20at 18:30; Start 06/01/20 at 18:30; Stop 06/01/20 at 19:29; Status DC Labetalol HCl (Normodyne Iv Push) 20 mg STK-MED ONCE IVP ; Start 06/01/20 at 18:14; Stop 06/01/20 at 18:14; Status DC Iohexol (Omnipaque 300 Mg/ml) 75 ml 1X ONCE IV Last administered on 06/01/20at 18:58; Start 06/01/20 at 18:45; Stop 06/01/20 at 18:46; Status DC Info (CONTRAST GIVEN -- Rx MONITORING) 1 each PRN DAILY PRN MC SEE COMMENTS; Start 06/01/20 at 18:45; Stop 06/03/20 at 18:44; Status DC Labetalol HCl (Normodyne Iv Push) 10 mg PRN Q10MIN PRN IVP HYPERTENSION Last administered on 06/03/20at 13:46; Start 06/01/20 at 19:45 Nicardipine HCl 50 mg/Sodium Chloride 250 ml @ 25 mls/hr CONT PRN PRN IV HYPERTENSION; Start 06/01/20 at 19:45; Status UNV Acetaminophen (Tylenol) 650 mg PRN Q6HRS PRN PO MILD PAIN / TEMP > 100.3'F; Start 06/01/20 at 19:45 Acetaminophen (Tylenol Supp) 650 mg PRN Q6HRS PRN [place] MILD PAIN / TEMP > 100.3'F Last administered on 06/02/20at 22:04; Start 06/01/20 at 19:45 Ondansetron HCl (Zofran) 4 mg PRN Q6HRS PRN IVP NAUSEA/VOMITING; Start 06/01/20 at 19:45; Status Cancel Magnesium Sulfate 50 ml @ 25 mls/hr 1X ONCE IV Last administered on 06/01/20at 21:21; Start 06/01/20 at 20:30; Stop 06/01/20 at 22:29; Status DC Ondansetron HCl (Zofran) 4 mg PRN Q8HRS PRN IV NAUSEA/VOMITING Last administered on 06/01/20at 22:04; Start 06/01/20 at 20:00; Stop 06/02/20 at 19:59; Status DC Prochlorperazine Edisylate (Compazine) 10 mg PRN Q8HRS PRN IV NAUSEA/VOMITING 2ND CHOICE Last administered on 06/02/20at 00:00; Start 06/02/20 at 00:00 Piperacillin Sod/ Tazobactam Sod (Zosyn Per Pharmacy) 1 each PRN DAILY PRN MC SEE COMMENTS; Start 06/02/20 at 10:30 Piperacillin Sod/ Tazobactam Sod 3.375 gm/Sodium Chloride 50 ml @ 100 mls/hr Q6HRS IV Last administered on 06/04/20at 05:57; Start 06/02/20 at 12:00 Amino Acids/ Glycerin/ Electrolytes 1,000 ml @ 80 mls/hr [id number] IV Last administered on 06/03/20at 09:32; Start 06/02/20 at 17:15; Stop 06/03/20 at 20:58; Status DC Ondansetron HCl (Zofran) 4 mg PRN Q6HRS PRN IVP NAUSEA/VOMITING; Start 06/02/20 at 19:00 Prochlorperazine (Compazine) 25 mg PRN Q12HR PRN [place] NAUSEA/VOMITING; Start 06/02/20 at 19:00 Famotidine (Pepcid Vial) 20 mg BID IVP Last administered on 06/03/20at 21:28; Start 06/02/20 at 21:00 Info (Icu Electrolyte Protocol) 1 ea DAILY MC Last administered on 06/03/20at 09:00; Start 06/03/20 at 09:00 Sodium Chloride (Normal Saline Flush) 3 ml QSHIFT PRN IV AFTER MEDS AND BLOOD DRAWS; Start 06/02/20 at 19:00 Sodium Chloride 1,000 ml @ 70 mls/hr [id number] IV Last administered on 06/03/20at 09:33; Start 06/02/20 at 19:00; Stop 06/03/20 at 15:58; Status DC Bisacodyl (Dulcolax Supp) 10 mg PRN DAILY PRN [place] CONSTIPATION; Start 06/02/20 at 19:00 Insulin Human Lispro (HumaLOG) 0-5 UNITS TIDWMEALS SQ Last administered on 06/03/20at 17:10; Start 06/03/20 at 08:00; Stop 06/03/20 at 20:58; Status DC Dextrose (Dextrose 50%-Water Syringe) 12.5 gm PRN Q15MIN PRN IV SEE COMMENTS; Start 06/03/20 at 07:00 Lorazepam (Ativan Inj) 2 mg STK-MED ONCE .ROUTE ; Start 06/03/20 at 15:11; Stop 06/03/20 at 15:11; Status DC Lorazepam (Ativan Inj) 2 mg 1X ONCE IVP ; Start 06/03/20 at 15:15; Stop 06/03/20 at 15:18; Status DC Levetiracetam 500 mg/Dextrose 105 ml @ 420 mls/hr Q12HR IV Last administered on 06/03/20at 21:27; Start 06/03/20 at 15:13 Lorazepam (Ativan Inj) 2 mg PRN Q4HRS PRN IVP TREMORS; Start 06/03/20 at 15:15 Furosemide (Lasix) 40 mg 1X ONCE IVP Last administered on 06/03/20at 21:28; Start 06/03/20 at 21:00; Stop 06/03/20 at 21:01; Status DC Amino Acids/ Glycerin/ Electrolytes 1,000 ml @ 60 mls/hr [id number] IV Last administered on 06/03/20at 21:28; Start 06/03/20 at 21:00 Insulin Human Lispro (HumaLOG) 0-7 UNITS Q6HRS SQ Last administered on 06/04/20at 06:02; Start 06/04/20 at 00:00 Dextrose (Dextrose 50%-Water Syringe) 12.5 gm PRN Q15MIN PRN IV SEE COMMENTS; Start 06/03/20 at 21:00 Active Scripts Active Reported Aspir-Low (Aspirin) 81 Mg Tablet.dr 162 Mg PO Tamsulosin Hcl 0.4 Mg Cap.er.24h 0.4 Mg PO DAILY Levemir (Insulin Detemir) 100 Unit/1 Ml Vial 26 Unit SQ Simvastatin 5 Mg Tablet 2 Mg PO HS Duloxetine Hcl 20 Mg Capsule. 20 Mg PO DAILY Glimepiride 2 Mg Tablet 1 Tab PO DAILY Omeprazole 20 Mg Capsule.dr 1 Cap PO DAILY Metformin Hcl 1,000 Mg Tablet 1 Tab PO BIDWMEALS Vitals/I & O Vital Sign - Last 24 Hours 06/03/20 06/03/20 06/03/20 06/03/20 15:00 16:00 17:00 18:00 Temp 99.6 99.6 Pulse 80 82 81 77 Resp 25 25 25 25 B/P (MAP) 196/77 (116) 127/61 (83) 143/63 (89) 150/70 (96) Pulse Ox 94 94 95 95 O2 Delivery Room Air Room Air Room Air Room Air 06/03/20 06/03/20 06/03/20 06/03/20 19:00 20:00 21:00 22:00 Pulse 74 74 72 76 Resp 26 26 25 28 B/P (MAP) 146/64 (91) 145/67 (93) 139/59 (85) 145/62 (89) Pulse Ox 96 87 98 99 O2 Delivery Room Air Room Air Nasal Cannula Room Air O2 Flow Rate 3.0 06/03/20 06/04/20 06/04/20 06/04/20 23:00 00:00 00:29 00:37 Temp 99.2 99.2 Pulse 72 78 Resp 23 23 B/P (MAP) 143/68 (93) 108/60 (76) Pulse Ox 96 96 97 O2 Delivery Nasal Cannula Nasal Cannula Nasal Cannula Nasal Cannula O2 Flow Rate 3.0 3.0 3.0 3.0 06/04/20 06/04/20 06/04/20 06/04/20 01:00 02:00 03:00 04:00 Temp 98.8 98.8 Pulse 72 74 73 70 Resp 24 29 23 22 B/P (MAP) 131/59 (83) 120/56 (77) 126/55 (78) 114/53 (73) Pulse Ox 98 96 94 96 O2 Delivery Nasal Cannula Nasal Cannula Nasal Cannula Nasal Cannula O2 Flow Rate 2.0 2.0 2.0 2.0 06/04/20 06/04/20 06/04/20 06/04/20 04:00 05:00 06:00 07:00 Temp 97.3 97.3 Pulse 74 70 78 Resp 31 23 31 B/P (MAP) 122/66 (84) 137/60 (85) 127/62 (83) Pulse Ox 93 96 94 O2 Delivery Nasal Cannula Nasal Cannula Nasal Cannula Nasal Cannula O2 Flow Rate 2.0 1.0 2.0 2.0 06/04/20 06/04/20 06/04/20 06/04/20 08:00 08:00 09:00 10:00 Pulse 74 80 80 Resp 26 27 32 B/P (MAP) 113/52 (72) 124/63 (83) 127/62 (83) Pulse Ox 88 96 98 O2 Delivery Nasal Cannula Nasal Cannula Nasal Cannula Nasal Cannula O2 Flow Rate 2.5 3.0 2.5 2.5 06/04/20 06/04/20 06/04/20 11:00 12:00 12:00 Pulse 78 78 Resp 27 26 B/P (MAP) 133/60 (84) Pulse Ox 100 98 O2 Delivery Nasal Cannula Nasal Cannula Nasal Cannula O2 Flow Rate 2.0 Intake and Output 06/03/20 06/03/20 06/04/20 15:00 23:00 07:00 Intake Total 0 ml 0 ml 3221 ml Output Total 400 ml 700 ml 2000 ml Balance -400 ml -700 ml [address] HEAD/BRAIN WO Date: 06/04/2020 9:11 AM Clinical Indication: Reason: F/U SAH, SDH, left temporal/occipital/parietal / Spl. Instructions: / History: Comparison: 06/02/2020. Technique: 5 mm axial tomographic images were obtained of the head without contrast. These were viewed on brain and bone windows. One or more of the following dose reduction techniques were utilized: Automated exposure control (AEC), Adjustment of mA and/or kV according to patient size, Use of iterative reconstruction technique such as ASiR, CT scan done according to ALARA and image gently/image wisely Findings: Stable left cerebral convexity subdural blood products measuring approximately 5 mm in thickness. Stable small amount of subdural blood products along the left tentorium. Improving trace left subarachnoid blood products. Low attenuation in the left temporal occipital region corresponding to the acute infarct seen on the recent MRI. The ventricles are normal in size, shape, and morphology. The subarachnoid cisterns are patent. The visualized paranasal sinuses are normal. The visualized portions of the orbits and globes are normal. The mastoid air cells are clear. The personal financial advisor topogram shows no lytic lesion or fracture. Impression: 1. Stable small left subdural hematoma measuring 5 mm in thickness. Minimal mass effect with no midline shift. 2. Improving trace left subarachnoid blood products. 3. 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 Justicifation of Admission Dx: Justifications for Admission: Justification of Admission Dx: Yes Stroke - Ischemic: Stroke-Ischemic Sepsis: Altered Mental Status Altered Mental Status: Altered Mental Status TERRY BARONE MD Jun 04, 2020 14:04
[2020-06-04] MEDS: FAMOTIDINE 20 MG/2 ML VIAL IVP SCH ×2 (16:25→20:32)
[2020-06-04] MEDS: levETIRAcetam 500 MG in IV DEXTROSE 5% 100ML 100 ML IV SCH ×2 (16:27→21:44)
[2020-06-04] MEDS: AMINO AC 3%/ELECTROLYTE/GLYCER 1,000 ML IV SCH (16:36)
--- NOTE | 2020-06-04 18:16 | NUR ---
2nd CT complete. Late afternoon orders to transfer to stepdown. 1715 to room 268 per bed no change in subdural per CT results [facility] call as of 06/02. Lower dentre missing but found i patients mouth by transfer nurse. Phone call to concerning room transfer ( current # provided). status quo qt this time
--- NOTE | 2020-06-04 19:00 | NUR ---
Patient transferred from ICU around 1800, [facility] preformed. ICU electrolyte protocol not preformed from 0900, drug room clerk notified.
[2020-06-04] MEDS: ELECTROLYTE (ICU) PROTOCOL. MC SCH (20:00)
[2020-06-04] MEDS: POTASSIUM CHLORIDE 10MEQ 100 ML IV SCH ×3 (20:32→22:45)
[2020-06-05] VITALS (7 sets, daily range): BP systolic 125–181; BP diastolic 61–75
[2020-06-05] MEDS: POTASSIUM CHLORIDE 10MEQ 100 ML IV SCH ×5 (00:10→15:40)
[2020-06-05] MEDS: PIPERACILLIN/TAZOBACTAM 3.375 GM in IV NORMAL SALINE 50ML 50 ML IV SCH ×3 (05:36→17:50)
[2020-06-05] MEDS: INSULIN LISPRO 300 UNITS/3 ML VIAL. SQ SCH ×3 (06:25→17:49)
--- NOTE | 2020-06-05 08:08 | PDOC ---
[facility] PROGRESS NOTE Date of Service DOS: DATE: 06/05/20 TIME: 08:05 Chief Complaint Chief Complaint A/P: CVA (cerebral vascular accident), Acute, post alteplase occipital stroke with left field-cut 2017 subarachnoid and subdural hemorrhage overlying the left temporal/occipital /parietal lobe measuring approximate 5 mm in thickness.MRI 1/ Acute metabolic encephalopathy FEVER aspiration pneumonia Suspected left retrocardiac opacities. This could be atelectasis or infiltrate. PUI COVID 19 hypomagnesemia HYPONATREMIA, VOLUME overload PLAN ICU BED MRI HEAD ID CONSULT BLOOD CULTURES MRI HEAD reviewed RESP ISOLATION iv empiric zosyn dvt prophylaxis Echocardiogram replace lytes D/C IV NS NEUROSURGERY consult electrolyte protocol Patient remains nonresponsive 06-03 covid pcr neg T-max 101.8 06-02-20 37 min cc time Justifications for Admission Justifications for Admission Other Justification History of Present Illness History of Present Illness Mr Benavides is a 79yo M w/ PMHx Diabetes, hypertension, hyperlipidemia, history of CVA, peripheral neuropathy, constipation, GERD, depression, osteoarthritis, BPH, urinary incontinence.presented to the emergency room with weakness, confusion after a fall. noted to have a fever overnight now a PUI, possible aspiration pneumonitis Family states that they had breakfast and spent the afternoon together and he was normal at that time.// fell and hit the left side of his head on carpet did not lose consciousness. Since that time he has been very confused. Encephalopathic, s/p alteplase 06/03: Vega placed for strict I/O 06/04: does not know his name, her name, or what is going on. He does not know the month or day. Unable to provide any history and cannot follow all commands. States he sees a jet above the bed. Afebrile. WBC normalized. Repeat CT head with no change left SDH for posterior left cerebral subarachnoid hemorrhage. Left temporal occipital junction hypodensity. Chronic right occipital lobe infarct noted. Vitals/I&O Vitals/I&O: Vital Signs Date Time Temp Pulse Resp B/P (MAP) Pulse Ox O2 Delivery O2 Flow Rate FiO2 06/05/20 07:30 99.1 72 26 125/61 (82) 95 Nasal Cannula 2.0 99.1 I & O 06/04/20 06/04/20 06/05/20 15:00 23:00 07:00 Output Total 375 ml 785 ml 260 ml Balance -375 ml -785 ml -260 ml Physical Exam Physical Exam: GENERAL: Well-developed, well-nourished male, nonverbal, does not follow any commands, in no acute distress. HEENT: Normocephalic, atraumatic, anicteric. No thrush on room air. NECK: Supple, no lymphadenopathy, no JVD. LUNGS: Clear bilaterally. No wheezing. HEART: S1, S2. No gallops or murmurs. ABDOMEN: Soft, nontender, nondistended. EXTREMITIES: No edema, no cyanosis. DERMATOLOGIC: Warm, dry. No generalized rash. NEUROLOGIC: Does not follow any commands. See neurology exam for full details. General: Cooperative Lungs: Clear Extremities: No cyanosis Skin: No breakdown Labs Labs: Laboratory Tests Test 06/04/20 15:48 06/04/20 17:53 06/04/20 23:38 06/05/20 06:18 Glucose (Fingerstick) 269 mg/dL (70-99) 273 mg/dL (70-99) 125 mg/dL (70-99) 196 mg/dL (70-99) Comment Review of Relevant I have reviewed the following items joy (where applicable) has been applied. Medications: Current Medications Medications (Trade) Dose Ordered Sig/Sonja Route PRN Reason Start Time Stop Time Status Last Admin Dose Admin Potassium Chloride/Water 100 ml @ 100 mls/hr Q1H IV 06/04/20 19:30 06/04/20 23:29 DC 06/05/20 00:10 Justifications for Admission Other Justification LANCE VALDERRAMA MD Jun 05, 2020 08:08
--- NOTE | 2020-06-05 08:43 | RAD ---
EXAM: Head CT without contrast. HISTORY: Seizure. Stroke. TECHNIQUE: Computed tomographic images of the head were obtained without contrast. *One or more of the following individualized dose reduction techniques were utilized for this examina tion: 1. Automated exposure control. 2. Adjustment of the mA and/or kV according to patient size. 3. Use of iterative reconstruction technique. COMPARISON: 06/04/2020. FINDINGS: There has been no significant change in the size of an acute subdural hematoma along the po sterior left cerebral convexity, posterior falx and left greater than right tentorium. This measures 5 mm in maximum thickness. There has been no change in subarachnoid hemorrhage within the left pariet al, posterior temporal and occipital sulci. There are tiny foci of hyperdensity within the right occi pital lobe cortex which are likely due to calcification. No intraparenchymal hemorrhage is seen. There is hypodensity in the left temporal occipital junction likely due to an acute infarct. There is effacement of the occipital horn of the left lateral ventricle. There is no significant midline shif t. There is extensive hypodensity throughout the cerebral white matter, likely due to chronic small vess el disease. There is encephalomalacia due to chronic infarction within the right occipital lobe. The orbits and visualized paranasal sinuses mastoid air cells are unremarkable. There is no calvarial les ion. IMPRESSION: 1. No significant change in the size of thin acute subdural hematoma along the posterior left cerebra l convexity, posterior falx and left greater than right tentorium. This measures 5 mm in maximum thic kness and contributes to effacement of the occipital horn of the left lateral ventricle. 2. Stable acute posterior left cerebral subarachnoid hemorrhage. 3. Focal hypodensity within the left temporal occipital junction, corresponding with a site of restri cted diffusion on the recent MRI. This favors an acute infarct. 4. Chronic infarct within the right occipital lobe. 5. Extensive bilateral cerebral white matter changes, most commonly due to chronic small vessel disea se in patients of this age. Electronically signed by: Eden Carlos MD (06/05/2020 8:41 AM) [id number]
[2020-06-05] MEDS: ELECTROLYTE (ICU) PROTOCOL. MC SCH (09:00)
[2020-06-05] MEDS: FAMOTIDINE 20 MG/2 ML VIAL IVP SCH ×2 (09:10→21:00)
[2020-06-05] MEDS: levETIRAcetam 500 MG in IV DEXTROSE 5% 100ML 100 ML IV SCH ×2 (09:11→21:01)
--- NOTE | 2020-06-05 09:30 | PDOC ---
Infectious Disease Note Subjective Subjective Patient little more alert answers questions in one word Fever pattern is improving Remains on 2 L O2 by nasal cannula ROS ROS no n/v/d/ Vital Sign Vital Signs Vital Signs Date Time Temp Pulse Resp B/P (MAP) Pulse Ox O2 Delivery O2 Flow Rate FiO2 06/05/20 07:30 99.1 72 26 125/61 (82) 95 Nasal Cannula 2.0 99.1 Physical Exam PHYSICAL EXAM GENERAL: Well-developed, well-nourished male, nonverbal, does not follow any commands, in no acute distress. HEENT: Normocephalic, atraumatic, anicteric. No thrush on room air. NECK: Supple, no lymphadenopathy, no JVD. LUNGS: Clear bilaterally. No wheezing. HEART: S1, S2. No gallops or murmurs. ABDOMEN: Soft, nontender, nondistended. EXTREMITIES: No edema, no cyanosis. DERMATOLOGIC: Warm, dry. No generalized rash. NEUROLOGIC: Does not follow any commands. See neurology exam for full details. Labs Lab Laboratory Tests Test 06/04/20 15:48 06/04/20 17:53 06/04/20 23:38 06/05/20 06:18 Glucose (Fingerstick) 269 mg/dL (70-99) 273 mg/dL (70-99) 125 mg/dL (70-99) 196 mg/dL (70-99) Micro Microbiology 06/04/20 Blood Culture - Preliminary, Resulted NO GROWTH AFTER 1 DAY Objective Assessment 1. Febrile illness. Likely aspiration pneumonia 2. Acute cerebrovascular accident. 3. History of previous cerebrovascular accident. 4. Diabetes mellitus. 5. Hyperlipidemia/hypertension. Plan Plan of Care 1. Continue Zosyn 2. Follow up labs and cultures. 3. Maintain aspiration precautions . Discussed with PENNY TRAYLOR MD Jun 05, 2020 09:30
--- NOTE | 2020-06-05 10:28 | PDOC ---
PROGRESS NOTES Date of Service DATE: 06/05/20 TIME: 10:25 Assessment Developed right body focal seizure activity 06/04, none since levetiracetam, mental status is much better than before. Repeat head CT negative Left temporal and occipital lobe cortical stroke Subarachnoid and subdural hemorrhage overlying the left temporal/occi pital/parietal lobe measuring approximate 5 mm in thickness, stable on 06/[address] Chronic small vessel ischemic change. I saw him in 2016 for right occipital stroke with left field-cut Status-post alteplase Diabetes, hypertension, hyperlipidemia, favorable lipid profile Peripheral neuropathy due to diabetes Mild cognitive impairment Low-grade fevers, suspect aspiration pneumonia Plan Await echocardiogram, may need transesophageal echocardiogram and outpatient cardiac monitoring as he has now had 2 cortical strokes in the last 3 years Transfer to medical floor Repeat head CT on 06/07 Given improvement in mental status and known provocative cause, the hemorrhage, I see no need for EEG Transfer to rehab possibly by mid next week Subjective Denies pain Objective Vital Signs Date Time Temp Pulse Resp B/P (MAP) Pulse Ox O2 Delivery O2 Flow Rate FiO2 06/05/20 08:00 Nasal Cannula 2.0 06/05/20 07:30 99.1 72 26 125/61 (82) 95 99.1 Intake and Output 06/05/20 07:00 Output Total 1420 ml Balance -1420 ml Output Urine Total 960 ml Stool Total 460 ml # Bowel Movements 1 PHYSICAL EXAM Alerts to voice, follows commands, tells me his name PERRL. EOMI. CN: Right central facial weakness. Muscle tone: Increased in the left, especially the left leg Muscle strength: 2-3/5 DTR: 2+ Plantar reflex: Silent Gait: not tested. Sensory exam: Not cooperative. Cerebellar:Not cooperative. Review of Relevant I have reviewed the following items joy (where applicable) has been applied. Labs Laboratory Tests Test 06/03/20 12:11 06/03/20 17:07 06/03/20 23:37 06/04/20 05:00 Glucose (Fingerstick) 216 mg/dL (70-99) 271 mg/dL (70-99) 221 mg/dL (70-99) White Blood Count 15.3 x10^3/uL (4.0-11.0) Red Blood Count 4.21 x10^6/uL (4.30-5.70) Hemoglobin 12.9 g/dL (13.0-17.5) Hematocrit 38.5 % (39.0-53.0) Mean Corpuscular Volume 92 fL (79-100) Mean Corpuscular Hemoglobin 31 pg (25-35) Mean Corpuscular Hemoglobin Concent 34 g/dL (31-37) Red Cell Distribution Width 12.8 % (11.5-14.5) Platelet Count 242 x10^3/uL (140-400) Neutrophils (%) (Auto) 80 % (31-73) Lymphocytes (%) (Auto) 11 % (24-48) Monocytes (%) (Auto) 9 % (0-9) Eosinophils (%) (Auto) 0 % (0-3) Basophils (%) (Auto) 1 % (0-3) Neutrophils # (Auto) 12.2 x10^3/uL (1.8-7.7) Lymphocytes # (Auto) 1.7 x10^3/uL (1.0-4.8) Monocytes # (Auto) 1.3 x10^3/uL (0.0-1.1) Eosinophils # (Auto) 0.0 x10^3/uL (0.0-0.7) Basophils # (Auto) 0.1 x10^3/uL (0.0-0.2) Sodium Level 132 mmol/L (136-145) Potassium Level 3.2 mmol/L (3.5-5.1) Chloride Level 96 mmol/L (98-107) Carbon Dioxide Level 25 mmol/L (21-32) Anion Gap 11 (6-14) Blood Urea Nitrogen 24 mg/dL (8-26) Creatinine 1.0 mg/dL (0.7-1.3) Estimated GFR (Cockcroft-Gault) 72.3 BUN/Creatinine Ratio 24 (6-20) Glucose Level 181 mg/dL (70-99) Calcium Level 9.1 mg/dL (8.5-10.1) Total Bilirubin 1.0 mg/dL (0.2-1.0) Aspartate Amino Transf (AST/SGOT) 21 U/L (15-37) Alanine Aminotransferase (ALT/SGPT) 18 U/L (16-63) Alkaline Phosphatase 63 U/L (46-116) Total Protein 6.5 g/dL (6.4-8.2) Albumin 2.8 g/dL (3.4-5.0) Albumin/Globulin Ratio 0.8 (1.0-1.7) Test 06/04/20 05:42 06/04/20 15:48 06/04/20 17:53 06/04/20 23:38 Glucose (Fingerstick) 186 mg/dL (70-99) 269 mg/dL (70-99) 273 mg/dL (70-99) 125 mg/dL (70-99) Test 06/05/20 06:18 Glucose (Fingerstick) 196 mg/dL (70-99) Laboratory Tests Test 06/04/20 15:48 06/04/20 17:53 06/04/20 23:38 06/05/20 06:18 Glucose (Fingerstick) 269 mg/dL (70-99) 273 mg/dL (70-99) 125 mg/dL (70-99) 196 mg/dL (70-99) Microbiology 06/04/20 Blood Culture - Preliminary, Resulted NO GROWTH AFTER 1 DAY Medications Current Medications Alteplase, Recombinant 0 ml @ 0 mls/hr Q1M ONCE IV ; Start 06/01/20 at 18:15; Stop 06/01/20 at 18:16; Status UNV Alteplase, Recombinant 0 ml @ 0 mls/hr Q1H IV ; Start 06/01/20 at 18:15; Status UNV Sodium Chloride 50 ml @ 50 mls/hr Q1H ONCE IV Last administered on 06/01/20at 20:31; Start 06/01/20 at 18:15; Stop 06/01/20 at 19:14; Status DC Labetalol HCl (Normodyne Iv Push) 10 mg PRN Q10MIN PRN IVP HYPERTENSION; Start 06/01/20 at 18:15; Stop 06/01/20 at 19:48; Status DC Nicardipine HCl 50 mg/Sodium Chloride 250 ml @ 25 mls/hr CONT PRN PRN IV HYPERTENSION Last administered on 06/01/20at 21:27; Start 06/01/20 at 18:15 Alteplase, Recombinant 7 ml @ 420 mls/hr 1X ONCE IV Last administered on 06/01/20at 18:26; Start 06/01/20 at 18:15; Stop 06/01/20 at 18:16; Status DC Alteplase, Recombinant 63.2 ml @ 63.2 mls/hr Q1H IV Last administered on 06/01/20at 18:30; Start 06/01/20 at 18:30; Stop 06/01/20 at 19:29; Status DC Labetalol HCl (Normodyne Iv Push) 20 mg STK-MED ONCE IVP ; Start 06/01/20 at 18:14; Stop 06/01/20 at 18:14; Status DC Iohexol (Omnipaque 300 Mg/ml) 75 ml 1X ONCE IV Last administered on 06/01/20at 18:58; Start 06/01/20 at 18:45; Stop 06/01/20 at 18:46; Status DC Info (CONTRAST GIVEN -- Rx MONITORING) 1 each PRN DAILY PRN MC SEE COMMENTS; Start 06/01/20 at 18:45; Stop 06/03/20 at 18:44; Status DC Labetalol HCl (Normodyne Iv Push) 10 mg PRN Q10MIN PRN IVP HYPERTENSION Last administered on 06/03/20at 13:46; Start 06/01/20 at 19:45 Nicardipine HCl 50 mg/Sodium Chloride 250 ml @ 25 mls/hr CONT PRN PRN IV HYPERTENSION; Start 06/01/20 at 19:45; Status UNV Acetaminophen (Tylenol) 650 mg PRN Q6HRS PRN PO MILD PAIN / TEMP > 100.3'F; Start 06/01/20 at 19:45 Acetaminophen (Tylenol Supp) 650 mg PRN Q6HRS PRN TX MILD PAIN / TEMP > 100.3'F Last administered on 06/02/20at 22:04; Start 06/01/20 at 19:45 Ondansetron HCl (Zofran) 4 mg PRN Q6HRS PRN IVP NAUSEA/VOMITING; Start 06/01/20 at 19:45; Status Cancel Magnesium Sulfate 50 ml @ 25 mls/hr 1X ONCE IV Last administered on 06/01/20at 21:21; Start 06/01/20 at 20:30; Stop 06/01/20 at 22:29; Status DC Ondansetron HCl (Zofran) 4 mg PRN Q8HRS PRN IV NAUSEA/VOMITING Last administered on 06/01/20at 22:04; Start 06/01/20 at 20:00; Stop 06/02/20 at 19:59; Status DC Prochlorperazine Edisylate (Compazine) 10 mg PRN Q8HRS PRN IV NAUSEA/VOMITING 2ND CHOICE Last administered on 06/02/20at 00:00; Start 06/02/20 at 00:00 Piperacillin Sod/ Tazobactam Sod (Zosyn Per Pharmacy) 1 each PRN DAILY PRN MC SEE COMMENTS; Start 06/02/20 at 10:30 Piperacillin Sod/ Tazobactam Sod 3.375 gm/Sodium Chloride 50 ml @ 100 mls/hr Q6HRS IV Last administered on 06/05/20at 05:36; Start 06/02/20 at 12:00 Amino Acids/ Glycerin/ Electrolytes 1,000 ml @ 80 mls/hr [id number] IV Last administered on 06/03/20at 09:32; Start 06/02/20 at 17:15; Stop 06/03/20 at 20:58; Status DC Ondansetron HCl (Zofran) 4 mg PRN Q6HRS PRN IVP NAUSEA/VOMITING; Start 06/02/20 at 19:00 Prochlorperazine (Compazine) 25 mg PRN Q12HR PRN [place] NAUSEA/VOMITING; Start 06/02/20 at 19:00 Famotidine (Pepcid Vial) 20 mg BID IVP Last administered on 06/05/20at 09:10; Start 06/02/20 at 21:00 Info (Icu Electrolyte Protocol) 1 ea DAILY MC Last administered on 06/04/20at 20:00; Start 06/03/20 at 09:00 Sodium Chloride (Normal Saline Flush) 3 ml QSHIFT PRN IV AFTER MEDS AND BLOOD DRAWS; Start 06/02/20 at 19:00 Sodium Chloride 1,000 ml @ 70 mls/hr [id number] IV Last administered on 06/03/20at 09:33; Start 06/02/20 at 19:00; Stop 06/03/20 at 15:58; Status DC Bisacodyl (Dulcolax Supp) 10 mg PRN DAILY PRN [place] CONSTIPATION; Start 06/02/20 at 19:00 Insulin Human Lispro (HumaLOG) 0-5 UNITS TIDWMEALS SQ Last administered on 06/03/20at 17:10; Start 06/03/20 at 08:00; Stop 06/03/20 at 20:58; Status DC Dextrose (Dextrose 50%-Water Syringe) 12.5 gm PRN Q15MIN PRN IV SEE COMMENTS; Start 06/03/20 at 07:00 Lorazepam (Ativan Inj) 2 mg STK-MED ONCE .ROUTE ; Start 06/03/20 at 15:11; Stop 06/03/20 at 15:11; Status DC Lorazepam (Ativan Inj) 2 mg 1X ONCE IVP ; Start 06/03/20 at 15:15; Stop 06/03/20 at 15:18; Status DC Levetiracetam 500 mg/Dextrose 105 ml @ 420 mls/hr Q12HR IV Last administered on 06/05/20at 09:11; Start 06/03/20 at 15:13 Lorazepam (Ativan Inj) 2 mg PRN Q4HRS PRN IVP TREMORS; Start 06/03/20 at 15:15 Furosemide (Lasix) 40 mg 1X ONCE IVP Last administered on 06/03/20at 21:28; Start 06/03/20 at 21:00; Stop 06/03/20 at 21:01; Status DC Amino Acids/ Glycerin/ Electrolytes 1,000 ml @ 60 mls/hr [id number] IV Last administered on 06/04/20at 16:36; Start 06/03/20 at 21:00 Insulin Human Lispro (HumaLOG) 0-7 UNITS Q6HRS SQ Last administered on 06/05/20at 06:25; Start 06/04/20 at 00:00 Dextrose (Dextrose 50%-Water Syringe) 12.5 gm PRN Q15MIN PRN IV SEE COMMENTS; Start 06/03/20 at 21:00 Potassium Chloride/Water 100 ml @ 100 mls/hr Q1H IV Last administered on 06/05/20at 00:10; Start 06/04/20 at 19:30; Stop 06/04/20 at 23:29; Status DC Active Scripts Active Reported Aspir-Low (Aspirin) 81 Mg Tablet.dr 162 Mg PO Tamsulosin Hcl 0.4 Mg Cap.er.24h 0.4 Mg PO DAILY Levemir (Insulin Detemir) 100 Unit/1 Ml Vial 26 Unit SQ Simvastatin 5 Mg Tablet 2 Mg PO HS Duloxetine Hcl 20 Mg Capsule.dr 20 Mg PO DAILY Glimepiride 2 Mg Tablet 1 Tab PO DAILY Omeprazole 20 Mg Capsule.dr 1 Cap PO DAILY Metformin Hcl 1,000 Mg Tablet 1 Tab PO BIDWMEALS Vitals/I & O Vital Sign - Last 24 Hours 06/04/20 06/04/20 06/04/20 06/04/20 11:00 12:00 12:00 13:00 Temp 98.9 98.9 Pulse 78 78 72 Resp 28 B/P (MAP) 133/60 (84) 122/60 (80) Pulse Ox 100 98 96 O2 Delivery Nasal Cannula Nasal Cannula Nasal Cannula Nasal Cannula O2 Flow Rate 2.0 2.5 06/04/20 06/04/20 06/04/20 06/04/20 14:00 15:00 16:00 16:00 Temp 99.0 99.0 Pulse 76 82 80 Resp B/P (MAP) 137/60 (85) 145/62 (89) 130/69 (89) Pulse Ox 94 93 97 O2 Delivery Nasal Cannula Nasal Cannula Nasal Cannula Nasal Cannula O2 Flow Rate 2.5 2.5 2.0 2.5 06/04/20 06/04/20 06/04/20 06/04/20 17:00 18:00 19:29 19:30 Temp 98.0 98.0 Pulse 75 75 73 Resp 22 B/P (MAP) 140/64 (89) 147/65 (92) 155/63 (93) Pulse Ox 97 97 97 O2 Delivery Nasal Cannula Nasal Cannula Nasal Cannula O2 Flow Rate 2.5 2.5 2.5 06/04/20 06/04/20 06/05/20 06/05/20 20:09 23:00 03:00 07:30 Temp 98.0 99.8 99.1 98.0 99.8 99.1 Pulse 97 82 72 Resp 20 26 B/P (MAP) 136/50 (78) 143/66 (91) 125/61 (82) Pulse Ox 98 95 O2 Delivery Nasal Cannula Nasal Cannula Nasal Cannula O2 Flow Rate 2.0 2.0 2.0 06/05/20 08:00 O2 Delivery Nasal Cannula O2 Flow Rate 2.0 Intake and Output 06/04/20 06/04/20 06/05/20 15:00 23:00 07:00 Output Total 375 ml 785 ml 260 ml Balance -375 ml -785 ml -[address] without contrast, 06/05. There has been no significant change in the size of an acute subdural hematoma along the posterior left cerebral convexity, posterior falx and left greater than right tentorium. This measures 5 mm in maximum thickness. There has been no change in subarachnoid hemorrhage within the left parietal, posterior temporal and occipital sulci. There are tiny foci of hyperdensity within the right occipital lobe cortex which are likely due to calcification. No intraparenchymal hemorrhage is seen. There is hypodensity in the left temporal occipital junction likely due to an acute infarct. There is effacement of the occipital horn of the left lateral ventricle. There is no significant midline shift. There is extensive hypodensity throughout the cerebral white matter, likely due to chronic small vessel disease. There is encephalomalacia due to chronic infarction within the right occipital lobe. The orbits and visualized paranasal sinuses mastoid air cells are unremarkable. There is no calvarial lesion. IMPRESSION: 1. No significant change in the size of thin acute subdural hematoma along the posterior left cerebral convexity, posterior falx and left greater than right tentorium. This measures 5 mm in maximum thickness and contributes to effacement of the occipital horn of the left lateral ventricle. 2. Stable acute posterior left cerebral subarachnoid hemorrhage. 3. Focal hypodensity within the left temporal occipital junction, corresponding with a site of restricted diffusion on the recent MRI. This favors an acute infarct. 4. Chronic infarct within the right occipital lobe. 5. Extensive bilateral cerebral white matter changes, most commonly due to chronic small vessel disease in patients of this age. Justicifation of Admission Dx: Justifications for Admission: Justification of Admission Dx: Yes Stroke - Ischemic: Stroke-Ischemic Sepsis: Altered Mental Status Altered Mental Status: Altered Mental Status TERRY BARONE MD Jun 05, 2020 10:28
[2020-06-05 10:49] LABS: BASO % 0 % (0-3); EOS # 0.1 x10^3/uL (0.0-0.7); EOS % 1 % (0-3); HEMATOCRIT 33.8 % (39.0-53.0); HEMOGLOBIN 11.5 g/dL (13.0-17.5); LYMPH # 1.1 x10^3/uL (1.0-4.8); LYMPH % 11 % (24-48); MEAN CORPUSCULAR HEMOGLOBIN 31 pg (25-35); MEAN CORPUSCULAR HGB CONC 34 g/dL (31-37); MEAN CORPUSCULAR VOLUME 91 fL (79-100); MONO # 0.9 x10^3/uL (0.0-1.1); MONO % 9 % (0-9); NEUT # 7.7 x10^3/uL (1.8-7.7); NEUT % 78 % (31-73); PLATELET COUNT 229 x10^3/uL (140-400); RED BLOOD COUNT 3.73 x10^6/uL (4.30-5.70); RED CELL DISTRIBUTION WIDTH 12.9 % (11.5-14.5); WHITE BLOOD COUNT 9.8 x10^3/uL (4.0-11.0)
[2020-06-05 10:52] LABS: ALBUMIN 2.5 g/dL (3.4-5.0); ALBUMIN/GLOBULIN RATIO 0.8 (1.0-1.7); CALCIUM 8.7 mg/dL (8.5-10.1); CREATININE 0.8 mg/dL (0.7-1.3); GFR 93.5; POTASSIUM 3.4 mmol/L (3.5-5.1); TOTAL BILIRUBIN 1.1 mg/dL (0.2-1.0); TOTAL PROTEIN 5.8 g/dL (6.4-8.2)
[2020-06-05] MEDS ORDERED: PERFLUTREN PROTEIN-A MICROSPHR 0.22 MG/ML 3 ML VIAL. IV ONE (11:45)
--- NOTE | 2020-06-05 12:02 | CARD ---
MR#: [id number] Date of Study: 06/05/2020 Ordering Physician: TERRY BARONE, Referring Physician: TERRY BARONE, Tech: Yuli White [facility] APPROVED REPORT EXAM: Two-dimensional and M-mode echocardiogram with Doppler and color Doppler. Other Information Quality : FairTechnically LimitedHR: 72bpm Rhythm : NSRTechnically limited study due to Patient paralyzed unable to roll INDICATION Dyspnea Echo Enhancing Agent Indication: Endocardial border delineation Agent/Amount Used: Optison 2mL RISK FACTORS Hypertension Diabetes Smoking 2D DIMENSIONS Left Atrium(2D)3.3 (1.6-4.0cm)IVSd0.9 (0.7-1.1cm) Aortic Root(2D)3.1 (2.0-3.7cm)LVDd4.7 (3.9-5.9cm) LVOT Diameter2.2 (1.8-2.4cm)PWd0.9 (0.7-1.1cm) LVDs2.4 (2.5-4.0cm)FS (%) 48.9 % SV82.1 ml Aortic Valve AoV Peak Paul.189.8cm/sAoV VTI37.8cm AO Peak GR.14.4mmHgLVOT Peak Paul.100.3cm/s AO Mean GR.8mmHgAVA (VMAX)2.03cm2 Mitral Valve MV E Yzpxsbhm89.7cm/sMV DECEL [id number] MV A Zyfkwdpd361.6cm/sE/A Ratio0.6 Pulmonary Valve PV Peak Bnzqzxrm095.6cm/s Pulmonary Vein S1 Eqxcpekw69.6cm/sD2 Piihegoi19.8cm/s PVa [id number] LEFT VENTRICLE The left ventricle is normal size. There is normal left ventricular wall thickness. The left ventricu lar systolic function is normal and the ejection fraction is within normal range. Estimated ejection fraction 60-65%. There is normal LV segmental wall motion. The left ventricular diastolic function a nd filling is normal for age. RIGHT VENTRICLE The right ventricle is normal size. There is normal right ventricular wall thickness. The right ventr icular systolic function is normal. ATRIA The left atrium size is normal. The right atrium size is normal. The interatrial septum is intact wit h no evidence for an atrial septal defect or patent foramen ovale as noted on 2-D or Doppler imaging. AORTIC VALVE The aortic valve is normal in structure and function. Doppler and Color Flow revealed trace aortic re gurgitation. There is no significant aortic valvular stenosis. MITRAL VALVE The mitral valve is normal in structure and function. There is no evidence of mitral valve prolapse. There is no mitral valve stenosis. Doppler and Color-flow revealed mild mitral regurgitation. TRICUSPID VALVE The tricuspid valve is normal in structure and function. Doppler and Color Flow revealed no tricuspid valve regurgitation noted. PULMONIC VALVE The pulmonary valve is normal in structure and function. Doppler and Color Flow revealed trace pulmon ic valvular regurgitation. GREAT VESSELS The aortic root is normal in size. The ascending aorta is normal in size. The pulmonary artery is nor mal. Unable to image IVC due to patient position PERICARDIAL EFFUSION There is no evidence of significant pericardial effusion. Critical Notification Critical Value: No <Conclusion> The left ventricle is normal size. The left ventricular systolic function is normal and the ejection fraction is within normal range. Estimated ejection fraction 60-65%. Doppler and Color Flow revealed trace aortic regurgitation. There is no significant aortic valvular stenosis. Doppler and Color-flow revealed mild mitral regurgitation. Doppler and Color Flow revealed no tricuspid valve regurgitation noted. Signed by : Deep Baker MD Electronically Approved : 06/05/2020 12:02:30
[2020-06-05] MEDS: AMINO AC 3%/ELECTROLYTE/GLYCER 1,000 ML IV SCH (12:29)
--- NOTE | 2020-06-05 14:36 | PDOC ---
Provider Note Date of Service: DATE: 06/05/20 TIME: 14:33 Provider Note Patient seen and examined consulted for SDH awakens to voice, TABARES thin acute subdural hematoma along the posterior left cerebral convexity, posterior falx and left greater than right tentorium, stable on follow up CT Dr. Tomlin following for CVA, seizures will need a follow scan next week or as per Dr. Tomlin Justifications for Admission Other Justification HANSA HENNESSY MD Jun 05, 2020 14:36
--- NOTE | 2020-06-05 14:54 | NUR ---
SS following for discharge planning. SS reviewed pt chart and discussed with pt RN. Pt is from home with spouse and is currently requiring oxygen. COVID19 negative. PT/OT recommended retirement unit. Pt on IV Zosyn. SS contacted pt's son and discussed discharge planning and retirement unit. Pt's son reported that they were in agreement to retirement unit and would discuss with pt's spouse and notify SS of chosen facility. SS will continue to follow for discharge planning.
[2020-06-05] MEDS ORDERED: ELECTROLYTE (NON-ICU) PROTOCOL. MC PRN (15:45)
--- NOTE | 2020-06-05 16:44 | NUR ---
Wound/Ostomy Care Wound Type/Assessment: Wouund consult for back wound. Back wound is resolved. Pt has DFU/DTI to right posterior heel. Cleansed and pictured wound. Treatment Recommendations/Plan: Skin prep and foam applied to right heel. Change every 3 days Education provided: SHEY POC provided to RN. Offloading surface/device: ICU bed, TQ2H, heel medix boots ordered Recommended Referrals/Tests: na Discharge Recommendations for dressings: see above
[2020-06-05] MEDS: LABETALOL 20 MG/4 ML DISP.SYRIN. IVP PRN (22:42)
[2020-06-06] VITALS (7 sets, daily range): BP systolic 131–171; BP diastolic 60–75
[2020-06-06] MEDS: PIPERACILLIN/TAZOBACTAM 3.375 GM in IV NORMAL SALINE 50ML 50 ML IV SCH ×5 (00:34→23:46)
[2020-06-06] MEDS: INSULIN LISPRO 300 UNITS/3 ML VIAL. SQ SCH ×5 (00:35→23:43)
--- NOTE | 2020-06-06 07:53 | PDOC ---
[facility] PROGRESS NOTE Date of Service DOS: DATE: 06/06/20 TIME: 07:53 Chief Complaint Chief Complaint A/P: CVA (cerebral vascular accident), Acute, post alteplase occipital stroke with left field-cut 2017 subarachnoid and subdural hemorrhage overlying the left temporal/occipital /parietal lobe measuring approximate 5 mm in thickness.MRI 1/2 Acute metabolic encephalopathy FEVER aspiration pneumonia Suspected left retrocardiac opacities. This could be atelectasis or infiltrate. PUI COVID 19 hypomagnesemia HYPONATREMIA, VOLUME overload PLAN ICU BED MRI HEAD ID CONSULT BLOOD CULTURES MRI HEAD reviewed RESP ISOLATION iv empiric zosyn dvt prophylaxis Echocardiogram replace lytes D/C IV NS NEUROSURGERY consult electrolyte protocol Patient remains nonresponsive 06-03 covid pcr neg T-max 101.8 06-02-20 37 min cc time Justifications for Admission Justifications for Admission Other Justification History of Present Illness History of Present Illness Mr Benavides is a 79yo M w/ PMHx Diabetes, hypertension, hyperlipidemia, history of CVA, peripheral neuropathy, constipation, GERD, depression, osteoarthritis, BPH, urinary incontinence.presented to the emergency room with weakness, confusion after a fall. noted to have a fever overnight now a PUI, possible aspiration pneumonitis Family states that they had breakfast and spent the afternoon together and he was normal at that time.// fell and hit the left side of his head on carpet did not lose consciousness. Since that time he has been very confused. Encephalopathic, s/p alteplase 1: Vega placed for strict I/O 06/04: does not know his name, her name, or what is going on. He does not know the month or day. 06/05: Unable to provide any history and cannot follow all commands. States he sees a jet above the bed. Afebrile. WBC normalized. Repeat CT head with no swati nge left SDH for posterior left cerebral subarachnoid hemorrhage. Left temporal occipital junction hypodensity. Chronic right occipital lobe infarct noted. Afebrile. seen speech today. Following some commands. Family has requested SNF discharge. Vitals/I&O Vitals/I&O: Vital Signs Date Time Temp Pulse Resp B/P (MAP) Pulse Ox O2 Delivery O2 Flow Rate FiO2 06/06/20 03:00 99.9 73 30 131/63 (85) 97 Nasal Cannula 2.0 99.9 I & O 06/05/20 06/05/20 06/06/20 15:00 23:00 07:00 Intake Total 50 ml 50 ml 2480 ml Output Total 900 ml Balance 50 ml -850 ml 2480 ml Physical Exam Physical Exam: GENERAL: Well-developed, well-nourished male, nonverbal, does not follow any commands, in no acute distress. HEENT: Normocephalic, atraumatic, anicteric. No thrush on room air. NECK: Supple, no lymphadenopathy, no JVD. LUNGS: Clear bilaterally. No wheezing. HEART: S1, S2. No gallops or murmurs. ABDOMEN: Soft, nontender, nondistended. EXTREMITIES: No edema, no cyanosis. DERMATOLOGIC: Warm, dry. No generalized rash. NEUROLOGIC: Does not follow any commands. See neurology exam for full details. General: Cooperative Lungs: Clear Extremities: No cyanosis Skin: No breakdown Labs Labs: Laboratory Tests Test 06/05/20 09:30 06/05/20 11:35 06/05/20 17:20 06/06/20 00:32 White Blood Count 9.8 x10^3/uL (4.0-11.0) Red Blood Count 3.73 x10^6/uL (4.30-5.70) Hemoglobin 11.5 g/dL (13.0-17.5) Hematocrit 33.8 % (39.0-53.0) Mean Corpuscular Volume 91 fL (79-100) Mean Corpuscular Hemoglobin 31 pg (25-35) Mean Corpuscular Hemoglobin Concent 34 g/dL (31-37) Red Cell Distribution Width 12.9 % (11.5-14.5) Platelet Count 229 x10^3/uL (140-400) Neutrophils (%) (Auto) 78 % (31-73) Lymphocytes (%) (Auto) 11 % (24-48) Monocytes (%) (Auto) 9 % (0-9) Eosinophils (%) (Auto) 1 % (0-3) Basophils (%) (Auto) 0 % (0-3) Neutrophils # (Auto) 7.7 x10^3/uL (1.8-7.7) Lymphocytes # (Auto) 1.1 x10^3/uL (1.0-4.8) Monocytes # (Auto) 0.9 x10^3/uL (0.0-1.1) Eosinophils # (Auto) 0.1 x10^3/uL (0.0-0.7) Basophils # (Auto) 0.0 x10^3/uL (0.0-0.2) Sodium Level 134 mmol/L (136-145) Potassium Level 3.4 mmol/L (3.5-5.1) Chloride Level 98 mmol/L (98-107) Carbon Dioxide Level 24 mmol/L (21-32) Anion Gap 12 (6-14) Blood Urea Nitrogen 25 mg/dL (8-26) Creatinine 0.8 mg/dL (0.7-1.3) Estimated GFR (Cockcroft-Gault) 93.5 BUN/Creatinine Ratio 31 (6-20) Glucose Level 193 mg/dL (70-99) Calcium Level 8.7 mg/dL (8.5-10.1) Total Bilirubin 1.1 mg/dL (0.2-1.0) Aspartate Amino Transf (AST/SGOT) 18 U/L (15-37) Alanine Aminotransferase (ALT/SGPT) 22 U/L (16-63) Alkaline Phosphatase 59 U/L (46-116) Total Protein 5.8 g/dL (6.4-8.2) Albumin 2.5 g/dL (3.4-5.0) Albumin/Globulin Ratio 0.8 (1.0-1.7) Glucose (Fingerstick) 204 mg/dL (70-99) 238 mg/dL (70-99) 209 mg/dL (70-99) Test 06/06/20 05:37 Glucose (Fingerstick) 214 mg/dL (70-99) Comment Review of Relevant I have reviewed the following items joy (where applicable) has been applied. Medications: Current Medications Medications (Trade) Dose Ordered Sig/Sonja Route PRN Reason Start Time Stop Time Status Last Admin Dose Admin Potassium Chloride/Water 100 ml @ 100 mls/hr Q1H IV 06/05/20 12:00 06/05/20 15:59 DC 06/05/20 15:40 Justifications for Admission Other Justification LANCE VALDERRAMA MD Jun 06, 2020 07:53
--- NOTE | 2020-06-06 08:45 | PDOC ---
Infectious Disease Note Subjective Subjective Patient little more alert answers questions in one word Remains on 2 L O2 by nasal cannula Vital Sign Vital Signs Vital Signs Date Time Temp Pulse Resp B/P (MAP) Pulse Ox O2 Delivery O2 Flow Rate FiO2 06/06/20 07:45 98.3 71 22 133/60 (84) 97 Nasal Cannula 2.0 98.3 Physical Exam PHYSICAL EXAM GENERAL: Well-developed, well-nourished male, nonverbal, does not follow any commands, in no acute distress. HEENT: Normocephalic, atraumatic, anicteric. No thrush on room air. NECK: Supple, no lymphadenopathy, no JVD. LUNGS: Clear bilaterally. No wheezing. HEART: S1, S2. No gallops or murmurs. ABDOMEN: Soft, nontender, nondistended. EXTREMITIES: No edema, no cyanosis. DERMATOLOGIC: Warm, dry. No generalized rash. NEUROLOGIC: Does not follow any commands. See neurology exam for full details. Labs Lab Laboratory Tests Test 06/05/20 09:30 06/05/20 11:35 06/05/20 17:20 06/06/20 00:32 White Blood Count 9.8 x10^3/uL (4.0-11.0) Red Blood Count 3.73 x10^6/uL (4.30-5.70) Hemoglobin 11.5 g/dL (13.0-17.5) Hematocrit 33.8 % (39.0-53.0) Mean Corpuscular Volume 91 fL (79-100) Mean Corpuscular Hemoglobin 31 pg (25-35) Mean Corpuscular Hemoglobin Concent 34 g/dL (31-37) Red Cell Distribution Width 12.9 % (11.5-14.5) Platelet Count 229 x10^3/uL (140-400) Neutrophils (%) (Auto) 78 % (31-73) Lymphocytes (%) (Auto) 11 % (24-48) Monocytes (%) (Auto) 9 % (0-9) Eosinophils (%) (Auto) 1 % (0-3) Basophils (%) (Auto) 0 % (0-3) Neutrophils # (Auto) 7.7 x10^3/uL (1.8-7.7) Lymphocytes # (Auto) 1.1 x10^3/uL (1.0-4.8) Monocytes # (Auto) 0.9 x10^3/uL (0.0-1.1) Eosinophils # (Auto) 0.1 x10^3/uL (0.0-0.7) Basophils # (Auto) 0.0 x10^3/uL (0.0-0.2) Sodium Level 134 mmol/L (136-145) Potassium Level 3.4 mmol/L (3.5-5.1) Chloride Level 98 mmol/L (98-107) Carbon Dioxide Level 24 mmol/L (21-32) Anion Gap 12 (6-14) Blood Urea Nitrogen 25 mg/dL (8-26) Creatinine 0.8 mg/dL (0.7-1.3) Estimated GFR (Cockcroft-Gault) 93.5 BUN/Creatinine Ratio 31 (6-20) Glucose Level 193 mg/dL (70-99) Calcium Level 8.7 mg/dL (8.5-10.1) Total Bilirubin 1.1 mg/dL (0.2-1.0) Aspartate Amino Transf (AST/SGOT) 18 U/L (15-37) Alanine Aminotransferase (ALT/SGPT) 22 U/L (16-63) Alkaline Phosphatase 59 U/L (46-116) Total Protein 5.8 g/dL (6.4-8.2) Albumin 2.5 g/dL (3.4-5.0) Albumin/Globulin Ratio 0.8 (1.0-1.7) Glucose (Fingerstick) 204 mg/dL (70-99) 238 mg/dL (70-99) 209 mg/dL (70-99) Test 06/06/20 05:37 Glucose (Fingerstick) 214 mg/dL (70-99) Micro Microbiology 06/04/20 Blood Culture - Preliminary, Resulted NO GROWTH AFTER 1 DAY Objective Assessment 1. Febrile illness. Likely aspiration pneumonia 2. Acute cerebrovascular accident. 3. History of previous cerebrovascular accident. 4. Diabetes mellitus. 5. Hyperlipidemia/hypertension. Plan Plan of Care 1. Continue Zosyn 2. Follow up labs and cultures. 3. Maintain aspiration precautions . Discussed with ANTWON. PENNY BOSTON MD Jun 06, 2020 08:45
[2020-06-06] MEDS: AMINO AC 3%/ELECTROLYTE/GLYCER 1,000 ML IV SCH ×2 (08:51→20:46)
[2020-06-06] MEDS: levETIRAcetam 500 MG in IV DEXTROSE 5% 100ML 100 ML IV SCH ×2 (08:52→20:47)
[2020-06-06] MEDS: FAMOTIDINE 20 MG/2 ML VIAL IVP SCH ×2 (08:53→20:47)
--- NOTE | 2020-06-06 10:27 | PDOC ---
PROGRESS NOTES Date of Service DATE: 06/06/20 TIME: 10:24 Assessment Developed right body focal seizure activity 06/04, none since levetiracetam, mental status is improving. Left temporal and occipital lobe cortical stroke Subarachnoid and subdural hemorrhage overlying the left temporal/occipital/parietal lobe measuring approximate 5 mm in thickness, stable on 06/[address] Chronic small vessel ischemic change. I saw him in 2016 for right occipital stroke with left field-cut Status-post alteplase Diabetes, hypertension, hyperlipidemia, favorable lipid profile Peripheral neuropathy due to diabetes Mild cognitive impairment Low-grade fevers, suspect aspiration pneumonia Plan Transfer to medical floor Repeat head CT on 06/07 Given improvement in mental status and known provocative cause, the hemorrhage, I see no need for EEG Not a candidate for aggressive treatment of any cardiac embolic source given the hemorrhaging and severe debility, therefore holding off on cardiology consult. Echocardiogram reviewed. Transfer to rehab soon Subjective No complaints Objective Vital Signs Date Time Temp Pulse Resp B/P (MAP) Pulse Ox O2 Delivery O2 Flow Rate FiO2 06/06/20 07:45 98.3 71 22 133/60 (84) 97 Nasal Cannula 2.0 98.3 Intake and Output 06/06/20 07:00 Intake Total 2580 ml Output Total 900 ml Balance 1680 ml Intake Oral 0 ml IV Total 2580 ml Stool Total 900 ml # Voids 4 PHYSICAL EXAM Alerts to voice, follows commands, tells me his name, does not know location, thinks he is at home PERRL. EOMI. CN: Right central facial weakness. Muscle tone: Increased in the left, especially the left leg Muscle strength: 2-3/5 DTR: 2+ Plantar reflex: Silent Gait: not tested. Sensory exam: Not cooperative. Cerebellar:Not cooperative. Review of Relevant I have reviewed the following items joy (where applicable) has been applied. Labs Laboratory Tests Test 06/04/20 15:48 06/04/20 17:53 06/04/20 23:38 06/05/20 06:18 Glucose (Fingerstick) 269 mg/dL (70-99) 273 mg/dL (70-99) 125 mg/dL (70-99) 196 mg/dL (70-99) Test 06/05/20 09:30 06/05/20 11:35 06/05/20 17:20 06/06/20 00:32 White Blood Count 9.8 x10^3/uL (4.0-11.0) Red Blood Count 3.73 x10^6/uL (4.30-5.70) Hemoglobin 11.5 g/dL (13.0-17.5) Hematocrit 33.8 % (39.0-53.0) Mean Corpuscular Volume 91 fL (79-100) Mean Corpuscular Hemoglobin 31 pg (25-35) Mean Corpuscular Hemoglobin Concent 34 g/dL (31-37) Red Cell Distribution Width 12.9 % (11.5-14.5) Platelet Count 229 x10^3/uL (140-400) Neutrophils (%) (Auto) 78 % (31-73) Lymphocytes (%) (Auto) 11 % (24-48) Monocytes (%) (Auto) 9 % (0-9) Eosinophils (%) (Auto) 1 % (0-3) Basophils (%) (Auto) 0 % (0-3) Neutrophils # (Auto) 7.7 x10^3/uL (1.8-7.7) Lymphocytes # (Auto) 1.1 x10^3/uL (1.0-4.8) Monocytes # (Auto) 0.9 x10^3/uL (0.0-1.1) Eosinophils # (Auto) 0.1 x10^3/uL (0.0-0.7) Basophils # (Auto) 0.0 x10^3/uL (0.0-0.2) Sodium Level 134 mmol/L (136-145) Potassium Level 3.4 mmol/L (3.5-5.1) Chloride Level 98 mmol/L (98-107) Carbon Dioxide Level 24 mmol/L (21-32) Anion Gap 12 (6-14) Blood Urea Nitrogen 25 mg/dL (8-26) Creatinine 0.8 mg/dL (0.7-1.3) Estimated GFR (Cockcroft-Gault) 93.5 BUN/Creatinine Ratio 31 (6-20) Glucose Level 193 mg/dL (70-99) Calcium Level 8.7 mg/dL (8.5-10.1) Total Bilirubin 1.1 mg/dL (0.2-1.0) Aspartate Amino Transf (AST/SGOT) 18 U/L (15-37) Alanine Aminotransferase (ALT/SGPT) 22 U/L (16-63) Alkaline Phosphatase 59 U/L (46-116) Total Protein 5.8 g/dL (6.4-8.2) Albumin 2.5 g/dL (3.4-5.0) Albumin/Globulin Ratio 0.8 (1.0-1.7) Glucose (Fingerstick) 204 mg/dL (70-99) 238 mg/dL (70-99) 209 mg/dL (70-99) Test 06/06/20 05:37 Glucose (Fingerstick) 214 mg/dL (70-99) Laboratory Tests Test 06/05/20 11:35 06/05/20 17:20 06/06/20 00:32 06/06/20 05:37 Glucose (Fingerstick) 204 mg/dL (70-99) 238 mg/dL (70-99) 209 mg/dL (70-99) 214 mg/dL (70-99) Microbiology 06/04/20 Blood Culture - Preliminary, Resulted NO GROWTH AFTER 2 DAYS Medications Current Medications Alteplase, Recombinant 0 ml @ 0 mls/hr Q1M ONCE IV ; Start 06/01/20 at 18:15; Stop 06/01/20 at 18:16; Status UNV Alteplase, Recombinant 0 ml @ 0 mls/hr Q1H IV ; Start 06/01/20 at 18:15; Status UNV Sodium Chloride 50 ml @ 50 mls/hr Q1H ONCE IV Last administered on 06/01/20at 20:31; Start 06/01/20 at 18:15; Stop 06/01/20 at 19:14; Status DC Labetalol HCl (Normodyne Iv Push) 10 mg PRN Q10MIN PRN IVP HYPERTENSION; Start 06/01/20 at 18:15; Stop 06/01/20 at 19:48; Status DC Nicardipine HCl 50 mg/Sodium Chloride 250 ml @ 25 mls/hr CONT PRN PRN IV HYPERTENSION Last administered on 06/01/20at 21:27; Start 06/01/20 at 18:15 Alteplase, Recombinant 7 ml @ 420 mls/hr 1X ONCE IV Last administered on 06/01/20at 18:26; Start 06/01/20 at 18:15; Stop 06/01/20 at 18:16; Status DC Alteplase, Recombinant 63.2 ml @ 63.2 mls/hr Q1H IV Last administered on 06/01/20at 18:30; Start 06/01/20 at 18:30; Stop 06/01/20 at 19:29; Status DC Labetalol HCl (Normodyne Iv Push) 20 mg STK-MED ONCE IVP ; Start 06/01/20 at 18:14; Stop 06/01/20 at 18:14; Status DC Iohexol (Omnipaque 300 Mg/ml) 75 ml 1X ONCE IV Last administered on 06/01/20at 18:58; Start 06/01/20 at 18:45; Stop 06/01/20 at 18:46; Status DC Info (CONTRAST GIVEN -- Rx MONITORING) 1 each PRN DAILY PRN MC SEE COMMENTS; Start 06/01/20 at 18:45; Stop 06/03/20 at 18:44; Status DC Labetalol HCl (Normodyne Iv Push) 10 mg PRN Q10MIN PRN IVP HYPERTENSION Last administered on 06/05/20at 22:42; Start 06/01/20 at 19:45 Nicardipine HCl 50 mg/Sodium Chloride 250 ml @ 25 mls/hr CONT PRN PRN IV HYPERTENSION; Start 06/01/20 at 19:45; Status UNV Acetaminophen (Tylenol) 650 mg PRN Q6HRS PRN PO MILD PAIN / TEMP > 100.3'F; Start 06/01/20 at 19:45 Acetaminophen (Tylenol Supp) 650 mg PRN Q6HRS PRN [place] MILD PAIN / TEMP > 100.3'F Last administered on 06/02/20at 22:04; Start 06/01/20 at 19:45 Ondansetron HCl (Zofran) 4 mg PRN Q6HRS PRN IVP NAUSEA/VOMITING; Start 06/01/20 at 19:45; Status Cancel Magnesium Sulfate 50 ml @ 25 mls/hr 1X ONCE IV Last administered on 06/01/20at 21:21; Start 06/01/20 at 20:30; Stop 06/01/20 at 22:29; Status DC Ondansetron HCl (Zofran) 4 mg PRN Q8HRS PRN IV NAUSEA/VOMITING Last administered on 06/01/20at 22:04; Start 06/01/20 at 20:00; Stop 06/02/20 at 19:59; Status DC Prochlorperazine Edisylate (Compazine) 10 mg PRN Q8HRS PRN IV NAUSEA/VOMITING 2ND CHOICE Last administered on 06/02/20at 00:00; Start 06/02/20 at 00:00 Piperacillin Sod/ Tazobactam Sod (Zosyn Per Pharmacy) 1 each PRN DAILY PRN MC SEE COMMENTS; Start 06/02/20 at 10:30 Piperacillin Sod/ Tazobactam Sod 3.375 gm/Sodium Chloride 50 ml @ 100 mls/hr Q6HRS IV Last administered on 06/06/20at 05:36; Start 06/02/20 at 12:00 Amino Acids/ Glycerin/ Electrolytes 1,000 ml @ 80 mls/hr [id number] IV Last administered on 06/03/20at 09:32; Start 06/02/20 at 17:15; Stop 06/03/20 at 20:58; Status DC Ondansetron HCl (Zofran) 4 mg PRN Q6HRS PRN IVP NAUSEA/VOMITING; Start 06/02/20 at 19:00 Prochlorperazine (Compazine) 25 mg PRN Q12HR PRN [place] NAUSEA/VOMITING; Start 06/02/20 at 19:00 Famotidine (Pepcid Vial) 20 mg BID IVP Last administered on 06/06/20at 08:53; Start 06/02/20 at 21:00 Info (Icu Electrolyte Protocol) 1 ea DAILY MC Last administered on 06/05/20at 09:00; Start 06/03/20 at 09:00; Stop 06/05/20 at 15:47; Status DC Sodium Chloride (Normal Saline Flush) 3 ml QSHIFT PRN IV AFTER MEDS AND BLOOD DRAWS; Start 06/02/20 at 19:00 Sodium Chloride 1,000 ml @ 70 mls/hr [id number] IV Last administered on 06/03/20at 09:33; Start 06/02/20 at 19:00; Stop 06/03/20 at 15:58; Status DC Bisacodyl (Dulcolax Supp) 10 mg PRN DAILY PRN [place] CONSTIPATION; Start 06/02/20 at 19:00 Insulin Human Lispro (HumaLOG) 0-5 UNITS TIDWMEALS SQ Last administered on 06/03/20at 17:10; Start 06/03/20 at 08:00; Stop 06/03/20 at 20:58; Status DC Dextrose (Dextrose 50%-Water Syringe) 12.5 gm PRN Q15MIN PRN IV SEE COMMENTS; Start 06/03/20 at 07:00 Lorazepam (Ativan Inj) 2 mg STK-MED ONCE .ROUTE ; Start 06/03/20 at 15:11; Stop 06/03/20 at 15:11; Status DC Lorazepam (Ativan Inj) 2 mg 1X ONCE IVP ; Start 06/03/20 at 15:15; Stop 06/03/20 at 15:18; Status DC Levetiracetam 500 mg/Dextrose 105 ml @ 420 mls/hr Q12HR IV Last administered on 06/06/20at 08:52; Start 06/03/20 at 15:13 Lorazepam (Ativan Inj) 2 mg PRN Q4HRS PRN IVP TREMORS; Start 06/03/20 at 15:15 Furosemide (Lasix) 40 mg 1X ONCE IVP Last administered on 06/03/20at 21:28; Start 06/03/20 at 21:00; Stop 06/03/20 at 21:01; Status DC Amino Acids/ Glycerin/ Electrolytes 1,000 ml @ 60 mls/hr [id number] IV Last administered on 06/06/20at 08:51; Start 06/03/20 at 21:00 Insulin Human Lispro (HumaLOG) 0-7 UNITS Q6HRS SQ Last administered on 06/06/20at 05:40; Start 06/04/20 at 00:00 Dextrose (Dextrose 50%-Water Syringe) 12.5 gm PRN Q15MIN PRN IV SEE COMMENTS; Start 06/03/20 at 21:00; Status Cancel Potassium Chloride/Water 100 ml @ 100 mls/hr Q1H IV Last administered on 06/05/20at 00:10; Start 06/04/20 at 19:30; Stop 06/04/20 at 23:29; Status DC Potassium Chloride/Water 100 ml @ 100 mls/hr Q1H IV Last administered on 06/05/20at 15:40; Start 06/05/20 at 12:00; Stop 06/05/20 at 15:59; Status DC Perflutren Protein Type A Microsphe (Optison) 0.66 mg 1X ONCE IV ; Start 06/05/20 at 11:45; Stop 06/05/20 at 11:46; Status DC Lorazepam (Ativan Inj) 2 mg STK-MED ONCE .ROUTE ; Start 06/03/20 at 15:15; Stop 06/05/20 at 13:27; Status DC Info (Non-Icu Electrolyte Protocol) 1 ea CONT PRN PRN MC PER PROTOCOL; Start 06/05/20 at 15:45 Active Scripts Active Reported Aspir-Low (Aspirin) 81 Mg Tablet.dr 162 Mg PO Tamsulosin Hcl 0.4 Mg Cap.er.24h 0.4 Mg PO DAILY Levemir (Insulin Detemir) 100 Unit/1 Ml Vial 26 Unit SQ Simvastatin 5 Mg Tablet 2 Mg PO HS Duloxetine Hcl 20 Mg Capsule.dr 20 Mg PO DAILY Glimepiride 2 Mg Tablet 1 Tab PO DAILY Omeprazole 20 Mg Capsule.dr 1 Cap PO DAILY Metformin Hcl 1,000 Mg Tablet 1 Tab PO BIDWMEALS Vitals/I & O Vital Sign - Last 24 Hours 06/05/20 06/05/20 06/05/20 06/05/20 11:30 15:20 19:20 19:30 Temp 98.1 98.1 99.4 98.1 98.1 99.4 Pulse 78 76 80 Resp 24 20 24 B/P (MAP) 141/68 (92) 146/66 (92) 160/63 (95) Pulse Ox 98 97 98 O2 Delivery Nasal Cannula Nasal Cannula Nasal Cannula Nasal Cannula O2 Flow Rate 2.0 2.0 2.0 2.0 06/05/20 06/05/20 06/05/20 06/06/20 22:40 22:42 23:15 03:00 Temp 99.9 99.9 99.9 99.9 Pulse 86 86 80 73 Resp 32 30 30 B/P (MAP) 181/75 (110) 181/75 166/72 (103) 131/63 (85) Pulse Ox 98 98 97 O2 Delivery Nasal Cannula Nasal Cannula Nasal Cannula O2 Flow Rate 2.0 2.0 2.0 06/06/20 07:45 Temp 98.3 98.3 Pulse 71 Resp 22 B/P (MAP) 133/60 (84) Pulse Ox 97 O2 Delivery Nasal Cannula O2 Flow Rate 2.0 Intake and Output 06/05/20 06/05/20 06/06/20 15:00 23:00 07:00 Intake Total 50 ml 50 ml 2480 ml Output Total 900 ml Balance 50 ml -850 ml 2480 ml Images Echocardiogram: LEFT VENTRICLE The left ventricle is normal size. There is normal left ventricular wall thickness. The left ventricular systolic function is normal and the ejection fraction is within normal range. Estimated ejection fraction 60-65%. There is normal LV segmental wall motion. The left ventricular diastolic function and filling is normal for age. RIGHT VENTRICLE The right ventricle is normal size. There is normal right ventricular wall thickness. The right ventricular systolic function is normal. ATRIA The left atrium size is normal. The right atrium size is normal. The interatrial septum is intact with no evidence for an atrial septal defect or patent foramen ovale as noted on 2-D or Doppler imaging. AORTIC VALVE The aortic valve is normal in structure and function. Doppler and Color Flow r evealed trace aortic regurgitation. There is no significant aortic valvular stenosis. MITRAL VALVE The mitral valve is normal in structure and function. There is no evidence of mitral valve prolapse. There is no mitral valve stenosis. Doppler and Color-flow revealed mild mitral regurgitation. TRICUSPID VALVE The tricuspid valve is normal in structure and function. Doppler and Color Flow revealed no tricuspid valve regurgitation noted. PULMONIC VALVE The pulmonary valve is normal in structure and function. Doppler and Color Flow revealed trace pulmonic valvular regurgitation. GREAT VESSELS The aortic root is normal in size. The ascending aorta is normal in size. The pulmonary artery is normal. Unable to image IVC due to patient position PERICARDIAL EFFUSION There is no evidence of significant pericardial effusion. Critical Notification Critical Value: No <Conclusion> The left ventricle is normal size. The left ventricular systolic function is normal and the ejection fraction is within normal range. Estimated ejection fraction 60-65%. Doppler and Color Flow revealed trace aortic regurgitation. There is no significant aortic valvular stenosis. Doppler and Color-flow revealed mild mitral regurgitation. Doppler and Color Flow revealed no tricuspid valve regurgitation noted. Justicifation of Admission Dx: Justifications for Admission: Justification of Admission Dx: Yes Stroke - Ischemic: Stroke-Ischemic Sepsis: Altered Mental Status Altered Mental Status: Altered Mental Status TERRY BARONE MD Jun 06, 2020 10:27
--- NOTE | 2020-06-06 10:57 | PDOC2 ---
CARDIAC CONSULT DATE OF CONSULT Date of Consult DATE: 06/06/20 TIME: 10:49 REASON FOR CONSULT Reason for Consult: embolic w/u multiple strokes REFERRING PHYSICIAN Referring Physician: Lacey SOURCE Source: Chart review HISTORY OF PRESENT ILLNESS HISTORY OF PRESENT ILLNESS This is a 79 yo male admitted for stroke symptoms. Presently he drowsy and unable to provide details. He does not have hx fo AFIB or atrail flutter and noted symptoms of chest pain or SOA. He apparently was weak and fell. He was noted with confusion. He did hit his left side head on a carpeted floor. He was then given tPA and post tPA imaging revealed SAH/SDH noted via MRI but none noted from earlier [address] So far he mumbles, failed swallow study and drowsy. PAST MEDICAL HISTORY Cardiovascular: HTN, Syncope, Hyperlipidemia, Valve insufficiency (MR) CENTRAL NERVOUS SYSTEM: CVA, Periperal neuropathy GI: GERD Hepatobiliary: No pertinent hx Psych: Anxiety Musculoskeletal: Osteoarthritis ENT: Allergic Rhinitis Renal/: Benign prostatic enlarg., Urinary Incontinence Endocrine: Diabetes (2) PAST SURGICAL HISTORY Past Surgical History: Cataract Removal, Tonsillectomy FAMILY HISTORY Family History: Heart Disease, Stroke SOCIAL HISTORY Smoke: Quit ALCOHOL: none Drugs: None Lives: with Family CURRENT MEDICATIONS CURRENT MEDICATIONS Current Medications Medications (Trade) Dose Ordered Sig/Sonja Route PRN Reason Start Time Stop Time Status Last Admin Dose Admin Potassium Chloride/Water 100 ml @ 100 mls/hr Q1H IV 06/05/20 12:00 06/05/20 15:59 DC 06/05/20 15:40 ALLERGIES ALLERGIES: Coded Allergies: No Known Drug Allergies (Unverified , 09/24/17) ROS Review of System unreliable PHYSICAL EXAM General: No acute distress HEENT: Atraumatic, Mucous membr. moist/pink Lungs: Other (diminished bases) Heart: Regular rate (Sr no ectopies), Normal S1, Normal S2, Other (2/6 systolic murmur to apical border) Abdomen: Soft Extremities: No cyanosis, No edema Skin: No breakdown Psych/Mental Status: Other (drowsy, mumbles) MUSCULOSKELETAL: Osteoarthritic changes both hands VITALS/I&O VITALS/I&O: Vital Signs Date Time Temp Pulse Resp B/P (MAP) Pulse Ox O2 Delivery O2 Flow Rate FiO2 06/06/20 07:45 98.3 71 22 133/60 (84) 97 Nasal Cannula 2.0 98.3 I & O 0 06/05/20 06/05/20 06/06/20 15:00 23:00 07:00 Intake Total 50 ml 50 ml 2480 ml Output Total 900 ml Balance 50 ml -850 ml 2480 ml LABS Lab: Laboratory Tests Test 06/05/20 11:35 06/05/20 17:20 06/06/20 00:32 06/06/20 05:37 Glucose (Fingerstick) 204 mg/dL (70-99) H 238 mg/dL (70-99) H 209 mg/dL (70-99) H 214 mg/dL (70-99) H ASSESSMENT/PLAN ASSESSMENT/PLAN 1. Seizure 2. Acute CVA Left temporal and occipital lobe cortical stroke 3. Small SAH/SDH post tPA. Stable. See imaging details 4. DM2 5. HLP 6. HTN: controlled 7. Encephalopathy 8. Chronic LBBB 9. Fall with weakness: no notable injury 10. Dysphagia Recommendations 1. TTE revealed normal EF and WM with no significant valvular disease. Monitor rhythm, will consider for ILR 2. Monitor rhythm. Labetolol IV PRN 3. Antiplatelets when OK with neurology. 4. Supportive care ZA TREVIZO BUSINESS APPLICATIONS ANALYST Jun 06, 2020 10:57
[2020-06-06 10:59] LABS: CALCIUM 8.6 mg/dL (8.5-10.1); CREATININE 0.7 mg/dL (0.7-1.3); GFR 109.1; MAGNESIUM 1.9 mg/dL (1.8-2.4); POTASSIUM 3.7 mmol/L (3.5-5.1)
--- NOTE | 2020-06-06 11:25 | RAD ---
EXAM: Head CT without contrast. HISTORY: Hemorrhage follow-up. TECHNIQUE: Computed tomographic images of the head were obtained without contrast. *One or more of the following individualized dose reduction techniques were utilized for this examina tion: 1. Automated exposure control. 2. Adjustment of the mA and/or kV according to patient size. 3. Use of iterative reconstruction technique. COMPARISON: 06/05/2020. FINDINGS: There has been no significant change in the size of an acute subdural hematoma along the po sterior left cerebral convex of the, posterior falx and left tentorium. This measures approximately 6 mm in maximum thickness. There is also stable subarachnoid hemorrhage within the posterior cerebral sulci. There is slight effacement of the posterior body and occipital horn of the left lateral ventri cindi. No ventricular entrapment or midline shift is seen. There is encephalomalacia within the right occipital lobe due to chronic infarction. There is hypoden sity within the posterior left temporal lobe due to suspected acute or subacute infarction. There is extensive hypodensity throughout the cerebral white matter, likely due to chronic small vessel diseas e. There is cerebral volume loss. There is mild paranasal sinus because of thickening. There is orbital band keratopathy. The mastoid a ir cells are clear. There is no suspicious calvarial lesion. IMPRESSION: 1. No significant change in an acute subdural hematoma along the posterior left cervical convexity, p osterior falx and left tentorium measuring approximately 6 mm in maximum thickness. There is also sta ble acute subarachnoid hemorrhage within the posterior cerebral sulci and slight effacement of the po sterior left lateral ventricle. 2. Stable suspected acute infarct within the posterior left temporal lobe. 3. Chronic infarct within the right occipital lobe. 4. Extensive cerebral white matter changes, most commonly due to chronic small vessel disease in chandrakant ents of this age. Electronically signed by: Eden Carlos MD (06/06/2020 11:22 AM) [id number]
--- NOTE | 2020-06-06 11:33 | NUR ---
SS following up with discharge planning. SS reviewed pt chart and discussed with pt RN. Pt is currently requiring oxygen via nasal canula. COVID19 negative. Pt on IV Zosyn. Per RN, pt failed swallow study and still NPO and on PPN. PT/OT recommended halfway unit. Pt's spouse requested referral be phoned and faxed to [facility], ; fax [phone], as first choice and if bed not available [facility]. SS phoned and faxed referral to [facility] as requested. Pt will need diet addressed prior to discharge. SS will continue to follow for discharge planning.
[2020-06-07] VITALS (7 sets, daily range): BP systolic 109–171; BP diastolic 54–74
[2020-06-07] MEDS: PIPERACILLIN/TAZOBACTAM 3.375 GM in IV NORMAL SALINE 50ML 50 ML IV SCH ×3 (05:27→17:53)
[2020-06-07] MEDS: INSULIN LISPRO 300 UNITS/3 ML VIAL. SQ SCH ×3 (05:31→17:56)
--- NOTE | 2020-06-07 08:16 | PDOC ---
[facility] PROGRESS NOTE Date of Service DOS: DATE: 06/07/20 TIME: 08:05 Chief Complaint Chief Complaint A/P: CVA (cerebral vascular accident), Acute, post alteplase occipital stroke with left field-cut 2017 subarachnoid and subdural hemorrhage overlying the left temporal/occipital /parietal lobe measuring approximate 5 mm in thickness.MRI / Acute metabolic encephalopathy FEVER aspiration pneumonia Suspected left retrocardiac opacities. This could be atelectasis or infiltrate. PUI COVID 19 hypomagnesemia HYPONATREMIA, VOLUME overload PLAN ICU BED MRI HEAD ID CONSULT BLOOD CULTURES MRI HEAD reviewed RESP ISOLATION iv empiric zosyn dvt prophylaxis Echocardiogram replace lytes D/C IV NS NEUROSURGERY consult electrolyte protocol Patient remains nonresponsive 06-03 covid pcr neg T-max 101.8 06-02-20 37 min cc time Justifications for Admission Justifications for Admission Other Justification History of Present Illness History of Present Illness Mr Benavides is a 79yo M w/ PMHx Diabetes, hypertension, hyperlipidemia, history of CVA, peripheral neuropathy, constipation, GERD, depression, osteoarthritis, BPH, urinary incontinence.presented to the emergency room with weakness, confusion after a fall. noted to have a fever overnight now a PUI, possible aspiration pneumonitis Family states that they had breakfast and spent the afternoon together and he was normal at that time.// fell and hit the left side of his head on carpet did not lose consciousness. Since that time he has been very confused. Encephalopathic, s/p alteplase 06/03: Vega placed for strict I/O 06/04: does not know his name, her name, or what is going on. He does not know the month or day. 06/05: Unable to provide any history and cannot follow all commands. States he sees a jet above the bed. Afebrile. WBC normalized. Repeat CT head with no swati nge left SDH for posterior left cerebral subarachnoid hemorrhage. Left temporal occipital junction hypodensity. Chronic right occipital lobe infarct noted. 06/06: Afebrile. Seen speech today, recommends NPO. Following some commands. Family has requested SNF discharge. Afebrile. Following majority of commands. Answers nearly all questions appropriately is aware is 2020. He is insistent that he is not in the hospital. His only complaint is poor balance. Plan: could consider videoswallow today Vitals/I&O Vitals/I&O: Vital Signs Date Time Temp Pulse Resp B/P (MAP) Pulse Ox O2 Delivery O2 Flow Rate FiO2 06/07/20 07:00 98.0 73 14 140/59 (86) 98 Nasal Cannula 2.0 98.0 I & O 06/06/20 06/06/20 06/07/20 15:00 23:00 07:00 Intake Total 0 ml 105 ml 360 ml Balance 0 ml 105 ml 360 ml Physical Exam Physical Exam: GENERAL: Well-developed, well-nourished male, nonverbal, does not follow any commands, in no acute distress. HEENT: Normocephalic, atraumatic, anicteric. No thrush on room air. NECK: Supple, no lymphadenopathy, no JVD. LUNGS: Clear bilaterally. No wheezing. HEART: S1, S2. No gallops or murmurs. ABDOMEN: Soft, nontender, nondistended. EXTREMITIES: No edema, no cyanosis. DERMATOLOGIC: Warm, dry. No generalized rash. NEUROLOGIC: Does not follow any commands. See neurology exam for full details. General: No acute distress Heart: Regular rate (Sr no ectopies), Normal S1, Normal S2, Other (2/6 systolic murmur to apical border) Lungs: Clear Abdomen: Soft Extremities: No cyanosis, No edema Skin: No breakdown Labs Labs: Laboratory Tests Test 06/06/20 10:38 06/06/20 11:55 06/06/20 16:42 06/06/20 20:44 Sodium Level 131 mmol/L (136-145) Potassium Level 3.7 mmol/L (3.5-5.1) Chloride Level 98 mmol/L (98-107) Carbon Dioxide Level 24 mmol/L (21-32) Anion Gap 9 (6-14) Blood Urea Nitrogen 15 mg/dL (8-26) Creatinine 0.7 mg/dL (0.7-1.3) Estimated GFR (Cockcroft-Gault) 109.1 Glucose Level 194 mg/dL (70-99) Calcium Level 8.6 mg/dL (8.5-10.1) Magnesium Level 1.9 mg/dL (1.8-2.4) Glucose (Fingerstick) 223 mg/dL (70-99) 219 mg/dL (70-99) 254 mg/dL (70-99) Test 06/07/20 05:18 Glucose (Fingerstick) 208 mg/dL (70-99) Comment Review of Relevant I have reviewed the following items joy (where applicable) has been applied. Justifications for Admission Other Justification LANCE VALDERRAMA MD Jun 07, 2020 08:16
[2020-06-07] MEDS: levETIRAcetam 500 MG in IV DEXTROSE 5% 100ML 100 ML IV SCH ×2 (08:55→21:27)
[2020-06-07] MEDS: FAMOTIDINE 20 MG/2 ML VIAL IVP SCH ×2 (08:56→21:28)
--- NOTE | 2020-06-07 10:30 | PDOC2 ---
GI CONSULT Date of Service: DATE: 06/07/20 TIME: 10:29 Reason For Consult: possible PEG HPI: HPI: 79 y/o male s/p CVAs who failed has failed swallow eval. We are asked to see re: possible PEG placement. D/w nurse - not yet discussed w/ family - was here for about 20 min yesterday, also some mention of need for videoswallow. He can tell me the year is 2020, says he is at home, and says his is here. Also says he does not want a feeding tube. We saw him in 04/2017 after CVA for n/v and dysphagia/odynophagia. EGD 05/02/17 showed esophagitis, small hiatal hernia but otherwise normal stomach, and normal duodenum. Distal esophageal biopsy showed segments of granulation and fibromuscular tissue showing acute inflammation, consistent with ulcer (no malignancy). Per past encounter, no previous colonoscopy and no GB, liver, pancreas, or PUD history. ASA on summary list. PMH: PMH: CVAs, cognitive impairment, DM, peripheral neuropathy, syncope, migraines, seizures, GERD, tonsillectomy, appendectomy FH: Family History: CAD Social History: Smoke: Quit ALCOHOL: none Drugs: None ROS: Difficult to obtain. Vitals: Vitals: Vital Signs Date Time Temp Pulse Resp B/P (MAP) Pulse Ox O2 Delivery O2 Flow Rate FiO2 06/07/20 07:00 98.0 73 14 140/59 (86) 98 Nasal Cannula 2.0 98.0 Labs: Labs: Laboratory Tests Test 06/06/20 10:38 06/06/20 11:55 06/06/20 16:42 06/06/20 20:44 Sodium Level 131 mmol/L (136-145) Potassium Level 3.7 mmol/L (3.5-5.1) Chloride Level 98 mmol/L (98-107) Carbon Dioxide Level 24 mmol/L (21-32) Anion Gap 9 (6-14) Blood Urea Nitrogen 15 mg/dL (8-26) Creatinine 0.7 mg/dL (0.7-1.3) Estimated GFR (Cockcroft-Gault) 109.1 Glucose Level 194 mg/dL (70-99) Calcium Level 8.6 mg/dL (8.5-10.1) Magnesium Level 1.9 mg/dL (1.8-2.4) Glucose (Fingerstick) 223 mg/dL (70-99) 219 mg/dL (70-99) 254 mg/dL (70-99) Test 06/07/20 05:18 Glucose (Fingerstick) 208 mg/dL (70-99) BLOOD CULTURE Preliminary NO GROWTH AFTER 3 DAYS Allergies: Coded Allergies: No Known Drug Allergies (Unverified , 09/24/17) Imaging: Imaging: Head CT 06/06 IMPRESSION: 1. No significant change in an acute subdural hematoma along the posterior left cervical convexity, posterior falx and left tentorium measuring approximately 6 mm in maximum thickness. There is also stable acute subarachnoid hemorrhage within the posterior cerebral sulci and slight effacement of the posterior left lateral ventricle. 2. Stable suspected acute infarct within the posterior left temporal lobe. 3. Chronic infarct within the right occipital lobe. 4. Extensive cerebral white matter changes, most commonly due to chronic small vessel disease in patients of this age. ASSISTANT QUALITY MANAGER Bedside Swallow Eval Pt demo's overt s/s aspiration on 100% of trials w/ puree and honey thick liquids. Also demo'd overt s/s aspiration on own secretions when moved to upright position. Pt remains primarily awake during eval, but w/ poor attention to task of PO intake. Hyolaryngeal mvmt is delayed, incomplete, and brief in duration via palpation. See full BSE report in Interventions for add'l details. Recommendations: Continue NPO w/ aggressive oral care. Will continue ASSISTANT QUALITY MANAGER f/u to address dysphagia. Head CT 06/05 IMPRESSION: 1. No significant change in the size of thin acute subdural hematoma along the posterior left cerebral convexity, posterior falx and left greater than right tentorium. This measures 5 mm in maximum thickness and contributes to effacement of the occipital horn of the left lateral ventricle. 2. Stable acute posterior left cerebral subarachnoid hemorrhage. 3. Focal hypodensity within the left temporal occipital junction, corresponding with a site of restricted diffusion on the recent MRI. This favors an acute infarct. 4. Chronic infarct within the right occipital lobe. 5. Extensive bilateral cerebral white matter changes, most commonly due to chronic small vessel disease in patients of this age. Echo 06/05 <Conclusion> The left ventricle is normal size. The left ventricular systolic function is normal and the ejection fraction is within normal range. Estimated ejection fraction 60-65%. Doppler and Color Flow revealed trace aortic regurgitation. There is no significant aortic valvular stenosis. Doppler and Color-flow revealed mild mitral regurgitation. Doppler and Color Flow revealed no tricuspid valve regurgitation noted. Head CT 06/04 Impression: 1. Stable small left subdural hematoma measuring 5 mm in thickness. Minimal mass effect with no midline shift. 2. Improving trace left subarachnoid blood products. 3. 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 Brain MRI 06/02 IMPRESSION: 1. Small amount of subarachnoid and subdural hemorrhage overlying the left temporal/occipital/parietal lobe measuring approximate 5 mm in thickness. 2. Small cortical foci of acute ischemia in the left temporal and occipital lobe as described above. 3. Confluent areas of T2/FLAIR hyperintense signal the periventricular and deep white matter. Represent chronic small vessel ischemic change. CXR 06/02 IMPRESSION: Suspected left retrocardiac opacities. This could be atelectasis or infiltrate. Consider lateral view to further evaluate. Head CT 06/02 IMPRESSION: No acute intracranial hemorrhage. Stable findings as compared to prior examination from 06/01/2020 with remote ischemic changes in the right perirolandic gyri and cytotoxic edema involving the medial right occipital lobe. Head/Neck CTA 06/01 IMPRESSION: 1. No evidence for large vessel arterial occlusion. 2. Asymmetric nonfilling of the left sigmoid sinus and jugular bulb. There is a possibility this may be artifactual secondary to arterial phase of this exam. CTV or MRV further definitively evaluate. 3. Mild calcified plaque at the cavernous segments of the internal carotid arteries bilaterally without significant stenosis. 4. Minimal calcified plaque at the cavernous segments of the internal carotid arteries bilaterally without significant stenosis. Head CT 06/01 IMPRESSION: Progressive small vessel ischemic change when compared to study in 2017, technically age indeterminate without recent prior exam. No acute hemorrhage. PE: GEN: NAD HEENT: Atraumatic, PERRL LUNGS: diminished, NC HEART: RRR ABD: NABS, S/ND/NT EXTREMITY/SKIN: BLE SCDs NEURO/PSYCH: confused A/P: A/P: S/p CVA Dysphagia Mild normocytic anemia CRC screen - none COVID negative 06/02 -- After I saw: Speech Path Swallow now safe to advance to modified po diet. Anticipate safe intake, may require supplemental oral nutrition. Should be able to take po meds whole w/honey thick liquid or crushed in puree. Paged Dr Durán, precautions posted, diet orders entered, d/w ANTWON Mota. Will f/u per POC. Await trial of diet. Agree w/ acid-shock absorption floor layer, can change to PO. STEVEN RODRIGUEZ Jun 07, 2020 10:30
--- NOTE | 2020-06-07 10:48 | PDOC ---
PROGRESS NOTES Date of Service DATE: 06/07/20 TIME: 10:44 Assessment Developed right body focal seizure activity 06/04, none since levetiracetam, mental status is improving. Left temporal and occipital lobe cortical stroke Subarachnoid and subdural hemorrhage overlying the left temporal/occipital/parietal lobe measuring approximate 5 mm in thickness, stable on 06/[address] Chronic small vessel ischemic change. I saw him in 2016 for right occipital stroke with left field-cut Status-post alteplase Diabetes, hypertension, hyperlipidemia, favorable lipid profile Peripheral neuropathy due to diabetes Mild cognitive impairment Low-grade fevers, suspect aspiration pneumonia Neurogenic dysphagia Plan Speech therapy following, now that he is more alert, hopefully he will pass swallow evaluation, otherwise will need PEG No need for EEG Not a candidate for aggressive treatment of any cardiac embolic source given the hemorrhaging and severe debility, therefore holding off on cardiology consult Repeat head CT next week Subjective No complaints Objective Vital Signs Date Time Temp Pulse Resp B/P (MAP) Pulse Ox O2 Delivery O2 Flow Rate FiO2 06/07/20 10:34 98.0 81 14 171/65 (100) 98 Nasal Cannula 2.0 98.0 Intake and Output 06/07/20 07:00 Intake Total 465 ml Balance 465 ml Intake Oral 0 ml IV Total 465 ml # Voids 5 PHYSICAL EXAM Alerts to voice, follows commands, tells me his name, does not know location, insists he is at home PERRL. EOMI. CN: Right central facial weakness. Muscle tone: Increased in the left, especially the left leg Muscle strength: 2-3/5 DTR: 2+ Plantar reflex: Silent Gait: not tested. Sensory exam: Not cooperative. Cerebellar:Not cooperative. Review of Relevant I have reviewed the following items joy (where applicable) has been applied. Labs Laboratory Tests Test 06/05/20 11:35 06/05/20 17:20 06/06/20 00:32 06/06/20 05:37 Glucose (Fingerstick) 204 mg/dL (70-99) 238 mg/dL (70-99) 209 mg/dL (70-99) 214 mg/dL (70-99) Test 06/06/20 10:38 06/06/20 11:55 06/06/20 16:42 06/06/20 20:44 Sodium Level 131 mmol/L (136-145) Potassium Level 3.7 mmol/L (3.5-5.1) Chloride Level 98 mmol/L (98-107) Carbon Dioxide Level 24 mmol/L (21-32) Anion Gap 9 (6-14) Blood Urea Nitrogen 15 mg/dL (8-26) Creatinine 0.7 mg/dL (0.7-1.3) Estimated GFR (Cockcroft-Gault) 109.1 Glucose Level 194 mg/dL (70-99) Calcium Level 8.6 mg/dL (8.5-10.1) Magnesium Level 1.9 mg/dL (1.8-2.4) Glucose (Fingerstick) 223 mg/dL (70-99) 219 mg/dL (70-99) 254 mg/dL (70-99) Test 06/07/20 05:18 Glucose (Fingerstick) 208 mg/dL (70-99) Laboratory Tests Test 06/06/20 11:55 06/06/20 16:42 06/06/20 20:44 06/07/20 05:18 Glucose (Fingerstick) 223 mg/dL (70-99) 219 mg/dL (70-99) 254 mg/dL (70-99) 208 mg/dL (70-99) Microbiology 06/04/20 Blood Culture - Preliminary, Resulted NO GROWTH AFTER 3 DAYS Medications Current Medications Alteplase, Recombinant 0 ml @ 0 mls/hr Q1M ONCE IV ; Start 06/01/20 at 18:15; Stop 06/01/20 at 18:16; Status UNV Alteplase, Recombinant 0 ml @ 0 mls/hr Q1H IV ; Start 06/01/20 at 18:15; Status UNV Sodium Chloride 50 ml @ 50 mls/hr Q1H ONCE IV Last administered on 06/01/20at 20:31; Start 06/01/20 at 18:15; Stop 06/01/20 at 19:14; Status DC Labetalol HCl (Normodyne Iv Push) 10 mg PRN Q10MIN PRN IVP HYPERTENSION; Start 06/01/20 at 18:15; Stop 06/01/20 at 19:48; Status DC Nicardipine HCl 50 mg/Sodium Chloride 250 ml @ 25 mls/hr CONT PRN PRN IV HYPERTENSION Last administered on 06/01/20at 21:27; Start 06/01/20 at 18:15 Alteplase, Recombinant 7 ml @ 420 mls/hr 1X ONCE IV Last administered on 06/01/20at 18:26; Start 06/01/20 at 18:15; Stop 06/01/20 at 18:16; Status DC Alteplase, Recombinant 63.2 ml @ 63.2 mls/hr Q1H IV Last administered on 06/01/20at 18:30; Start 06/01/20 at 18:30; Stop 06/01/20 at 19:29; Status DC Labetalol HCl (Normodyne Iv Push) 20 mg STK-MED ONCE IVP ; Start 06/01/20 at 18:14; Stop 06/01/20 at 18:14; Status DC Iohexol (Omnipaque 300 Mg/ml) 75 ml 1X ONCE IV Last administered on 06/01/20at 18:58; Start 06/01/20 at 18:45; Stop 06/01/20 at 18:46; Status DC Info (CONTRAST GIVEN -- Rx MONITORING) 1 each PRN DAILY PRN MC SEE COMMENTS; Start 06/01/20 at 18:45; Stop 06/03/20 at 18:44; Status DC Labetalol HCl (Normodyne Iv Push) 10 mg PRN Q10MIN PRN IVP HYPERTENSION Last administered on 06/05/20at 22:42; Start 06/01/20 at 19:45 Nicardipine HCl 50 mg/Sodium Chloride 250 ml @ 25 mls/hr CONT PRN PRN IV HYPERTENSION; Start 06/01/20 at 19:45; Status UNV Acetaminophen (Tylenol) 650 mg PRN Q6HRS PRN PO MILD PAIN / TEMP > 100.3'F; Start 06/01/20 at 19:45 Acetaminophen (Tylenol Supp) 650 mg PRN Q6HRS PRN ME MILD PAIN / TEMP > 100.3'F Last administered on 06/02/20at 22:04; Start 06/01/20 at 19:45 Ondansetron HCl (Zofran) 4 mg PRN Q6HRS PRN IVP NAUSEA/VOMITING; Start 06/01/20 at 19:45; Status Cancel Magnesium Sulfate 50 ml @ 25 mls/hr 1X ONCE IV Last administered on 06/01/20at 21:21; Start 06/01/20 at 20:30; Stop 06/01/20 at 22:29; Status DC Ondansetron HCl (Zofran) 4 mg PRN Q8HRS PRN IV NAUSEA/VOMITING Last administered on 06/01/20at 22:04; Start 06/01/20 at 20:00; Stop 06/02/20 at 19:59; Status DC Prochlorperazine Edisylate (Compazine) 10 mg PRN Q8HRS PRN IV NAUSEA/VOMITING 2ND CHOICE Last administered on 06/02/20at 00:00; Start 06/02/20 at 00:00 Piperacillin Sod/ Tazobactam Sod (Zosyn Per Pharmacy) 1 each PRN DAILY PRN MC SEE COMMENTS; Start 06/02/20 at 10:30 Piperacillin Sod/ Tazobactam Sod 3.375 gm/Sodium Chloride 50 ml @ 100 mls/hr Q6HRS IV Last administered on 06/07/20at 05:27; Start 06/02/20 at 12:00 Amino Acids/ Glycerin/ Electrolytes 1,000 ml @ 80 mls/hr [id number] IV Last administered on 06/03/20at 09:32; Start 06/02/20 at 17:15; Stop 06/03/20 at 20:58; Status DC Ondansetron HCl (Zofran) 4 mg PRN Q6HRS PRN IVP NAUSEA/VOMITING; Start 06/02/20 at 19:00 Prochlorperazine (Compazine) 25 mg PRN Q12HR PRN ME NAUSEA/VOMITING; Start 06/02/20 at 19:00 Famotidine (Pepcid Vial) 20 mg BID IVP Last administered on 06/07/20at 08:56; Start 06/02/20 at 21:00 Info (Icu Electrolyte Protocol) 1 ea DAILY MC Last administered on 06/05/20at 09:00; Start 06/03/20 at 09:00; Stop 06/05/20 at 15:47; Status DC Sodium Chloride (Normal Saline Flush) 3 ml QSHIFT PRN IV AFTER MEDS AND BLOOD DRAWS; Start 06/02/20 at 19:00 Sodium Chloride 1,000 ml @ 70 mls/hr [id number] IV Last administered on 06/03/20at 09:33; Start 06/02/20 at 19:00; Stop 06/03/20 at 15:58; Status DC Bisacodyl (Dulcolax Supp) 10 mg PRN DAILY PRN ME CONSTIPATION; Start 06/02/20 at 19:00 Insulin Human Lispro (HumaLOG) 0-5 UNITS TIDWMEALS SQ Last administered on 06/03/20at 17:10; Start 06/03/20 at 08:00; Stop 06/03/20 at 20:58; Status DC Dextrose (Dextrose 50%-Water Syringe) 12.5 gm PRN Q15MIN PRN IV SEE COMMENTS; Start 06/03/20 at 07:00 Lorazepam (Ativan Inj) 2 mg STK-MED ONCE .ROUTE ; Start 06/03/20 at 15:11; Stop 06/03/20 at 15:11; Status DC Lorazepam (Ativan Inj) 2 mg 1X ONCE IVP ; Start 06/03/20 at 15:15; Stop 06/03/20 at 15:18; Status DC Levetiracetam 500 mg/Dextrose 105 ml @ 420 mls/hr Q12HR IV Last administered on 06/07/20at 08:55; Start 06/03/20 at 15:13 Lorazepam (Ativan Inj) 2 mg PRN Q4HRS PRN IVP TREMORS; Start 06/03/20 at 15:15 Furosemide (Lasix) 40 mg 1X ONCE IVP Last administered on 06/03/20at 21:28; Start 06/03/20 at 21:00; Stop 06/03/20 at 21:01; Status DC Amino Acids/ Glycerin/ Electrolytes 1,000 ml @ 60 mls/hr [id number] IV Last administered on 06/06/20at 20:46; Start 06/03/20 at 21:00 Insulin Human Lispro (HumaLOG) 0-7 UNITS Q6HRS SQ Last administered on 06/07/20at 05:31; Start 06/04/20 at 00:00 Dextrose (Dextrose 50%-Water Syringe) 12.5 gm PRN Q15MIN PRN IV SEE COMMENTS; Start 06/03/20 at 21:00; Status Cancel Potassium Chloride/Water 100 ml @ 100 mls/hr Q1H IV Last administered on 06/05/20at 00:10; Start 06/04/20 at 19:30; Stop 06/04/20 at 23:29; Status DC Potassium Chloride/Water 100 ml @ 100 mls/hr Q1H IV Last administered on 06/05/20at 15:40; Start 06/05/20 at 12:00; Stop 06/05/20 at 15:59; Status DC Perflutren Protein Type A Microsphe (Optison) 0.66 mg 1X ONCE IV ; Start 06/05/20 at 11:45; Stop 06/05/20 at 11:46; Status DC Lorazepam (Ativan Inj) 2 mg STK-MED ONCE .ROUTE ; Start 06/03/20 at 15:15; Stop 06/05/20 at 13:27; Status DC Info (Non-Icu Electrolyte Protocol) 1 ea CONT PRN PRN MC PER PROTOCOL; Start 06/05/20 at 15:45 Active Scripts Active Reported Aspir-Low (Aspirin) 81 Mg Tablet.dr 162 Mg PO Tamsulosin Hcl 0.4 Mg Cap.er.24h 0.4 Mg PO DAILY Levemir (Insulin Detemir) 100 Unit/1 Ml Vial 26 Unit SQ Simvastatin 5 Mg Tablet 2 Mg PO HS Duloxetine Hcl 20 Mg Capsule.dr 20 Mg PO DAILY Glimepiride 2 Mg Tablet 1 Tab PO DAILY Omeprazole 20 Mg Capsule.dr 1 Cap PO DAILY Metformin Hcl 1,000 Mg Tablet 1 Tab PO BIDWMEALS Vitals/I & O Vital Sign - Last 24 Hours 06/06/20 06/06/20 06/06/20 06/06/20 11:08 15:00 19:00 20:00 Temp 98.3 98.8 97.6 98.3 98.8 97.6 Pulse 77 68 69 Resp 18 14 14 B/P (MAP) 143/64 (90) 151/69 (96) 147/75 (99) Pulse Ox 94 98 98 O2 Delivery Nasal Cannula Nasal Cannula Nasal Cannula Room Air O2 Flow Rate 2.0 2.0 2.0 06/06/20 06/06/20 06/07/20 06/07/20 23:00 23:47 03:34 07:00 Temp 97.6 98.6 98.0 97.6 98.6 98.0 Pulse 85 88 79 73 Resp 14 16 14 B/P (MAP) 171/68 (102) 149/66 (93) 144/74 (97) 140/59 (86) Pulse Ox 98 99 98 O2 Delivery Nasal Cannula Nasal Cannula Nasal Cannula O2 Flow Rate 2.0 2.0 2.0 06/07/20 10:34 Temp 98.0 98.0 Pulse 81 Resp 14 B/P (MAP) 171/65 (100) Pulse Ox 98 O2 Delivery Nasal Cannula O2 Flow Rate 2.0 Intake and Output 06/06/20 06/06/20 06/07/20 15:00 23:00 07:00 Intake Total 0 ml 105 ml 360 ml Balance 0 ml 105 ml [address] without contrast. HISTORY: Hemorrhage follow-up. TECHNIQUE: Computed tomographic images of the head were obtained without contrast. *One or more of the following individualized dose reduction techniques were utilized for this examination: 1. Automated exposure control. 2. Adjustment of the mA and/or kV according to patient size. 3. Use of iterative reconstruction technique. COMPARISON: 06/05/2020. FINDINGS: There has been no significant change in the size of an acute subdural hematoma along the posterior left cerebral convex of the, posterior falx and left tentorium. This measures approximately 6 mm in maximum thickness. There is also stable subarachnoid hemorrhage within the posterior cerebral sulci. There is slight effacement of the posterior body and occipital horn of the left lateral ventricle. No ventricular entrapment or midline shift is seen. There is encephalomalacia within the right occipital lobe due to chronic infarction. There is hypodensity within the posterior left temporal lobe due to suspected acute or subacute infarction. There is extensive hypodensity throu ghout the cerebral white matter, likely due to chronic small vessel disease. There is cerebral volume loss. There is mild paranasal sinus because of thickening. There is orbital band keratopathy. The mastoid air cells are clear. There is no suspicious calvarial lesion. IMPRESSION: 1. No significant change in an acute subdural hematoma along the posterior left cervical convexity, posterior falx and left tentorium measuring approximately 6 mm in maximum thickness. There is also stable acute subarachnoid hemorrhage within the posterior cerebral sulci and slight effacement of the posterior left lateral ventricle. 2. Stable suspected acute infarct within the posterior left temporal lobe. 3. Chronic infarct within the right occipital lobe. 4. Extensive cerebral white matter changes, most commonly due to chronic small vessel disease in patients of this age. Justicifation of Admission Dx: Justifications for Admission: Justification of Admission Dx: Yes Stroke - Ischemic: Stroke-Ischemic Sepsis: Altered Mental Status Altered Mental Status: Altered Mental Status TERRY BARONE MD Jun 07, 2020 10:48
--- NOTE | 2020-06-07 10:53 | PDOC ---
Infectious Disease Note Subjective Subjective Patient is alert awake says he is feeling good Remains on 2 L O2 by nasal cannula ROS ROS No nausea vomiting diarrhea chest pain shortness of breath Vital Sign Vital Signs Vital Signs Date Time Temp Pulse Resp B/P (MAP) Pulse Ox O2 Delivery O2 Flow Rate FiO2 06/07/20 10:34 98.0 81 14 171/65 (100) 98 Nasal Cannula 2.0 98.0 Physical Exam PHYSICAL EXAM GENERAL: Well-developed, well-nourished male, nonverbal, does not follow any commands, in no acute distress. HEENT: Normocephalic, atraumatic, anicteric. No thrush on room air. NECK: Supple, no lymphadenopathy, no JVD. LUNGS: Clear bilaterally. No wheezing. HEART: S1, S2. No gallops or murmurs. ABDOMEN: Soft, nontender, nondistended. EXTREMITIES: No edema, no cyanosis. DERMATOLOGIC: Warm, dry. No generalized rash. NEUROLOGIC: Does not follow any commands. See neurology exam for full details. Labs Lab Laboratory Tests Test 06/06/20 11:55 06/06/20 16:42 06/06/20 20:44 06/07/20 05:18 Glucose (Fingerstick) 223 mg/dL (70-99) 219 mg/dL (70-99) 254 mg/dL (70-99) 208 mg/dL (70-99) Micro Microbiology 06/04/20 Blood Culture - Preliminary, Resulted NO GROWTH AFTER 1 DAY Objective Assessment 1. Febrile illness. Likely aspiration pneumonia 2. Acute cerebrovascular accident. 3. History of previous cerebrovascular accident. 4. Diabetes mellitus. 5. Hyperlipidemia/hypertension. Plan Plan of Care 1. Continue Zosyn 2. Follow up labs and cultures. 3. Maintain aspiration precautions . Discussed with RN. ? Need comfort care, antibiotic can be switched to oral if oral is allowed PENNY BOSTON MD Jun 07, 2020 10:53
--- NOTE | 2020-06-07 11:56 | PDOC ---
ZA TREVIZO NEEDLE CONTROL CHENILLER 06/07/20 1156: CARDIO Progress Notes Date and Time Date of Service 06/07/2020 Time of Evaluation 1140 Subjective Subjective: No Chest Pain, No shortness of breath, No Palpitations Vitals Vitals Vital Signs Date Time Temp Pulse Resp B/P (MAP) Pulse Ox O2 Delivery O2 Flow Rate FiO2 06/07/20 11:09 133/63 (86) 06/07/20 10:34 98.0 81 14 98 Nasal Cannula 2.0 98.0 Weight Weight [ ] Input and Output Intake and Output Intake and Output 06/07/20 06:59 Intake Total 465 ml Balance 465 ml Intake Oral 0 ml IV Total 465 ml # Voids 5 Laboratory Labs Laboratory Tests Test 06/06/20 16:42 06/06/20 20:44 06/07/20 05:18 06/07/20 11:11 Glucose (Fingerstick) 219 mg/dL (70-99) 254 mg/dL (70-99) 208 mg/dL (70-99) 247 mg/dL (70-99) Microbiology Micro Microbiology 06/04/20 Blood Culture - Preliminary, Resulted NO GROWTH AFTER 3 DAYS Physical Exam HEENT: Neck Supple W Full Motion Chest: Symmetric LUNGS: Other (diminished bases) Heart: RRR (SR no significant ectopies) Abdomen: Soft N/T Extremities: No Edema, No Calf Tenderness Neurology: alert, oriented, follow commands Assessment Assessment 1. Seizure 2. Acute CVA Left temporal and occipital lobe cortical stroke 3. Small SAH/SDH post tPA. Stable. See imaging details 4. DM2 5. HLP 6. HTN: controlled 7. Encephalopathy: mentation is better today 8. Chronic LBBB 9. Fall with weakness: no notable injury 10. Dysphagia: improved able to take PO Recommendations 1. TTE revealed normal EF and WM with no significant valvular disease. No arrhythmias. Monitor rhythm, will consider for ILR 2. Monitor rhythm. Labetolol IV PRN 3. Antiplatelets when OK with neurology. 4. Supportive care Justicifation of Admission Dx: Justifications for Admission: Justification of Admission Dx: Yes Stroke - Ischemic: Stroke-Ischemic Sepsis: Altered Mental Status Altered Mental Status: Altered Mental Status TRIXIE HICKS MD 06/07/202051: CARDIO Progress Notes Assessment Assessment Patient seen and evaluated. I agree with our nurse practitioners assessment and plan. Seizure, acute CVA Left temporal and occipital lobe cortical stroke Small SAH/SDH post tPA. Stable. Followed by neurology. DM2 HLP HTN: controlled Encephalopathy: mentation is better today Chronic LBBB Fall with weakness: no notable injury ZA TREVIZO APRN Jun 07, 2020 11:56 TRIXIE HICKS MD Jun 07, 2020 20:52
[2020-06-07] MEDS ORDERED: LEVE500T56 PO (15:36)
[2020-06-07] MEDS: AMINO AC 3%/ELECTROLYTE/GLYCER 1,000 ML IV SCH (17:53)
[2020-06-08] MEDS: PIPERACILLIN/TAZOBACTAM 3.375 GM in IV NORMAL SALINE 50ML 50 ML IV SCH ×2 (00:38→05:41)
[2020-06-08] MEDS: INSULIN LISPRO 300 UNITS/3 ML VIAL. SQ SCH ×4 (00:39→20:53)
[2020-06-08 03:00] VITALS: BP 146/62
[2020-06-08 07:25] VITALS: BP 149/52
--- NOTE | 2020-06-08 07:40 | PDOC ---
[facility] PROGRESS NOTE Date of Service DOS: DATE: 06/08/20 TIME: 07:40 Chief Complaint Chief Complaint A/P: CVA (cerebral vascular accident), Acute, post alteplase occipital stroke with left field-cut 2017 subarachnoid and subdural hemorrhage overlying the left temporal/occipital /parietal lobe measuring approximate 5 mm in thickness.MRI / Acute metabolic encephalopathy FEVER aspiration pneumonia Suspected left retrocardiac opacities. This could be atelectasis or infiltrate. PUI COVID 19 hypomagnesemia HYPONATREMIA, VOLUME overload PLAN ICU BED MRI HEAD ID CONSULT BLOOD CULTURES MRI HEAD reviewed RESP ISOLATION iv empiric zosyn dvt prophylaxis Echocardiogram replace lytes D/C IV NS NEUROSURGERY consult electrolyte protocol Patient remains nonresponsive 06-03 covid pcr neg T-max 101.8 06-02-20 37 min cc time Justifications for Admission Justifications for Admission Other Justification History of Present Illness History of Present Illness Mr Benavides is a 79yo M w/ PMHx Diabetes, hypertension, hyperlipidemia, history of CVA, peripheral neuropathy, constipation, GERD, depression, osteoarthritis, BPH, urinary incontinence.presented to the emergency room with weakness, confusion after a fall. noted to have a fever overnight now a PUI, possible aspiration pneumonitis Family states that they had breakfast and spent the afternoon together and he was normal at that time.// fell and hit the left side of his head on carpet did not lose consciousness. Since that time he has been very confused. Encephalopathic, s/p alteplase 06/03: Vega placed for strict I/O 06/04: does not know his name, her name, or what is going on. He does not know the month or day. 06/05: Unable to provide any history and cannot follow all commands. States he sees a jet above the bed. Afebrile. WBC normalized. Repeat CT head with no swati nge left SDH for posterior left cerebral subarachnoid hemorrhage. Left temporal occipital junction hypodensity. Chronic right occipital lobe infarct noted. 06/06: Afebrile. Seen speech today, recommends NPO. Following some commands. Family has requested SNF discharge. 06/07: Afebrile. Following majority of commands. Answers nearly all questions appropriately is aware is 2020. He is insistent that he is not in the hospital. His only complaint is poor balance. Diet advanced. Afebrile follows commands. Still with some visual hallucinations. Alert and oriented today. Still with poor balance. Plan: Change meds to PO, stop IV antibiotics D/c planning to SNF Vitals/I&O Vitals/I&O: Vital Signs Date Time Temp Pulse Resp B/P (MAP) Pulse Ox O2 Delivery O2 Flow Rate FiO2 06/08/20 03:00 97.8 68 24 146/62 (90) 99 Room Air 97.8 06/07/20 10:34 2.0 I & O 06/07/20 06/07/20 06/08/20 15:00 23:00 07:00 Intake Total 460 ml 1731 ml Output Total 150 ml Balance 310 ml 1731 ml Physical Exam Physical Exam: GENERAL: Well-developed, well-nourished male, nonverbal, does not follow any commands, in no acute distress. HEENT: Normocephalic, atraumatic, anicteric. No thrush on room air. NECK: Supple, no lymphadenopathy, no JVD. LUNGS: Clear bilaterally. No wheezing. HEART: S1, S2. No gallops or murmurs. ABDOMEN: Soft, nontender, nondistended. EXTREMITIES: No edema, no cyanosis. DERMATOLOGIC: Warm, dry. No generalized rash. NEUROLOGIC: Does not follow any commands. See neurology exam for full details. General: No acute distress Heart: Regular rate (Sr no ectopies), Normal S1, Normal S2, Other (2/6 systolic murmur to apical border) Lungs: Clear Abdomen: Soft Extremities: No cyanosis, No edema Skin: No breakdown Labs Labs: Laboratory Tests Test 06/07/20 11:11 06/07/20 17:26 06/08/20 00:33 06/08/20 06:19 Glucose (Fingerstick) 247 mg/dL (70-99) 360 mg/dL (70-99) 329 mg/dL (70-99) 248 mg/dL (70-99) Comment Review of Relevant I have reviewed the following items joy (where applicable) has been applied. Justifications for Admission Other Justification LANCE VALDERRAMA MD Jun 08, 2020 07:40
[2020-06-08] MEDS: levETIRAcetam 500 MG in IV DEXTROSE 5% 100ML 100 ML IV SCH (09:00)
[2020-06-08] MEDS: FAMOTIDINE 20 MG/2 ML VIAL IVP SCH ×2 (09:14→20:37)
[2020-06-08] MEDS: AMINO AC 3%/ELECTROLYTE/GLYCER 1,000 ML IV SCH (09:14)
--- NOTE | 2020-06-08 09:31 | PDOC ---
Infectious Disease Note Subjective Subjective Patient is alert awake says he is feeling good Remains on 2 L O2 by nasal cannula ROS ROS No nausea vomiting diarrhea chest pain shortness of breath Vital Sign Vital Signs Vital Signs Date Time Temp Pulse Resp B/P (MAP) Pulse Ox O2 Delivery O2 Flow Rate FiO2 06/08/20 08:00 Room Air 06/08/20 07:25 97.8 68 22 149/52 (84) 100 97.8 06/07/20 10:34 2.0 Physical Exam PHYSICAL EXAM GENERAL: Well-developed, well-nourished male, nonverbal, does not follow any commands, in no acute distress. HEENT: Normocephalic, atraumatic, anicteric. No thrush on room air. NECK: Supple, no lymphadenopathy, no JVD. LUNGS: Clear bilaterally. No wheezing. HEART: S1, S2. No gallops or murmurs. ABDOMEN: Soft, nontender, nondistended. EXTREMITIES: No edema, no cyanosis. DERMATOLOGIC: Warm, dry. No generalized rash. NEUROLOGIC: Does not follow any commands. See neurology exam for full details. Labs Lab Laboratory Tests Test 06/07/20 11:11 06/07/20 17:26 06/08/20 00:33 06/08/20 06:19 Glucose (Fingerstick) 247 mg/dL (70-99) 360 mg/dL (70-99) 329 mg/dL (70-99) 248 mg/dL (70-99) Test 06/08/20 07:46 Glucose (Fingerstick) 225 mg/dL (70-99) Micro Microbiology 06/04/20 Blood Culture - Preliminary, Resulted NO GROWTH AFTER 1 DAY Objective Assessment 1. Febrile illness. Likely aspiration pneumonia 2. Acute cerebrovascular accident. 3. History of previous cerebrovascular accident. 4. Diabetes mellitus. 5. Hyperlipidemia/hypertension. 6 subdural hematoma Plan Plan of Care 1. Discontinue Zosyn 2. Follow up labs and cultures. 3. Maintain aspiration precautions . Discussed with ANTWON. PENNY BOSTON MD Jun 08, 2020 09:31
[2020-06-08 11:00] VITALS: BP 144/64
--- NOTE | 2020-06-08 11:13 | PDOC ---
Date of Service: DATE: 06/08/20 TIME: 11:12 Objective: Objective: D/w nurse - no GI concerns - not awake enough yet to eat this morning. Vital Signs: Vital Signs Date Time Temp Pulse Resp B/P (MAP) Pulse Ox O2 Delivery O2 Flow Rate FiO2 06/08/20 11:00 97.9 72 22 144/64 (90) 99 Room Air 97.9 06/07/20 10:34 2.0 Labs: Laboratory Tests Test 06/07/20 17:26 06/08/20 00:33 06/08/20 06:19 06/08/20 07:46 Glucose (Fingerstick) 360 mg/dL (70-99) 329 mg/dL (70-99) 248 mg/dL (70-99) 225 mg/dL (70-99) BLOOD CULTURE Preliminary NO GROWTH AFTER 4 DAYS PE: GEN: NAD NEURO/PSYCH: sleeping, not awakened A/P: S/p CVA, dysphagia COVID negative 06/02 -- Diet per [employer] ANALYST. Continue acid-liquid sugar fortifier. Justicifation of Admission Dx: Justifications for Admission: Justification of Admission Dx: Yes Stroke - Ischemic: Stroke-Ischemic Sepsis: Altered Mental Status Altered Mental Status: Altered Mental Status STEVEN RODRIGUEZ Jun 08, 2020 11:13
[2020-06-08] MEDS ORDERED: LIDOCAINE 2%/EPI 1:100,000 20 ML VIAL. ONE (12:31)
--- NOTE | 2020-06-08 12:31 | PDOC ---
PROGRESS NOTES Date of Service DATE: 06/08/20 TIME: 12:23 Assessment Fluctuating alertness, not as alert today Developed right body focal seizure activity /3, none since levetiracetam, mental status is improving. Left temporal and occipital lobe cortical stroke Subarachnoid and subdural hemorrhage overlying the left temporal/o ccipital/parietal lobe measuring approximate 5 mm in thickness, stable on 06/[address] Chronic small vessel ischemic change. 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 Plan Speech therapy following, now that he is more alert, but I am not sure he can maintain his nutrition No need for EEG Not a candidate for aggressive treatment of any cardiac embolic source given the hemorrhaging and severe debility, therefore holding off on cardiology consult Repeat head CT next week Left messages with patient's and son Subjective none Objective Vital Signs Date Time Temp Pulse Resp B/P (MAP) Pulse Ox O2 Delivery O2 Flow Rate FiO2 06/08/20 11:00 97.9 72 22 144/64 (90) 99 Room Air 97.9 06/07/20 10:34 2.0 Intake and Output 06/08/20 07:00 Intake Total 2191 ml Output Total 150 ml Balance 2041 ml Intake Oral 460 ml IV Total 1731 ml Output Urine Total 150 ml # Voids 4 # Bowel Movements 1 PHYSICAL EXAM Alerts to voice, follows commands, can't tell me name PERRL. EOMI. CN: Right central facial weakness. Muscle tone: Increased in the left, especially the left leg Muscle strength: 2-3/5 DTR: 2+ Plantar reflex: Silent Gait: not tested. Sensory exam: Not cooperative. Cerebellar:Not cooperative. Review of Relevant I have reviewed the following items joy (where applicable) has been applied. Labs Laboratory Tests Test 06/06/20 16:42 06/06/20 20:44 06/07/20 05:18 06/07/20 11:11 Glucose (Fingerstick) 219 mg/dL (70-99) 254 mg/dL (70-99) 208 mg/dL (70-99) 247 mg/dL (70-99) Test 06/07/20 17:26 06/08/20 00:33 06/08/20 06:19 06/08/20 07:46 Glucose (Fingerstick) 360 mg/dL (70-99) 329 mg/dL (70-99) 248 mg/dL (70-99) 225 mg/dL (70-99) Test 06/08/20 12:01 Glucose (Fingerstick) 288 mg/dL (70-99) Laboratory Tests Test 06/07/20 17:26 06/08/20 00:33 06/08/20 06:19 06/08/20 07:46 Glucose (Fingerstick) 360 mg/dL (70-99) 329 mg/dL (70-99) 248 mg/dL (70-99) 225 mg/dL (70-99) Test 06/08/20 12:01 Glucose (Fingerstick) 288 mg/dL (70-99) Microbiology 06/04/20 Blood Culture - Preliminary, Resulted NO GROWTH AFTER 4 DAYS Medications Current Medications Alteplase, Recombinant 0 ml @ 0 mls/hr Q1M ONCE IV ; Start 06/01/20 at 18:15; Stop 06/01/20 at 18:16; Status UNV Alteplase, Recombinant 0 ml @ 0 mls/hr Q1H IV ; Start 06/01/20 at 18:15; Status UNV Sodium Chloride 50 ml @ 50 mls/hr Q1H ONCE IV Last administered on 06/01/20at 20:31; Start 06/01/20 at 18:15; Stop 06/01/20 at 19:14; Status DC Labetalol HCl (Normodyne Iv Push) 10 mg PRN Q10MIN PRN IVP HYPERTENSION; Start 06/01/20 at 18:15; Stop 06/01/20 at 19:48; Status DC Nicardipine HCl 50 mg/Sodium Chloride 250 ml @ 25 mls/hr CONT PRN PRN IV HYPERTENSION Last administered on 06/01/20at 21:27; Start 06/01/20 at 18:15; Stop 06/08/20 at 10:45; Status DC Alteplase, Recombinant 7 ml @ 420 mls/hr 1X ONCE IV Last administered on 06/01/20at 18:26; Start 06/01/20 at 18:15; Stop 06/01/20 at 18:16; Status DC Alteplase, Recombinant 63.2 ml @ 63.2 mls/hr Q1H IV Last administered on 06/01/20at 18:30; Start 06/01/20 at 18:30; Stop 06/01/20 at 19:29; Status DC Labetalol HCl (Normodyne Iv Push) 20 mg STK-MED ONCE IVP ; Start 06/01/20 at 18:14; Stop 06/01/20 at 18:14; Status DC Iohexol (Omnipaque 300 Mg/ml) 75 ml 1X ONCE IV Last administered on 06/01/20at 18:58; Start 06/01/20 at 18:45; Stop 06/01/20 at 18:46; Status DC Info (CONTRAST GIVEN -- Rx MONITORING) 1 each PRN DAILY PRN MC SEE COMMENTS; Start 06/01/20 at 18:45; Stop 06/03/20 at 18:44; Status DC Labetalol HCl (Normodyne Iv Push) 10 mg PRN Q10MIN PRN IVP HYPERTENSION Last administered on 06/05/20at 22:42; Start 06/01/20 at 19:45 Nicardipine HCl 50 mg/Sodium Chloride 250 ml @ 25 mls/hr CONT PRN PRN IV HYPERTENSION; Start 06/01/20 at 19:45; Status UNV Acetaminophen (Tylenol) 650 mg PRN Q6HRS PRN PO MILD PAIN / TEMP > 100.3'F; Start 06/01/20 at 19:45 Acetaminophen (Tylenol Supp) 650 mg PRN Q6HRS PRN IA MILD PAIN / TEMP > 100.3'F Last administered on 06/02/20at 22:04; Start 06/01/20 at 19:45 Ondansetron HCl (Zofran) 4 mg PRN Q6HRS PRN IVP NAUSEA/VOMITING; Start 06/01/20 at 19:45; Status Cancel Magnesium Sulfate 50 ml @ 25 mls/hr 1X ONCE IV Last administered on 06/01/20at 21:21; Start 06/01/20 at 20:30; Stop 06/01/20 at 22:29; Status DC Ondansetron HCl (Zofran) 4 mg PRN Q8HRS PRN IV NAUSEA/VOMITING Last administered on 12/31/20at 22:04; Start 06/01/20 at 20:00; Stop 06/02/20 at 19:59; Status DC Prochlorperazine Edisylate (Compazine) 10 mg PRN Q8HRS PRN IV NAUSEA/VOMITING 2ND CHOICE Last administered on 06/02/20at 00:00; Start 06/02/20 at 00:00 Piperacillin Sod/ Tazobactam Sod (Zosyn Per Pharmacy) 1 each PRN DAILY PRN MC SEE COMMENTS; Start 06/02/20 at 10:30; Stop 06/08/20 at 09:31; Status DC Piperacillin Sod/ Tazobactam Sod 3.375 gm/Sodium Chloride 50 ml @ 100 mls/hr Q6HRS IV Last administered on 06/08/20at 05:41; Start 06/02/20 at 12:00; Stop 06/08/20 at 09:30; Status DC Amino Acids/ Glycerin/ Electrolytes 1,000 ml @ 80 mls/hr [id number] IV Last administered on 06/03/20at 09:32; Start 06/02/20 at 17:15; Stop 06/03/20 at 20:58; Status DC Ondansetron HCl (Zofran) 4 mg PRN Q6HRS PRN IVP NAUSEA/VOMITING; Start 06/02/20 at 19:00 Prochlorperazine (Compazine) 25 mg PRN Q12HR PRN IA NAUSEA/VOMITING; Start 06/02/20 at 19:00 Famotidine (Pepcid Vial) 20 mg BID IVP Last administered on 06/08/20at 09:14; Start 06/02/20 at 21:00 Info (Icu Electrolyte Protocol) 1 ea DAILY MC Last administered on 06/05/20at 09:00; Start 06/03/20 at 09:00; Stop 06/05/20 at 15:47; Status DC Sodium Chloride (Normal Saline Flush) 3 ml QSHIFT PRN IV AFTER MEDS AND BLOOD DRAWS; Start 06/02/20 at 19:00 Sodium Chloride 1,000 ml @ 70 mls/hr [id number] IV Last administered on 06/03/20at 09:33; Start 06/02/20 at 19:00; Stop 06/03/20 at 15:58; Status DC Bisacodyl (Dulcolax Supp) 10 mg PRN DAILY PRN IA CONSTIPATION; Start 06/02/20 at 19:00 Insulin Human Lispro (HumaLOG) 0-5 UNITS TIDWMEALS SQ Last administered on 06/03/20at 17:10; Start 06/03/20 at 08:00; Stop 06/03/20 at 20:58; Status DC Dextrose (Dextrose 50%-Water Syringe) 12.5 gm PRN Q15MIN PRN IV SEE COMMENTS; Start 06/03/20 at 07:00 Lorazepam (Ativan Inj) 2 mg STK-MED ONCE .ROUTE ; Start 06/03/20 at 15:11; Stop 06/03/20 at 15:11; Status DC Lorazepam (Ativan Inj) 2 mg 1X ONCE IVP ; Start 06/03/20 at 15:15; Stop 06/03/20 at 15:18; Status DC Levetiracetam 500 mg/Dextrose 105 ml @ 420 mls/hr Q12HR IV Last administered on 06/08/20at 09:00; Start 06/03/20 at 15:13; Stop 06/08/20 at 10:45; Status DC Lorazepam (Ativan Inj) 2 mg PRN Q4HRS PRN IVP TREMORS; Start 06/03/20 at 15:15 Furosemide (Lasix) 40 mg 1X ONCE IVP Last administered on 06/03/20at 21:28; Start 06/03/20 at 21:00; Stop 06/03/20 at 21:01; Status DC Amino Acids/ Glycerin/ Electrolytes 1,000 ml @ 60 mls/hr [id number] IV Last administered on 06/08/20at 09:14; Start 06/03/20 at 21:00 Insulin Human Lispro (HumaLOG) 0-7 UNITS Q6HRS SQ Last administered on 06/08/20at 12:07; Start 06/04/20 at 00:00 Dextrose (Dextrose 50%-Water Syringe) 12.5 gm PRN Q15MIN PRN IV SEE COMMENTS; Start 06/03/20 at 21:00; Status Cancel Potassium Chloride/Water 100 ml @ 100 mls/hr Q1H IV Last administered on 06/05/20at 00:10; Start 06/04/20 at 19:30; Stop 06/04/20 at 23:29; Status DC Potassium Chloride/Water 100 ml @ 100 mls/hr Q1H IV Last administered on 06/05/20at 15:40; Start 06/05/20 at 12:00; Stop 06/05/20 at 15:59; Status DC Perflutren Protein Type A Microsphe (Optison) 0.66 mg 1X ONCE IV ; Start 06/05/20 at 11:45; Stop 06/05/20 at 11:46; Status DC Lorazepam (Ativan Inj) 2 mg STK-MED ONCE .ROUTE ; Start 06/03/20 at 15:15; Stop 06/05/20 at 13:27; Status DC Info (Non-Icu Electrolyte Protocol) 1 ea CONT PRN PRN MC PER PROTOCOL; Start 06/05/20 at 15:45 Levetiracetam (Keppra) 500 mg BID PO ; Start 06/08/20 at 21:00 Active Scripts Active Keppra (Levetiracetam) 500 Mg Tablet 1 Tab PO BID 30 Days Reported Tamsulosin Hcl 0.4 Mg Cap.er.24h 0.4 Mg PO DAILY Levemir (Insulin Detemir) 100 Unit/1 Ml Vial 26 Unit SQ Simvastatin 5 Mg Tablet 2 Mg PO HS Duloxetine Hcl 20 Mg Capsule.dr 20 Mg PO DAILY Glimepiride 2 Mg Tablet 1 Tab PO DAILY Omeprazole 20 Mg Capsule.dr 1 Cap PO DAILY Vitals/I & O Vital Sign - Last 24 Hours 06/07/20 06/07/20 06/07/20 06/07/20 14:27 18:31 20:00 23:00 Temp 98.2 97.5 97.6 98.2 97.5 97.6 Pulse 76 76 74 Resp 14 14 18 B/P (MAP) 147/54 (85) 144/63 (90) 147/64 (91) Pulse Ox 96 97 96 O2 Delivery Room Air Room Air Room Air Room Air 06/08/20 06/08/20 06/08/20 06/08/20 03:00 07:25 08:00 11:00 Temp 97.8 97.8 97.9 97.8 97.8 97.9 Pulse 68 68 72 Resp 24 22 22 B/P (MAP) 146/62 (90) 149/52 (84) 144/64 (90) Pulse Ox 99 100 99 O2 Delivery Room Air Room Air Room Air Room Air Intake and Output 06/07/20 06/07/20 06/08/20 15:00 23:00 07:00 Intake Total 460 ml 1731 ml Output Total 150 ml Balance 310 ml 1731 ml Justicifation of Admission Dx: Justifications for Admission: Justification of Admission Dx: Yes Stroke - Ischemic: Stroke-Ischemic Sepsis: Altered Mental Status Altered Mental Status: Altered Mental Status TERRY BARONE MD Jun 08, 2020 12:31
--- NOTE | 2020-06-08 12:35 | NUR ---
SS following up with discharge planning. SS reviewed pt chart and discussed with pt RN. Pt is currently on room air. COVID19 negative. Pt is scheduled for loop recorder today. PPN. PT/OT recommending halfway unit. community planner assisting with discharge. Pt was denied at [facility]. Referrals were sent to [facility], ; fax [phone], and [facility], ; fax [phone]. Currently awaiting acceptance decisions at this time. SS will continue to follow for discharge planning.
--- NOTE | 2020-06-08 13:11 | CARD ---
MR#: [id number] Date of Study: 06/08/2020 Ordering Physician: ZA TREVIZO, Referring Physician: ZA TREVIZO, Tech: APPROVED REPORT EXAM Loop Recorder INDICATIONS Cryptogenic stroke IMPLANTED DEVICES BiotLumiy Biomonitor 3 with SN [id number]. After appropriate informed consent the left chest was prepped and draped in usual sterile fashion. 2 0 mL of 1% lidocaine was instilled at the level of the nipple line in a horizontal fashion. Next, a 0.5 inch incision was made with a 11 blade scalpel. A bio monitor device was then implanted in a sub cutaneous fashion without any difficulty. The incision was then closed with 130 stitch and covered w ith Steri-Strips and bandage. No acute complications noted. Excellent sensing was obtained. CONCLUSION Successful implantation of a bio monitor 3 Biotronik loop recorder for cryptogenic stroke. Signed by : Charly aCnas, Electronically Approved : 06/08/2020 13:11:22
[2020-06-08 15:00] VITALS: BP 157/69
--- NOTE | 2020-06-08 15:47 | PDOC ---
ZA TREVIZO MOVIE PROJECTIONIST 06/08/20 1547: CARDIO Progress Notes Date and Time Date of Service 06/08/2020 Time of Evaluation 1120 Subjective Subjective: No Chest Pain, No shortness of breath, No Palpitations Vitals Vitals Vital Signs Date Time Temp Pulse Resp B/P (MAP) Pulse Ox O2 Delivery O2 Flow Rate FiO2 06/08/20 15:00 97.7 85 22 157/69 (98) 98 Room Air 97.7 06/07/20 10:34 2.0 Weight Weight [ ] Input and Output Intake and Output Intake and Output 06/08/20 07:00 Intake Total 2191 ml Output Total 150 ml Balance 2041 ml Intake Oral 460 ml IV Total 1731 ml Output Urine Total 150 ml # Voids 4 # Bowel Movements 1 Laboratory Labs Laboratory Tests Test 06/07/20 17:26 06/08/20 00:33 06/08/20 06:19 06/08/20 07:46 Glucose (Fingerstick) 360 mg/dL (70-99) 329 mg/dL (70-99) 248 mg/dL (70-99) 225 mg/dL (70-99) Test 06/08/20 12:01 Glucose (Fingerstick) 288 mg/dL (70-99) Microbiology Micro Microbiology 06/04/20 Blood Culture - Preliminary, Resulted NO GROWTH AFTER 4 DAYS Physical Exam HEENT: Neck Supple W Full Motion Chest: Symmetric LUNGS: Other (diminished bases) Heart: RRR (SR no significant ectopies) Abdomen: Soft N/T Extremities: No Edema, No Calf Tenderness Neurology: alert, oriented, follow commands Assessment Assessment 1. Seizure 2. Acute CVA Left temporal and occipital lobe cortical stroke 3. Small SAH/SDH post tPA. Stable. See imaging details 4. DM2: not on goal 5. HLP: controlled 6. HTN: controlled 7. Encephalopathy: mentation is better today 8. Chronic LBBB 9. Fall with weakness: no notable injury 10. Dysphagia Recommendations 1. TTE revealed normal EF and WM with no significant valvular disease. No arrhythmias so far. ILR today. Discussed with pt, risks and benefits and agre eable to proceed. Discussed with RN, will relay to spouse to further verify plan of care and agrees with ILR as pt still has periods of confusion. 2. Labetolol IV PRN. Could start on either ACEi or BB pending BP trend. 3. Antiplatelets when OK with neurology. 4. Supportive care Justicifation of Admission Dx: Justifications for Admission: Justification of Admission Dx: Yes Stroke - Ischemic: Stroke-Ischemic Sepsis: Altered Mental Status Altered Mental Status: Altered Mental Status TRIXIE HICKS MD 06/08/201924: CARDIO Progress Notes Assessment Assessment Patient seen and examined I agree with our nurse practitioners assessment and plan as above. Seizure, acute CVA Left temporal and occipital lobe cortical stroke Small SAH/SDH post tPA. Stable. Followed by neurology. DM2: As per the primary service. HLP: controlled HTN: controlled Encephalopathy: mentation is improved Chronic LBBB Fall with weakness: no notable injury Rhythm stable. Possible IRD as above. ZA TREVIZO APRN Jun 08, 2020 15:47 TRIXIE HICKS MD Jun 08, 2020 19:25
[2020-06-08] MEDS ORDERED: INSULIN LISPRO 300 UNITS/3 ML VIAL. SQ SCH (16:30)
[2020-06-08] MEDS ORDERED: INSULIN LISPRO 300 UNITS/3 ML VIAL. SQ ONE (17:30)
[2020-06-08] MEDS ORDERED: DEXTROSE 50% 25 GM / 50ML DISP.SYRIN. IV PRN (17:30)
[2020-06-08] MEDS: PANTOPRAZOLE 40 MG TABLET.DR. PO SCH (17:45)
[2020-06-08] MEDS: GLIMEPIRIDE 2 MG TABLET. PO SCH (17:45)
[2020-06-08] MEDS: TAMSULOSIN 0.4 MG CAP.ER.24H. PO SCH (17:45)
[2020-06-08] MEDS: DULoxetine HCL 20 MG CAPSULE.DR PO SCH (17:45)
[2020-06-08 19:00] VITALS: BP 152/61
[2020-06-08] MEDS: levETIRAcetam 500 MG TABLET PO SCH (20:37)
[2020-06-08] MEDS ORDERED: INSULIN GLARGINE SYRINGE. SQ SCH (21:00)
[2020-06-08 23:00] VITALS: BP 135/57
[2020-06-09 03:00] VITALS: BP 134/64
[2020-06-09 04:58] LABS: BASO % 1 % (0-3); EOS # 0.1 x10^3/uL (0.0-0.7); EOS % 1 % (0-3); HEMATOCRIT 32.2 % (39.0-53.0); HEMOGLOBIN 11.3 g/dL (13.0-17.5); LYMPH # 1.2 x10^3/uL (1.0-4.8); LYMPH % 21 % (24-48); MEAN CORPUSCULAR HEMOGLOBIN 32 pg (25-35); MEAN CORPUSCULAR HGB CONC 35 g/dL (31-37); MEAN CORPUSCULAR VOLUME 90 fL (79-100); MONO # 0.7 x10^3/uL (0.0-1.1); MONO % 12 % (0-9); NEUT % 66 % (31-73); PLATELET COUNT 276 x10^3/uL (140-400); RED BLOOD COUNT 3.57 x10^6/uL (4.30-5.70); RED CELL DISTRIBUTION WIDTH 12.4 % (11.5-14.5)
[2020-06-09 05:15] LABS: CREATININE 0.7 mg/dL (0.7-1.3); GFR 109.1; POTASSIUM 3.9 mmol/L (3.5-5.1)
[2020-06-09 07:18] VITALS: BP 143/67
--- NOTE | 2020-06-09 07:37 | PDOC ---
[facility] PROGRESS NOTE Date of Service DOS: DATE: 06/09/20 TIME: 07:37 Chief Complaint Chief Complaint A/P: CVA (cerebral vascular accident), Acute, post alteplase - Left temporal and occipital lobe cortical stroke Right body focal seizure activity 06/04, none since levetiracetam, mental status is improving. 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 This could be atelectasis or infiltrate. Hypomagnesemia HYPONATREMIA, VOLUME overload Diabetes type II Diabetic peripheral neuropathy Consults: Neurology, Cardiology, ID, GI History of Present Illness History of Present Illness Mr Benavides is a 79yo M w/ PMHx Diabetes, hypertension, hyperlipidemia, history of CVA, peripheral neuropathy, constipation, GERD, depression, osteoarthritis, BPH, urinary incontinence.presented to the emergency room with weakness, confusion after a fall. noted to have a fever overnight now a PUI, possible aspiration pneumonitis Family states that they had breakfast and spent the afternoon together and he was normal at that time.// fell and hit the left side of his head on carpet did not lose consciousness. Since that time he has been very confused. Encephalopathic, s/p alteplase 06/03: Vega placed for strict I/O 06/04: does not know his name, her name, or what is going on. He does not know the month or day. 06/05: Unable to provide any history and cannot follow all commands. States he sees a jet above the bed. Afebrile. WBC normalized. Repeat CT head with no change left SDH for posterior left cerebral subarachnoid hemorrhage. Left temporal occipital junction hypodensity. Chronic right occipital lobe infarct noted. 06/06: Afebrile. Seen speech today, recommends NPO. Following some commands. Family has requested SNF discharge. 06/07: Afebrile. Following majority of commands. Answers nearly all questions appropriately is aware is 2020. He is insistent that he is not in the hospital. His only complaint is poor balance. Diet advanced. 06/08: Afebrile follows commands. Still with some visual hallucinations. Alert and oriented today. Still with poor balance. Implantable loop recorder placed. Glucose in 400s overnight. Lost IV access overnight. Still slow to respond, but following all commands. Alert and oriented. Plan: Change meds to PO, stop IV antibiotics D/c planning to SNF Will need repeat CT head in a week prior to restarting anti-platelet agents Vitals/I&O Vitals/I&O: Vital Signs Date Time Temp Pulse Resp B/P (MAP) Pulse Ox O2 Delivery O2 Flow Rate FiO2 06/09/20 07:18 98.4 82 18 143/67 (92) 96 Room Air 98.4 I & O 06/08/20 06/08/20 06/09/20 15:00 23:00 07:00 Intake Total 400 ml Balance 400 ml Physical Exam Physical Exam: GENERAL: Well-developed, well-nourished male, nonverbal, does not follow any commands, in no acute distress. HEENT: Normocephalic, atraumatic, anicteric. No thrush on room air. NECK: Supple, no lymphadenopathy, no JVD. LUNGS: Clear bilaterally. No wheezing. HEART: S1, S2. No gallops or murmurs. ABDOMEN: Soft, nontender, nondistended. EXTREMITIES: No edema, no cyanosis. DERMATOLOGIC: Warm, dry. No generalized rash. NEUROLOGIC: Does not follow any commands. See neurology exam for full details. General: No acute distress Heart: Regular rate (Sr no ectopies), Normal S1, Normal S2, Other (2/6 systolic murmur to apical border) Lungs: Clear Abdomen: Soft Extremities: No cyanosis, No edema Skin: No breakdown Labs Labs: Laboratory Tests Test 06/08/20 07:46 06/08/20 12:01 06/08/20 17:13 06/08/20 20:31 Glucose (Fingerstick) 225 mg/dL (70-99) 288 mg/dL (70-99) 403 mg/dL (70-99) 316 mg/dL (70-99) Test 06/09/20 04:30 06/09/20 07:25 White Blood Count 6.0 x10^3/uL (4.0-11.0) Red Blood Count 3.57 x10^6/uL (4.30-5.70) Hemoglobin 11.3 g/dL (13.0-17.5) Hematocrit 32.2 % (39.0-53.0) Mean Corpuscular Volume 90 fL (79-100) Mean Corpuscular Hemoglobin 32 pg (25-35) Mean Corpuscular Hemoglobin Concent 35 g/dL (31-37) Red Cell Distribution Width 12.4 % (11.5-14.5) Platelet Count 276 x10^3/uL (140-400) Neutrophils (%) (Auto) 66 % (31-73) Lymphocytes (%) (Auto) 21 % (24-48) Monocytes (%) (Auto) 12 % (0-9) Eosinophils (%) (Auto) 1 % (0-3) Basophils (%) (Auto) 1 % (0-3) Neutrophils # (Auto) 4.0 x10^3/uL (1.8-7.7) Lymphocytes # (Auto) 1.2 x10^3/uL (1.0-4.8) Monocytes # (Auto) 0.7 x10^3/uL (0.0-1.1) Eosinophils # (Auto) 0.1 x10^3/uL (0.0-0.7) Basophils # (Auto) 0.0 x10^3/uL (0.0-0.2) Sodium Level 135 mmol/L (136-145) Potassium Level 3.9 mmol/L (3.5-5.1) Chloride Level 99 mmol/L (98-107) Carbon Dioxide Level 27 mmol/L (21-32) Anion Gap 9 (6-14) Blood Urea Nitrogen 15 mg/dL (8-26) Creatinine 0.7 mg/dL (0.7-1.3) Estimated GFR (Cockcroft-Gault) 109.1 Glucose Level 334 mg/dL (70-99) Calcium Level 9.0 mg/dL (8.5-10.1) Glucose (Fingerstick) 314 mg/dL (70-99) Comment Review of Relevant I have reviewed the following items joy (where applicable) has been applied. Medications: Current Medications Medications (Trade) Dose Ordered Sig/Sonja Route PRN Reason Start Time Stop Time Status Last Admin Dose Admin Levetiracetam (Keppra) 500 mg BID PO 1/7/21 21:00 06/08/20 20:37 Insulin Human Lispro (HumaLOG) 15 units 1X ONCE SQ 06/08/20 17:30 06/08/20 17:31 DC 06/08/20 17:31 Insulin Glargine (Lantus Syringe) 12 unit QHS SQ 06/08/20 21:00 06/09/20 07:36 DC 06/08/20 20:49 Duloxetine HCl (Cymbalta) 20 mg DAILY PO 06/08/20 18:00 06/08/20 17:45 Glimepiride (Amaryl) 2 mg DAILY PO 06/08/20 18:00 06/08/20 17:45 Tamsulosin HCl (Flomax) 0.4 mg DAILY PO 06/08/20 18:00 06/08/20 17:45 Pantoprazole Sodium (Protonix) 40 mg DAILYAC PO 06/08/20 18:00 06/08/20 17:45 Justifications for Admission Other Justification LANCE VALDERRAMA MD Jun 09, 2020 07:37
[2020-06-09] MEDS ORDERED: ONDANSETRON ODT 4 MG TAB.RAPDIS. PO PRN (08:15)
[2020-06-09] MEDS: PANTOPRAZOLE 40 MG TABLET.DR. PO SCH (08:18)
[2020-06-09] MEDS: TAMSULOSIN 0.4 MG CAP.ER.24H. PO SCH (08:19)
[2020-06-09] MEDS: GLIMEPIRIDE 2 MG TABLET. PO SCH (08:19)
[2020-06-09] MEDS: levETIRAcetam 500 MG TABLET PO SCH (08:19)
[2020-06-09] MEDS: DULoxetine HCL 20 MG CAPSULE.DR PO SCH (08:19)
[2020-06-09] MEDS: INSULIN LISPRO 300 UNITS/3 ML VIAL. SQ SCH ×4 (08:28→12:10)
--- NOTE | 2020-06-09 08:49 | PDOC ---
Infectious Disease Note Subjective Subjective Patient is alert awake says he is feeling good Remains on 2 L O2 by nasal cannula Vital Sign Vital Signs Vital Signs Date Time Temp Pulse Resp B/P (MAP) Pulse Ox O2 Delivery O2 Flow Rate FiO2 06/09/20 07:37 Room Air 06/09/20 07:18 98.4 82 18 143/67 (92) 96 98.4 Physical Exam PHYSICAL EXAM GENERAL: Well-developed, well-nourished male, nonverbal, does not follow any commands, in no acute distress. HEENT: Normocephalic, atraumatic, anicteric. No thrush on room air. NECK: Supple, no lymphadenopathy, no JVD. LUNGS: Clear bilaterally. No wheezing. HEART: S1, S2. No gallops or murmurs. ABDOMEN: Soft, nontender, nondistended. EXTREMITIES: No edema, no cyanosis. DERMATOLOGIC: Warm, dry. No generalized rash. NEUROLOGIC: Does not follow any commands. See neurology exam for full details. Labs Lab Laboratory Tests Test 06/08/20 12:01 06/08/20 17:13 06/08/20 20:31 06/09/20 04:30 Glucose (Fingerstick) 288 mg/dL (70-99) 403 mg/dL (70-99) 316 mg/dL (70-99) White Blood Count 6.0 x10^3/uL (4.0-11.0) Red Blood Count 3.57 x10^6/uL (4.30-5.70) Hemoglobin 11.3 g/dL (13.0-17.5) Hematocrit 32.2 % (39.0-53.0) Mean Corpuscular Volume 90 fL (79-100) Mean Corpuscular Hemoglobin 32 pg (25-35) Mean Corpuscular Hemoglobin Concent 35 g/dL (31-37) Red Cell Distribution Width 12.4 % (11.5-14.5) Platelet Count 276 x10^3/uL (140-400) Neutrophils (%) (Auto) 66 % (31-73) Lymphocytes (%) (Auto) 21 % (24-48) Monocytes (%) (Auto) 12 % (0-9) Eosinophils (%) (Auto) 1 % (0-3) Basophils (%) (Auto) 1 % (0-3) Neutrophils # (Auto) 4.0 x10^3/uL (1.8-7.7) Lymphocytes # (Auto) 1.2 x10^3/uL (1.0-4.8) Monocytes # (Auto) 0.7 x10^3/uL (0.0-1.1) Eosinophils # (Auto) 0.1 x10^3/uL (0.0-0.7) Basophils # (Auto) 0.0 x10^3/uL (0.0-0.2) Sodium Level 135 mmol/L (136-145) Potassium Level 3.9 mmol/L (3.5-5.1) Chloride Level 99 mmol/L (98-107) Carbon Dioxide Level 27 mmol/L (21-32) Anion Gap 9 (6-14) Blood Urea Nitrogen 15 mg/dL (8-26) Creatinine 0.7 mg/dL (0.7-1.3) Estimated GFR (Cockcroft-Gault) 109.1 Glucose Level 334 mg/dL (70-99) Calcium Level 9.0 mg/dL (8.5-10.1) Test 06/09/20 07:25 Glucose (Fingerstick) 314 mg/dL (70-99) Micro Microbiology 06/04/20 Blood Culture - Preliminary, Resulted NO GROWTH AFTER 1 DAY Objective Assessment 1. Febrile illness. Likely aspiration pneumonia 2. Acute cerebrovascular accident. 3. History of previous cerebrovascular accident. 4. Diabetes mellitus. 5. Hyperlipidemia/hypertension. 6 subdural hematoma Plan Plan of Care 1. Okay to DC to snf facility 2. Follow up labs and cultures. 3. Maintain aspiration precautions . Discussed with RN. PENNY BOSTON MD Jun 09, 2020 08:49
[2020-06-09] MEDS ORDERED: FAMOTIDINE 20 MG TABLET. PO SCH (09:00)
--- NOTE | 2020-06-09 09:21 | PDOC ---
PROGRESS NOTES Date of Service DATE: 06/09/20 TIME: 09:18 Assessment Fluctuating alertness, more alert today Developed right body focal seizure activity /3, none since levetiracetam, mental status is improving. Left temporal and occipital lobe cortical stroke Subarachnoid and subdural hemorrhage overlying the left temporal/occ ipital/parietal lobe measuring approximate 5 mm in thickness, stable on 06/[address] Chronic small vessel ischemic change. 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 Plan Speech therapy following, now that he is more alert, but I am not sure he can maintain his nutrition No need for EEG Not a candidate for aggressive treatment of any cardiac embolic source given the hemorrhaging and severe debility, consider Linq recording as output Repeat head CT next week Okay to go to assisted unit, can get head CT from there Discussed yesterday with patient's Objective Vital Signs Date Time Temp Pulse Resp B/P (MAP) Pulse Ox O2 Delivery O2 Flow Rate FiO2 06/09/20 07:37 Room Air 06/09/20 07:18 98.4 82 18 143/67 (92) 96 98.4 Intake and Output 06/09/20 07:00 Intake Total 400 ml Balance 400 ml Intake Oral 400 ml # Voids 8 # Bowel Movements 1 PHYSICAL EXAM Alert, conversant, follows commands, oriented to person PERRL. EOMI. CN: Right central facial weakness. Muscle tone: Increased in the left, especially the left leg Muscle strength: 2-3/5 DTR: 2+ Plantar reflex: Silent Gait: not tested. Sensory exam: No focal findings Cerebellar:Not cooperative. Review of Relevant I have reviewed the following items joy (where applicable) has been applied. Labs Laboratory Tests Test 06/07/20 11:11 06/07/20 17:26 06/08/20 00:33 06/08/20 06:19 Glucose (Fingerstick) 247 mg/dL (70-99) 360 mg/dL (70-99) 329 mg/dL (70-99) 248 mg/dL (70-99) Test 06/08/20 07:46 06/08/20 12:01 06/08/20 17:13 06/08/20 20:31 Glucose (Fingerstick) 225 mg/dL (70-99) 288 mg/dL (70-99) 403 mg/dL (70-99) 316 mg/dL (70-99) Test 06/09/20 04:30 06/09/20 07:25 White Blood Count 6.0 x10^3/uL (4.0-11.0) Red Blood Count 3.57 x10^6/uL (4.30-5.70) Hemoglobin 11.3 g/dL (13.0-17.5) Hematocrit 32.2 % (39.0-53.0) Mean Corpuscular Volume 90 fL (79-100) Mean Corpuscular Hemoglobin 32 pg (25-35) Mean Corpuscular Hemoglobin Concent 35 g/dL (31-37) Red Cell Distribution Width 12.4 % (11.5-14.5) Platelet Count 276 x10^3/uL (140-400) Neutrophils (%) (Auto) 66 % (31-73) Lymphocytes (%) (Auto) 21 % (24-48) Monocytes (%) (Auto) 12 % (0-9) Eosinophils (%) (Auto) 1 % (0-3) Basophils (%) (Auto) 1 % (0-3) Neutrophils # (Auto) 4.0 x10^3/uL (1.8-7.7) Lymphocytes # (Auto) 1.2 x10^3/uL (1.0-4.8) Monocytes # (Auto) 0.7 x10^3/uL (0.0-1.1) Eosinophils # (Auto) 0.1 x10^3/uL (0.0-0.7) Basophils # (Auto) 0.0 x10^3/uL (0.0-0.2) Sodium Level 135 mmol/L (136-145) Potassium Level 3.9 mmol/L (3.5-5.1) Chloride Level 99 mmol/L (98-107) Carbon Dioxide Level 27 mmol/L (21-32) Anion Gap 9 (6-14) Blood Urea Nitrogen 15 mg/dL (8-26) Creatinine 0.7 mg/dL (0.7-1.3) Estimated GFR (Cockcroft-Gault) 109.1 Glucose Level 334 mg/dL (70-99) Calcium Level 9.0 mg/dL (8.5-10.1) Glucose (Fingerstick) 314 mg/dL (70-99) Laboratory Tests Test 06/08/20 12:01 06/08/20 17:13 06/08/20 20:31 06/09/20 04:30 Glucose (Fingerstick) 288 mg/dL (70-99) 403 mg/dL (70-99) 316 mg/dL (70-99) White Blood Count 6.0 x10^3/uL (4.0-11.0) Red Blood Count 3.57 x10^6/uL (4.30-5.70) Hemoglobin 11.3 g/dL (13.0-17.5) Hematocrit 32.2 % (39.0-53.0) Mean Corpuscular Volume 90 fL (79-100) Mean Corpuscular Hemoglobin 32 pg (25-35) Mean Corpuscular Hemoglobin Concent 35 g/dL (31-37) Red Cell Distribution Width 12.4 % (11.5-14.5) Platelet Count 276 x10^3/uL (140-400) Neutrophils (%) (Auto) 66 % (31-73) Lymphocytes (%) (Auto) 21 % (24-48) Monocytes (%) (Auto) 12 % (0-9) Eosinophils (%) (Auto) 1 % (0-3) Basophils (%) (Auto) 1 % (0-3) Neutrophils # (Auto) 4.0 x10^3/uL (1.8-7.7) Lymphocytes # (Auto) 1.2 x10^3/uL (1.0-4.8) Monocytes # (Auto) 0.7 x10^3/uL (0.0-1.1) Eosinophils # (Auto) 0.1 x10^3/uL (0.0-0.7) Basophils # (Auto) 0.0 x10^3/uL (0.0-0.2) Sodium Level 135 mmol/L (136-145) Potassium Level 3.9 mmol/L (3.5-5.1) Chloride Level 99 mmol/L (98-107) Carbon Dioxide Level 27 mmol/L (21-32) Anion Gap 9 (6-14) Blood Urea Nitrogen 15 mg/dL (8-26) Creatinine 0.7 mg/dL (0.7-1.3) Estimated GFR (Cockcroft-Gault) 109.1 Glucose Level 334 mg/dL (70-99) Calcium Level 9.0 mg/dL (8.5-10.1) Test 06/09/20 07:25 Glucose (Fingerstick) 314 mg/dL (70-99) Microbiology 06/04/20 Blood Culture - Final, Complete NO GROWTH AFTER 5 DAYS Medications Current Medications Alteplase, Recombinant 0 ml @ 0 mls/hr Q1M ONCE IV ; Start 06/01/20 at 18:15; Stop 06/01/20 at 18:16; Status UNV Alteplase, Recombinant 0 ml @ 0 mls/hr Q1H IV ; Start 06/01/20 at 18:15; Status UNV Sodium Chloride 50 ml @ 50 mls/hr Q1H ONCE IV Last administered on 06/01/20at 20:31; Start 06/01/20 at 18:15; Stop 06/01/20 at 19:14; Status DC Labetalol HCl (Normodyne Iv Push) 10 mg PRN Q10MIN PRN IVP HYPERTENSION; Start 06/01/20 at 18:15; Stop 06/01/20 at 19:48; Status DC Nicardipine HCl 50 mg/Sodium Chloride 250 ml @ 25 mls/hr CONT PRN PRN IV HYPERTENSION Last administered on 06/01/20at 21:27; Start 06/01/20 at 18:15; Stop 06/08/20 at 10:45; Status DC Alteplase, Recombinant 7 ml @ 420 mls/hr 1X ONCE IV Last administered on 06/01/20at 18:26; Start 06/01/20 at 18:15; Stop 06/01/20 at 18:16; Status DC Alteplase, Recombinant 63.2 ml @ 63.2 mls/hr Q1H IV Last administered on 06/01/20at 18:30; Start 06/01/20 at 18:30; Stop 06/01/20 at 19:29; Status DC Labetalol HCl (Normodyne Iv Push) 20 mg STK-MED ONCE IVP ; Start 06/01/20 at 18:14; Stop 06/01/20 at 18:14; Status DC Iohexol (Omnipaque 300 Mg/ml) 75 ml 1X ONCE IV Last administered on 06/01/20at 18:58; Start 06/01/20 at 18:45; Stop 06/01/20 at 18:46; Status DC Info (CONTRAST GIVEN -- Rx MONITORING) 1 each PRN DAILY PRN MC SEE COMMENTS; Start 06/01/20 at 18:45; Stop 06/03/20 at 18:44; Status DC Labetalol HCl (Normodyne Iv Push) 10 mg PRN Q10MIN PRN IVP HYPERTENSION Last administered on 06/05/20at 22:42; Start 06/01/20 at 19:45; Stop 06/09/20 at 08:14; Status DC Nicardipine HCl 50 mg/Sodium Chloride 250 ml @ 25 mls/hr CONT PRN PRN IV HYPERTENSION; Start 06/01/20 at 19:45; Status UNV Acetaminophen (Tylenol) 650 mg PRN Q6HRS PRN PO MILD PAIN / TEMP > 100.3'F; Start 06/01/20 at 19:45 Acetaminophen (Tylenol Supp) 650 mg PRN Q6HRS PRN PA MILD PAIN / TEMP > 100.3'F Last administered on 06/02/20at 22:04; Start 06/01/20 at 19:45 Ondansetron HCl (Zofran) 4 mg PRN Q6HRS PRN IVP NAUSEA/VOMITING; Start 06/01/20 at 19:45; Status Cancel Magnesium Sulfate 50 ml @ 25 mls/hr 1X ONCE IV Last administered on 06/01/20at 21:21; Start 06/01/20 at 20:30; Stop 06/01/20 at 22:29; Status DC Ondansetron HCl (Zofran) 4 mg PRN Q8HRS PRN IV NAUSEA/VOMITING Last administered on 06/01/20at 22:04; Start 06/01/20 at 20:00; Stop 06/02/20 at 19:59; Status DC Prochlorperazine Edisylate (Compazine) 10 mg PRN Q8HRS PRN IV NAUSEA/VOMITING 2ND CHOICE Last administered on 06/02/20at 00:00; Start 06/02/20 at 00:00; Stop 06/09/20 at 08:14; Status DC Piperacillin Sod/ Tazobactam Sod (Zosyn Per Pharmacy) 1 each PRN DAILY PRN MC SEE COMMENTS; Start 06/02/20 at 10:30; Stop 06/08/20 at 09:31; Status DC Piperacillin Sod/ Tazobactam Sod 3.375 gm/Sodium Chloride 50 ml @ 100 mls/hr Q6HRS IV Last administered on 06/08/20at 05:41; Start 06/02/20 at 12:00; Stop 06/08/20 at 09:30; Status DC Amino Acids/ Glycerin/ Electrolytes 1,000 ml @ 80 mls/hr [id number] IV Last administered on 06/03/20at 09:32; Start 06/02/20 at 17:15; Stop 06/03/20 at 20:58; Status DC Ondansetron HCl (Zofran) 4 mg PRN Q6HRS PRN IVP NAUSEA/VOMITING; Start 06/02/20 at 19:00; Stop 06/09/20 at 08:14; Status DC Prochlorperazine (Compazine) 25 mg PRN Q12HR PRN PA NAUSEA/VOMITING; Start 06/02/20 at 19:00 Famotidine (Pepcid Vial) 20 mg BID IVP Last administered on 06/08/20at 20:37; Start 06/02/20 at 21:00; Stop 06/09/20 at 07:32; Status DC Info ([facility]cu Electrolyte Protocol) 1 ea DAILY MC Last administered on 06/05/20at 09:00; Start 06/03/20 at 09:00; Stop 06/05/20 at 15:47; Status DC Sodium Chloride (Normal Saline Flush) 3 ml QSHIFT PRN IV AFTER MEDS AND BLOOD DRAWS; Start 06/02/20 at 19:00 Sodium Chloride 1,000 ml @ 70 mls/hr [id number] IV Last administered on 06/03/20at 09:33; Start 06/02/20 at 19:00; Stop 06/03/20 at 15:58; Status DC Bisacodyl (Dulcolax Supp) 10 mg PRN DAILY PRN PA CONSTIPATION; Start 06/02/20 at 19:00 Insulin Human Lispro (HumaLOG) 0-5 UNITS TIDWMEALS SQ Last administered on 06/03/20at 17:10; Start 06/03/20 at 08:00; Stop 06/03/20 at 20:58; Status DC Dextrose (Dextrose 50%-Water Syringe) 12.5 gm PRN Q15MIN PRN IV SEE COMMENTS; Start 06/03/20 at 07:00 Lorazepam (Ativan Inj) 2 mg STK-MED ONCE .ROUTE ; Start 06/03/20 at 15:11; Stop 06/03/20 at 15:11; Status DC Lorazepam (Ativan Inj) 2 mg 1X ONCE IVP ; Start 06/03/20 at 15:15; Stop 06/03/20 at 15:18; Status DC Levetiracetam 500 mg/Dextrose 105 ml @ 420 mls/hr Q12HR IV Last administered on 06/08/20at 09:00; Start 06/03/20 at 15:13; Stop 06/08/20 at 10:45; Status DC Lorazepam (Ativan Inj) 2 mg PRN Q4HRS PRN IVP TREMORS; Start 06/03/20 at 15:15; Stop 06/09/20 at 08:14; Status DC Furosemide (Lasix) 40 mg 1X ONCE IVP Last administered on 06/03/20at 21:28; Start 06/03/20 at 21:00; Stop 06/03/20 at 21:01; Status DC Amino Acids/ Glycerin/ Electrolytes 1,000 ml @ 60 mls/hr [id number] IV Last administered on 06/08/20at 09:14; Start 06/03/20 at 21:00; Stop 06/08/20 at 16:14; Status DC Insulin Human Lispro (HumaLOG) 0-7 UNITS Q6HRS SQ Last administered on 06/08/20at 12:07; Start 06/04/20 at 00:00; Stop 06/08/20 at 16:14; Status DC Dextrose (Dextrose 50%-Water Syringe) 12.5 gm PRN Q15MIN PRN IV SEE COMMENTS; Start 06/03/20 at 21:00; Status Cancel Potassium Chloride/Water 100 ml @ 100 mls/hr Q1H IV Last administered on 06/05/20at 00:10; Start 06/04/20 at 19:30; Stop 06/04/20 at 23:29; Status DC Potassium Chloride/Water 100 ml @ 100 mls/hr Q1H IV Last administered on 06/05/20at 15:40; Start 06/05/20 at 12:00; Stop 06/05/20 at 15:59; Status DC Perflutren Protein Type A Microsphe (Optison) 0.66 mg 1X ONCE IV ; Start 06/05/20 at 11:45; Stop 06/05/20 at 11:46; Status DC Lorazepam (Ativan Inj) 2 mg STK-MED ONCE .ROUTE ; Start 06/03/20 at 15:15; Stop 06/05/20 at 13:27; Status DC Info (Non-Icu Electrolyte Protocol) 1 ea CONT PRN PRN MC PER PROTOCOL; Start 06/05/20 at 15:45; Stop 06/09/20 at 08:14; Status DC Levetiracetam (Keppra) 500 mg BID PO Last administered on 06/09/20at 08:19; Start 06/08/20 at 21:00 Lidocaine/ Epinephrine (LIDOCAINE 2%-EPI 1:100,000 multi-dose) 20 ml STK-MED ONCE .ROUTE ; Start 06/08/20 at 12:31; Stop 06/08/20 at 12:31; Status DC Insulin Human Lispro (HumaLOG) 0-7 UNITS TIDAC SQ ; Start 06/08/20 at 16:30; Stop 06/08/20 at 17:25; Status DC Insulin Human Lispro (HumaLOG) 15 units 1X ONCE SQ Last administered on 06/08/20at 17:31; Start 06/08/20 at 17:30; Stop 06/08/20 at 17:31; Status DC Insulin Glargine (Lantus Syringe) 12 unit QHS SQ Last administered on 06/08/20at 20:49; Start 06/08/20 at 21:00; Stop 06/09/20 at 07:36; Status DC Insulin Human Lispro (HumaLOG) 0-9 UNITS TIDWMEALHC SQ Last administered on 06/09/20at 08:29; Start 06/08/20 at 21:00 Dextrose (Dextrose 50%-Water Syringe) 12.5 gm PRN Q15MIN PRN IV SEE COMMENTS; Start 06/08/20 at 17:30 Duloxetine HCl (Cymbalta) 20 mg DAILY PO Last administered on 06/09/20at 08:19; Start 06/08/20 at 18:00 Glimepiride (Amaryl) 2 mg DAILY PO Last administered on 06/09/20at 08:19; Start 06/08/20 at 18:00 Simvastatin (Zocor) 5 mg QHS PO ; Start 06/09/20 at 21:00 Tamsulosin HCl (Flomax) 0.4 mg DAILY PO Last administered on 06/09/20at 08:19; Start 06/08/20 at 18:00 Pantoprazole Sodium (Protonix) 40 mg DAILYAC PO Last administered on 06/09/20at 08:18; Start 06/08/20 at 18:00 Famotidine (Pepcid) 20 mg BID PO Last administered on 06/09/20at 08:18; Start 06/09/20 at 09:00 Insulin Glargine (Lantus Syringe) 26 unit QHS SQ ; Start 06/09/20 at 21:00 Insulin Human Lispro (HumaLOG) 3 units TIDAC SQ Last administered on 06/09/20at 08:28; Start 06/09/20 at 07:45 Ondansetron HCl (Zofran Odt) 4 mg PRN Q6HRS PRN PO NAUSEA/VOMITING; Start 06/09/20 at 08:15 Psyllium Hydrophilic Mucilloid (Metamucil Fiber Packet) 1 pkt QHS PO ; Start 06/09/20 at 21:00 Olanzapine (ZyPREXA ZYDIS) 5 mg PRN BID PRN PO ANXIETY / AGITATION; Start 06/09/20 at 08:15 Active Scripts Active Keppra (Levetiracetam) 500 Mg Tablet 1 Tab PO BID 30 Days Reported Tamsulosin Hcl 0.4 Mg Cap.er.24h 0.4 Mg PO DAILY Levemir (Insulin Detemir) 100 Unit/1 Ml Vial 26 Unit SQ Simvastatin 5 Mg Tablet 2 Mg PO HS Duloxetine Hcl 20 Mg Capsule. 20 Mg PO DAILY Glimepiride 2 Mg Tablet 1 Tab PO DAILY Omeprazole 20 Mg Capsule.dr 1 Cap PO DAILY Vitals/I & O Vital Sign - Last 24 Hours 06/08/20 06/08/20 06/08/20 1/7/21 11:00 15:00 19:00 19:51 Temp 97.9 97.7 97.9 97.7 Pulse 72 85 79 Resp B/P (MAP) 144/64 (90) 157/69 (98) 152/61 (91) Pulse Ox 99 98 99 O2 Delivery Room Air Room Air Room Air Room Air 06/08/20 06/09/20 06/09/20 06/09/20 23:00 03:00 07:18 07:37 Temp 98.1 98.9 98.4 98.1 98.9 98.4 Pulse 76 77 82 Resp B/P (MAP) 135/57 (83) 134/64 (87) 143/67 (92) Pulse Ox 99 99 96 O2 Delivery Room Air Room Air Room Air Room Air Intake and Output 06/08/20 06/08/20 06/09/20 15:00 23:00 07:00 Intake Total 400 ml Balance 400 ml Justicifation of Admission Dx: Justifications for Admission: Justification of Admission Dx: Yes Stroke - Ischemic: Stroke-Ischemic Sepsis: Altered Mental Status Altered Mental Status: Altered Mental Status TERRY BARONE MD Jun 09, 2020 09:21
--- NOTE | 2020-06-09 09:27 | SNU/HH DC ---
DISCHARGE ORDERS DISCHARGE INFORMATION: DISCHARGE DATE: Jun 09, 2020 FINAL DIAGNOSIS CVA CONDITION ON DISCHARGE: Stable CODE STATUS: Code Status: DNR/DNI FDC: SNF STAY <30 DAYS: Yes POST DISCHARGE ORDERS: ACTIVITY ORDERS: Activity as tolerated WEIGHT BEARING STATUS: No restrictions DIET AFTER DISCHARGE: ADA (Dysphagia II, honey-thick liquids) WOUND/INCISION CARE: No wound care needed CHECKS AFTER DISCHARGE: CHECKS AFTER DISCHARGE: Check blood press - daily, Check blood sugar, ac/hs, Check your Temp as needed, Weigh Yourself Daily FOLLOW-UP: PHYSICIAN FOLLOW-UP: Dr. Rahman - Neurology ADDITIONAL FOLLOW-UP: Will need repeat CT head in a week prior to restarting anti-platelet agents TREATMENT/EQUIPMENT ORDERS: ADAPTIVE EQUIPMENT NEEDED: None Physical Therapy For: Evalulation/Treatment Occupational Therapy For: Evaluation/Treatment Speech Language Pathology For: Evaluation/Treatment DISCHARGE MEDICATIONS: Home Meds Active Scripts Levetiracetam (KEPPRA) 500 Mg Tablet, 1 TAB PO BID for Seizure for 30 Days, #60 TAB 2 Refills Prov:LANCE VALDERRAMA MD 06/07/20 Reported Medications Tamsulosin Hcl (TAMSULOSIN HCL) 0.4 Mg Cap.er.24h, 0.4 MG PO DAILY, TAB 03/27/18 Insulin Detemir (LEVEMIR) 100 Unit/1 Ml Vial, 26 UNIT SQ, VIAL 04/30/17 Simvastatin (SIMVASTATIN) 5 Mg Tablet, 2 MG PO HS for FOR CHOLESTEROL, #30 TAB 0 Refills 09/20/15 Duloxetine Hcl (DULOXETINE HCL) 20 Mg Capsule.dr, 20 MG PO DAILY, CAP 09/20/15 Glimepiride (GLIMEPIRIDE) 2 Mg Tablet, 1 TAB PO DAILY, #30 TAB 5 Refills 09/20/15 Omeprazole (OMEPRAZOLE) 20 Mg Capsule.dr, 1 CAP PO DAILY, #30 CAP 5 Refills 09/20/15 Discontinued Reported Medications Aspirin (ASPIR-LOW) 81 Mg Tablet.dr, 162 MG PO, TAB.SR 03/27/18 Metformin Hcl (METFORMIN HCL) 1,000 Mg Tablet, 1 TAB PO BIDWMEALS, #60 TAB 5 Re fills 09/20/15 LANCE VALDERRAMA MD Jun 09, 2020 09:27
--- NOTE | 2020-06-09 09:37 | PDOC3 ---
Discharge Summary Visit Information Date of Admission: Jun 01, 2020 Date of Discharge: Jun 09, 2020 Admitting Diagnosis: CVA Final Diagnosis CVA Brief Hospital Course Allergies Allergies Coded Allergies Type Severity Reaction Last Updated Verified No Known Drug Allergies 09/24/17 No Vital Signs Vital Signs Date Time Temp Pulse Resp B/P (MAP) Pulse Ox O2 Delivery O2 Flow Rate FiO2 06/09/20 07:37 Room Air 06/09/20 07:18 98.4 82 18 143/67 (92) 96 98.4 Lab Results Laboratory Tests Test 06/07/20 11:11 06/07/20 17:26 06/08/20 00:33 06/08/20 06:19 Glucose (Fingerstick) 247 mg/dL (70-99) 360 mg/dL (70-99) 329 mg/dL (70-99) 248 mg/dL (70-99) Test 06/08/20 07:46 06/08/20 12:01 06/08/20 17:13 06/08/20 20:31 Glucose (Fingerstick) 225 mg/dL (70-99) 288 mg/dL (70-99) 403 mg/dL (70-99) 316 mg/dL (70-99) Test 06/09/20 04:30 06/09/20 07:25 White Blood Count 6.0 x10^3/uL (4.0-11.0) Red Blood Count 3.57 x10^6/uL (4.30-5.70) Hemoglobin 11.3 g/dL (13.0-17.5) Hematocrit 32.2 % (39.0-53.0) Mean Corpuscular Volume 90 fL (79-100) Mean Corpuscular Hemoglobin 32 pg (25-35) Mean Corpuscular Hemoglobin Concent 35 g/dL (31-37) Red Cell Distribution Width 12.4 % (11.5-14.5) Platelet Count 276 x10^3/uL (140-400) Neutrophils (%) (Auto) 66 % (31-73) Lymphocytes (%) (Auto) 21 % (24-48) Monocytes (%) (Auto) 12 % (0-9) Eosinophils (%) (Auto) 1 % (0-3) Basophils (%) (Auto) 1 % (0-3) Neutrophils # (Auto) 4.0 x10^3/uL (1.8-7.7) Lymphocytes # (Auto) 1.2 x10^3/uL (1.0-4.8) Monocytes # (Auto) 0.7 x10^3/uL (0.0-1.1) Eosinophils # (Auto) 0.1 x10^3/uL (0.0-0.7) Basophils # (Auto) 0.0 x10^3/uL (0.0-0.2) Sodium Level 135 mmol/L (136-145) Potassium Level 3.9 mmol/L (3.5-5.1) Chloride Level 99 mmol/L (98-107) Carbon Dioxide Level 27 mmol/L (21-32) Anion Gap 9 (6-14) Blood Urea Nitrogen 15 mg/dL (8-26) Creatinine 0.7 mg/dL (0.7-1.3) Estimated GFR (Cockcroft-Gault) 109.1 Glucose Level 334 mg/dL (70-99) Calcium Level 9.0 mg/dL (8.5-10.1) Glucose (Fingerstick) 314 mg/dL (70-99) Laboratory Tests Test 06/08/20 12:01 06/08/20 17:13 06/08/20 20:31 06/09/20 04:30 Glucose (Fingerstick) 288 mg/dL (70-99) 403 mg/dL (70-99) 316 mg/dL (70-99) White Blood Count 6.0 x10^3/uL (4.0-11.0) Red Blood Count 3.57 x10^6/uL (4.30-5.70) Hemoglobin 11.3 g/dL (13.0-17.5) Hematocrit 32.2 % (39.0-53.0) Mean Corpuscular Volume 90 fL (79-100) Mean Corpuscular Hemoglobin 32 pg (25-35) Mean Corpuscular Hemoglobin Concent 35 g/dL (31-37) Red Cell Distribution Width 12.4 % (11.5-14.5) Platelet Count 276 x10^3/uL (140-400) Neutrophils (%) (Auto) 66 % (31-73) Lymphocytes (%) (Auto) 21 % (24-48) Monocytes (%) (Auto) 12 % (0-9) Eosinophils (%) (Auto) 1 % (0-3) Basophils (%) (Auto) 1 % (0-3) Neutrophils # (Auto) 4.0 x10^3/uL (1.8-7.7) Lymphocytes # (Auto) 1.2 x10^3/uL (1.0-4.8) Monocytes # (Auto) 0.7 x10^3/uL (0.0-1.1) Eosinophils # (Auto) 0.1 x10^3/uL (0.0-0.7) Basophils # (Auto) 0.0 x10^3/uL (0.0-0.2) Sodium Level 135 mmol/L (136-145) Potassium Level 3.9 mmol/L (3.5-5.1) Chloride Level 99 mmol/L (98-107) Carbon Dioxide Level 27 mmol/L (21-32) Anion Gap 9 (6-14) Blood Urea Nitrogen 15 mg/dL (8-26) Creatinine 0.7 mg/dL (0.7-1.3) Estimated GFR (Cockcroft-Gault) 109.1 Glucose Level 334 mg/dL (70-99) Calcium Level 9.0 mg/dL (8.5-10.1) Test 06/09/20 07:25 Glucose (Fingerstick) 314 mg/dL (70-99) Brief Hospital Course Mr Benavides is a 79yo M w/ PMHx Diabetes, hypertension, hyperlipidemia, history of CVA, peripheral neuropathy, constipation, GERD, depression, osteoarthritis, BPH, urinary incontinence presented to the emergency room with weakness, confusion after a fall. Family states that they had breakfast and spent the afternoon together and he was normal at that time.// fell and hit the left side of his head on carpet CT head w/o bleed, Given alteplase for likely CVA, noted with and treated for aspiration pneumonia. CT head on /u revealed small SDH, held antiplatelets 06/03: Vega placed for strict I/O 06/04: does not know his name, her name, or what is going on. He does not know the month or day. 06/05: Unable to provide any history and cannot follow all commands. States he sees a jet above the bed. Afebrile. WBC normalized. Repeat CT head with no change left SDH for posterior left cerebral subarachnoid hemorrhage. Left temporal occipital junction hypodensity. Chronic right occipital lobe infarct noted. 06/06: Afebrile. Seen speech today, recommends NPO. Following some commands. Family has requested SNF discharge. 06/07: Afebrile. Following majority of commands. Answers nearly all questions appropriately is aware is 2020. He is insistent that he is not in the hospital. His only complaint is poor balance. Diet advanced. 06/08: Afebrile follows commands. Still with some visual hallucinations. Alert and oriented today. Still with poor balance. Implantable loop recorder placed. Lost IV access overnight. Still slow to respond, but following all commands. Alert and oriented. Problem list: CVA (cerebral vascular accident), Acute, post alteplase - Left temporal and occipital lobe cortical stroke Right body focal seizure activity 06/04, none since levetiracetam, mental status is improving. 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 This could be atelectasis or infiltrate. Hypomagnesemia HYPONATREMIA, VOLUME overload Diabetes type II Diabetic peripheral neuropathy Consults: Neurology, Cardiology, ID, GI Plan: Changed meds to PO Will need repeat CT head in a week prior to restarting anti-platelet agents Greater than 30 minutes spent on d/c to SNF Discharge Information Condition at Discharge: Improved Follow Up: Weeks Disposition/Orders: D/C to Home w/ HH Scheduled Duloxetine Hcl (Duloxetine Hcl) 20 Mg Capsule.dr, 20 MG PO DAILY, (Reported) Entered as Reported by: HALEY STEEN on 09/20/152219 Last Action: Continued on 06/08/201724 by LANCE VALDERRAMA MD Glimepiride (Glimepiride) 2 Mg Tablet, 1 TAB PO DAILY, #30 Ref 5 (Reported) Entered as Reported by: HALEY STEEN on 09/20/152219 Last Action: Continued on 06/08/201724 by LANCE VALDERRAMA MD Levetiracetam (Keppra) 500 Mg Tablet, 1 TAB PO BID for Seizure for 30 Days, #60 Ref 2 Prescribed by: LANCE VALDERRAMA MD on 06/07/201535 Omeprazole (Omeprazole) 20 Mg Capsule.dr, 1 CAP PO DAILY, #30 Ref 5 (Reported) Entered as Reported by: HALEY STEEN on 09/20/152219 Last Action: Converted on 06/08/201725 by LANCE VALDERRAMA MD Simvastatin (Simvastatin) 5 Mg Tablet, 2 MG PO HS for FOR CHOLESTEROL, #30 Ref 0 (Reported) Entered as Reported by: HALEY STEEN on 09/20/152219 Last Action: Continued on 06/08/201724 by LANCE VALDERRAMA MD Tamsulosin Hcl (Tamsulosin Hcl) 0.4 Mg Cap.er.24h, 0.4 MG PO DAILY, (Reported) Entered as Reported by: SD GIVENS RN on 03/27/18114 Last Action: Continued on 06/08/201724 by LANCE VALDERRAMA MD Miscellaneous Medications Insulin Detemir (Levemir) 100 Unit/1 Ml Vial, 26 UNIT SQ, (Reported) Entered as Reported by: NATI GOLD on 04/30/171746 Last Action: Reviewed on 06/02/20147 by SAAD PAPPAS Discontinued Medications Aspirin (Aspir-Low) 81 Mg Tablet.dr, 162 MG PO, (Reported) Entered as Reported by: SD GIVENS RN on 03/27/18114 Last Action: Reviewed on 06/02/20147 by SAAD PAPPAS Metformin Hcl (Metformin Hcl) 1,000 Mg Tablet, 1 TAB PO BIDWMEALS, #60 Ref 5 (Reported) Entered as Reported by: HALEY STEEN on 09/20/152219 Last Action: Reviewed on 06/02/20147 by SAAD PAPPAS Justicifation of Admission Dx: Justifications for Admission: Justification of Admission Dx: Yes Stroke - Ischemic: Stroke-Ischemic Sepsis: Altered Mental Status Altered Mental Status: Altered Mental Status LANCE VALDERRAMA MD Jun 09, 2020 09:37
--- NOTE | 2020-06-09 10:05 | PDOC ---
Date of Service: DATE: 06/09/20 TIME: 10:03 Subjective: Subjective: Says he didn't eat anything this morning. Wants enamorado. Objective: Objective: D/w nurse - appetite not great but tolerating applesauce, more awake, to DC to rehab. Vital Signs: Vital Signs Date Time Temp Pulse Resp B/P (MAP) Pulse Ox O2 Delivery O2 Flow Rate FiO2 06/09/20 07:37 Room Air 06/09/20 07:18 98.4 82 18 143/67 (92) 96 98.4 Labs: Laboratory Tests Test 06/08/20 12:01 06/08/20 17:13 06/08/20 20:31 06/09/20 04:30 Glucose (Fingerstick) 288 mg/dL 403 mg/dL 316 mg/dL White Blood Count 6.0 x10^3/uL Red Blood Count 3.57 x10^6/uL Hemoglobin 11.3 g/dL Hematocrit 32.2 % Mean Corpuscular Volume 90 fL Mean Corpuscular Hemoglobin 32 pg Mean Corpuscular Hemoglobin Concent 35 g/dL Red Cell Distribution Width 12.4 % Platelet Count 276 x10^3/uL Neutrophils (%) (Auto) 66 % Lymphocytes (%) (Auto) 21 % Monocytes (%) (Auto) 12 % Eosinophils (%) (Auto) 1 % Basophils (%) (Auto) 1 % Neutrophils # (Auto) 4.0 x10^3/uL Lymphocytes # (Auto) 1.2 x10^3/uL Monocytes # (Auto) 0.7 x10^3/uL Eosinophils # (Auto) 0.1 x10^3/uL Basophils # (Auto) 0.0 x10^3/uL Sodium Level 135 mmol/L Potassium Level 3.9 mmol/L Chloride Level 99 mmol/L Carbon Dioxide Level 27 mmol/L Anion Gap 9 Blood Urea Nitrogen 15 mg/dL Creatinine 0.7 mg/dL Estimated GFR (Cockcroft-Gault) 109.1 Glucose Level 334 mg/dL Calcium Level 9.0 mg/dL Test 06/09/20 07:25 Glucose (Fingerstick) 314 mg/dL BLOOD CULTURE Final NO GROWTH AFTER 5 DAYS PE: GEN: NAD LUNGS: CTAB HEART: RRR ABD: BS+, soft, non-distended, non-tender NEURO/PSYCH: forgetful still but more alert than previously A/P: S/p CVA - taking dysphagia diet -- DC per primary. Continue acid-back panel padder. Justicifation of Admission Dx: Justifications for Admission: Justification of Admission Dx: Yes Stroke - Ischemic: Stroke-Ischemic Sepsis: Altered Mental Status Altered Mental Status: Altered Mental Status STEVEN RODRIGUEZ Jun 09, 2020 10:05
--- NOTE | 2020-06-09 10:25 | NUR ---
SS following up with discharge planning. SS reviewed pt chart and discussed with pt RN. Pt is currently on room air. COVID19 negative. Pt accepted at [facility], ; fax [phone]. Discharge orders phoned and faxed to [facility]. Pt will discharge today and go to [facility] at 1300. [facility] to provide transportation. Pt, pt's RN, and pt's spouse notified.
[2020-06-09 11:00] VITALS: BP 127/65
--- NOTE | 2020-06-09 11:27 | PDOC ---
ZA TREVIZO [employer] ENGINEER 06/09/20 1127: CARDIO Progress Notes Date and Time Date of Service 06/09/2020 Time of Evaluation 1115 Subjective Subjective: No Chest Pain, No shortness of breath, No Palpitations Vitals Vitals Vital Signs Date Time Temp Pulse Resp B/P (MAP) Pulse Ox O2 Delivery O2 Flow Rate FiO2 06/09/20 11:00 97.3 83 23 127/65 (85) 96 Room Air 97.3 Weight Weight [ ] Input and Output Intake and Output Intake and Output 06/09/20 07:00 Intake Total 400 ml Balance 400 ml Intake Oral 400 ml # Voids 8 # Bowel Movements 1 Laboratory Labs Laboratory Tests Test 06/08/20 12:01 06/08/20 17:13 06/08/20 20:31 06/09/20 04:30 Glucose (Fingerstick) 288 mg/dL (70-99) 403 mg/dL (70-99) 316 mg/dL (70-99) White Blood Count 6.0 x10^3/uL (4.0-11.0) Red Blood Count 3.57 x10^6/uL (4.30-5.70) Hemoglobin 11.3 g/dL (13.0-17.5) Hematocrit 32.2 % (39.0-53.0) Mean Corpuscular Volume 90 fL (79-100) Mean Corpuscular Hemoglobin 32 pg (25-35) Mean Corpuscular Hemoglobin Concent 35 g/dL (31-37) Red Cell Distribution Width 12.4 % (11.5-14.5) Platelet Count 276 x10^3/uL (140-400) Neutrophils (%) (Auto) 66 % (31-73) Lymphocytes (%) (Auto) 21 % (24-48) Monocytes (%) (Auto) 12 % (0-9) Eosinophils (%) (Auto) 1 % (0-3) Basophils (%) (Auto) 1 % (0-3) Neutrophils # (Auto) 4.0 x10^3/uL (1.8-7.7) Lymphocytes # (Auto) 1.2 x10^3/uL (1.0-4.8) Monocytes # (Auto) 0.7 x10^3/uL (0.0-1.1) Eosinophils # (Auto) 0.1 x10^3/uL (0.0-0.7) Basophils # (Auto) 0.0 x10^3/uL (0.0-0.2) Sodium Level 135 mmol/L (136-145) Potassium Level 3.9 mmol/L (3.5-5.1) Chloride Level 99 mmol/L (98-107) Carbon Dioxide Level 27 mmol/L (21-32) Anion Gap 9 (6-14) Blood Urea Nitrogen 15 mg/dL (8-26) Creatinine 0.7 mg/dL (0.7-1.3) Estimated GFR (Cockcroft-Gault) 109.1 Glucose Level 334 mg/dL (70-99) Calcium Level 9.0 mg/dL (8.5-10.1) Test 06/09/20 07:25 Glucose (Fingerstick) 314 mg/dL (70-99) Microbiology Micro Microbiology 06/04/20 Blood Culture - Final, Complete NO GROWTH AFTER 5 DAYS Physical Exam HEENT: Neck Supple W Full Motion Chest: Symmetric LUNGS: Other (diminished bases) Heart: RRR (SR no significant ectopies) Abdomen: Soft N/T Extremities: No Edema, No Calf Tenderness Neurology: alert, oriented, follow commands Other Exams mid chest ILR site intact with steri strips D/I GINETTE Assessment Assessment 1. Seizure 2. Acute CVA Left temporal and occipital lobe cortical stroke 3. Small SAH/SDH post tPA. Stable. See imaging details 4. DM2: not on goal 5. HLP: controlled 6. HTN: controlled 7. Encephalopathy: mentation is better today 8. Chronic LBBB 9. Fall with weakness: no notable injury 10. Dysphagia: able to swallow 11. S/P ILR Recommendations 1. TTE revealed normal EF and WM with no significant valvular disease. No arrhythmias so far 2. Labetolol IV PRN. Could start on either ACEi or BB pending BP trend. 3. Antiplatelets when OK with neurology. 4. Supportive care 5. Follow up in office Justicifation of Admission Dx: Justifications for Admission: Justification of Admission Dx: Yes Stroke - Ischemic: Stroke-Ischemic Sepsis: Altered Mental Status Altered Mental Status: Altered Mental Status TRIXIE HICKS MD 06/09/20 1606: CARDIO Progress Notes Assessment Assessment Patient seen and examined Agree with our nurse practitioners assessment and plan. Seizure. Acute CVA Left temporal and occipital lobe cortical stroke Small SAH/SDH post tPA. Stable. See imaging details HLP: controlled HTN: controlled Encephalopathy: mentation is better today Chronic LBBB S/P ILR Outpatient follow-up. ZA TREVIZO APRN Jun 09, 2020 11:27 TRIXIE HICKS MD Jun 09, 2020 16:06
--- NOTE | 2020-06-09 11:50 | NUR ---
Report called to Etta [facility]AP[facility] at [facility].
--- NOTE | 2020-06-09 13:00 | NUR ---
Pt [facility] to [facility]. Spoke with Etta KAPOOR at the facility to make them aware pt has loop recorder. Verbalized understanding. Also spoke with pt's , Latonia, about pt's glasses. States she has them at home.
[2020-06-09] MEDS ORDERED: PSYLLIUM HUSK (SUGAR FREE) 1 PKT PACKET PO SCH (21:00)
[2020-06-09] MEDS ORDERED: INSULIN GLARGINE SYRINGE. SQ SCH (21:00)
[2020-06-09] MEDS ORDERED: SIMVASTATIN 5 MG TABLET. PO SCH (21:00)
[2020-08-12] MEDS ORDERED: ASCO500C PO (04:00)
[2020-08-12] MEDS ORDERED: GABA300C18 PO (04:00)
[2020-08-12] MEDS ORDERED: ASPI-630 PO (04:00)
[2020-08-12] MEDS ORDERED: MULT-245 PO (04:00)
[2020-08-12] MEDS ORDERED: METF10007 PO (04:00)
[2020-08-14] MEDS ORDERED: MAGN400T5 PO (13:23)
[2020-08-14] MEDS ORDERED: INSU100V13 SQ (13:23)
[2020-08-14] MEDS ORDERED: METF10007 PO (13:23)
[2020-08-14] MEDS ORDERED: ATOR40TA59 PO (13:23)
== END 2020-06-09 13:06 | DRG 853 ==
LOC: ER 17:39 → ED HOLD 19:48 → 1 WEST ICU 23:11 → CVICU 06-04 18:19
PROVIDERS: ADMIT Internal Medicine; ATTEND Internal Medicine
PROC: 3E03317 Introduction of Other Thrombolytic into Peripheral Vein, Percutaneous Approach (ICD-10-PCS; 2020-06-01)
PROC: 0JH632Z Insertion of Monitoring Device into Chest Subcutaneous Tissue and Fascia, Percutaneous Approach (ICD-10-PCS; principal; 2020-06-08)
DX: A41.9 Sepsis, unspecified organism (principal); S06.6X9A Traumatic subarachnoid hemorrhage with loss of consciousness of unspecified duration, initial encounter; S06.5X9A Traumatic subdural hemorrhage with loss of consciousness of unspecified duration, initial encounter; J69.0 Pneumonitis due to inhalation of food and vomit; G93.41 Metabolic encephalopathy; E87.1 Hypo-osmolality and hyponatremia; G81.91 Hemiplegia, unspecified affecting right dominant side; E11.42 Type 2 diabetes mellitus with diabetic polyneuropathy; E11.51 Type 2 diabetes mellitus with diabetic peripheral angiopathy without gangrene; E78.5 Hyperlipidemia, unspecified; E83.42 Hypomagnesemia; E87.70 Fluid overload, unspecified; F41.9 Anxiety disorder, unspecified; G43.909 Migraine, unspecified, not intractable, without status migrainosus; I10 Essential (primary) hypertension; I44.7 Left bundle-branch block, unspecified; K21.9 Gastro-esophageal reflux disease without esophagitis; M19.90 Unspecified osteoarthritis, unspecified site; N40.1 Benign prostatic hyperplasia with lower urinary tract symptoms; R13.19 Other dysphagia; Z66 Do not resuscitate; Z82.3 Family history of stroke; Z82.49 Family history of ischemic heart disease and other diseases of the circulatory system; Z82.5 Family history of asthma and other chronic lower respiratory diseases; D64.9 Anemia, unspecified; Z86.73 Personal history of transient ischemic attack (TIA), and cerebral infarction without residual deficits; Z87.891 Personal history of nicotine dependence; F32.9 Major depressive disorder, single episode, unspecified; W18.39XA Other fall on same level, initial encounter; Y93.89 Activity, other specified; Y92.89 Other specified places as the place of occurrence of the external cause; Y99.8 Other external cause status; Z20.822 Contact with and (suspected) exposure to COVID-19
CPT/HCPCS: 96365; 96366; 96368; 99291; C8929; 33285; 36415; 70450; 70496; 70498; 70551; 71045; 80048; 80053; 80061; 81001; 82962; 83735; 83930; 84443; 84484; 85007; 85025; 85610; 85730; 87040; 87426; 93005; C1764; J0780; J1815; J1940; J1953; J2060; J2405; J2543; J2997; J3475; J3480; J3490; J7030; J7050; J7060; Q9967; U0003; 92526-GN; 92610-GN; 97110-GP; 97116-GP; 97530-GO; 97530-GP; 97535-GO; G0378

== ENCOUNTER → 2020-06-22 | Outpatient (CLI) | payer MEDICARE ==
[2020-06-09 11:00] VITALS: BP 127/65
[~2020-06-22] MED LIST changes: +LEVE500T56 PO; +LISI-338 PO; -LISI-517 PO
--- NOTE | 2020-06-22 17:59 | RAD ---
EXAM: CT Head without IV contrast INDICATION: Reason: SDH CVA / Spl. Instructions: / History: TECHNIQUE: Multi-detector row CT images were obtained of the head without the use of IV contrast. All CT scans performed at this facility utilize dose optimization techniques as appropriate to the exam, including the following: Automated exposure control and adjustment of the mA and/or KV according to patient size (this includes techniques or standardized protocols for targeted exams where dose is ind ication/reason for exam). COMPARISON: Noncontrast head CT of 06/06/2020 FINDINGS: BRAIN PARENCHYMA: No evidence of acute intraparenchymal hemorrhage or infarct. Generalized parenchyma l volume loss and white matter low density compatible chronic ischemic microvascular change is redemo nstrated. Superimposed on this is chronic encephalomalacia in the right occipital lobe consistent wit h an old infarct. There is evolving hypodensity in the left posterior temporal lobe consistent with a n evolving subacute to chronic infarct. VENTRICLES & EXTRA-AXIAL SPACES: Ventricles are prominent in proportion to the degree of parenchymal volume loss present. Basilar cisterns are patent. The hyperdense subdural fluid collection over the left cerebral hemisphere and along the posterior falx and tentorium shows interval decrease in densit y with residual iso to hypodense extra-axial fluid collection over the left cerebral hemisphere measu ring up to 5.6 m in maximum depth. No new hemorrhage. No mass effect. ORBITS: Visualized orbits are unremarkable. SINUSES: The imaged paranasal sinuses and mastoids are clear. OSSEOUS & SOFT TISSUES: Calvarium and skull base are intact. IMPRESSION: Evolving subacute left subdural hematoma and subacute to chronic posterior left temporal lobe infarct . No acute hemorrhage or worsening mass effect. No CT evidence of acute infarct. Electronically signed by: Thomas Thorpe MD (06/22/2020 5:56 PM) [id number]
== END ==
LOC: CT 14:25
PROVIDERS: ATTEND Psychiatry & Neurology Neurology with Special Qualifications in Child Neurology
DX: S06.5X9A Traumatic subdural hemorrhage with loss of consciousness of unspecified duration, initial encounter (principal); X58.XXXA Exposure to other specified factors, initial encounter; Y93.89 Activity, other specified; Y92.89 Other specified places as the place of occurrence of the external cause; Y99.8 Other external cause status
CPT/HCPCS: 70450

== ENCOUNTER → 2021-01-19 | Outpatient (CLI) | payer MEDICARE ==
[2020-08-14 15:00] VITALS: BP 127/56
[~2021-01-19] MED LIST changes: +ASCO500C PO; +ASPI-630 PO; +ATOR40TA59 PO; +GABA300C18 PO; -LISI-338 PO; +LISI-517 PO; +MAGN400T5 PO; +MULT-245 PO
--- NOTE | 2021-01-19 15:23 | KCIC ---
Exam performed: 3 views right hand. HISTORY: Right hand pain. DATE OF SERVICE: 01/19/2021. COMPARISON: None available Findings and impression: Advanced degenerative changes are seen at the first carpometacarpal joint. There are also joint space narrowing at several distal interphalangeal and to a lesser extent proximal interphalangeal joints. There is diffuse soft tissue swelling. No bony erosions or periosteal reaction is seen. No soft tissu e calcification seen. Electronically signed by: Karol Singh MD (01/19/2021 3:20 PM) [id number]
== END ==
LOC: KCIC 10:08
PROVIDERS: ATTEND Family Medicine
DX: M18.11 Unilateral primary osteoarthritis of first carpometacarpal joint, right hand (principal); M79.89 Other specified soft tissue disorders; M25.841 Other specified joint disorders, right hand; M79.641 Pain in right hand
CPT/HCPCS: 73130

== ENCOUNTER 2021-06-14 13:26 | Emergency (ER) | payer MEDICARE ==
[2021-06-07 08:26] VITALS: BP 115/57
[~2021-06-14 13:26] MED LIST changes: +ASPI325T11 PO; +CLOP75TA PO; -LISI-517 PO; +LISI5TAB15 PO; +MAGN400T48 PO; -MAGN400T5 PO; +METF500T16 PO; +METO-239 PO
--- NOTE | 2021-06-14 13:59 | PHYS DOC ---
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 Patient had recently sustained a right humerus fracture and was at a rehab facility when reportedly he was with physical therapy and suffered a syncopal episode and he was noted to have no pulses and chest compressions were started. EMS provided information that the initial 911 call out was at 1221 and they arrived at 1225 and there was bystander CPR in progress. Patient was star zac on ACLS protocol and was noted to be in PEA on every cardiac rhythm check and required no defibrillation's and his blood sugar was in the 200s. Patient received 9 doses of epinephrine by EMS. He arrived to the emergency department at approximately 1325 and he was noted to be in PEA as well but no pulse was detected. Chest compressions were continued with minimal interruptions and high-quality ACLS protocol was continued. Unfortunately patient has been worked for over an hour and has not regained spontaneous circulation and on the ultrasound there was no cardiac movement. Review of Systems Review of Systems Unable to be obtained due to patient's condition Allergies Allergies Allergies Coded Allergies Type Severity Reaction Last Updated Verified No Known Drug Allergies 06/04/21 No Physical Exam Physical Exam Constitutional: Unresponsive male with Ulises device doing compressions HENT: Normocephalic, atraumatic Eyes: Pupils 6 mm nonreactive Neck: Supple Cardiovascular: No cardiac activity Lungs & Thorax: Bilateral breath sounds present with bagging through an I gel Abdomen: No distention Skin: Cool and pale Back: No trauma Extremities: Cool and pale Neurologic: Unresponsive EKG EKG [] Radiology/Procedures Radiology/Procedures [] Course & Med Decision Making Course & Med Decision Making Patient went through over an hour of chest compressions with ACLS protocol being followed and there was no return of spontaneous circulation and his heart is on cardiac standstill on ultrasound so the code was called at 1332. Family was not present Dragon Disclaimer Dragon Disclaimer This electronic medical record was generated, in whole or in part, using a voice recognition dictation system. Departure Departure Impression: Primary Impression: Cardiac arrest Disposition: 20 Condition: Referrals: AMOL MCCORD MD (PCP) BRANDI DENNEY DO Jun 14, 2021 13:59
== END 2021-06-14 17:31 ==
LOC: ER 13:26
DX: I46.9 Cardiac arrest, cause unspecified (principal); E11.9 Type 2 diabetes mellitus without complications; Z87.891 Personal history of nicotine dependence; Z86.73 Personal history of transient ischemic attack (TIA), and cerebral infarction without residual deficits
CPT/HCPCS: 92950; 99285-25